=== PATIENT | female | born 1935 | race African-American/Black ===

== ENCOUNTER 2016-12-21 22:21 | Inpatient (IN) | payer MEDICARE, MEDICAID ==
[2016-12-21] MEDS ORDERED: Lidocaine 2% PF 100 mg/5 ml Syringe ONE (22:56)
[2016-12-21 23:13] LABS: Oxyhemoglobin 97.5 % (94.0-97.0); Sodium 139 mmol/L (135-148)
[2016-12-21 23:19] LABS: Modified Allen's Test POSITIVE
[2016-12-21 23:20] LABS: Mode NRB; Vent NO
--- NOTE | 2016-12-21 23:41 | RAD ---
CHEST ONE VIEW: Comparison: 09-09-16 History: Altered mental status. FINDINGS: The patient is slightly rotated to the right. Enlarged cardiac silhouette. The pulmonary vessels are slightly prominent. Costophrenic angles are minimally blunted. Adequate aeration of the upper lungs . No pneumothorax. IMPRESSION: 1. Pulmonary vascular prominence. Blunting of the costophrenic angles. Correlate for volume overload . 2. Enlarged cardiac silhouette. POS: [facility]
[2016-12-22 00:14] LABS: #Eosinphils 0.4 thou/uL (0.0-0.7); #Lymphocytes 2.4 thou/uL (1.20-3.40); #Neutrophils 3.1 thou/uL (1.40-6.50); %Basophils 0.6 % (0.0-1.0); %Eosinophils 5.5 % (0.0-10.0); %Lymphocytes 34.8 % (21.0-51.0); %Monocytes 13.9 % (0.0-10.0); Hematocrit 35.5 % (36.0-47.0); Mean Platelet Volume 8.3 fL (7.4-10.4); Red Blood Cell (RBC) Count 4.13 mill/uL (4.20-5.40); White Blood Cell (WBC) Count 6.8 thou/uL (4.8-10.8)
[2016-12-22 00:30] LABS: Lactic Acid - Sepsis 1.1 mmol/L (0.5-2.2)
[2016-12-22 00:35] LABS: ALT (SGPT) 29 U/L (8-55); AST (SGOT) 22 U/L (5-34); Alkaline Phosphatase 89 U/L (40-150); Anion Gap 14 mmol/L (10-20); BUN (Urea Nitrogen) 25 mg/dL (9.8-20.1); Bilirubin, Total 0.2 mg/dL (0.2-1.2); CK (CPK) 136 U/L (29-168); Calc. Creatinine Clearance 0 mL/min (70-130); Calcium 9.1 mg/dL (7.8-10.44); Carbon Dioxide 25 mmol/L (23-31); Chloride 105 mmol/L (98-107); Estimated GFR-MDRD 42; Globulin 3.1 g/dL (2.4-3.5); Protein, Total 6.3 g/dL (6.0-8.3)
[2016-12-22 00:39] LABS: Troponin I 0.023 ng/mL (< 0.028)
[2016-12-22 00:42] LABS: Bilirubin Negative (Negative); Blood, Urine Moderate (Negative); Glucose, Urine (Dipstick) Negative (Negative); Ketone, Urine Negative (Negative); Nitrite Positive (Negative); Protein, Urine (Dipstick) 100 mg/dL (Neg-Trace); Urobilinogen 0.2 mg/dL (0.2-1.0)
[2016-12-22 00:44] LABS: Bacteria/HPF 4+ HPF (None Seen)
[2016-12-22 00:59] LABS: RBC/HPF 0-3 HPF (0-3)
[2016-12-22 01:01] LABS: Hyaline Casts/LPF 0-3 HYALINE CAST LPF (0-3 Hyaline); Yeast-All Forms None Seen HPF (None Seen)
[2016-12-22] MEDS ORDERED: Lidocaine 1% w/Epinephrine 1:200K 30 ML VIAL ONE (01:21)
[2016-12-22] MEDS ORDERED: Norepinephrine 8 MG/250 ML BAG IVPB SCH (02:45)
[2016-12-22] MEDS ORDERED: Ondansetron ODT 4 MG TAB SL PRN ×2 (03:48→18:16)
[2016-12-22] MEDS ORDERED: Ondansetron HCl/PF 4 MG/2 ML Vial IVP PRN ×2 (03:48→18:22)
[2016-12-22] MEDS: Sodium Chloride 0.9% 1,000 ML IV SCH ×3 (04:12→21:49)
[2016-12-22] MEDS ORDERED: FLU VACC TS2017-18 (>65YR) 0.5 ML SYRINGE IM ONE (09:00)
--- NOTE | 2016-12-22 09:42 | RAD ---
SEMIUPRIGHT CHEST 1 VIEW: HISTORY: An 81-year-old female with followup altered mental status for post line placement evaluation. There is considerable rotation to the right. Surgical clips in the left axilla. Right central line . No evidence for pneumothorax or pleural effusion. IMPRESSION: Stable-appearing chest. No pneumothorax or pleural effusion following right central line placement. POS: [facility]
--- NOTE | 2016-12-22 09:51 | CON ---
DATE OF CONSULTATION: 12/22/2016 HISTORY: This is an 81-year-old female in the ICU for urosepsis. It appears her blood pressure has improved. There are no family members here. Apparently she came in last night via the ER with hyp ertension. She was here recently in the hospital, 09/24/2016 when she sustained a fall and apparent ly had multiple fractures. She was at the retirement. She apparently had a history of dementia. ER notes stated that she had urosepsis. MEDICATIONS: She has a long list of medicine including DuoNeb, melatonin, Armstrong, Lyrica, Diazepam, cyclobenzaprine, iron tablets, Zetia 10, eye drops, omeprazole, metoprolol 50, lisinopril 10, aspiri n, hydrocortisone suppository, insulin. PAST MEDICAL HISTORY: She has a past medical history of diabetes, chronic obstructive pulmonary dis ease, congestive heart failure, high cholesterol, hypertension, arthritis, breast cancer. PAST SURGICAL HISTORY: Bowel resection, coronary bypass surgery, gallbladder surgery, hysterectomy, mastectomy, recent leg surgery done, left leg. Unable to get any history at this stage from the patient. PHYSICAL EXAMINATION: VITAL SIGNS: Blood pressure 130/86 at 7 o'clock in the morning, pulse 79, sats 82. CHEST: Chest revealed decreased breath sounds, no wheezing. CARDIAC: Normal S1, S2. ABDOMEN: Soft, no masses. X-ray is normal. Previous coronary artery bypass graft scar. LABORATORY: White count 6,000, H\T\H 10 and 32, platelets 221, pO2 151, pCO2 54.32 on 100% nonrebre ather, creatinine 1.4, BUN 25. Urine shows too numerous to count WBCs. X-ray showed no acute infiltrates. IMPRESSION: 1. Presumed urosepsis. 2. Hypertension, resolved. 3. Encephalopathy. 4. Chronic obstructive pulmonary disease. 5. Dementia. 6. Recent fractured femur. 7. Azotemia. PLAN: She can probably be transferred out of the ICU once off of all pressors. She was started on ceftriaxone and vancomycin for presumed urosepsis. Microbiology cultures are showing Escherichia co li from July 2016 sensitive to all the antibiotics which we will continue. Transfer to unmonitored bed. Discuss code status with family. Waiting for primary care physician.
[2016-12-22] MEDS ORDERED: Vancomycin HCl 1 GM in Premix Bag 1 BAG IVPB SCH ×2 (12:00→18:30)
[2016-12-22] MEDS ORDERED: cefTRIAXone\\ROCEPHIN 1 GM, Syringe 0.4 ML in Sterile Water 9.6 ML SLOW IVP SCH (13:00)
[2016-12-22] MEDS ORDERED: Dextrose 50% Abboject 50 ML SYRINGE IVP PRN (13:10)
[2016-12-22] MEDS ORDERED: Dextrose 5% in Water 1,000 ML IV PRN (13:10)
[2016-12-22] MEDS ORDERED: HumaLOG 300 UNITS/3 ML VIAL SC PRN (13:10)
[2016-12-22] MEDS ORDERED: Diazepam 5 MG TAB PO PRN (18:27)
[2016-12-22] MEDS ORDERED: Polyethylene Glycol 3350 17 GM Packet PO PRN (18:30)
[2016-12-22] MEDS ORDERED: Milk Of Magnesia 30 ML UDCUP PO PRN (18:34)
[2016-12-22] MEDS ORDERED: cefTRIAXone\\ROCEPHIN 2 GM in Sodium Chloride 0.9% 100 ML IVPB SCH (20:00)
[2016-12-22] MEDS: Simvastatin 20 MG TAB PO SCH (21:43)
[2016-12-22] MEDS: Pregabalin 75 MG CAP PO SCH (21:44)
[2016-12-22] MEDS: Ezetimibe 10 MG TAB PO SCH (21:44)
[2016-12-22] MEDS: Docusate 100 MG CAP PO SCH (21:44)
[2016-12-22] MEDS: Cyclobenzaprine 10 MG TAB PO SCH (21:45)
[2016-12-22] MEDS: Artificial Tear Sol 15 ML BOT EA EYE SCH (21:47)
[2016-12-22] MEDS: Methyl Salicylate/Menthol 85 GM TUBE TOP SCH (23:11)
[2016-12-23] MEDS: Vancomycin HCl 1 GM in Premix Bag 1 BAG IVPB SCH ×2 (00:11→11:45)
[2016-12-23] MEDS: Sodium Chloride 0.9% 1,000 ML IV SCH ×3 (05:28→19:50)
[2016-12-23 05:38] LABS: #Eosinphils 0.6 thou/uL (0.0-0.7); #Lymphocytes 1.7 thou/uL (1.20-3.40); #Monocytes 0.6 thou/uL (0.11-0.59); #Neutrophils 3.6 thou/uL (1.40-6.50); %Basophils 0.6 % (0.0-1.0); %Eosinophils 8.6 % (0.0-10.0); %Lymphocytes 26.3 % (21.0-51.0); %Monocytes 9.5 % (0.0-10.0); Hematocrit 32.7 % (36.0-47.0); Mean Platelet Volume 7.7 fL (7.4-10.4); Red Blood Cell (RBC) Count 3.84 mill/uL (4.20-5.40); White Blood Cell (WBC) Count 6.6 thou/uL (4.8-10.8)
[2016-12-23 05:57] LABS: Anion Gap 12 mmol/L (10-20); BUN (Urea Nitrogen) 14 mg/dL (9.8-20.1); Calc. Creatinine Clearance 82 mL/min (70-130); Calcium 8.6 mg/dL (7.8-10.44); Carbon Dioxide 27 mmol/L (23-31); Chloride 106 mmol/L (98-107); Estimated GFR-MDRD 85
[2016-12-23] MEDS: Diabetic Tussin 200 MG/10 ML UDCUP PO PRN (06:09)
[2016-12-23] MEDS: Ciprofloxacin 0.3% Ophth Drops 2.5 ml Bottle R EYE SCH ×5 (07:16→22:16)
--- NOTE | 2016-12-23 09:14 | PRG ---
DATE OF SERVICE: 12/23/2016 This morning she is a little bit more responsive, no longer confused. PHYSICAL EXAMINATION: VITAL SIGNS: Blood pressure is 160/81, O2 sats 93%, respirations 16, temperature 97. CHEST: Chest revealed decreased breath sounds, no wheezing. CARDIAC: Normal S1-S2. No gallops. ABDOMEN: Soft. No masses. LABORATORY: White count 6000, hemoglobin and hematocrit 10 and 32, platelet count is normal. Elect rolytes are normal. IMPRESSION: 1. Presumed sepsis syndrome. Cultures are negative. 2. Dementia. 3. Hypertension, resolved. PLAN: From a pulmonary standpoint, she can be transferred out of the [facility]. She is a DNR. I will follow at a distance.
[2016-12-23] MEDS: Ascorbic Acid 500 mg Chewable Tablet PO SCH ×2 (09:16→16:33)
[2016-12-23] MEDS: Cyclobenzaprine 10 MG TAB PO SCH ×2 (09:16→21:51)
[2016-12-23] MEDS: Ferrous Sulfate 325 MG TAB PO SCH ×2 (09:17→16:33)
[2016-12-23] MEDS: Pregabalin 75 MG CAP PO SCH ×2 (09:17→21:51)
[2016-12-23] MEDS: Aspirin 325 MG TAB PO SCH (09:17)
[2016-12-23] MEDS: Docusate 100 MG CAP PO SCH ×3 (09:17→21:54)
[2016-12-23] MEDS: Lisinopril 10 MG TAB PO SCH (09:17)
[2016-12-23] MEDS: Artificial Tear Sol 15 ML BOT EA EYE SCH ×4 (09:18→21:54)
[2016-12-23] MEDS: Bisacodyl 10 MG SUPP PR SCH (09:18)
[2016-12-23] MEDS: Methyl Salicylate/Menthol 85 GM TUBE TOP SCH ×3 (09:18→21:53)
[2016-12-23] MEDS: cefTRIAXone\\ROCEPHIN 2 GM in Sodium Chloride 0.9% 100 ML IVPB SCH (09:19)
[2016-12-23] MEDS: HYDROcodone/Acetaminophen 10/325 mg Tablet PO PRN (09:24)
--- NOTE | 2016-12-23 16:40 | HP ---
DATE OF ADMISSION: 12/22/2016 CHIEF COMPLAINT: Lethargy. HISTORY OF PRESENT ILLNESS: Ms. Boucher is an 81-year-old female with past medical h istory of coronary artery disease, hypertension, and diabetes mellitus, who was found to be lethargi c since yesterday. Patient has not been eating well for the last 24 hours, not taking any fluids, w as given medications for pain and other medications including for blood pressure. The patient was a lso found to be hypotensive with blood pressure of 80/60 in the longterm. Patient was DNR; she was restless and called for EMS. In the ER, the patient was evaluated, she was found to be lethargi c and found to have urinary tract infection with possible sepsis. She was hypotensive as well. She was given IV fluids, normal saline bolus 3 liters after her blood pressure improved to 100/60, then she was started on Levophed and admitted to the hospital. The patient also received Rocephin, vanc omycin, and gentamicin for urosepsis. The patient did not have any fever when she came. No nausea, vomiting, no chest pain, no shortness of breath. PAST MEDICAL HISTORY: 1. Diabetes mellitus. 2. Coronary artery disease. 3. Hypertension. 4. Hyperlipidemia. 5. Chronic back pain. 6. Recent admission in September for the fall for femur fracture. PAST SURGICAL HISTORY: 1. Status post ORIF of the distal femur fracture. 2. Status post coronary artery bypass graft. 3. Status post cholecystectomy. 4. Status post hysterectomy. 5. Status post mastectomy. 6. Status post spinal surgery. CURRENT MEDICATIONS: The patient is on albuterol inhaler q.i.d. p.r.n., vitamin C 500 mg daily, asp irin 325 mg daily, Dulcolax p.r.n., Flexeril 10 mg b.i.d., diazepam 5 mg b.i.d., Colace t.i.d., Zeti a 10 mg daily, [place] 1 q.i.d. p.r.n. 10/325, insulin 70/30 dosage not clear right now, lisinopril 10 mg daily, milk of magnesia p.r.n., meclizine 25 mg b.i.d., melatonin 5 mg at bedtime, metoprolol 50 mg daily, omeprazole 20 mg daily, Zofran p.r.n., MiraLax 17 g daily, artificial tears daily p.r.n., Lyrica 150 b.i.d., Zocor 10 mg daily. ALLERGIES: CODEINE. FAMILY HISTORY: Nothing of interest. SOCIAL HISTORY: The patient is a resident of [facility]. No history of smoking. No h istory of alcohol. REVIEW OF SYSTEMS: Unable to obtain from patient because of mental status of the patient. PHYSICAL EXAMINATION: GENERAL: The patient is awake, not very alert. VITAL SIGNS: Temperature 99, pulse 101, respirations 20, blood pressure initially 94/60. HEENT: Head is normocephalic, atraumatic. Pupils are equal and reactive. Nasopharynx is pale and dry. Hard and soft palate, no lesions seen. SKIN: Turgor is decreased. NECK: Supple. No JVD. LUNGS: Breath sounds diminished bilaterally. Percussion not dull bilaterally. No rales, no rhonch i. CARDIAC: S1, S2 regular. ABDOMEN: Soft. No distention, no tenderness. Normal bowel sounds present. RECTAL: Deferred. CENTRAL NERVOUS SYSTEM: The patient is awake, not very alert, moving all extremities. Deep tendon reflexes 2+ bilaterally. Plantars downgoing. Sensory intact. LABORATORY AND X-RAY FINDINGS: CBC shows WBC 6.8, hemoglobin 10.8, hematocrit 35, platelets 221. M etabolic panel: Sodium 139, potassium 4.0, chloride 105, CO2 of 25, BUN 25, creatinine 1.4, glucose 95. Urinalysis showed wbc's greater than 50, bacteria 4+, nitrite positive. ABG shows pH 7.32, pC O2 of 54, pO2 151, saturation 98%. Chest x-ray showed chronic lung changes. EKG shows normal sinus rhythm, no acute ST-T wave changes seen. ASSESSMENT: 1. Possible urosepsis. 2. Hypotension. 3. Metabolic encephalopathy. 4. Diabetes mellitus. 5. Coronary artery disease. 6. Chronic back pain. 7. Chronic anemia. PLAN: 1. Diet n.p.o. 2. Allergies: CODEINE. 3. The patient is DNR. 4. IV fluids with normal saline 125 mL per hour. 5. Rocephin 2 grams IV piggyback daily. 6. Vancomycin 1 gram IV piggyback q.12 hours. 7. Accu-Cheks a.c. and bedtime. 8. Sliding scale mild with regular insulin. 9. List of her home medications.
[2016-12-23] MEDS: Simvastatin 20 MG TAB PO SCH (21:51)
[2016-12-23] MEDS: Ezetimibe 10 MG TAB PO SCH (21:51)
[2016-12-24] MEDS: HYDROcodone/Acetaminophen 10/325 mg Tablet PO PRN (01:20)
[2016-12-24] MEDS: Sodium Chloride 0.9% 1,000 ML IV SCH ×3 (03:59→21:37)
[2016-12-24] MEDS: Ciprofloxacin 0.3% Ophth Drops 2.5 ml Bottle R EYE SCH ×5 (05:39→21:41)
[2016-12-24] MEDS: Cyclobenzaprine 10 MG TAB PO SCH ×2 (07:34→21:34)
[2016-12-24] MEDS: Pregabalin 75 MG CAP PO SCH ×2 (07:34→21:34)
[2016-12-24] MEDS: Docusate 100 MG CAP PO SCH ×3 (07:34→21:35)
[2016-12-24] MEDS: Bisacodyl 10 MG SUPP PR SCH (07:35)
[2016-12-24] MEDS: Lisinopril 10 MG TAB PO SCH (07:35)
[2016-12-24] MEDS: Aspirin 325 MG TAB PO SCH (07:35)
[2016-12-24] MEDS: Ferrous Sulfate 325 MG TAB PO SCH ×2 (07:35→16:59)
[2016-12-24] MEDS: Ascorbic Acid 500 mg Chewable Tablet PO SCH ×2 (07:35→16:58)
[2016-12-24] MEDS: Methyl Salicylate/Menthol 85 GM TUBE TOP SCH ×3 (07:36→21:36)
[2016-12-24] MEDS: Artificial Tear Sol 15 ML BOT EA EYE SCH ×4 (07:36→21:33)
[2016-12-24] MEDS: cefTRIAXone\\ROCEPHIN 2 GM in Sodium Chloride 0.9% 100 ML IVPB SCH (08:55)
[2016-12-24 12:33] LABS: Vancomycin, Trough 10.8 ug/mL
[2016-12-24] MEDS ORDERED: Lisinopril 10 MG TAB PO SCH (20:00)
[2016-12-24] MEDS: Ezetimibe 10 MG TAB PO SCH (21:34)
[2016-12-24] MEDS: Simvastatin 20 MG TAB PO SCH (21:35)
[2016-12-25] MEDS: Sodium Chloride 0.9% 1,000 ML IV SCH ×5 (05:34→22:27)
[2016-12-25] MEDS: Ciprofloxacin 0.3% Ophth Drops 2.5 ml Bottle R EYE SCH ×5 (05:42→21:49)
[2016-12-25] MEDS: cefTRIAXone\\ROCEPHIN 2 GM in Sodium Chloride 0.9% 100 ML IVPB SCH (08:37)
[2016-12-25] MEDS: Ascorbic Acid 500 mg Chewable Tablet PO SCH ×2 (08:37→17:07)
[2016-12-25] MEDS: Ferrous Sulfate 325 MG TAB PO SCH ×2 (08:38→17:07)
[2016-12-25] MEDS: Artificial Tear Sol 15 ML BOT EA EYE SCH ×4 (08:41→21:48)
[2016-12-25] MEDS: Diabetic Tussin 200 MG/10 ML UDCUP PO PRN (08:43)
[2016-12-25] MEDS: Aspirin 325 MG TAB PO SCH (09:55)
[2016-12-25] MEDS: Pregabalin 75 MG CAP PO SCH ×2 (09:56→21:45)
[2016-12-25] MEDS: Cyclobenzaprine 10 MG TAB PO SCH ×2 (09:56→21:45)
[2016-12-25] MEDS: Bisacodyl 10 MG SUPP PR SCH (09:56)
[2016-12-25] MEDS: Docusate 100 MG CAP PO SCH ×3 (09:57→21:44)
[2016-12-25] MEDS: Lisinopril 10 MG TAB PO SCH ×2 (09:57→21:47)
[2016-12-25] MEDS: Methyl Salicylate/Menthol 85 GM TUBE TOP SCH ×3 (09:58→22:29)
[2016-12-25] MEDS: Simvastatin 20 MG TAB PO SCH (21:45)
[2016-12-25] MEDS: Ezetimibe 10 MG TAB PO SCH (21:47)
[2016-12-25] MEDS: HYDROcodone/Acetaminophen 10/325 mg Tablet PO PRN (21:53)
[2016-12-26] MEDS: Diabetic Tussin 200 MG/10 ML UDCUP PO PRN (00:09)
[2016-12-26] MEDS: Ciprofloxacin 0.3% Ophth Drops 2.5 ml Bottle R EYE SCH ×2 (06:40→10:34)
[2016-12-26] MEDS: Sodium Chloride 0.9% 1,000 ML IV SCH (06:49)
[2016-12-26] MEDS: HYDROcodone/Acetaminophen 10/325 mg Tablet PO PRN (06:52)
[2016-12-26 07:37] VITALS: BMI 34.4
[2016-12-26] MEDS: Aspirin 325 MG TAB PO SCH (08:33)
[2016-12-26] MEDS: Ascorbic Acid 500 mg Chewable Tablet PO SCH (08:33)
[2016-12-26] MEDS: Pregabalin 75 MG CAP PO SCH (08:33)
[2016-12-26] MEDS: Ferrous Sulfate 325 MG TAB PO SCH (08:34)
[2016-12-26] MEDS: Lisinopril 10 MG TAB PO SCH (08:34)
[2016-12-26] MEDS: Cyclobenzaprine 10 MG TAB PO SCH (08:34)
[2016-12-26] MEDS: Bisacodyl 10 MG SUPP PR SCH (08:35)
[2016-12-26] MEDS: Artificial Tear Sol 15 ML BOT EA EYE SCH ×2 (08:35→13:13)
[2016-12-26] MEDS: Docusate 100 MG CAP PO SCH (08:35)
[2016-12-26] MEDS: Methyl Salicylate/Menthol 85 GM TUBE TOP SCH (08:36)
[2016-12-26] MEDS: cefTRIAXone\\ROCEPHIN 2 GM in Sodium Chloride 0.9% 100 ML IVPB SCH (08:44)
[2016-12-26 08:45] VITALS: TEMP 97.8
[2016-12-26 11:18] VITALS: BP 162/84
--- NOTE | 2016-12-29 13:57 | DIS ---
DATE OF ADMISSION: 12/22/2016 DATE OF DISCHARGE: 12/26/2016 ADMITTING DIAGNOSES: 1. Possible urosepsis. 2. Hypotension. 3. Metabolic encephalopathy. 4. Diabetes mellitus. 5. Coronary artery disease. 6. Chronic back pain. 7. Chronic anemia. FINAL DIAGNOSES: 1. Urosepsis, improved. 2. Hypotension, improved. 3. Metabolic encephalopathy, improved. 4. Diabetes mellitus. 5. Coronary artery disease. 6. Chronic back pain. 7. Chronic anemia. BRIEF SUMMARY OF HOSPITAL COURSE: Ms. Boucher is an 81-year-old -[place] female admitted because of change in mental status and hypotension. The patient was found to have urosepsis. The patient was given IV fluids and initially, she was started on pressors and admitted to CCU for close monitoring. She was started on Rocephin and vancomycin initially and IV fluids but following day, her blood pressure improved. The patient became more alert , awake, and she was started on a diet. She started to eat very well and blood pressure was stable. She was transferred out of ccu. . Blood culture was done , there was no growth. Urine culture showed growth of E. coli sensitive to Rocephin. The patient will continue Rocephin and started on a regular diet and started physical therapy as well. She did not have anymore fever. Her blood pressure remained stable, in fact, it went up, so she was restarted on her home medications. In view of improvement, the patient is being discharged back to senior living. At the time of discharge, she was stable. PHYSICAL EXAMINATION: VITAL SIGNS: Stable. LUNGS: Clear. HEART: Sounds regular. ABDOMEN: Soft, nontender, bowel sounds present. DISCHARGE MEDICATIONS: Include omeprazole 20 mg daily, metoprolol 50 mg daily, simvastatin 10 mg daily, pregabalin 150 b.i.d., Zetia 10 mg daily, aspirin 325 mg daily, meclizine 25 b.i.d., diazepam 5 mg b.i.d., albuterol inhaler q.i.d. p.r.n., [place] t.i.d. p.r.n., vitamin C daily, Zofran p.r.n., ferrous sulfate b.i.d., lisinopril 10 mg daily, Milk of Magnesia p.r.n., MiraLax 17 grams daily , Colace 100 mg t.i.d., cyclobenzaprine 10 mg b.i.d., melatonin 5 mg at bedtime , artificial tears q.i.d., levofloxacin 750 daily for 1 week, diazepam 5 mg b.i.d. p.r.n., DuoNebs q.i.d. p.r.n. FOLLOWUP: The patient will be followed up in the senior living. ROXANNA
--- NOTE | 2016-12-29 14:34 | PQF ---
SANDY ARMAS VENKAT R MD [id number] CLINICAL DOCUMENTATION CLARIFICATION FORM: POST DISCHARGE Please clarify if documented "urosepsis" can be further specified. H&P; "...found to have Urinary Tract Infection with possible Sepsis. She was hypotensive as well." "...started on Levophed and admitted to the hospital. The patient also received Rocephin, vancomycin, and gentamicin for Urosepsis". PN 12/23 PULMED; "Presumed Sepsis Syndrome. Cultures are negative." PN 12/23; "(1) Urosepsis. (2) Hypotension improving. (3) Encephalopathy improving."; "urine c/s E.Coli"; "DC Vanc, continue Rocephin" . Please exercise your independent, professional judgment in responding to the clarification form. Clinical indicators are provided on the bottom of this form for your review. Thank you. Please check appropriate box(s): [ ] Sepsis due to: (Pna, UTI, gangrenous gall bladder, etc.) [ ] SIRS due to non-infectious process (please specify etiology) [ ] with organ dysfunction [ ] without organ dysfunction [ ] Severe sepsis with acute organ dysfunction of: (Examples: respiratory failure, encephalopathy, acute kidney failure, other) [y ] Urosepsis (localized) infection without sepsis [ ] Other diagnosis [ ] Unable to determine In addition, please specify: Present on Admission (POA): [ ] Yes [ ] No [ ] Unable to determine CLINICAL INDICATORS - SIGNS / SYMPTOMS / LABS Altered mental status Fever or hypothermia (<96.8 F/36 C or > 100.4 F/38C) Respiratory rate >22/min, Hypoxemia, SBP <100mmHg Metabolic acidosis Lactic Acid >2mmol/L, Increase BUN/Regional Marketing Manager, decrease GFR, coag abnormalities, thrombocytopenia-plts <100k Oliguria Shock-hypotension resistant to IV fluid boluses WBC count (>12,000/mm^4 or <4000/mm^3 or 10% neuts, 10% bands) Hyperglycemia in absence of diabetes mellitus Positive blood cultures RISK FACTORS Infection/Bacteremia Pneumonia, UTI, infected wound, gangrenous gall bladder Diabetes or Cancer Surgery / surgical instrumentation / trauma Ruptured/perforated bowel, ruptured appendix Immunosuppression Advancing Age TREATMENTS: Initiation Sepsis Protocol ICU Daily CBC Blood/sputum/wound cultures ID Consult IV antibiotics - broad spectrum IV fluids Vasopressors, meds (This form is maintained as a part of the permanent medical record) 2014 [employer]. All Rights Reserved GREER [email or web address] [phone] ROXANNA
== END 2016-12-26 13:37 | DRG 689 ==
LOC: ERS 22:21 → CCU 12-22 02:32 → IMCU/EMU 12-22 15:29 → T4-B 12-23 14:02
PROVIDERS: ADMIT Internal Medicine; ATTEND Internal Medicine
PROC: 05H633Z Insertion of Infusion Device into Left Subclavian Vein, Percutaneous Approach (ICD-10-PCS; principal; 2016-12-22)
PROC: B547ZZA Ultrasonography of Left Subclavian Vein, Guidance (ICD-10-PCS; 2016-12-22)
DX: N39.0 Urinary tract infection, site not specified (principal); G93.41 Metabolic encephalopathy; I95.9 Hypotension, unspecified; I11.0 Hypertensive heart disease with heart failure; J44.9 Chronic obstructive pulmonary disease, unspecified; F03.90 Unspecified dementia, unspecified severity, without behavioral disturbance, psychotic disturbance, mood disturbance, and anxiety; E11.9 Type 2 diabetes mellitus without complications; B96.20 Unspecified Escherichia coli [E. coli] as the cause of diseases classified elsewhere; D64.9 Anemia, unspecified; Z95.1 Presence of aortocoronary bypass graft; I25.10 Atherosclerotic heart disease of native coronary artery without angina pectoris; Z66 Do not resuscitate; E78.5 Hyperlipidemia, unspecified; M54.9 Dorsalgia, unspecified; Z87.81 Personal history of (healed) traumatic fracture
CPT/HCPCS: 36416; 36556; 51702; 71010; 80048; 80053; 80202; 81003; 81015; 82553; 82805; 83605; 84484; 85025; 87040; 87077; 87086; 87186; 90471; 90682; 93005; 94640; 94760; 96361; 96365; 96366; 96368; 96375; 99292; A4216; A4353; G0008; J0696; J1580; J2001; J3370; J7050; J7620; Q2036

== ENCOUNTER 2017-01-22 18:47 | Inpatient (IN) | payer MEDICARE, MEDICAID ==
[2017-01-22 19:59] LABS: #Eosinphils 0.3 thou/uL (0.0-0.7); #Lymphocytes 2.6 thou/uL (1.20-3.40); #Monocytes 1.6 thou/uL (0.11-0.59); #Neutrophils 8.3 thou/uL (1.40-6.50); %Basophils 0.4 % (0.0-1.0); %Eosinophils 2.4 % (0.0-10.0); %Lymphocytes 20.3 % (21.0-51.0); %Monocytes 12.3 % (0.0-10.0); Hematocrit 40.7 % (36.0-47.0); Mean Platelet Volume 8.8 fL (7.4-10.4); Red Blood Cell (RBC) Count 4.84 mill/uL (4.20-5.40); White Blood Cell (WBC) Count 12.9 thou/uL (4.8-10.8)
[2017-01-22 20:15] LABS: Lactic Acid - Sepsis 0.9 mmol/L (0.5-2.2)
[2017-01-22 20:19] LABS: ALT (SGPT) 67 U/L (8-55); AST (SGOT) 48 U/L (5-34); Alkaline Phosphatase 93 U/L (40-150); Anion Gap 17 mmol/L (10-20); BUN (Urea Nitrogen) 23 mg/dL (9.8-20.1); Bilirubin, Total 0.9 mg/dL (0.2-1.2); Calc. Creatinine Clearance 0 mL/min (70-130); Calcium 9.5 mg/dL (7.8-10.44); Carbon Dioxide 23 mmol/L (23-31); Chloride 102 mmol/L (98-107); Estimated GFR-MDRD 65; Globulin 3.8 g/dL (2.4-3.5); Protein, Total 7.7 g/dL (6.0-8.3)
[2017-01-22 21:04] LABS: Bilirubin Negative (Negative); Blood, Urine Small (Negative); Glucose, Urine (Dipstick) Negative (Negative); Ketone, Urine Negative (Negative); Nitrite Negative (Negative); Protein, Urine (Dipstick) 30 mg/dL (Neg-Trace)
[2017-01-22 21:06] LABS: Bacteria/HPF 4+ HPF (None Seen); Hyaline Casts/LPF 0-3 HYALINE CAST LPF (0-3 Hyaline); Squamous Epithelial None Seen HPF (0-3)
[2017-01-22] MEDS ORDERED: cefTRIAXone\\ROCEPHIN 2 GM in Sodium Chloride 0.9% 100 ML IVPB SCH (21:15)
--- NOTE | 2017-01-22 22:13 | RAD ---
AP VIEW CHEST 01/22/17 HISTORY: Altered mental status. Cough. AP view chest is obtained on 01/22/17. Comparison made to previous exam from 12/22/16. AP view chest demonstrates sternotomy wires seen. Moderate cardiomegaly is seen. Ectasia of the aorta is seen. The lungs are well aerated. No evidence of acute intrathoracic abnormality is noted. Surgic al clips seen in the left axillary region. Bilateral shoulder degenerative changes seen. IMPRESSION: No evidence of acute intrathoracic abnormality seen. POS: [facility]
--- NOTE | 2017-01-22 22:22 | CT ---
HISTORY: 81-year-old with history of altered mental status. NONCONTRAST ENHANCED CT IMAGES OF THE BRAIN 01/22/[address] images of the brain is obtained from the base of the skull to the vertex. Bra in and bone windows obtained. Comparison made to a previous exam from 07/19/16. Noncontrast enhanced CT images of the brain demonstrate some mild cortical atrophy and deep white mat ter ischemic changes for age. No evidence of acute intracranial masses, hemorrhages, or strokes seen. IMPRESSION: Age appropriate cortical atrophy, otherwise unremarkable. CT brain. POS: [facility]
[2017-01-22] MEDS ORDERED: hydrALAZINE 20 MG/ML VIAL ONE (22:33)
[2017-01-22] MEDS ORDERED: Acetaminophen 1,000 MG in Premix Bag 1 BAG IVPB SCH (22:45)
[2017-01-22] MEDS ORDERED: Ondansetron HCl/PF 4 MG/2 ML Vial IVP PRN (23:17)
[2017-01-22] MEDS ORDERED: Ondansetron ODT 4 MG TAB SL PRN (23:17)
[2017-01-22] MEDS ORDERED: Acetaminophen 325 MG TAB PO PRN (23:17)
[2017-01-22] MEDS: Sodium Chloride 0.9% 1,000 ML IV SCH (23:25)
[2017-01-23] MEDS: Sodium Chloride 0.9% 1,000 ML IV SCH (12:13)
[2017-01-23] MEDS ORDERED: Dextrose 5% in Water 1,000 ML IV PRN (13:32)
[2017-01-23] MEDS ORDERED: Dextrose 50% Abboject 50 ML SYRINGE IVP PRN (13:32)
[2017-01-23] MEDS ORDERED: Ondansetron ODT 4 MG TAB PO PRN (13:33)
[2017-01-23] MEDS ORDERED: Milk Of Magnesia 30 ML UDCUP PO PRN ×2 (13:36→13:37)
[2017-01-23] MEDS ORDERED: Loratadine 10 MG TAB PO PRN (13:36)
--- NOTE | 2017-01-23 13:39 | HP ---
DATE OF ADMISSION: 01/22/2017 CHIEF COMPLAINT: Fever, cough, altered mental status. HISTORY OF PRESENT ILLNESS: Ms. Boucher is an 81-year-old female sent from [facility]. The patient was found to have altered mental status and she was lethargic, not respon ding well, not eating well for the last couple of days, she had fever and cough. Cough productive wi th yellow sputum. The patient was not at her baseline, she was confused and slow to respond. In vie w of her change in mental status with fever and cough the patient was sent to the hospital. In the E R, the patient was evaluated and found to have a urinary tract infection. The patient received Rocep hin in the ER. The patient was not hypotensive. Actually, her blood pressure was high. She receive d hydralazine as well. She was started on IV fluids. The patient was definitely confused and slow t o respond in the ER. PAST MEDICAL HISTORY: 1. Hypertension. 2. Diabetes mellitus. 3. Chronic back pain. 4. Anxiety disorder. 5. Chronic anemia. 6. Hyperlipidemia. 7. Coronary artery disease. 8. Recent admission for urinary tract infection. PAST SURGICAL HISTORY: 1. Status post distal femur fracture. 2. Status post coronary artery bypass graft. 3. Status post cholecystectomy. 4. Status post hysterectomy. 5. Status post spinal surgery. CURRENT MEDICATIONS: Patient is on Artificial Tears p.r.n., albuterol inhaler p.r.n., vitamin C symone y, aspirin 81 mg daily, cyclobenzaprine 10 mg b.i.d., diazepam 5 mg b.i.d., Colace 100 mg t.i.d., Zet ia 10 mg daily, ferrous sulfate b.i.d., guaifenesin p.r.n., [place] 10/325 q.i.d. q.8h. p.r.n., insul in 70/30, dose is not clear, DuoNebs q.i.d. p.r.n., lisinopril 10 mg daily, loratadine 10 mg daily, M ilk of Magnesia p.r.n., meclizine 25 mg b.i.d., melatonin 5 mg at bedtime, metoprolol 50 mg daily, Zo logan p.r.n., MiraLax 17 grams daily, Lyrica 150 b.i.d., ranitidine 150 b.i.d., simvastatin 10 mg symone y. ALLERGIES: CODEINE. FAMILY HISTORY: Nothing of interest. SOCIAL HISTORY: Patient lives in longterm. No history of smoking. No history of alcohol intake . REVIEW OF SYSTEMS: CARDIOVASCULAR: No chest pain. No shortness of breath. RESPIRATORY: She has cough and fever. GASTROINTESTINAL: No nausea or vomiting. No appetite, abdominal pain. GENITOURINARY: No dysuria, but has frequency of urination. 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 PHYSICAL EXAMINATION: GENERAL: The patient is alert, awake, oriented x2. VITAL SIGNS: Temperature 102, pulse 109, respirations 20, blood pressure 188/80. HEENT: Head is normocephalic, atraumatic. Pupils equal and reactive to light. Nasopharynx is pale and dry. Hard and soft palate, no lesions. SKIN: Skin turgor decreased. NECK: Supple. No JVD. LUNGS: Breath sounds diminished bilaterally. Percussion not dull bilaterally. No rales, no rhonchi . CARDIAC: S1, S2 regular. ABDOMEN: Soft, no distention, no tenderness. Normal bowel sounds. RECTAL: Deferred. CENTRAL NERVOUS SYSTEM: The patient is alert, awake, oriented x2. Motor system power 4/5 in all ex tremities. Deep tendon reflexes 2+ bilaterally. Sensory intact. LABORATORY AND X-RAY FINDINGS: CBC shows WBC 12.9, hemoglobin 13, hematocrit 40, platelets 162. Met abolic panel: Sodium 136, potassium 5.6, chloride 102, CO2 20, urea nitrogen 20, creatinine 0.9, glu cose 115, AST 48, ALT 67. Urinalysis shows WBCs greater than 50 and RBC 11-20, bacteria 4+, leukocyt e esterase large. Chest x-ray, no acute intrathoracic abnormality. CT scan of the brain showed age appropriate cortica l atrophy, otherwise unremarkable. EKG shows sinus tachycardia with heart rate of 103, no acute ST-T changes seen. ASSESSMENT: 1. Urinary tract infection, rule out sepsis. 2. Acute toxic encephalopathy, metabolic. 3. Fever and leukocytosis, rule out sepsis. 4. Hypertension, uncontrolled. 5. Insulin-dependent diabetes mellitus. 6. Chronic pain. 7. Coronary artery disease. PLAN: 1. Vital signs q.4 hours. 2. Activity: As tolerated. 3. Allergies: CODEINE. 4. Diet: ADA. 5. Rocephin 2 grams IV piggyback daily. 6. Accu-Chek a.c. and at bedtime. 7. Sliding scale mild with regular insulin. 8. IV fluids 1/2 normal at 80 mL per hour. 9. Continue longterm medications. 10. The patient is DNR.
[2017-01-23] MEDS ORDERED: cefTRIAXone\\ROCEPHIN 2 GM in Sodium Chloride 0.9% 100 ML IVPB SCH ×2 (13:45→21:00)
[2017-01-23 14:30] VITALS: BMI 30.2
[2017-01-23] MEDS: Sodium Chloride 0.45% 1,000 ML IV SCH (14:56)
[2017-01-23] MEDS: HYDROcodone/Acetaminophen 10/325 mg Tablet PO SCH ×2 (15:00→22:05)
[2017-01-23] MEDS: Docusate 100 MG CAP PO SCH ×2 (15:02→22:08)
[2017-01-23] MEDS: Artificial Tears 18 DROP/0.9 ML EA EYE SCH (18:10)
[2017-01-23] MEDS ORDERED: Acetaminophen 325 MG TAB PO PRN (21:33)
[2017-01-23] MEDS: Simvastatin 20 MG TAB PO SCH (22:04)
[2017-01-23] MEDS: Melatonin 3 MG TAB PO SCH (22:06)
[2017-01-23] MEDS: Pregabalin 75 MG CAP PO SCH (22:06)
[2017-01-23] MEDS: Famotidine 20 MG TAB PO SCH (22:07)
[2017-01-23] MEDS: Ferrous Sulfate 325 MG TAB PO SCH (22:07)
[2017-01-23] MEDS: Ezetimibe 10 MG TAB PO SCH (22:08)
[2017-01-23] MEDS: Artificial Tear Sol 15 ML BOT EA EYE SCH (22:08)
[2017-01-23] MEDS: Diazepam 2 MG TAB PO SCH (22:08)
[2017-01-23] MEDS: Cyclobenzaprine 10 MG TAB PO SCH (22:08)
[2017-01-23] MEDS ORDERED: Labetalol HCl 100 MG/20 ML VIAL SLOW IVP PRN (22:54)
[2017-01-24] MEDS: BIOFREEZE 4% TOP SCH (01:06)
[2017-01-24] MEDS: Artificial Tears 18 DROP/0.9 ML EA EYE SCH (01:07)
[2017-01-24 04:34] LABS: #Eosinphils 0.2 thou/uL (0.0-0.7); #Monocytes 1.3 thou/uL (0.11-0.59); #Neutrophils 6.5 thou/uL (1.40-6.50); %Basophils 0.1 % (0.0-1.0); %Lymphocytes 19.7 % (21.0-51.0); %Monocytes 13.2 % (0.0-10.0); Hematocrit 34.6 % (36.0-47.0); Mean Platelet Volume 8.9 fL (7.4-10.4); Red Blood Cell (RBC) Count 4.06 mill/uL (4.20-5.40)
[2017-01-24 04:48] LABS: Anion Gap 13 mmol/L (10-20); BUN (Urea Nitrogen) 19 mg/dL (9.8-20.1); Calc. Creatinine Clearance 76 mL/min (70-130); Calcium 8.9 mg/dL (7.8-10.44); Carbon Dioxide 24 mmol/L (23-31); Chloride 104 mmol/L (98-107); Estimated GFR-MDRD 80
[2017-01-24] MEDS: Sodium Chloride 0.45% 1,000 ML IV SCH ×2 (05:52→20:16)
[2017-01-24] MEDS: HYDROcodone/Acetaminophen 10/325 mg Tablet PO SCH ×3 (06:52→22:26)
[2017-01-24] MEDS: Lisinopril 10 MG TAB PO SCH (08:40)
[2017-01-24] MEDS: Cyclobenzaprine 10 MG TAB PO SCH (08:40)
[2017-01-24] MEDS: Ascorbic Acid 500 mg Chewable Tablet PO SCH (08:40)
[2017-01-24] MEDS: Ferrous Sulfate 325 MG TAB PO SCH ×2 (08:40→20:17)
[2017-01-24] MEDS: Famotidine 20 MG TAB PO SCH ×2 (08:41→20:19)
[2017-01-24] MEDS: Aspirin 81 mg Enteric Coated Tablet PO SCH (08:42)
[2017-01-24] MEDS: Pregabalin 75 MG CAP PO SCH ×2 (08:42→20:17)
[2017-01-24] MEDS: Docusate 100 MG CAP PO SCH ×3 (08:44→20:17)
[2017-01-24] MEDS: Artificial Tear Sol 15 ML BOT EA EYE SCH ×4 (08:45→20:20)
[2017-01-24] MEDS: Polyethylene Glycol 3350 17 GM Packet PO SCH (08:45)
[2017-01-24] MEDS ORDERED: cefTRIAXone\\ROCEPHIN 2 GM in Sodium Chloride 0.9% 100 ML IVPB SCH (09:00)
--- NOTE | 2017-01-24 11:08 | ULT ---
RENAL ULTRASOUND: INDICATION: History of UTI and sepsis. FINDINGS: No hydronephrosis is evident. There is a small 1.5 cm peripelvic cyst involving the inferior pole of the left kidney. The bladder measured 98.1 cc in prevoid state. The right kidney measured 12.8 x 6.8 x 6.8 cm. The left kidney measured 13.4 x 5.4 x 5.9 cm. IMPRESSION: 1. No focal solid renal lesion or hydronephrosis. 2. Inferior pole peripelvic cyst involving the left kidney. POS: [facility]
[2017-01-24] MEDS: Insulin Regular 300 UNITS/3 ML VIAL SC PRN (12:49)
[2017-01-24] MEDS: Diazepam 2 MG TAB PO SCH ×2 (15:22→20:18)
[2017-01-24] MEDS ORDERED: MEROPENEM 1 GM/50 ML 1 GM in Premix Bag 1 BAG IVPB SCH (16:00)
[2017-01-24] MEDS: Melatonin 3 MG TAB PO SCH (20:17)
[2017-01-24] MEDS: Ezetimibe 10 MG TAB PO SCH (20:17)
[2017-01-24] MEDS: Simvastatin 20 MG TAB PO SCH (20:18)
[2017-01-24] MEDS: MEROPENEM 1 GM/50 ML 1 GM in Premix Bag 1 BAG IVPB SCH (20:30)
[2017-01-25] MEDS: MEROPENEM 1 GM/50 ML 1 GM in Premix Bag 1 BAG IVPB SCH ×3 (04:37→20:26)
[2017-01-25] MEDS: HYDROcodone/Acetaminophen 10/325 mg Tablet PO SCH ×3 (05:40→22:53)
[2017-01-25] MEDS: Pregabalin 75 MG CAP PO SCH ×2 (08:09→20:29)
[2017-01-25] MEDS: Polyethylene Glycol 3350 17 GM Packet PO SCH ×2 (08:09→08:21)
[2017-01-25] MEDS: Docusate 100 MG CAP PO SCH ×3 (08:10→20:29)
[2017-01-25] MEDS: Ascorbic Acid 500 mg Chewable Tablet PO SCH (08:10)
[2017-01-25] MEDS: Lisinopril 10 MG TAB PO SCH (08:11)
[2017-01-25] MEDS: Famotidine 20 MG TAB PO SCH ×2 (08:14→20:30)
[2017-01-25] MEDS: Ferrous Sulfate 325 MG TAB PO SCH ×2 (08:15→20:30)
[2017-01-25] MEDS: Aspirin 81 mg Enteric Coated Tablet PO SCH (08:15)
[2017-01-25] MEDS: Artificial Tear Sol 15 ML BOT EA EYE SCH ×4 (10:47→21:00)
[2017-01-25] MEDS: Insulin Regular 300 UNITS/3 ML VIAL SC PRN ×2 (11:34→17:21)
[2017-01-25] MEDS: Sodium Chloride 0.45% 1,000 ML IV SCH (12:57)
[2017-01-25] MEDS: Diabetic Tussin 200 MG/10 ML UDCUP PO PRN (14:45)
[2017-01-25] MEDS: Diazepam 2 MG TAB PO SCH (20:29)
[2017-01-25] MEDS: Simvastatin 20 MG TAB PO SCH (20:29)
[2017-01-25] MEDS: Ezetimibe 10 MG TAB PO SCH (20:29)
[2017-01-25] MEDS: Melatonin 3 MG TAB PO SCH (22:53)
[2017-01-26] MEDS: MEROPENEM 1 GM/50 ML 1 GM in Premix Bag 1 BAG IVPB SCH ×4 (04:00→20:00)
[2017-01-26] MEDS: HYDROcodone/Acetaminophen 10/325 mg Tablet PO SCH ×4 (05:05→21:43)
--- NOTE | 2017-01-26 07:52 | PQF ---
CLINICAL DOCUMENTATION IMPROVEMENT CLARIFICATION FORM: ICD-10 Updated PLEASE DO AN ADDENDUM TO THE PROGRESS NOTE WITH ANY DOCUMENTATION UPDATES OR ADDITIONS AND CARRY THROUGH TO DC SUMMARY. THANK YOU. DATE: 01/26 ATTN: DR. Genie VILLAFUERTE Please exercise your independent, professional judgment in responding to the clarification form. Clinical indicators are provided on the bottom of this form for your review Please check appropriate box(s) to clarify if the following diagnosis has been ruled in our ruled out: R/O SEPSIS [ ] Ruled in diagnosis [ ] Continue to treat [ ] Resolved [y ] Ruled out diagnosis [ ] Other diagnosis [ ] Unable to determine For continuity of documentation, please document condition throughout progress notes and discharge summary. Thank You. CLINICAL INDICATORS - SIGNS / SYMPTOMS / LABS ER PRESENTATION 01/22: AMS T: 102.8 HR: 105-115 WBC: 12.9 ER PHYSICIAN DIAGNOSES DOCUMENTATION 01/22: FINAL: UTI, ADD'L: SEPSIS PHYSICIAN H&P DOCUMENTATION 01/22: ASSESSMENT: 1. UTI, R/O SEPSIS; 2. ACUTE TOXIC ENCELPHALOPATHY, METABOLIC; 3. FEVER & ACUTE LEUKOCYTOSIS, R/O SEPSIS NO FURTHER MENTION OF SEPSIS TO DATE RISK FACTORS: UTI (E COLI) ACUTE TOXIC METABOLIC ENCEPHALOPATHY FEVER (102.8) LEUKOCYTOSIS (12.9) TREATMENTS: IV ANTIBIOTICS (MEROPENEM 01/24 - PRESENT; ROCEPHIN 01/22 - 15) IVF (NS 01/22 - ) THANK YOU! Jenn (This form is maintained as a part of the permanent medical record) 2014 [employer]. All Rights Reserved Jenn Burrows RN, BSN [email or web address] Office: [phone] [facility]
[2017-01-26] MEDS: Artificial Tear Sol 15 ML BOT EA EYE SCH ×4 (08:45→21:43)
[2017-01-26] MEDS: Famotidine 20 MG TAB PO SCH ×2 (08:45→21:43)
[2017-01-26] MEDS: Ferrous Sulfate 325 MG TAB PO SCH ×2 (08:45→21:45)
[2017-01-26] MEDS: Docusate 100 MG CAP PO SCH ×3 (08:46→21:45)
[2017-01-26] MEDS: Lisinopril 10 MG TAB PO SCH (08:46)
[2017-01-26] MEDS: Aspirin 81 mg Enteric Coated Tablet PO SCH (08:46)
[2017-01-26] MEDS: Ascorbic Acid 500 mg Chewable Tablet PO SCH (08:46)
[2017-01-26] MEDS: Polyethylene Glycol 3350 17 GM Packet PO SCH (08:47)
[2017-01-26] MEDS: Pregabalin 75 MG CAP PO SCH ×2 (10:14→21:44)
[2017-01-26] MEDS: Diabetic Tussin 200 MG/10 ML UDCUP PO PRN (11:40)
[2017-01-26] MEDS: Insulin Regular 300 UNITS/3 ML VIAL SC PRN (11:40)
[2017-01-26] MEDS: Melatonin 3 MG TAB PO SCH (21:42)
[2017-01-26] MEDS: Simvastatin 20 MG TAB PO SCH (21:43)
[2017-01-26] MEDS: Ezetimibe 10 MG TAB PO SCH (21:44)
[2017-01-26] MEDS: Diazepam 2 MG TAB PO SCH (21:45)
[2017-01-27] MEDS: MEROPENEM 1 GM/50 ML 1 GM in Premix Bag 1 BAG IVPB SCH (04:17)
[2017-01-27] MEDS: HYDROcodone/Acetaminophen 10/325 mg Tablet PO SCH ×3 (05:52→22:00)
[2017-01-27] MEDS: Pregabalin 75 MG CAP PO SCH ×2 (08:40→20:37)
[2017-01-27] MEDS: Ascorbic Acid 500 mg Chewable Tablet PO SCH (08:40)
[2017-01-27] MEDS: Ferrous Sulfate 325 MG TAB PO SCH ×2 (08:41→20:38)
[2017-01-27] MEDS: Famotidine 20 MG TAB PO SCH ×2 (08:41→20:38)
[2017-01-27] MEDS: Docusate 100 MG CAP PO SCH ×3 (08:41→20:38)
[2017-01-27] MEDS: Artificial Tear Sol 15 ML BOT EA EYE SCH ×4 (08:42→20:39)
[2017-01-27] MEDS: Aspirin 81 mg Enteric Coated Tablet PO SCH (08:42)
[2017-01-27] MEDS: Polyethylene Glycol 3350 17 GM Packet PO SCH (08:42)
[2017-01-27] MEDS: Lisinopril 10 MG TAB PO SCH (08:42)
[2017-01-27] MEDS: Insulin Regular 300 UNITS/3 ML VIAL SC PRN (15:09)
[2017-01-27] MEDS: Ezetimibe 10 MG TAB PO SCH (20:37)
[2017-01-27] MEDS: Nitrofurantoin Monohyd/M-Cryst 100 MG CAP PO SCH (20:38)
[2017-01-27] MEDS: Diazepam 2 MG TAB PO SCH (20:38)
[2017-01-27] MEDS: Simvastatin 20 MG TAB PO SCH (20:38)
[2017-01-27] MEDS: Melatonin 3 MG TAB PO SCH ×2 (20:39→20:44)
[2017-01-28] MEDS: HYDROcodone/Acetaminophen 10/325 mg Tablet PO SCH (06:17)
[2017-01-28] MEDS: Artificial Tear Sol 15 ML BOT EA EYE SCH (08:28)
[2017-01-28] MEDS: Pregabalin 75 MG CAP PO SCH (08:28)
[2017-01-28] MEDS: Polyethylene Glycol 3350 17 GM Packet PO SCH (08:28)
[2017-01-28] MEDS: Ferrous Sulfate 325 MG TAB PO SCH (08:29)
[2017-01-28] MEDS: Lisinopril 10 MG TAB PO SCH ×2 (08:30→10:11)
[2017-01-28] MEDS: Ascorbic Acid 500 mg Chewable Tablet PO SCH (08:30)
[2017-01-28] MEDS: Aspirin 81 mg Enteric Coated Tablet PO SCH (08:30)
[2017-01-28] MEDS: Famotidine 20 MG TAB PO SCH (08:30)
[2017-01-28] MEDS: Nitrofurantoin Monohyd/M-Cryst 100 MG CAP PO SCH (08:30)
[2017-01-28] MEDS: Docusate 100 MG CAP PO SCH (08:30)
[2017-01-28] MEDS ORDERED: Lisinopril 10 MG TAB PO SCH (10:00)
[2017-01-28 12:31] VITALS: BP 158/92; TEMP 98.1
--- NOTE | 2017-01-29 14:40 | DIS ---
DATE OF ADMISSION: 01/22/2017 DATE OF DISCHARGE: 01/28/2017 ADMITTING DIAGNOSES: 1. Urinary tract infection, rule out sepsis. 2. Acute toxic encephalopathy, metabolic. 3. Fever and leukocytosis, rule out sepsis. 4. Hypertension, uncontrolled. 5. Insulin-dependent diabetes mellitus. 6. Chronic pain. 7. Coronary artery disease. FINAL DIAGNOSES: 1. Urinary tract infection, no evidence of sepsis. 2. Acute toxic encephalopathy, metabolic, improved. 3. Fever, leukocytosis, resolved. 4. Hypertension, uncontrolled, improved. 5. Insulin-dependent diabetes, uncontrolled, improved. 6. Chronic back pain. 7. Coronary artery disease. BRIEF SUMMARY OF HOSPITAL COURSE: Ms. Boucher is an 81-year-old female admitted bec se of not feeling well, change in mental status. The patient was lethargic, not responding well and not eating well. The patient was found to have a urinary tract infection. She was started on IV ant ibiotics with Rocephin initially, but her urine culture revealed growth of E. coli which was resistan t to Rocephin and sensitive to meropenem, so the antibiotic was changed to meropenem. The patient di d not have any more fever. Her mental status improved. She became more alert, awake, and she starte d to eat very well. Her blood pressure initially was uncontrolled, but medications were adjusted. H er lisinopril dose was increased and her blood pressure came down. Her blood sugars were also high, but her insulin dose was adjusted. So in view of improvement, the patient was discharged. At the ti me of discharge, she was stable. Her vital signs were stable. Lungs clear. Heart sounds regular. Abdomen soft, nontender. Bowel sounds present. DISCHARGE MEDICATIONS: Metoprolol 50 daily, Toprol-XL, simvastatin 10 mg daily, Lyrica 150 b.i.d., Zetia 10 mg daily, meclizine 25 b.i.d., albuterol inhaler p.r.n., [place] p.r.n., vitamin C 500 mg b.i .d., Zofran p.r.n., ferrous sulfate 300 b.i.d., lisinopril 20 mg daily, Milk of Magnesia p.r.n., Annalisa Lax daily, guaifenesin p.r.n., Colace 100 mg t.i.d., Artificial Tears p.r.n., melatonin 5 mg at bedti me, DuoNeb q.i.d. p.r.n., ranitidine 150 b.i.d., loratadine 10 mg daily, aspirin 81 mg daily, Macrob id 100 b.i.d. for 10 days, diazepam 2 mg at bedtime and Tylenol p.r.n. FOLLOWUP: The patient will be followed up at senior living in 2 weeks.
--- NOTE | 2017-01-31 15:53 | EKG ---
Test Reason : Blood Pressure : / mmHG Vent. Rate : 103 BPM Atrial Rate : 103 BPM P-R Int : 144 ms QRS Dur : 090 ms QT Int : 324 ms P-R-T Axes : 049 -18 097 degrees QTc Int : 424 ms Sinus tachycardia Left ventricular hypertrophy with repolarization abnormality Abnormal ECG Confirmed by BASSEM REYES, JEFFREY ([id number]), legal editor NEVIN PINTO ([id number]) on 01/31/2017 3:52:22 PM Referred By: Confirmed By:JEFFREY LUEVANO MD
== END 2017-01-28 12:23 | DRG 689 ==
LOC: ERS 18:47 → T4-B 21:12
PROVIDERS: ADMIT Internal Medicine; ATTEND Internal Medicine
DX: N39.0 Urinary tract infection, site not specified (principal); G92 Toxic encephalopathy; E11.9 Type 2 diabetes mellitus without complications; I11.0 Hypertensive heart disease with heart failure; I50.9 Heart failure, unspecified; E78.5 Hyperlipidemia, unspecified; B96.20 Unspecified Escherichia coli [E. coli] as the cause of diseases classified elsewhere; D64.9 Anemia, unspecified; G89.29 Other chronic pain; M54.9 Dorsalgia, unspecified; F41.9 Anxiety disorder, unspecified; I25.10 Atherosclerotic heart disease of native coronary artery without angina pectoris; Z95.1 Presence of aortocoronary bypass graft; Z79.82 Long term (current) use of aspirin; Z79.4 Long term (current) use of insulin; Z79.891 Long term (current) use of opiate analgesic; Z88.5 Allergy status to narcotic agent; Z85.3 Personal history of malignant neoplasm of breast; Z90.12 Acquired absence of left breast and nipple; M19.90 Unspecified osteoarthritis, unspecified site
CPT/HCPCS: 36415; 36416; 51701; 70450; 71010; 76770; 80048; 80053; 81003; 81015; 83605; 85025; 87040; 87077; 87086; 87186; 93005; 94640; 96365; A4216; A4353; G8978-GP-CL; G8979-GP-CK; G8996-GN-CK; G8997-GN-CK; J0131; J0360; J0696; J1815; J7050; J7620

== ENCOUNTER 2017-07-20 09:45 | Inpatient (IN) | payer MEDICARE, MEDICAID ==
[2017-07-20 10:35] LABS: #Eosinphils 0.5 thou/uL (0.0-0.7); #Lymphocytes 2.1 thou/uL (1.20-3.40); #Monocytes 1.1 thou/uL (0.11-0.59); #Neutrophils 5.2 thou/uL (1.40-6.50); %Basophils 0.4 % (0.0-1.0); %Eosinophils 5.3 % (0.0-10.0); %Lymphocytes 23.7 % (21.0-51.0); %Monocytes 12.7 % (0.0-10.0); %Neutrophils 57.9 % (42.0-75.0); Hemoglobin 12.3 g/dL (12.0-16.0); Mean Corpuscular HGB CONC 33.2 g/dL (32.0-36.0); Mean Corpuscular Hemoglobin 28.8 pg (27.0-31.0); Mean Corpuscular Volume 86.7 fl (81.0-99.0); Mean Platelet Volume 7.6 fL (7.4-10.4); Platelet Count 149 thou/uL (130-400); Red Blood Cell (RBC) Count 4.26 mill/uL (4.20-5.40); White Blood Cell (WBC) Count 8.9 thou/uL (4.8-10.8)
[2017-07-20 10:57] LABS: ALT (SGPT) 28 U/L (8-55); AST (SGOT) 28 U/L (5-34); Alkaline Phosphatase 75 U/L (40-150); Anion Gap 14 mmol/L (10-20); BUN (Urea Nitrogen) 11 mg/dL (9.8-20.1); Bilirubin, Total 0.6 mg/dL (0.2-1.2); CK (CPK) 336 U/L (29-168); Calc. Creatinine Clearance 0 mL/min (70-130); Calcium 9.4 mg/dL (7.8-10.44); Carbon Dioxide 25 mmol/L (23-31); Chloride 101 mmol/L (98-107); Estimated GFR-MDRD 80; Globulin 2.9 g/dL (2.4-3.5); Glucose 90 mg/dL (83-110); Potassium 4.2 mmol/L (3.5-5.1); Protein, Total 6.9 g/dL (6.0-8.3); Sodium 136 mmol/L (136-145)
[2017-07-20 11:01] LABS: CKMB 3.8 ng/mL (0-6.6); Troponin I 0.052 ng/mL (< 0.028)
[2017-07-20] MEDS ORDERED: Acetaminophen 500 MG TAB ONE (11:07)
--- NOTE | 2017-07-20 11:35 | RAD ---
PORTABLE AP CHEST: Date: 07/20/17 HISTORY: Dyspnea and fever. Productive cough. COMPARISON: 01/23/17. FINDINGS: Postsurgical changes related to CABG are noted. Surgical clips overlie the neck bilaterally. The card iac silhouette is magnified by projection and stable in size from the prior study, and probably mild enlarged. The pulmonary vasculature is within normal limits. Surgical clips overlie the left axillary region. Lungs appear clear. Radiopaque catheter overlies the right shoulder. There is a lucency over lying the subcutaneous soft tissues laterally on the right, which is probably artifactual. There has been no interval change when compared to prior exam. IMPRESSION: Overall stable chest without evidence of an acute cardiopulmonary process. POS: [facility]
--- NOTE | 2017-07-20 11:44 | RAD ---
LEFT FOOT 3 VIEWS: Date: 07/20/17 HISTORY: Sepsis. Concern for left foot osteomyelitis. FINDINGS/IMPRESSION: Bones are osteopenic. Degenerative changes are present. No fracature, dislocation, bony destruction, or periosteal reaction are seen. Vascular calcifications are present. If there is high clinical suspicion for osteomyelitis, further evaluation with MRI could be performed . Calcaneal spurs are present. POS: AAKASH
[2017-07-20 12:47] LABS: Bilirubin Negative (Negative); Blood, Urine Negative (Negative); Clarity CLEAR (Clear); Glucose, Urine (Dipstick) Negative (Negative); Leukocyte Negative (Negative); Nitrite Negative (Negative); Protein, Urine (Dipstick) Negative (Neg-Trace); Specific Gravity, Urine 1.006 (1.002-1.036); Urobilinogen 0.2 mg/dL (0.2-1.0); pH, Urine 6.5 (5.0-9.0)
[2017-07-20] MEDS ORDERED: Piperacillin/Tazobactam 4.5 GM VIAL ONE (13:30)
[2017-07-20] MEDS ORDERED: methylPREDNISolone Sod Succ/PF 125 MG/2 ML VIAL ONE (14:52)
--- NOTE | 2017-07-20 14:57 | CT ---
NONCONTRAST CT THORAX: DATE: 07/20/17. HISTORY: Productive cough and fever. COMPARISON: 09/18/11. FINDINGS: There are several nodular densities seen within the right upper lobe perihilar location with associat ed mild surrounding ground-glass densities. The findings may be related to infectious or inflammator y process, but followup to complete resolution is recommended to exclude neoplastic process; although , this is thought less likely. There is a small pulmonary nodule seen within the superior segment of the right lower lobe which kimmy ures 6 mm. This also could be related to infectious process, but again followup evaluation is recomm ended. A curvilinear density seen at the posteromedial aspect of the right lower lobe. This could be relate d to an area of scarring or atelectasis. There are several linear densities present within the left upper lobe with slight bronchiectasis suggesting chronic lung changes. No discrete pulmonary nodule or mass is seen on the left. Lack of intravenous contrast does limit evaluation of the mediastinal structures, but no definite enl arged lymph nodes are seen. Prominent vascular calcifications are seen in the coronary arteries as w ell as involving the thoracic aorta. The esophagus is fluid and air filled which could be related to gastroesophageal reflux. No hiatal h ernia is appreciated. Multilevel degenerative changes are seen in the thoracic spine. There are remote healed lower chef german ior right-sided rib fractures. There is bilateral glenohumeral joint osteoarthropathy. Postsurgical changes lower cervical spine are seen related to anterior cervical fusion. Surgical cli ps are seen in the neck bilaterally. There are hypodense nodules seen within the right lobe of the t hyroid gland. The largest hypodense nodule measures 1.4 cm and was present on the prior study, altho ugh slightly enlarged from the prior exam where this measured 1.3 cm. Surgical clips are seen in the left axillary region. 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 There do es appear to be fusion of a few lower thoracic vertebral bodies. IMPRESSION: 1. Several nodular densities with surrounding minimal ground-glass densities within the right upper lobe, and findings may be related to infectious or inflammatory process. However, followup is recomm ended to exclude a neoplastic process. 2. Noncalcified pulmonary nodule superior segment of the right lower lobe which could also be attrib utable to infectious or inflammatory process, but this can also be reevaluated on followup exam. Fol lowup study in 3 months is recommended. 3. Chronic lung changes. 4. Thyroid nodules. There were nodules seen on the prior study in 2011, and thyroid ultrasound in 2 013 also demonstrated multiple thyroid nodules. 5. Gastroesophageal reflux. POS: [facility]
[2017-07-20] MEDS ORDERED: Acetaminophen 325 MG TAB PO PRN (16:14)
[2017-07-20] MEDS ORDERED: Ondansetron ODT 4 MG TAB SL PRN (16:14)
[2017-07-20] MEDS ORDERED: Ondansetron HCl/PF 4 MG/2 ML Vial IVP PRN (16:14)
[2017-07-20 18:16] LABS: Troponin I 0.051 ng/mL (< 0.028)
[2017-07-20] MEDS ORDERED: Diazepam 2 MG TAB PO PRN (21:43)
[2017-07-20] MEDS ORDERED: MENTHOL (BIOFREEZE 4% GEL) TOP PRN (21:58)
[2017-07-20] MEDS ORDERED: Ondansetron ODT 4 MG TAB PO PRN (22:00)
[2017-07-20] MEDS: HYDROcodone/Acetaminophen 7.5/325 mg Tablet PO PRN (22:13)
--- NOTE | 2017-07-21 02:35 | HP ---
DATE OF ADMISSION: 07/20/2017 REASON FOR ADMISSION AND CHIEF COMPLAINT: Fever, cough, shortness of breath, wheezing. HISTORY OF PRESENT ILLNESS: Ms. Boucher is an 81-year-old -Serbian female with past medical hi story of hypertension, insulin-dependent diabetes mellitus, chronic back pain. She has been having a low-grade fever for couple of days with cough, congestion, but today, the patient spiked temperature s to 100-101.9, also has been having difficulty breathing with chest wheezing and/or cough is also pr oductive with yellow sputum. [facility], but patient state s they did not help, so she was sent to the hospital by EMS. In the ER, the patient was evaluated an d found to have pneumonia, right upper lobe as well as chest wheezing. The patient received a dose o f Zosyn and vancomycin, also received Solu-Medrol and DuoNeb treatments. The patient feels slightly better and she is being admitted for further evaluation and management. PAST MEDICAL HISTORY: 1. Diabetes mellitus, insulin-dependent. 2. Hypertension. 3. Chronic back pain. 4. Anxiety disorder. 5. Chronic anemia. 6. Hyperlipidemia. 7. Coronary artery disease. 8. History of UTI. 9. History of asthmatic bronchitis. PAST SURGICAL HISTORY: 1. Status post CABG. 2. Status post cholecystectomy and hysterectomy. 3. Status post spinal surgery. CURRENT MEDICATIONS: The patient is on albuterol inhaler two puffs q.i.d. p.r.n., vitamin C 500 mg b .i.d., aspirin 81 mg daily, Flexeril b.i.d., diazepam 2 mg b.i.d. p.r.n., Colace 100 mg b.i.d. p.r.n. , Cymbalta 30 mg daily, Zetia 10 mg daily, ferrous sulfate 325 mg b.i.d., [place] q.8 hours p.r.n. 7.5/ 325, Novolin insulin 70/30 of 50 units b.i.d., DuoNeb q.i.d., lisinopril 10 mg daily, loratadine 10 m g daily, milk of magnesia p.r.n., meclizine 25 mg daily, melatonin 5 mg at bedtime p.r.n., Zofran p.r .n., metoprolol 50 daily, MiraLax daily 17 grams, Lyrica 150 b.i.d., ranitidine 150 b.i.d., simvastat in 10 mg at bedtime. ALLERGIES: NKDA. FAMILY HISTORY: Nothing of interest. SOCIAL HISTORY: The patient is resident of [place]. No history of smoking. No hist ory of alcohol. REVIEW OF SYSTEMS: Cardiovascular: No chest pain. Has shortness of breath. Respiratory: Has coug h, fever. Gastrointestinal: No nausea or vomiting. No abdominal pain. Genitourinary: No dysuria or hematuria. Central Nervous System: No headache, no dizziness. PHYSICAL EXAMINATION: GENERAL: The patient is alert, awake, oriented x3. VITAL SIGNS: Temperature 101, respirations 26, pulse 82, blood pressure 120/60, O2 saturation are 90 % on 2 liters. HEENT: Normocephalic, atraumatic. Pupils equal and reactive to light. Nasopharynx is pale and dry. Hard and soft palate, no lesions. SKIN: Skin turgor decreased. NECK: Supple. No JVD. LUNGS: Breath sounds diminished bilaterally. Percussion dull bilaterally. Expiratory wheeze presen t. HEART: S1, S2 regular. ABDOMEN: Soft, obese. No distention, no tenderness. Normal bowel sounds present. RECTAL: Deferred. CENTRAL NERVOUS SYSTEM: No focal deficit. LABORATORY DATA AND X-RAY FINDINGS: CBC shows WBC 8.9, hemoglobin 12, hematocrit 36, platelets 149. Metabolic panel: Sodium 136, potassium 4.2, chloride 101, CO2 of 25, urea nitrogen 11, creatinine 0 .8, glucose 90, CK-MB 3.8, troponin I 0.052, C-reactive protein 1.36. Urinalysis negative. Chest x- ray shows haziness in the right upper lobe. CT scan of the chest showed nodular density in the right upper lobe, possible infectious versus inflammatory process. EKG shows sinus tachycardia with heart rate of [address]-T wave changes seen. ASSESSMENT: 1. Pneumonia, right upper lobe. 2. Asthmatic bronchitis, acute. 3. Fever. 4. Hypertension. 5. Diabetes mellitus. 6. Chronic back pain. 7. Coronary artery disease by history. PLAN: 1. Vital signs q.4 hours. 2. Activity: As tolerated. 3. Allergies: NKDA. 4. Zosyn 3.375 grams IV piggyback q.6 hours. 5. Diet: ADA. 6. Continue jail medication. 7. DuoNeb 1 unit q.6 hours. 8. Solu-Medrol 20 mg IVP q.6 hours. 9. Mucinex 600 b.i.d. 10. Oxygen by nasal cannula 2 liters. 11. The patient is DNR.
[2017-07-21] MEDS: Meclizine HCl 25 MG TAB PO SCH ×2 (08:38→22:06)
[2017-07-21] MEDS: Ascorbic Acid 500 mg Chewable Tablet PO SCH ×2 (08:38→18:08)
[2017-07-21] MEDS: Famotidine 20 MG TAB PO SCH (08:39)
[2017-07-21] MEDS: Lisinopril 10 MG TAB PO SCH (08:39)
[2017-07-21] MEDS: Ferrous Sulfate 325 MG TAB PO SCH ×2 (08:39→18:09)
[2017-07-21] MEDS: Cyclobenzaprine 10 MG TAB PO SCH ×2 (08:39→22:06)
[2017-07-21] MEDS: DULoxetine 30 MG CAP PO SCH (08:39)
[2017-07-21] MEDS: Pregabalin 75 MG CAP PO SCH ×2 (08:39→22:06)
[2017-07-21] MEDS: Aspirin 81 mg Enteric Coated Tablet PO SCH (08:40)
[2017-07-21] MEDS: HYDROcodone/Acetaminophen 7.5/325 mg Tablet PO PRN ×2 (10:38→18:09)
[2017-07-21] MEDS: Artificial Tear Sol 15 ML BOT EA EYE SCH ×4 (11:47→22:09)
[2017-07-21] MEDS: Insulin NPH/Reg Insulin Hm 300 UNITS/3 ML VIAL SC SCH ×2 (11:48→17:26)
--- NOTE | 2017-07-21 11:53 | PQF ---
CLINICAL DOCUMENTATION IMPROVEMENT CLARIFICATION FORM: ICD-10 Updated PLEASE DO AN ADDENDUM TO THE PROGRESS NOTE WITH ANY DOCUMENTATION UPDATES OR ADDITIONS AND CARRY THROUGH TO DC SUMMARY. THANK YOU. DATE: 07/21 ATTN : DR. Genie VILLAFUERTE Please exercise your independent, professional judgment in responding to the clarification form. Clinical indicators are provided on the bottom of this form for your review Please check appropriate box(s): [ ] Empirically treating Gram Negative Pneumonia [ ] Pneumonia secondary to (specify organism / underlying disease) [ ] Simple Pneumonia (community acquired - nosocomial) [ ] Other diagnosis [ y ] Unable to determine For continuity of documentation, please document condition throughout progress notes and discharge summary. Thank You. CLINICAL INDICATORS - SIGNS / SYMPTOMS / LABS ER PHYSICIAN DOCUMENTATION 07/20: PNEUMONIA PHYSICIAN H&P DOCUMENTATION 07/20: 1) PNEUMONIA, RUL; 3) FEVER CT CHEST 07/20: IMPRESSION: 1) SEVERAL NODULAR DENSITIES W/SURROUNDING MINIMAL GROUND-GLASS DENSITIES WITHIN THE RUL, & FINDINGS MAY BE R/T INFECTIOUS OF INFLAMMATORY PROCESS. RISK FACTORS: RESIDENTIAL RESIDENT ASTHMATIC BRONCHITIS TREATMENTS: IV ANTIBIOTIC (ZOSYN 07/20 - PRESENT) RESPIRATORY TREATMENT (NEBS 07/20 - PRESENT, QID) THANK YOU! Jenn (This form is maintained as a part of the permanent medical record) 2014 [employer]. All Rights Reserved Jenn Burrows RN, BSN [email or web address] Office: [phone] [facility]
--- NOTE | 2017-07-21 11:59 | PQF ---
CLINICAL DOCUMENTATION IMPROVEMENT CLARIFICATION FORM: ICD-10 Updated PLEASE DO AN ADDENDUM TO THE PROGRESS NOTE WITH ANY DOCUMENTATION UPDATES OR ADDITIONS AND CARRY THROUGH TO DC SUMMARY. THANK YOU. DATE: 07/21 ATTN: DR. Genie VILLAFUERTE Please exercise your independent, professional judgment in responding to the clarification form. Clinical indicators are provided on the bottom of this form for your review Please check appropriate box(es): [ ] Sepsis due to: (Pna, UTI, gangrenous gall bladder, etc.) [ ] Localized infection without sepsis [ y ] Other diagnosis ___pneumonia [ ] Unable to determine For continuity of documentation, please document condition throughout progress notes and discharge summary. Thank You. CLINICAL INDICATORS - SIGNS / SYMPTOMS / LABS ER PRESENTATION 07/20: T: 101.2 (R) HR: 115 RR: 26 CRP: 1.36 ER PHYSICIAN DIAGNOSES 07/20: PNEUMONIA, SEPSIS RISK FACTORS: RUL PNEUMONIA FEVER, COUGH, SOB TREATMENT: IV ANTIBIOTIC (ZOSYN 07/20 - PRESENT) THANK YOU! Elsie (This form is maintained as a part of the permanent medical record) 2015 [employer], [employer]. All Rights Reserved Jenn Burrows RN, BSN [email or web address] Office: [phone] [facility]ITAL[facility]
[2017-07-21] MEDS ORDERED: Dextrose 5% in Water 1,000 ML IV PRN (17:46)
[2017-07-21] MEDS ORDERED: Dextrose 50% Abboject 50 ML SYRINGE IVP PRN (17:46)
[2017-07-21] MEDS: Polyethylene Glycol 3350 17 GM Packet PO PRN (18:09)
[2017-07-21] MEDS: Ezetimibe 10 MG TAB PO SCH (22:06)
[2017-07-21] MEDS: Simvastatin 5 MG TAB PO SCH (22:06)
[2017-07-21] MEDS: Piperacillin/Tazobactam 3.375 GM in Sodium Chloride 0.9% 100 ML IVPB SCH (22:07)
[2017-07-21] MEDS: Insulin Regular 300 UNITS/3 ML VIAL SC PRN (22:27)
[2017-07-21] MEDS: guaiFENesin ER 600 MG TAB PO SCH (22:30)
[2017-07-22] MEDS: Piperacillin/Tazobactam 3.375 GM in Sodium Chloride 0.9% 100 ML IVPB SCH ×4 (03:22→22:24)
[2017-07-22] MEDS: Famotidine 20 MG TAB PO SCH (09:22)
[2017-07-22] MEDS: Cyclobenzaprine 10 MG TAB PO SCH ×2 (09:22→22:23)
[2017-07-22] MEDS: Lisinopril 10 MG TAB PO SCH (09:22)
[2017-07-22] MEDS: DULoxetine 30 MG CAP PO SCH (09:22)
[2017-07-22] MEDS: Ferrous Sulfate 325 MG TAB PO SCH ×2 (09:22→18:13)
[2017-07-22] MEDS: Ascorbic Acid 500 mg Chewable Tablet PO SCH ×2 (09:22→18:14)
[2017-07-22] MEDS: Aspirin 81 mg Enteric Coated Tablet PO SCH (09:23)
[2017-07-22] MEDS: Artificial Tear Sol 15 ML BOT EA EYE SCH ×4 (09:23→22:25)
[2017-07-22] MEDS: Meclizine HCl 25 MG TAB PO SCH ×2 (09:23→22:22)
[2017-07-22] MEDS: Insulin NPH/Reg Insulin Hm 300 UNITS/3 ML VIAL SC SCH ×2 (09:23→18:16)
[2017-07-22] MEDS: guaiFENesin ER 600 MG TAB PO SCH ×2 (09:23→22:23)
[2017-07-22] MEDS: Pregabalin 75 MG CAP PO SCH ×2 (09:24→22:37)
[2017-07-22] MEDS: Insulin Regular 300 UNITS/3 ML VIAL SC PRN ×2 (12:08→18:17)
--- NOTE | 2017-07-22 13:49 | ULT ---
THYROID ULTRASOUND: HISTORY: The patient is status post left thyroid lobectomy. Followup of right lobe thyroid nodules. COMPARISON: Thyroid ultrasound examination from 07/26/2012. FINDINGS: Real-time imaging of the thyroid gland is performed. This shows multiple right lobe thyroid nodules, the largest of which is a complex nodule with echogenic densities, probably related to colloid, with in a complex cyst. It measures approximately 1.5 cm in size. A small, peripherally calcified nodule measures 6 to 7 mm, similar to the previous exam. No definite change since the prior study. IMPRESSION: 1. The patient is status post left thyroid lobectomy. 2. Numerous right lobe thyroid nodules, not definitely changed since the prior exam. POS: AAKASH
--- NOTE | 2017-07-22 14:48 | EKG ---
Test Reason : Blood Pressure : / mmHG Vent. Rate : 111 BPM Atrial Rate : 111 BPM P-R Int : 140 ms QRS Dur : 098 ms QT Int : 336 ms P-R-T Axes : 062 -07 133 degrees QTc Int : 456 ms Sinus tachycardia Confirmed by JUNITO CASTRO ([id number]), editor managing newspaper NEVIN PINTO ([id number]) on 07/22/2017 2:48:31 PM Referred By: Confirmed By:JUNITO CASTRO
[2017-07-22] MEDS: HYDROcodone/Acetaminophen 7.5/325 mg Tablet PO PRN (20:45)
[2017-07-22] MEDS: DOCOSANOL TOP SCH ×2 (22:20→22:21)
[2017-07-22] MEDS: Ezetimibe 10 MG TAB PO SCH (22:23)
[2017-07-22] MEDS: Simvastatin 5 MG TAB PO SCH (22:36)
[2017-07-23] MEDS: Piperacillin/Tazobactam 3.375 GM in Sodium Chloride 0.9% 100 ML IVPB SCH ×4 (04:25→20:22)
[2017-07-23 05:13] LABS: Anion Gap 13 mmol/L (10-20); BUN (Urea Nitrogen) 25 mg/dL (9.8-20.1); Calc. Creatinine Clearance 73 mL/min (70-130); Calcium 9.3 mg/dL (7.8-10.44); Carbon Dioxide 25 mmol/L (23-31); Chloride 101 mmol/L (98-107); Estimated GFR-MDRD 68; Glucose 193 mg/dL (83-110); Potassium 4.9 mmol/L (3.5-5.1); Sodium 134 mmol/L (136-145)
[2017-07-23 05:30] LABS: Free T4 (Free Thyroxine) 0.84 ng/dL (0.70-1.48)
[2017-07-23 05:36] LABS: Thyroid Stimulating Hormone 0.4762 uIU/mL (0.35-4.94)
[2017-07-23] MEDS: Insulin Regular 300 UNITS/3 ML VIAL SC PRN ×3 (05:46→16:10)
[2017-07-23] MEDS: Lisinopril 10 MG TAB PO SCH (08:15)
[2017-07-23] MEDS: guaiFENesin ER 600 MG TAB PO SCH ×2 (08:15→20:21)
[2017-07-23] MEDS: Aspirin 81 mg Enteric Coated Tablet PO SCH (08:15)
[2017-07-23] MEDS: Pregabalin 75 MG CAP PO SCH ×2 (08:16→20:20)
[2017-07-23] MEDS: Cyclobenzaprine 10 MG TAB PO SCH ×2 (08:16→20:20)
[2017-07-23] MEDS: Ferrous Sulfate 325 MG TAB PO SCH ×2 (08:16→17:19)
[2017-07-23] MEDS: Ascorbic Acid 500 mg Chewable Tablet PO SCH ×2 (08:16→17:19)
[2017-07-23] MEDS: Artificial Tear Sol 15 ML BOT EA EYE SCH ×4 (08:17→20:19)
[2017-07-23] MEDS: DULoxetine 30 MG CAP PO SCH (08:17)
[2017-07-23] MEDS: Meclizine HCl 25 MG TAB PO SCH ×2 (08:17→20:20)
[2017-07-23] MEDS: Famotidine 20 MG TAB PO SCH (08:17)
[2017-07-23] MEDS: Insulin NPH/Reg Insulin Hm 300 UNITS/3 ML VIAL SC SCH ×2 (08:17→17:47)
[2017-07-23] MEDS: Docusate 100 MG CAP PO PRN (13:56)
[2017-07-23 14:35] VITALS: BMI 37.5
[2017-07-23] MEDS: Ezetimibe 10 MG TAB PO SCH (20:20)
[2017-07-23] MEDS: Simvastatin 5 MG TAB PO SCH (20:21)
[2017-07-24] MEDS: Piperacillin/Tazobactam 3.375 GM in Sodium Chloride 0.9% 100 ML IVPB SCH ×4 (03:21→20:32)
[2017-07-24] MEDS: Insulin Regular 300 UNITS/3 ML VIAL SC PRN ×3 (05:45→20:34)
[2017-07-24] MEDS: Aspirin 81 mg Enteric Coated Tablet PO SCH (07:55)
[2017-07-24] MEDS: Ferrous Sulfate 325 MG TAB PO SCH ×2 (07:55→17:09)
[2017-07-24] MEDS: Docusate 100 MG CAP PO PRN (07:55)
[2017-07-24] MEDS: Ascorbic Acid 500 mg Chewable Tablet PO SCH ×2 (07:56→17:09)
[2017-07-24] MEDS: Cyclobenzaprine 10 MG TAB PO SCH ×2 (07:56→20:33)
[2017-07-24] MEDS: Meclizine HCl 25 MG TAB PO SCH ×2 (07:56→20:33)
[2017-07-24] MEDS: Pregabalin 75 MG CAP PO SCH ×2 (07:56→20:34)
[2017-07-24] MEDS: Famotidine 20 MG TAB PO SCH (07:56)
[2017-07-24] MEDS: DULoxetine 30 MG CAP PO SCH (07:56)
[2017-07-24] MEDS: guaiFENesin ER 600 MG TAB PO SCH ×2 (07:56→20:33)
[2017-07-24] MEDS: predniSONE 20 MG TAB PO SCH ×2 (07:56→20:33)
[2017-07-24] MEDS: Lisinopril 10 MG TAB PO SCH (07:56)
[2017-07-24] MEDS: Insulin NPH/Reg Insulin Hm 300 UNITS/3 ML VIAL SC SCH ×2 (07:57→17:08)
[2017-07-24] MEDS: Artificial Tear Sol 15 ML BOT EA EYE SCH ×4 (07:57→20:34)
--- NOTE | 2017-07-24 10:51 | PQF ---
CLINICAL DOCUMENTATION IMPROVEMENT CLARIFICATION FORM: ICD-10 Updated PLEASE DO AN ADDENDUM TO THE PROGRESS NOTE WITH ANY DOCUMENTATION UPDATES OR ADDITIONS AND CARRY THROUGH TO DC SUMMARY. THANK YOU. DATE: 07/24 ATTN: DR. Genie VILLAFUERTE Please exercise your independent, professional judgment in responding to the clarification form. Clinical indicators are provided on the bottom of this form for your review Please check appropriate box(s): ___y____ I (concur) with the Wound Care findings as stated below. [ ] Pressure Ulcer: (Stage I: Erythema; Stage II: Partial thickness; Stage III : Full thickness; Stage IV: Necrosis to muscle/bone) [ ] Location: POA: [ ] Yes [ ] No[ ] Unable to determine Stage (I to IV): (Left Right Bilateral N/A ) [ ] No pressure ulcer diagnosis [ ] Other diagnosis [ ] Unable to determine In addition, please specify: Present on Admission (POA): [ y ] Yes [ ] No [ ] Unable to determine For continuity of documentation, please document condition throughout progress notes and discharge summary. Thank You. CLINICAL INDICATORS - SIGNS / SYMPTOMS / LABS ER NURSING SKIN ASSESSMENT 07/20: PRESSURE ULCER TO HEEL, BLISTER-LIKE, NO SKIN BREAKDOWN, FOOT IN PRESSURE ULCER BOOT WOUND CARE CONSULT DOCUMENTATION 07/21: L HEEL UNSTAGEABLE PRESSURE ULCER, WOUND TYPE: BLISTER RISK FACTORS: DM II REQUIRES ASSISTANCE W/MOBILITY OBESITY TREATMENTS: WOUND CARE CONSULT WAFFLE MATTRESS FLOAT HEELS OFF MATTRESS THANK YOU! Jenn (This form is maintained as a part of the permanent medical record) 2015 [employer]. All Rights Reserved Jenn Burrows RN, BSN [email or web address] Office: [phone] [facility]
[2017-07-24] MEDS: Simvastatin 5 MG TAB PO SCH (20:33)
[2017-07-24] MEDS: Ezetimibe 10 MG TAB PO SCH (20:33)
[2017-07-24] MEDS: HYDROcodone/Acetaminophen 7.5/325 mg Tablet PO PRN (21:25)
[2017-07-24] MEDS: Milk Of Magnesia 30 ML UDCUP PO PRN (21:27)
[2017-07-25] MEDS: Piperacillin/Tazobactam 3.375 GM in Sodium Chloride 0.9% 100 ML IVPB SCH ×4 (03:38→20:44)
[2017-07-25] MEDS: Insulin NPH/Reg Insulin Hm 300 UNITS/3 ML VIAL SC SCH ×2 (09:48→16:51)
[2017-07-25] MEDS: DULoxetine 30 MG CAP PO SCH (09:49)
[2017-07-25] MEDS: Lisinopril 10 MG TAB PO SCH (09:49)
[2017-07-25] MEDS: guaiFENesin ER 600 MG TAB PO SCH ×2 (09:51→20:42)
[2017-07-25] MEDS: Meclizine HCl 25 MG TAB PO SCH ×2 (09:51→20:42)
[2017-07-25] MEDS: Pregabalin 75 MG CAP PO SCH ×2 (09:51→20:43)
[2017-07-25] MEDS: Aspirin 81 mg Enteric Coated Tablet PO SCH (09:52)
[2017-07-25] MEDS: predniSONE 20 MG TAB PO SCH ×2 (09:52→16:53)
[2017-07-25] MEDS: Famotidine 20 MG TAB PO SCH (09:53)
[2017-07-25] MEDS: Ferrous Sulfate 325 MG TAB PO SCH ×2 (09:53→17:04)
[2017-07-25] MEDS: Artificial Tear Sol 15 ML BOT EA EYE SCH ×4 (09:53→20:44)
[2017-07-25] MEDS: Ascorbic Acid 500 mg Chewable Tablet PO SCH ×2 (09:53→16:52)
[2017-07-25] MEDS: Polyethylene Glycol 3350 17 GM Packet PO PRN (09:53)
[2017-07-25] MEDS: Cyclobenzaprine 10 MG TAB PO SCH ×2 (09:53→20:42)
[2017-07-25] MEDS: PROVENTIL INHALER 6.7 G (200 INHALATIONS) INH SCH ×2 (19:09→19:11)
[2017-07-25] MEDS: HYDROcodone/Acetaminophen 7.5/325 mg Tablet PO PRN (20:42)
[2017-07-25] MEDS: Loratadine 10 MG TAB PO PRN (20:42)
[2017-07-25] MEDS: Docusate 100 MG CAP PO PRN (20:42)
[2017-07-25] MEDS: Melatonin 3 MG TAB PO PRN (20:42)
[2017-07-25] MEDS: Ezetimibe 10 MG TAB PO SCH (20:42)
[2017-07-25] MEDS: Simvastatin 5 MG TAB PO SCH (20:42)
[2017-07-25] MEDS: Milk Of Magnesia 30 ML UDCUP PO PRN (20:43)
[2017-07-25] MEDS: Insulin Regular 300 UNITS/3 ML VIAL SC PRN (20:50)
[2017-07-26] MEDS: Piperacillin/Tazobactam 3.375 GM in Sodium Chloride 0.9% 100 ML IVPB SCH ×4 (02:24→20:08)
[2017-07-26] MEDS: Insulin NPH/Reg Insulin Hm 300 UNITS/3 ML VIAL SC SCH ×2 (07:42→17:09)
[2017-07-26] MEDS: Pregabalin 75 MG CAP PO SCH ×2 (07:43→20:09)
[2017-07-26] MEDS: Artificial Tear Sol 15 ML BOT EA EYE SCH ×4 (07:43→20:08)
[2017-07-26] MEDS: Ascorbic Acid 500 mg Chewable Tablet PO SCH ×2 (07:44→17:08)
[2017-07-26] MEDS: Ferrous Sulfate 325 MG TAB PO SCH ×2 (07:44→17:09)
[2017-07-26] MEDS: Cyclobenzaprine 10 MG TAB PO SCH ×2 (07:45→20:08)
[2017-07-26] MEDS: predniSONE 20 MG TAB PO SCH ×2 (07:45→17:09)
[2017-07-26] MEDS: guaiFENesin ER 600 MG TAB PO SCH ×2 (07:45→20:08)
[2017-07-26] MEDS: Lisinopril 10 MG TAB PO SCH (07:45)
[2017-07-26] MEDS: Aspirin 81 mg Enteric Coated Tablet PO SCH (07:45)
[2017-07-26] MEDS: Famotidine 20 MG TAB PO SCH (07:45)
[2017-07-26] MEDS: DULoxetine 30 MG CAP PO SCH (07:46)
[2017-07-26] MEDS: PROVENTIL INHALER 6.7 G (200 INHALATIONS) INH SCH ×4 (07:59→19:36)
[2017-07-26] MEDS: Meclizine HCl 25 MG TAB PO SCH ×2 (10:51→20:09)
[2017-07-26] MEDS: Melatonin 3 MG TAB PO PRN (20:08)
[2017-07-26] MEDS: Loratadine 10 MG TAB PO PRN (20:08)
[2017-07-26] MEDS: Ezetimibe 10 MG TAB PO SCH (20:09)
[2017-07-26] MEDS: Simvastatin 5 MG TAB PO SCH (20:09)
[2017-07-26] MEDS: HYDROcodone/Acetaminophen 7.5/325 mg Tablet PO PRN (20:09)
[2017-07-27] MEDS: Piperacillin/Tazobactam 3.375 GM in Sodium Chloride 0.9% 100 ML IVPB SCH ×2 (01:59→08:56)
[2017-07-27] MEDS: PROVENTIL INHALER 6.7 G (200 INHALATIONS) INH SCH ×2 (06:49→10:12)
[2017-07-27 07:34] VITALS: BP 153/87; TEMP 98.2
[2017-07-27] MEDS: Pregabalin 75 MG CAP PO SCH (08:58)
[2017-07-27] MEDS: Lisinopril 10 MG TAB PO SCH (08:59)
[2017-07-27] MEDS: Ascorbic Acid 500 mg Chewable Tablet PO SCH (09:00)
[2017-07-27] MEDS: Meclizine HCl 25 MG TAB PO SCH (09:00)
[2017-07-27] MEDS: DULoxetine 30 MG CAP PO SCH (09:00)
[2017-07-27] MEDS: predniSONE 20 MG TAB PO SCH (09:00)
[2017-07-27] MEDS: Cyclobenzaprine 10 MG TAB PO SCH (09:00)
[2017-07-27] MEDS: Insulin NPH/Reg Insulin Hm 300 UNITS/3 ML VIAL SC SCH (09:00)
[2017-07-27] MEDS: Aspirin 81 mg Enteric Coated Tablet PO SCH (09:00)
[2017-07-27] MEDS: Ferrous Sulfate 325 MG TAB PO SCH (09:00)
[2017-07-27] MEDS: guaiFENesin ER 600 MG TAB PO SCH (09:00)
[2017-07-27] MEDS: Famotidine 20 MG TAB PO SCH (09:00)
[2017-07-27] MEDS: Artificial Tear Sol 15 ML BOT EA EYE SCH (09:01)
[2017-07-27] MEDS: HYDROcodone/Acetaminophen 7.5/325 mg Tablet PO PRN (09:15)
== END 2017-07-27 11:52 | DRG 195 ==
LOC: ERS 09:45 → 2NO 14:24 → T4-B 07-22 20:19
PROVIDERS: ADMIT Internal Medicine; ATTEND Internal Medicine
DX: J18.9 Pneumonia, unspecified organism (principal); L89.620 Pressure ulcer of left heel, unstageable; E11.9 Type 2 diabetes mellitus without complications; I10 Essential (primary) hypertension; G89.29 Other chronic pain; J20.9 Acute bronchitis, unspecified; M54.9 Dorsalgia, unspecified; F41.9 Anxiety disorder, unspecified; D53.9 Nutritional anemia, unspecified; E78.5 Hyperlipidemia, unspecified; I25.10 Atherosclerotic heart disease of native coronary artery without angina pectoris; Z79.4 Long term (current) use of insulin; Z95.1 Presence of aortocoronary bypass graft; Z87.440 Personal history of urinary (tract) infections; Z87.09 Personal history of other diseases of the respiratory system; Z66 Do not resuscitate; Z99.81 Dependence on supplemental oxygen
CPT/HCPCS: 36415; 36416; 51701; 71045; 71250; 76536; 80048; 80053; 81003; 82553; 83605; 84439; 84443; 84484; 85025; 85652; 86140; 87040; 93005; 94640; 94664; 96361; 96365; 96367; 96375; A4353; J1815; J2543; J2920; J2930; J3370; J7050; J7506; J7620

== ENCOUNTER 2017-11-25 18:24 | Inpatient (IN) | payer MEDICARE, MEDICAID ==
[2017-11-25 19:19] LABS: #Basophils 0.1 thou/uL (0.0-0.2); #Eosinphils 0.6 thou/uL (0.0-0.7); #Lymphocytes 2.3 thou/uL (1.20-3.40); #Monocytes 0.8 thou/uL (0.11-0.59); #Neutrophils 4.5 thou/uL (1.40-6.50); %Basophils 0.6 % (0.0-1.0); %Lymphocytes 27.9 % (21.0-51.0); %Monocytes 9.8 % (0.0-10.0); %Neutrophils 54.7 % (42.0-75.0); Hemoglobin 12.4 g/dL (12.0-16.0); Mean Corpuscular HGB CONC 30.7 g/dL (32.0-36.0); Mean Corpuscular Hemoglobin 27.8 pg (27.0-31.0); Mean Corpuscular Volume 90.5 fL (78.0-98.0); Mean Platelet Volume 8.4 fL (7.4-10.4); Platelet Count 219 thou/uL (130-400); Red Blood Cell (RBC) Count 4.46 mill/uL (4.20-5.40); White Blood Cell (WBC) Count 8.3 thou/uL (4.8-10.8)
[2017-11-25 19:27] LABS: Bilirubin Negative (Negative); Blood, Urine Negative (Negative); Clarity CLOUDY (Clear); Glucose, Urine (Dipstick) Negative (Negative); Leukocyte Large (Negative); Nitrite Positive (Negative); Protein, Urine (Dipstick) 30 mg/dL (Neg-Trace); Specific Gravity, Urine 1.015 (1.002-1.036); Urobilinogen 0.2 mg/dL (0.2-1.0); pH, Urine 5.5 (5.0-9.0)
[2017-11-25 19:30] LABS: Bacteria/HPF 4+ HPF (None Seen); Hyaline Casts/LPF 0-3 HYALINE CAST LPF (0-3 Hyaline); Pathc Cast-AUWi Flag 0.72 (0-2.49); RBC/HPF 0-3 HPF (0-3); Squamous Epithelial 0-3 HPF (0-3)
[2017-11-25 19:39] LABS: Actual Bicarbonate (HCO3a) 29.7 mEq/L (22-28); Analyzer IN Cardio ER; Base Excess (BEa) 1.5 mEq/L (-2.0 to +3.0); Calcium, Ionized 1.17 mmol/L (1.12-1.30); Carboxyhemoglobin (COHb) 0.4 gm% (0.0-3.0); Hemoglobin (Hb) 12.9 g/dL (12.0-16.0); O2 Tension (PaO2) 128.1 mmHg (> 60.0); Potassium - ABG Lab 5.13 mmol/L (3.70-5.30); pH, Arterial 7.28 (7.35-7.45)
[2017-11-25 19:41] LABS: CO2 Tension 64.9 mmHg (35.0-45.0); Puncture Site RRA
[2017-11-25 19:42] LABS: ALV-art Gradient 147.275 (0-20)
[2017-11-25 19:43] LABS: ALT (SGPT) 18 U/L (8-55); AST (SGOT) 22 U/L (5-34); Albumin 3.5 g/dL (3.4-4.8); Alkaline Phosphatase 71 U/L (40-150); Anion Gap 13 mmol/L (10-20); BUN (Urea Nitrogen) 35 mg/dL (9.8-20.1); Bilirubin, Total 0.3 mg/dL (0.2-1.2); Calc. Creatinine Clearance 0 mL/min (70-130); Calcium 8.8 mg/dL (7.8-10.44); Carbon Dioxide 24 mmol/L (23-31); Chloride 106 mmol/L (98-107); Estimated GFR-MDRD 45; Globulin 3.1 g/dL (2.4-3.5); Glucose 127 mg/dL (83-110); Potassium 5.9 mmol/L (3.5-5.1); Protein, Total 6.6 g/dL (6.0-8.3); Sodium 137 mmol/L (136-145)
--- NOTE | 2017-11-25 19:48 | RAD ---
CHEST ONE VIEW: 11/25/17 HISTORY: Dyspnea. No breath sounds on right. COMPARISON: 07/20/17. FINDINGS: The cardiac silhouette is magnified by projection. Patient is rotated rightward. Lung markings are se en throughout the right chest. Postoperative changes of the mediastinum. Metallic clips overlie the l eft axilla. IMPRESSION: No evidence of pneumothorax. No active cardiopulmonary abnormalities are apparent. POS: NELIA
[2017-11-25] MEDS ORDERED: cefTRIAXone\\ROCEPHIN 2 GM VIAL ONE (20:26)
[2017-11-25] MEDS ORDERED: Dextrose 50% Abboject 50 ML SYRINGE IVP PRN (23:21)
[2017-11-25] MEDS ORDERED: Dextrose 5% in Water 1,000 ML IV PRN (23:21)
[2017-11-25] MEDS ORDERED: Sodium Chloride 0.9% 500 ML IVPB SCH (23:30)
[2017-11-25] MEDS ORDERED: Acetaminophen 325 MG TAB PO PRN (23:33)
[2017-11-25] MEDS ORDERED: Ondansetron HCl/PF 4 MG/2 ML Vial IVP PRN (23:33)
[2017-11-25] MEDS ORDERED: Ondansetron ODT 4 MG TAB SL PRN (23:33)
[2017-11-26] MEDS: Meropenem 500 MG in Sodium Chloride 0.9% 100 ML IVPB SCH ×2 (00:19→05:55)
[2017-11-26] MEDS: Sodium Chloride 0.9% 1,000 ML IV SCH ×4 (00:19→21:24)
[2017-11-26 09:43] LABS: #Basophils 0.1 thou/uL (0.0-0.2); #Eosinphils 0.4 thou/uL (0.0-0.7); #Lymphocytes 1.9 thou/uL (1.20-3.40); #Monocytes 0.8 thou/uL (0.11-0.59); #Neutrophils 4.5 thou/uL (1.40-6.50); %Basophils 0.7 % (0.0-1.0); %Eosinophils 5.8 % (0.0-10.0); %Lymphocytes 24.3 % (21.0-51.0); %Neutrophils 58.2 % (42.0-75.0); Hemoglobin 12.2 g/dL (12.0-16.0); Mean Corpuscular HGB CONC 30.7 g/dL (32.0-36.0); Mean Corpuscular Hemoglobin 28.1 pg (27.0-31.0); Mean Corpuscular Volume 91.5 fL (78.0-98.0); Mean Platelet Volume 8.4 fL (7.4-10.4); Platelet Count 177 thou/uL (130-400); RBC Distribution Width 14.1 % (11.5-14.5); Red Blood Cell (RBC) Count 4.35 mill/uL (4.20-5.40); White Blood Cell (WBC) Count 7.7 thou/uL (4.8-10.8)
[2017-11-26 10:17] LABS: Anion Gap 11 mmol/L (10-20); BUN (Urea Nitrogen) 25 mg/dL (9.8-20.1); Calc. Creatinine Clearance 62 mL/min (70-130); Calcium 8.6 mg/dL (7.8-10.44); Carbon Dioxide 23 mmol/L (23-31); Chloride 107 mmol/L (98-107); Estimated GFR-MDRD 58; Glucose 114 mg/dL (83-110); Potassium 5.5 mmol/L (3.5-5.1); Sodium 135 mmol/L (136-145)
[2017-11-26] MEDS: MEROPENEM 1 GM/50 ML 1 GM in Premix Bag 1 BAG IVPB SCH ×2 (12:10→17:36)
--- NOTE | 2017-11-26 14:19 | HP ---
REASON FOR ADMISSION/CHIEF COMPLAINT: Hypoxia and change in mental status. HISTORY OF PRESENT ILLNESS: Ms. Boucher is an 82-year-old female with past medical history of hypertension, diabetes, chronic pain and is nonambulatory, was found to have a change in mental status. The patient's family and nursing staff felt the patient is more confused than usual and more sleepy and not eating well, but no fever, no chest pain, no shortness of breath. No cough. No nausea, vomiting, so EMS was called. EMS found the patient with some hypoxia and not breathing well. She was put on BiPAP and brought to the emergency room, the patient was also hypotensive in the emergency room and found to have urinary tract infection. The patient received a dose of Rocephin and also a dose of gentamicin injection, but her blood pressure gradually improved. Her O2 saturation also improved. She was changed to nasal cannula while she was in the ER. The patient is admitted for further evaluation and management. The patient was also found to have leg edema. PAST MEDICAL HISTORY: 1. Hypertension. 2. Diabetes mellitus. 3. Chronic back pain. 4. Anxiety disorder. 5. Chronic anemia. 6. Hyperlipidemia. 7. History of coronary artery disease. 8. History of urinary tract infection. 9. History of asthmatic bronchitis. PAST SURGICAL HISTORY: 1. Status post CABG. 2. Status post cholecystectomy. 3. Status post hysterectomy. 4. Status post spinal surgery. CURRENT MEDICATIONS: Patient is on Zetia 10 mg daily, Biofreeze t.i.d., Mucinex 600 b.i.d. p.r.n., Milk of magnesia p.r.n., [place] 7.5/325 q.i.d. p.r.n. , MiraLax 17 grams daily, Zofran p.r.n., Colace 100 mg b.i.d., ranitidine 150 b.i.d., Claritin 10 mg daily, Lyrica 150 b.i.d., ferrous sulfate 325 mg b.i.d., simvastatin 10 mg daily, metoprolol 50 mg daily, lisinopril 10 mg daily, Cymbalta 60 mg daily, diazepam 2 mg b.i.d., aspirin 81 mg daily. ALLERGIES: POULTRY and CODEINE. FAMILY HISTORY: Nothing of interest. SOCIAL HISTORY: Patient is a resident of [facility]. No history of alcohol intake. REVIEW OF SYSTEMS: CARDIOVASCULAR: No chest pain. No shortness of breath. RESPIRATORY: No fever or cough. GASTROINTESTINAL: No nausea, vomiting, abdominal pain. GENITOURINARY: No dysuria or hematuria. C CENTRAL NERVOUS SYSTEMS: No headache. PHYSICAL EXAMINATION: GENERAL: The patient is awake, not very alert. VITAL SIGNS: Temperature 98, pulse 86, respiration 20, blood pressure 113/60. HEENT: Head is normocephalic, atraumatic. Pupils equal and reactive to light. Nasopharynx is pale and dry. Hard and soft palate, no lesions. SKIN: Skin turgor decreased. NECK: Supple. No JVD. LUNGS: Bilateral air entry present, no rales, no rhonchi. CARDIAC: S1, S2 regular. ABDOMEN: Soft, no distention, no tenderness. Normal bowel sounds present. EXTREMITIES: No edema. NEUROLOGIC: The patient is awake, not very alert. Motor system power 4/5 in all extremities; dtr 2+ bilaterally. Plantar downgoing. Sensory intact. LABORATORY AND X-RAY FINDINGS: CBC shows WBC 8.3, hemoglobin 12.4, hematocrit 40, platelets 219. Metabolic panel: Sodium 137, potassium 4.1, chloride 106, CO2 24, BUN 35, creatinine 1.3, glucose 127. Urinalysis showed WBCs greater than 15, bacteria 4+. ABG showed pH 7.28, pCO2 of 65, pO2 of 128, saturation 97%. Chest x-ray negative. EKG shows normal sinus with no acute ST-T wave changes seen. ASSESSMENT: 1. Metabolic encephalopathy, acute. 2. Acute kidney injury. 3. Hypotension. 4. Urosepsis. 5. Hypoxia. 6. Diabetes mellitus. 7. Chronic back pain. 8. History of coronary artery disease. 9. Chronic anemia. PLAN: 1. Vital signs q.4 hours. 2. Activity: As tolerated. 3. Allergies CODEINE. 4. IV fluids normal saline at 80 mL per hour. 5. Meropenem 1 gram IV piggyback q.6h. 6. Accu-Chek a.c. and at bedtime. 7. Sliding scale mild with regular insulin. 8. Diet: ADA. 9. List of her correction medication. 10. The patient is DNR. 11. We will repeat a.m. labs. MTDD
[2017-11-26] MEDS ORDERED: methylPREDNISolone Sod Succ/PF 125 MG/2 ML VIAL IVP SCH (17:45)
[2017-11-26] MEDS: guaiFENesin ER 600 MG TAB PO SCH (21:16)
[2017-11-27] MEDS: MEROPENEM 1 GM/50 ML 1 GM in Premix Bag 1 BAG IVPB SCH ×3 (01:39→12:04)
[2017-11-27] MEDS: Sodium Chloride 0.9% 1,000 ML IV SCH ×2 (03:56→17:40)
[2017-11-27 05:35] LABS: Chloride 101 mmol/L (98-107); Potassium 5.4 mmol/L (3.5-5.1); Sodium 133 mmol/L (136-145)
[2017-11-27 05:36] LABS: Calcium 8.8 mg/dL (7.8-10.44); Glucose 319 mg/dL (83-110)
[2017-11-27] MEDS: Insulin Regular 300 UNITS/3 ML VIAL SC PRN ×3 (05:36→19:23)
[2017-11-27 05:38] LABS: Carbon Dioxide 24 mmol/L (23-31)
[2017-11-27 05:40] LABS: BUN (Urea Nitrogen) 18 mg/dL (9.8-20.1); Calc. Creatinine Clearance 68 mL/min (70-130); Estimated GFR-MDRD 64
[2017-11-27 05:44] LABS: Anion Gap 13 mmol/L (10-20)
[2017-11-27] MEDS: guaiFENesin ER 600 MG TAB PO SCH ×2 (08:54→21:19)
--- NOTE | 2017-11-27 11:33 | PQF ---
CLINICAL DOCUMENTATION IMPROVEMENT CLARIFICATION FORM: ICD-10 Updated PLEASE DO AN ADDENDUM TO THE PROGRESS NOTE WITH ANY DOCUMENTATION UPDATES OR ADDITIONS AND CARRY THROUGH TO DC SUMMARY. THANK YOU. DATE: 11/27/17 ATTN: Dr. Felix Please exercise your independent, professional judgment in responding to the clarification form. Clinical indicators are provided on the bottom of this form for your review Please check appropriate box(s): [ ] Acute Respiratory Failure due to sepsis. [ ] Acute Respiratory Failure due to [ ] Acute Respiratory Failure: [ ] with Hypoxia [ ] with Hypercapnia [ ] Other diagnosis [ y ] Unable to determine In addition, please specify: Present on Admission (POA): [ y ] Yes [ ] No [ ] Unable to determine For continuity of documentation, please document condition throughout progress notes and discharge summary. Thank You. CLINICAL INDICATORS - SIGNS / SYMPTOMS / LABS H&P 11/25: EMS FOUND THE PATIENT WITH SOME HYPOXIA AND NOT BREATHING WELL. SHE WAS PUT ON BIPAP AND BROUGHT TO ER, HER O2 SATURATION IMPROVED. SHE WAS CHANGED TO NC WHILE IN THE ER ABG SHOWED PH 7.28, PCO2 OF 65 RISKS: H&P: ACUTE METABOLIC ENCEPHALOPATHY. HUMPHREY. HYPOTENSION, HYPOXIA. PN 11/26: HUMPHREY. UTI SEPSIS TREATMENT: ORDER 11/26: RESP: O2 TO KEEP SATS 92% ORDER 11/26: IV SOLU-MEDROL 20 MG Q 6 HRS ORDER 11/16: DUONEB QID Thank you, Yuridia (This form is maintained as a part of the permanent medical record) 2014 [employer], [employer]. All Rights Reserved Yuridia Perez RN, BSN [email or web address] Office: [phone] [facility]
[2017-11-27 14:22] VITALS: BMI 36.5
[2017-11-27] MEDS ORDERED: Loperamide HCl 2 MG CAP PO PRN ×2 (15:08)
[2017-11-27] MEDS ORDERED: Loratadine 10 MG TAB PO PRN (15:09)
[2017-11-27] MEDS ORDERED: Milk Of Magnesia 30 ML UDCUP PO PRN (15:09)
[2017-11-27] MEDS ORDERED: Ondansetron ODT 4 MG TAB PO PRN (15:11)
[2017-11-27] MEDS ORDERED: Melatonin 3 MG TAB PO PRN (15:15)
[2017-11-27] MEDS ORDERED: Docusate 100 MG CAP PO PRN (15:28)
[2017-11-27] MEDS ORDERED: Guaifenesin DM 100-10/5 ML UDCUP PO PRN (15:30)
[2017-11-27] MEDS ORDERED: Diazepam 2 MG TAB PO PRN (16:27)
[2017-11-27] MEDS: Artificial Tear Sol 15 ML BOT EA EYE SCH ×2 (17:42→21:18)
[2017-11-27] MEDS: Ferrous Sulfate 325 MG TAB PO SCH (18:01)
[2017-11-27] MEDS: Ascorbic Acid 500 mg Chewable Tablet PO SCH (18:02)
[2017-11-27] MEDS: HYDROcodone/Acetaminophen 5/325 mg Tablet PO PRN (18:15)
[2017-11-27] MEDS ORDERED: Acetaminophen 325 MG TAB PO PRN (19:02)
[2017-11-27] MEDS: Pregabalin 75 MG CAP PO SCH (21:19)
[2017-11-27] MEDS: Cyclobenzaprine 10 MG TAB PO SCH (21:19)
[2017-11-27] MEDS: Ezetimibe 10 MG TAB PO SCH (21:22)
[2017-11-27] MEDS: Famotidine 20 MG TAB PO SCH (21:22)
[2017-11-27] MEDS: Simvastatin 5 MG TAB PO SCH (21:25)
[2017-11-28] MEDS: Insulin Regular 300 UNITS/3 ML VIAL SC PRN ×5 (00:26→21:30)
[2017-11-28] MEDS: Artificial Tear Sol 15 ML BOT EA EYE SCH ×4 (09:25→21:13)
[2017-11-28] MEDS: guaiFENesin ER 600 MG TAB PO SCH ×2 (09:25→21:13)
[2017-11-28] MEDS: Pregabalin 75 MG CAP PO SCH ×2 (09:25→21:14)
[2017-11-28] MEDS: Famotidine 20 MG TAB PO SCH ×2 (09:26→21:13)
[2017-11-28] MEDS: Cyclobenzaprine 10 MG TAB PO SCH (09:26)
[2017-11-28] MEDS: Ferrous Sulfate 325 MG TAB PO SCH ×2 (09:26→16:58)
[2017-11-28] MEDS: Aspirin 81 mg Enteric Coated Tablet PO SCH (09:26)
[2017-11-28] MEDS: Ascorbic Acid 500 mg Chewable Tablet PO SCH ×2 (09:27→16:58)
[2017-11-28] MEDS: Simvastatin 5 MG TAB PO SCH (21:13)
[2017-11-28] MEDS: predniSONE 20 MG TAB PO SCH (21:13)
[2017-11-28] MEDS: Diazepam 2 MG TAB PO SCH (21:13)
[2017-11-28] MEDS: Ezetimibe 10 MG TAB PO SCH (21:13)
[2017-11-29 04:47] LABS: Anion Gap 10 mmol/L (10-20); BUN (Urea Nitrogen) 24 mg/dL (9.8-20.1); Calc. Creatinine Clearance 73 mL/min (70-130); Calcium 9.2 mg/dL (7.8-10.44); Carbon Dioxide 27 mmol/L (23-31); Chloride 99 mmol/L (98-107); Estimated GFR-MDRD 68; Glucose 317 mg/dL (83-110); Potassium 5.4 mmol/L (3.5-5.1); Sodium 131 mmol/L (136-145)
[2017-11-29] MEDS: Insulin Regular 300 UNITS/3 ML VIAL SC PRN ×4 (05:12→20:33)
[2017-11-29] MEDS: Artificial Tear Sol 15 ML BOT EA EYE SCH ×4 (08:44→20:19)
[2017-11-29] MEDS: guaiFENesin ER 600 MG TAB PO SCH ×2 (08:45→20:19)
[2017-11-29] MEDS: Pregabalin 75 MG CAP PO SCH ×2 (08:45→20:20)
[2017-11-29] MEDS: predniSONE 20 MG TAB PO SCH ×2 (08:45→20:19)
[2017-11-29] MEDS: Ascorbic Acid 500 mg Chewable Tablet PO SCH ×2 (08:46→17:23)
[2017-11-29] MEDS: Ferrous Sulfate 325 MG TAB PO SCH ×2 (08:47→17:23)
[2017-11-29] MEDS: Famotidine 20 MG TAB PO SCH ×2 (08:47→20:19)
[2017-11-29] MEDS: Aspirin 81 mg Enteric Coated Tablet PO SCH (08:47)
[2017-11-29] MEDS: Lisinopril 10 MG TAB PO SCH (08:47)
[2017-11-29] MEDS: Simvastatin 5 MG TAB PO SCH (20:19)
[2017-11-29] MEDS: Ezetimibe 10 MG TAB PO SCH (20:19)
[2017-11-29] MEDS: Diazepam 2 MG TAB PO SCH (20:21)
[2017-11-30] MEDS: Insulin Regular 300 UNITS/3 ML VIAL SC PRN ×2 (05:06→20:37)
[2017-11-30] MEDS: Ascorbic Acid 500 mg Chewable Tablet PO SCH ×2 (07:27→16:36)
[2017-11-30] MEDS: Pregabalin 75 MG CAP PO SCH ×2 (07:27→20:15)
[2017-11-30] MEDS: Famotidine 20 MG TAB PO SCH ×2 (07:28→20:15)
[2017-11-30] MEDS: guaiFENesin ER 600 MG TAB PO SCH ×2 (07:28→20:15)
[2017-11-30] MEDS: Lisinopril 10 MG TAB PO SCH (07:28)
[2017-11-30] MEDS: predniSONE 20 MG TAB PO SCH ×2 (07:28→20:16)
[2017-11-30] MEDS: Aspirin 81 mg Enteric Coated Tablet PO SCH (07:29)
[2017-11-30] MEDS: Ferrous Sulfate 325 MG TAB PO SCH ×2 (07:29→16:36)
[2017-11-30] MEDS: Artificial Tear Sol 15 ML BOT EA EYE SCH ×4 (07:29→20:18)
[2017-11-30] MEDS: Insulin NPH/Reg Insulin Hm 300 UNITS/3 ML VIAL SC SCH ×2 (11:21→16:37)
--- NOTE | 2017-11-30 16:06 | PQF ---
CLINICAL DOCUMENTATION IMPROVEMENT CLARIFICATION FORM: ICD-10 Updated PLEASE DO AN ADDENDUM TO THE PROGRESS NOTE WITH ANY DOCUMENTATION UPDATES OR ADDITIONS AND CARRY THROUGH TO DC SUMMARY. THANK YOU. DATE: 11/30/17 ATTN: Dr. Felix Please exercise your independent, professional judgment in responding to the clarification form. Clinical indicators are provided on the bottom of this form for your review Please check appropriate box(s) to clarify if the following diagnosis has been ruled in or ruled out: SEPSIS [ ] Ruled in diagnosis [ ] Continue to treat [ ] Resolved [ y ] Ruled out diagnosis [ ] Cannot rule out diagnosis [ ] Other diagnosis [ ] Unable to determine In addition, please specify: Present on Admission (POA): [y ] Yes [ ] No [ ] Unable to determine For continuity of documentation, please document condition throughout progress notes and discharge summary. Thank You. CLINICAL INDICATORS - SIGNS / SYMPTOMS / LABS PN 11/26: UTI SEPSIS RISKS: H&P 11/26: METABOLIC ENCEPHALOPATHY. HUMPHREY. HYPOTENSION. UROSEPSIS. HYPOXIA. DM. TREATMENT: ORDER 11/27: IV LEVAQUIN 250MG Thank you, Yuridia (This form is maintained as a part of the permanent medical record) 2014 [employer], [employer]. All Rights Reserved Yuridia Perez RN, BSN [email or web address] Office: [phone] [facility]
[2017-11-30] MEDS: Ezetimibe 10 MG TAB PO SCH (20:15)
[2017-11-30] MEDS: Simvastatin 5 MG TAB PO SCH (20:15)
[2017-11-30] MEDS: Diazepam 2 MG TAB PO SCH (20:16)
[2017-11-30] MEDS: HYDROcodone/Acetaminophen 5/325 mg Tablet PO PRN (20:18)
[2017-12-01 05:50] LABS: Anion Gap 13 mmol/L (10-20); BUN (Urea Nitrogen) 23 mg/dL (9.8-20.1); Calc. Creatinine Clearance 81 mL/min (70-130); Calcium 9.4 mg/dL (7.8-10.44); Carbon Dioxide 29 mmol/L (23-31); Chloride 99 mmol/L (98-107); Estimated GFR-MDRD 77; Glucose 157 mg/dL (83-110); Potassium 4.1 mmol/L (3.5-5.1); Sodium 137 mmol/L (136-145)
[2017-12-01 06:56] VITALS: BP 127/73; TEMP 98.4
[2017-12-01] MEDS ORDERED: Insulin NPH/Reg Insulin Hm 300 UNITS/3 ML VIAL SC SCH (07:30)
[2017-12-01] MEDS: Ferrous Sulfate 325 MG TAB PO SCH (08:08)
[2017-12-01] MEDS: Artificial Tear Sol 15 ML BOT EA EYE SCH (08:08)
[2017-12-01] MEDS: Ascorbic Acid 500 mg Chewable Tablet PO SCH (08:09)
[2017-12-01] MEDS: Pregabalin 75 MG CAP PO SCH (08:09)
[2017-12-01] MEDS: guaiFENesin ER 600 MG TAB PO SCH (08:10)
[2017-12-01] MEDS: predniSONE 20 MG TAB PO SCH (08:10)
[2017-12-01] MEDS: Lisinopril 10 MG TAB PO SCH (08:10)
[2017-12-01] MEDS: Aspirin 81 mg Enteric Coated Tablet PO SCH (08:10)
[2017-12-01] MEDS: Famotidine 20 MG TAB PO SCH (08:11)
--- NOTE | 2017-12-02 12:41 | DIS ---
DATE OF ADMISSION: 11/25/2017 DATE OF DISCHARGE: 12/01/2017 ADMITTING DIAGNOSES: 1. Metabolic encephalopathy, acute. 2. Acute kidney injury. 3. Hypotension. 4. Possible urosepsis. 5. Hypoxia. 6. Diabetes mellitus. 7. Chronic back pain. 8. History of coronary artery disease. 9. Chronic anemia. FINAL DIAGNOSES: 1. Acute metabolic encephalopathy, improved. 2. Metabolic encephalopathy, possibly due to combination of medications and acute kidney injury and urinary tract infection. 3. Urinary tract infection with Escherichia coli. 4. Hypotension, improved. 5. Hypoxia, resolved. 6. Diabetes mellitus. 7. Chronic anemia. 8. History of coronary artery disease. 9. Chronic back pain. 10. Anxiety disorder. BRIEF SUMMARY OF HOSPITAL COURSE: Ms. Boucher is an 82-year-old female [facility] of unresponsiveness. The patient was sleepy and not responsive, hypotensive and hypoxic. The pat ient was found to have a urinary tract infection as well as acute kidney injury. The patient was on multiple medications including the pain patches and also pain medications as well as Flexeril, which can all contribute to her encephalopathy. The patient was started on IV meropenem and IV fluids. Th e patient became more alert, awake the following day. Her BUN was 35 on admission, came down to 18 w ith fluids. Creatinine also came down. Her urine culture showed E. coli sensitive to Cipro and Leva julissa, so the antibiotic was changed to levofloxacin. The pain patches, Flexeril and meclizine were s topped. Her diazepam dose was decreased from 2 mg to 1 mg at bedtime. The patient was also found to have bronchitis. She was treated with DuoNeb, as well as IV Solu-Medrol initially and then patient improved and it is changed to prednisone p.o. Her blood sugar remained high, so she was restarted on insulin 70/30 at 30 units b.i.d. and increased to 40 b.i.d. The patient was also started on physica l therapy and the patient has been feeling well. She has been eating well. She is more alert, awak e, and she is able to participate in physical therapy. In view of improvement, the patient is being discharged back to long-term. At the time of discharge, she was stable. Vital signs were stable. Lungs were clear. Heart sounds regular. Abdomen is soft, nontender. Bowel sounds present. DISCHARGE MEDICATIONS: Include simvastatin 10 mg at bedtime, Zofran p.r.n., Zetia 10 mg daily, vitam in C daily, metoprolol 50 mg daily, Milk of Magnesia p.r.n., Lyrica 150 b.i.d., ranitidine 150 b.i.d. , Claritin p.r.n., aspirin 81 mg daily, Colace p.r.n., lisinopril 10 mg daily, ferrous sulfate 325 b. i.d., Robitussin p.r.n., [place] 5/325 one b.i.d., Imodium p.r.n., melatonin 5 mg at bedtime p.r.n., di azepam 1 mg at bedtime, insulin 70/30 40 units b.i.d., DuoNeb q.i.d. p.r.n., levofloxacin 500 mg symone y for 5 days, and prednisone as tapering doses 10 mg daily for 6 days. FOLLOWUP: The patient will continue with physical therapy at the long-term.
[2017-12-04] MEDS ORDERED: BUPRENORPHINE 5 MCG TD SCH (09:00)
== END 2017-12-01 12:21 | DRG 689 ==
LOC: ERS 18:24 → 2NO 22:27 → T4-A 11-28 17:22
PROVIDERS: ADMIT Internal Medicine; ATTEND Internal Medicine
DX: N39.0 Urinary tract infection, site not specified (principal); G93.41 Metabolic encephalopathy; N17.9 Acute kidney failure, unspecified; I10 Essential (primary) hypertension; E11.9 Type 2 diabetes mellitus without complications; G89.29 Other chronic pain; M54.9 Dorsalgia, unspecified; F41.9 Anxiety disorder, unspecified; D64.9 Anemia, unspecified; I25.10 Atherosclerotic heart disease of native coronary artery without angina pectoris; R09.02 Hypoxemia; Z66 Do not resuscitate; B96.20 Unspecified Escherichia coli [E. coli] as the cause of diseases classified elsewhere; Z79.82 Long term (current) use of aspirin
CPT/HCPCS: 36415; 36416; 51702; 71045; 80048; 80053; 81003; 81015; 82805; 83605; 83880; 85025; 87040; 87077; 87086; 87186; 93005; 94640; 94660; 94760; 96365; 96367; G8978-GP-CM; G8979-GP-CK; G8996-GN-CK; G8997-GN-CJ; J0696; J1580; J1815; J1956; J2185; J2920; J2930; J7050; J7506; J7620

== ENCOUNTER 2018-02-02 13:53 | Inpatient (IN) | payer MEDICARE, MEDICAID ==
--- NOTE | 2018-02-02 15:46 | RAD ---
PORTABLE CHEST ONE VIEW: 02/02/2018 3:21 p.m. HISTORY: Dyspnea. COMPARISON: 11/25/2017 FINDINGS: There are changes of median sternotomy. The heart size is normal. The lungs are well expanded witho ut focal areas of consolidation, pneumothoraces, or pleural effusions. There are degenerative change s in the shoulder joints. IMPRESSION: No acute process. POS: [facility]
[2018-02-02 15:56] LABS: #Basophils 0.1 thou/uL (0.0-0.2); #Eosinphils 0.4 thou/uL (0.0-0.7); #Lymphocytes 2.6 thou/uL (1.20-3.40); #Monocytes 0.7 thou/uL (0.11-0.59); #Neutrophils 5.7 thou/uL (1.40-6.50); %Basophils 0.6 % (0.0-1.0); %Eosinophils 4.5 % (0.0-10.0); %Neutrophils 59.9 % (42.0-75.0); Hemoglobin 12.8 g/dL (12.0-16.0); Mean Corpuscular HGB CONC 31.8 g/dL (32.0-36.0); Mean Corpuscular Hemoglobin 27.8 pg (27.0-31.0); Mean Corpuscular Volume 87.4 fL (78.0-98.0); Mean Platelet Volume 8.5 fL (7.4-10.4); Platelet Count 252 thou/uL (130-400); RBC Distribution Width 15.1 % (11.5-14.5); Red Blood Cell (RBC) Count 4.59 mill/uL (4.20-5.40); White Blood Cell (WBC) Count 9.4 thou/uL (4.8-10.8)
[2018-02-02 16:17] LABS: ALT (SGPT) 16 U/L (8-55); AST (SGOT) 19 U/L (5-34); Albumin 3.6 g/dL (3.4-4.8); Alkaline Phosphatase 77 U/L (40-150); Anion Gap 13 mmol/L (10-20); BUN (Urea Nitrogen) 12 mg/dL (9.8-20.1); Bilirubin, Total 0.3 mg/dL (0.2-1.2); CK (CPK) 223 U/L (29-168); Calc. Creatinine Clearance 0 mL/min (70-130); Calcium 8.9 mg/dL (7.8-10.44); Carbon Dioxide 25 mmol/L (23-31); Chloride 103 mmol/L (98-107); Estimated GFR-MDRD 80; Globulin 3.2 g/dL (2.4-3.5); Glucose 137 mg/dL (83-110); Potassium 3.7 mmol/L (3.5-5.1); Protein, Total 6.8 g/dL (6.0-8.3); Sodium 137 mmol/L (136-145)
[2018-02-02] MEDS ORDERED: methylPREDNISolone Sod Succ/PF 125 MG/2 ML VIAL ONE (16:26)
[2018-02-02 16:38] LABS: CKMB 6.5 ng/mL (0-6.6)
[2018-02-02] MEDS ORDERED: Acetaminophen 325 MG TAB PO PRN (18:54)
[2018-02-02] MEDS ORDERED: Ondansetron PF 4 MG/2 ML Vial IVP PRN (18:54)
[2018-02-02] MEDS ORDERED: Ondansetron ODT 4 MG TAB SL PRN (18:54)
[2018-02-02 19:25] LABS: CKMB 6.1 ng/mL (0-6.6)
[2018-02-02] MEDS ORDERED: Prevnar 13-Val Conj/PF 0.5 ML SYRINGE IM ONE (21:15)
[2018-02-02] MEDS ORDERED: PROVENTIL INHALER 6.7 G (200 INHALATIONS) INH PRN (22:44)
[2018-02-02 22:45] LABS: CKMB 5.2 ng/mL (0-6.6)
[2018-02-02] MEDS ORDERED: Ondansetron ODT 4 MG TAB PO PRN (23:26)
[2018-02-02] MEDS ORDERED: Dextrose 50% Abboject 50 ML SYRINGE IVP PRN (23:27)
[2018-02-02] MEDS ORDERED: Dextrose 5% in Water 1,000 ML IV PRN (23:27)
[2018-02-02] MEDS: Insulin Regular 300 UNITS/3 ML VIAL SC PRN (23:36)
[2018-02-03] MEDS: Ferrous Sulfate 325 MG TAB PO SCH ×2 (08:41→16:22)
[2018-02-03] MEDS: HumuLIN 70/30 (300 UNITS/3 ML VIAL) SC SCH ×2 (08:41→16:21)
[2018-02-03] MEDS: Aspirin 81 mg Enteric Coated Tablet PO SCH (08:42)
[2018-02-03] MEDS: Pregabalin 75 MG CAP PO SCH ×2 (08:42→21:21)
[2018-02-03] MEDS: DULoxetine 60 MG CAP PO SCH (08:42)
[2018-02-03] MEDS: Artificial Tears 18 DROP/0.9 ML EA EYE SCH ×4 (08:43→21:32)
[2018-02-03] MEDS: Insulin Regular 300 UNITS/3 ML VIAL SC PRN ×3 (12:15→21:19)
[2018-02-03] MEDS: HYDROcodone/Acetaminophen 5/325 mg Tablet PO PRN (17:24)
[2018-02-03] MEDS ORDERED: Diazepam 2 MG TAB PO SCH (21:00)
[2018-02-03] MEDS: Simvastatin 20 MG TAB PO SCH (21:24)
[2018-02-04] MEDS: Melatonin 3 MG TAB PO PRN ×2 (00:07→20:51)
[2018-02-04] MEDS: HYDROcodone/Acetaminophen 5/325 mg Tablet PO PRN ×2 (02:58→20:53)
[2018-02-04] MEDS: Lisinopril 10 MG TAB PO SCH (09:16)
[2018-02-04] MEDS: DULoxetine 60 MG CAP PO SCH (09:16)
[2018-02-04] MEDS: Aspirin 81 mg Enteric Coated Tablet PO SCH (09:17)
[2018-02-04] MEDS: Artificial Tears 18 DROP/0.9 ML EA EYE SCH ×4 (09:17→20:50)
[2018-02-04] MEDS: Ferrous Sulfate 325 MG TAB PO SCH ×2 (09:18→18:00)
[2018-02-04] MEDS: Pregabalin 75 MG CAP PO SCH ×2 (09:18→20:52)
[2018-02-04] MEDS: HumuLIN 70/30 (300 UNITS/3 ML VIAL) SC SCH ×2 (09:21→18:00)
--- NOTE | 2018-02-04 10:45 | HP ---
CHIEF COMPLAINT: Shortness of breath and cough. HISTORY OF PRESENT ILLNESS: Sander is an 82-year-old Afro-[place]ian female with past medical history of coronary artery disease, COPD, hypertension, diabetes, and chronic back pain, came with cough and shortness of breath. The patient was recently in the jail, discharged last week. Since discharge, she states she has been having some cough and some shortness of breath and wheezing, but the symptoms got worse now to the point she could not breathe, cough is productive of whitish sputum. She did not have any fever. No chest pain. No nausea or vomiting. Has not used any nebulizer treatments because she ran out. So, EMS was called. EMS found the patient in respiratory distress, put her initially on a CPAP. In the ER, the patient was evaluated and found to be in COPD exacerbation, received a dose of Solu-Medrol bolus and neb treatments. The patient also was found to have elevated troponin I. She was weaned off CPAP in the ER, put on nasal cannula, and admitted for further evaluation and management. PAST MEDICAL HISTORY: 1. Hypertension. 2. Coronary artery disease, status post CABG. 3. Diabetes mellitus. 4. Hyperlipidemia. 5. Chronic back pain. 6. Anxiety disorder. 7. Chronic anemia. 8. COPD. PAST SURGICAL HISTORY: 1. Status post CABG. 2. Status post cholecystectomy. 3. Status post hysterectomy. 4. Status post spinal surgery. CURRENT MEDICATIONS: The patient is on, 1. Insulin 70/30, 40 units b.i.d. 2. Ferrous sulfate 325 mg b.i.d. 3. Aspirin 81 mg daily. 4. Melatonin 5 mg at bedtime. 5. DuoNebs q.i.d. 6. Diazepam 1 mg at bedtime. 7. Lyrica 150 b.i.d. 8. [place] p.r.n. 9. Cymbalta 60 mg. 10. Simvastatin 10 mg at bedtime. 11. Zetia 10 mg daily. 12. Metoprolol 50 mg a day. ALLERGIES: 1. POULTRY. 2. CODEINE. FAMILY HISTORY: Nothing significant SOCIAL HISTORY: Lives at home. No history of smoking. No history of alcohol. REVIEW OF SYSTEMS: CARDIOVASCULAR: Has shortness of breath. No chest pain. RESPIRATORY: Has cough, productive of whitish sputum. No fever. GASTROINTESTINAL: No nausea or vomiting. No abdominal pain. GENITOURINARY: No dysuria. CENTRAL NERVOUS SYSTEM: No headache. No dizziness. PHYSICAL EXAMINATION: GENERAL: The patient is alert, awake, and oriented x3. VITAL SIGNS: Temperature 98, pulse 86, respirations 20, and blood pressure 130/ 60. HEENT: Head is normocephalic and atraumatic. Pupils equal and reactive. NECK: Supple. No JVD. LUNGS: Breath sounds diminished bilaterally. Percussion dull bilaterally. Expiratory wheeze present. No rales. HEART: S1 and S2 regular. ABDOMEN: Soft, obese. No distention. No tenderness. No abnormal bowel sounds felt. RECTAL: Deferred. CENTRAL NERVOUS SYSTEM: No focal deficits. LABORATORY DATA: CBC shows WBC 9.4, hemoglobin 12, hematocrit 40, platelets 252. Metabolic panel; sodium 137, potassium 3.7, chloride 102, CO2 of 22, BUN of 12, creatinine 0.9. Troponin I 0.20. BNP 127. Chest x-ray negative. EKG showed normal sinus rhythm, no acute ST-T changes seen. ASSESSMENT: 1. Chronic obstructive pulmonary disease with possible acute exacerbation. 2. Elevated troponin, rule out myocardial infarction. 3. Diabetes mellitus. 4. Hypertension. 5. Coronary artery disease, status post coronary artery bypass graft. 6. Chronic back pain and leg pain. 7. Anxiety disorder. PLAN: 1. Vital signs q.4 hours. 2. Activity: As tolerated. 3. Allergies: Codeine. 4. Hep-Lock. 5. Solu-Medrol 20 IVP q.6. 6. DuoNebs 1 unit q.i.d. 7. Accu-Chek a.c. and at bedtime. Sliding scale mild with regular insulin. 8. Continue her home medications. 9. Oxygen by nasal cannula at 2 L. 10. Mucinex 600 b.i.d. Job ID: [id number] [facility]
[2018-02-04] MEDS: Insulin Regular 300 UNITS/3 ML VIAL SC PRN ×2 (12:46→20:48)
[2018-02-04] MEDS: Betamethasone 0.1% Cream 15 GM TUBE TOP SCH ×2 (18:14→20:54)
[2018-02-04] MEDS: Diazepam 2 MG TAB PO SCH (20:51)
[2018-02-04] MEDS: Simvastatin 20 MG TAB PO SCH (20:51)
[2018-02-05] MEDS: HumuLIN 70/30 (300 UNITS/3 ML VIAL) SC SCH ×2 (09:35→17:54)
[2018-02-05] MEDS: Betamethasone 0.1% Cream 15 GM TUBE TOP SCH (09:37)
[2018-02-05] MEDS: Artificial Tears 18 DROP/0.9 ML EA EYE SCH ×4 (09:38→20:40)
[2018-02-05] MEDS: DULoxetine 60 MG CAP PO SCH (09:38)
[2018-02-05] MEDS: Pregabalin 75 MG CAP PO SCH ×2 (09:38→20:38)
[2018-02-05] MEDS: Aspirin 81 mg Enteric Coated Tablet PO SCH (09:39)
[2018-02-05] MEDS: Lisinopril 10 MG TAB PO SCH (09:39)
[2018-02-05] MEDS: Ferrous Sulfate 325 MG TAB PO SCH ×2 (09:39→17:53)
[2018-02-05] MEDS: Diazepam 2 MG TAB PO SCH ×2 (09:39→20:39)
[2018-02-05] MEDS: HYDROcodone/Acetaminophen 5/325 mg Tablet PO PRN ×2 (10:58→20:39)
[2018-02-05] MEDS: Insulin Regular 300 UNITS/3 ML VIAL SC PRN ×3 (13:30→20:49)
[2018-02-05] MEDS: Simvastatin 20 MG TAB PO SCH (20:39)
[2018-02-06] MEDS ORDERED: HYDROcodone/Acetaminophen 5/325 mg Tablet PO PRN ×2 (00:40→13:53)
[2018-02-06] MEDS ORDERED: HYDROcodone/Acetaminophen 5/325 mg Tablet PO SCH (00:45)
[2018-02-06] MEDS ORDERED: diphenhydrAMINE 25 MG CAP PO SCH (08:00)
[2018-02-06] MEDS: HumuLIN 70/30 (300 UNITS/3 ML VIAL) SC SCH ×2 (08:24→17:29)
[2018-02-06] MEDS: Artificial Tears 18 DROP/0.9 ML EA EYE SCH ×4 (08:24→19:51)
[2018-02-06] MEDS: Ferrous Sulfate 325 MG TAB PO SCH ×2 (08:24→17:28)
[2018-02-06] MEDS: Diazepam 2 MG TAB PO SCH ×2 (08:25→19:51)
[2018-02-06] MEDS: Pregabalin 75 MG CAP PO SCH ×2 (08:25→19:51)
[2018-02-06] MEDS: Lisinopril 10 MG TAB PO SCH (08:25)
[2018-02-06] MEDS: DULoxetine 60 MG CAP PO SCH (08:25)
[2018-02-06] MEDS: Aspirin 81 mg Enteric Coated Tablet PO SCH (08:25)
[2018-02-06] MEDS: Betamethasone 0.1% Cream 15 GM TUBE TOP SCH (08:25)
[2018-02-06] MEDS: Insulin Regular 300 UNITS/3 ML VIAL SC PRN ×2 (11:45→21:21)
[2018-02-06] MEDS: Vancomycin HCl 1 GM in Premix Bag 1 BAG IVPB SCH (17:29)
[2018-02-06] MEDS: Morphine 4 MG/ML VIAL SLOW IVP PRN ×2 (17:30→21:32)
--- NOTE | 2018-02-06 18:29 | EKG ---
Test Reason : EMERGENCY EXAM Blood Pressure : / mmHG Vent. Rate : 084 BPM Atrial Rate : 084 BPM P-R Int : 138 ms QRS Dur : 096 ms QT Int : 404 ms P-R-T Axes : 035 -12 057 degrees QTc Int : 477 ms Normal sinus rhythm Left ventricular hypertrophy with repolarization abnormality Abnormal ECG Confirmed by SHAHZAD REDDY DO ([id number]), editorial manager NEVIN PINTO ([id number]) on 02/06/2018 6:29:19 PM Referred By: Confirmed By:SHAHZAD REDDY DO
[2018-02-06] MEDS: Simvastatin 20 MG TAB PO SCH (19:51)
[2018-02-06] MEDS: Melatonin 3 MG TAB PO PRN (21:39)
[2018-02-07] MEDS: Morphine 4 MG/ML VIAL SLOW IVP PRN ×4 (03:01→21:01)
[2018-02-07] MEDS: Vancomycin HCl 1 GM in Premix Bag 1 BAG IVPB SCH ×2 (05:43→18:24)
[2018-02-07] MEDS: Ferrous Sulfate 325 MG TAB PO SCH ×2 (09:07→17:24)
[2018-02-07] MEDS: HumuLIN 70/30 (300 UNITS/3 ML VIAL) SC SCH ×2 (09:07→17:24)
[2018-02-07] MEDS: Lisinopril 10 MG TAB PO SCH (09:31)
[2018-02-07] MEDS: Aspirin 81 mg Enteric Coated Tablet PO SCH (09:31)
[2018-02-07] MEDS: Diazepam 2 MG TAB PO SCH ×2 (09:31→21:00)
[2018-02-07] MEDS: Pregabalin 75 MG CAP PO SCH ×2 (09:32→20:59)
[2018-02-07] MEDS: DULoxetine 60 MG CAP PO SCH (09:32)
[2018-02-07] MEDS ORDERED: Hydrocortisone 1% Cream 30 GM TUBE ONE (09:53)
[2018-02-07] MEDS ORDERED: Lidocaine 1% w/Epinephrine 1:100K 30 ML VIAL ONE (09:53)
[2018-02-07] MEDS ORDERED: Chlorhexidine Gluconate 15 ML UDCUP SSP ONE (09:53)
[2018-02-07] MEDS: Artificial Tears 18 DROP/0.9 ML EA EYE SCH ×3 (10:29→18:23)
--- NOTE | 2018-02-07 10:32 | CON ---
DATE OF CONSULTATION: CHIEF COMPLAINT: Currently is facial pain and swelling. HISTORY OF PRESENT ILLNESS: This is an 82-year-old female with a past medical history of COPD, coronary artery disease, hypertension, diabetes, chronic back pain, came to the ER on the 02 of February with shortness of breath and cough. She had been in a fpc, but was discharged a week prior. Since discharge, she has had a cough and increasing shortness of breath and wheezing. She was admitted for this. The patient was given steroids and nebulizer treatments and was found to have elevated troponin level in the ER. She was eventually weaned off a CPAP and admitted for medical management. The patient developed chin swelling and pain over her hospital course and has gotten worse over the last 2 days. PAST MEDICAL HISTORY: As noted in the history of present illness. PAST SURGICAL HISTORY: The patient has a history of coronary artery bypass, cholecystectomy, hysterectomy, and spinal surgery. CURRENT MEDICATIONS: The patient does take, 1. Insulin. 2. Iron. 3. Aspirin. 4. Melatonin. 5. DuoNeb. 6. Diazepam. 7. Lyrica. 8. [place]. 9. Cymbalta. 10. Simvastatin. 11. Zetia. 12. Metoprolol. ALLERGIES: POULTRY AND CODEINE. FAMILY HISTORY: Insignificant. SOCIAL HISTORY: She lives at home. No history of smoking or alcohol. REVIEW OF SYSTEMS: She does have the noted shortness of breath and facial pain and swelling in her chin area. PHYSICAL EXAMINATION: GENERAL: She is awake, alert, oriented x3. She is in no acute distress. VITAL SIGNS: Currently, temperature 97.6, pulse 81, respirations 18, blood pressure 130/60. HEENT: She does have a large indurated swelling of her chin and lower lip. This appears to be coming to her head. There is no spontaneous drainage at this point. She is edentulous with no teeth. Her opening is good. NECK: Soft and supple. NEUROLOGIC: Cranial nerves 2 through 7 are grossly intact. ASSESSMENT: This is an 82-year-old female, who was initially admitted for chronic obstructive pulmonary disease exacerbation and rule out myocardial infarction with skin abscess of the chin. This appears to be more than likely an methicillin-resistant Staphylococcus aureus abscess. PLAN: Dr. Felix has already placed the patient on IV vancomycin. We will plan to take the patient to the operating room for incision and drainage of abscess. The patient was offered local anesthesia and told that this was the safest route in her case due to her medical history. She, however, said she was not willing to do this procedure under local anesthesia and wanted to be asleep. Job ID: [id number] [facility]
[2018-02-07] MEDS ORDERED: hydrALAZINE 20 MG/ML VIAL SLOW IVP SCH ×2 (11:15→15:15)
[2018-02-07] MEDS ORDERED: Fentanyl 100 MCG/2 ML VIAL ONE ×2 (11:42→13:43)
[2018-02-07] MEDS ORDERED: Lidocaine 2% Jelly 5 ML TUBE ONE (11:50)
[2018-02-07] MEDS ORDERED: PROPOFOL 200 MG/20 ML VIAL ONE (12:50)
[2018-02-07] MEDS ORDERED: Lidocaine 1% PF 5 ML VIAL ONE (12:50)
[2018-02-07] MEDS ORDERED: Ondansetron PF 4 MG/2 ML Vial ONE (12:50)
[2018-02-07] MEDS ORDERED: Succinylcholine Chloride 20 MG/ML 10 ml SYRINGE FS ONE (12:50)
[2018-02-07] MEDS ORDERED: Bacitracin Zinc Ointment 30 gm TUBE ONE (13:12)
[2018-02-07] MEDS ORDERED: Ondansetron HCl/PF 4 MG/2 ML Vial IVP PRN (13:36)
[2018-02-07] MEDS ORDERED: Promethazine HCl 25 MG/ML VIAL IM PRN (13:36)
[2018-02-07] MEDS ORDERED: Promethazine HCl 25 MG/ML VIAL SLOW IVP PRN (13:36)
--- NOTE | 2018-02-07 17:04 | CON ---
DATE OF CONSULTATION: 02/07/2018 REASON FOR CONSULTATION: Mental abscess. HISTORY OF PRESENT ILLNESS: An 82-year-old, whom I had seen many years ago with urosepsis. She has a history of type 2 diabetes and hypertension, systolic CHF, previous CVA as well and at this time, presented with new onset of inflammatory process mantle area, worsening dyspnea and cough. No visual symptoms. No nasal symptoms or ear pain. No fever reported. No chest pain. Some cough with a little bit of sputum production. No abdominal pain or diarrhea. No genitourinary symptoms. No change in neurological status. PAST MEDICAL HISTORY: Hypertension, coronary artery disease, bypass graft surgery, type 2 diabetes, hyperlipidemia, anxiety, and COPD. PAST SURGICAL HISTORY: As above plus cholecystectomy, hysterectomy, and laminectomy. CURRENT MEDICATIONS: Proventil, DuoNeb, Tears Naturale, Ecotrin, dextrose, Valium, Cymbalta, Feosol, glucagon, Apresoline, insulin, Levaquin, melatonin, Solu-Medrol, and vancomycin. ALLERGIES: CODEINE. SOCIAL HISTORY: Never smoker. She has been living at home. PHYSICAL EXAMINATION: VITAL SIGNS: T-max 99, currently 98.3, blood pressure 170/70, pulse 76, respirations are 18, and O2 saturation 94% to 96%. SKIN: The mental area with marked swelling and erythema. It appears that the patient had local debridement of the abscess by Dr. Cortes. Serosanguineous drainage noted around this site, which is covered by dressing. She has a peripheral IV access, as she is voiding in the diaper. HEENT: No lymphadenopathy. Ocular movements conjugate. Oral cavity, she has no remaining [place] teeth. NECK: Supple. No jugular venous distention. LUNGS: Symmetric air entry. HEART: S1 and S2. Regular rate with a soft aortic murmur. ABDOMEN: Soft. Not distended or tender. No ascites. No bladder distention. MUSCULOSKELETAL: No joint inflammatory activity. Pulses are 1+ in dorsalis pedis. Cap refill is normal. Plantar responses are flexor and without clonus. NEUROLOGIC: She is oriented. Follows commands. She had a hard time in interacting because of pain in the mental area from the abscess. LABORATORY DATA: White cell count 9.4, hemoglobin 12.8, and platelets are 252. Sodium 137, creatinine 0.83. Liver profile normal. CK 223. Albumin 3.6. Previous serologies, influenza negative. Urinalysis from November, not particularly remarkable. Microbiology, we have pending cultures. ASSESSMENT: Type 2 diabetes, ischemic cardiomyopathy with now mental abscess, status post limited debridement. DISCUSSION: Most likely scenario is Staphylococcus aureus/methicillin-resistant staphylococcus aureus abscess of the chin and will continue with vancomycin. The target trough will be on 15 mcg/mL. Monitor blood cultures. Job ID: [id number]
[2018-02-07] MEDS: Clindamycin/D5W 900 MG in Premix Bag 1 BAG IVPB SCH (17:19)
[2018-02-07] MEDS: Sodium Chloride 0.45% 1,000 ML IV SCH (18:24)
[2018-02-07] MEDS: Simvastatin 20 MG TAB PO SCH (21:00)
[2018-02-07] MEDS: Insulin Regular 300 UNITS/3 ML VIAL SC PRN (21:00)
[2018-02-08] MEDS: Artificial Tears 18 DROP/0.9 ML EA EYE SCH ×5 (00:18→20:57)
[2018-02-08] MEDS: Clindamycin/D5W 900 MG in Premix Bag 1 BAG IVPB SCH ×3 (00:45→16:46)
[2018-02-08] MEDS: Morphine 4 MG/ML VIAL SLOW IVP PRN ×5 (00:45→20:59)
[2018-02-08] MEDS: Vancomycin HCl 1 GM in Premix Bag 1 BAG IVPB SCH ×2 (05:25→07:29)
[2018-02-08 06:17] LABS: Vancomycin, Trough 12.1 ug/mL
[2018-02-08 06:19] LABS: Anion Gap 14 mmol/L (10-20); BUN (Urea Nitrogen) 23 mg/dL (9.8-20.1); Calc. Creatinine Clearance 76 mL/min (70-130); Carbon Dioxide 24 mmol/L (23-31); Chloride 100 mmol/L (98-107); Estimated GFR-MDRD 83; Potassium 4.9 mmol/L (3.5-5.1); Sodium 133 mmol/L (136-145)
[2018-02-08 06:20] LABS: Calcium 8.3 mg/dL (7.8-10.44); Glucose 230 mg/dL (83-110)
[2018-02-08 06:21] LABS: Band 9 % (5-11); Hemoglobin 13.8 g/dL (12.0-16.0); Lymphocytes 6 % (21-51); MDiff Complete? YES; Mean Corpuscular HGB CONC 30.8 g/dL (32.0-36.0); Mean Corpuscular Hemoglobin 27.5 pg (27.0-31.0); Mean Corpuscular Volume 89.2 fL (78.0-98.0); Mean Platelet Volume 8.7 fL (7.4-10.4); Monocytes 3 % (0-10); Neutrophil 82 % (42-75); PLT Morphology Comment Appears Adequate; Platelet Count 209 thou/uL (130-400); Red Blood Cell (RBC) Count 5.02 mill/uL (4.20-5.40); White Blood Cell (WBC) Count 23.2 thou/uL (4.8-10.8)
[2018-02-08] MEDS ORDERED: Vancomycin HCl 1.25 GM in Sodium Chloride 0.9% 250 ML 250 ML IVPB SCH ×2 (07:00→18:00)
[2018-02-08] MEDS: Ferrous Sulfate 325 MG TAB PO SCH ×2 (08:30→17:03)
[2018-02-08] MEDS: DULoxetine 60 MG CAP PO SCH (08:31)
[2018-02-08] MEDS: Pregabalin 75 MG CAP PO SCH ×2 (08:31→20:56)
[2018-02-08] MEDS: Diazepam 2 MG TAB PO SCH ×2 (08:31→20:56)
[2018-02-08] MEDS: Lisinopril 10 MG TAB PO SCH (08:31)
[2018-02-08] MEDS: Aspirin 81 mg Enteric Coated Tablet PO SCH (08:32)
--- NOTE | 2018-02-08 08:32 | OP ---
DATE OF PROCEDURE: 02/02/2018 PREOPERATIVE DIAGNOSIS: Chin abscess. POSTOPERATIVE DIAGNOSIS: Chin abscess. PROCEDURE PERFORMED: I and D and packing of chin abscess. COMPLICATIONS: None. SPECIMENS: Purulent culture was sent for Gram stain and culture. DISPOSITION: The patient was stable, extubated, and transported to postoperative recovery unit. BRIEF PATIENT HISTORY AND PROCEDURE IN DETAIL: This is an 82-year-old female, admitted for COPD exacerbation, developed chin swelling during hospital stay. The patient was intubated orally, prepped and draped in sterile fashion with Betadine. Incision over the chin of the abscess was made just right of midline of the chin. Blunt dissection with hemostats into the abscess cavity, opened up the cavity grossly with hemostat dissection. Large amount of purulence packing of the cavity with Bacitracin-soaked half-inch packing strips. Tegaderm dressing was placed. The patient tolerated the procedure well. Job ID: [id number]
[2018-02-08] MEDS: Insulin Regular 300 UNITS/3 ML VIAL SC PRN ×4 (08:44→20:58)
[2018-02-08] MEDS: Sodium Chloride 0.45% 1,000 ML IV SCH ×2 (08:58→21:02)
--- NOTE | 2018-02-08 14:24 | PQF ---
CLINICAL DOCUMENTATION IMPROVEMENT CLARIFICATION FORM: ICD-10 Updated PLEASE DO AN ADDENDUM TO THE PROGRESS NOTE WITH ANY DOCUMENTATION UPDATES OR ADDITIONS AND CARRY THROUGH TO DC SUMMARY. THANK YOU. DATE: 02/08/18 ATTN: Dr. Felix Please exercise your independent, professional judgment in responding to the clarification form. Clinical indicators are provided on the bottom of this form for your review Please check appropriate box(s) to clarify if the following diagnosis has been ruled in or ruled out: Rule out myocardial infarction [ ] Ruled in diagnosis [ ] Continue to treat [ ] Resolved [ y ] Ruled out diagnosis [ ] Cannot rule out diagnosis [ ] Other diagnosis [ ] Unable to determine In addition, please specify: Present on Admission (POA): [y ] Yes [ ] No [ ] Unable to determine For continuity of documentation, please document condition throughout progress notes and discharge summary. Thank You. CLINICAL INDICATORS - SIGNS / SYMPTOMS / LABS 02/02@ 1537 02/02 @ 1839 @ 2147 LABS Troponin I 0.209 0.230 0.177 H&P 02/02: Elevated troponin, rule out myocardial infarction. RISKS: H&P: COPD. DM. HTN. CAD, S/P CABG. TREATMENT: ADMIT TELEMETRY CPOE 02/02: Toprol XL 50 mg po Daily Thank you, Yuridia (This form is maintained as a part of the permanent medical record) 2014 [employer]. All Rights Reserved Yuridia Perez RN, BSN [email or web address] Office: [phone] [facility]
--- NOTE | 2018-02-08 17:17 | PDOC.PN ---
- Subjective Encounter Start Date: 02/08/18 Encounter Start Time: 08:20 Pt seen for followup re: diastolic CHF exacerbation. Denies chest pain, shortness of breath, fevers or chills. Leg pain + - Objective MAR Reviewed: Yes Vital Signs & Weight: Vital Signs (12 hours) Temp Pulse Pulse Resp BP BP Pulse Ox 02/08/18 15:25 98.6 F 74 18 139/64 96 02/08/18 11:37 98.3 F 73 16 132/61 94 L 02/08/18 10:10 71 137/63 02/08/18 07:10 98.4 F 82 16 152/87 H 94 L Pulse Ox 02/08/18 15:25 02/08/18 11:37 02/08/18 10:10 96 02/08/18 07:10 Weight Admit Weight 192 lb 14.4 oz Weight 197 lb I&O: 02/07/18 02/08/18 02/09/18 06:59 06:59 06:59 Intake Total 360 798 Balance 360 798 Result Diagrams: 02/08/18 05:52 02/08/18 05:52 Additional Labs: Accuchecks 02/08/18 02/08/18 02/08/18 16:40 10:41 05:16 POC Glucose 305 H 285 H 270 H 02/07/18 20:50 POC Glucose 283 H EKG Reviewed by me: Yes (Tele: NSR) Phys Exam - Physical Examination Obesity HEENT: moist MMs Neck: supple Respiratory: clear to auscultation bilateral Cardiovascular: RRR Dx/Plan - Plan * . Review of Systems - Review of Systems Respiratory: SOB with Excertion. negative: Cough, Shortness of Breath, Pleuritic Pain, Wheezing Cardiovascular: negative: chest pain, palpitations, orthopnea, paroxysmal nocturnal dyspnea, edema, light headedness Musculoskeletal: Leg Pain - Medications/Allergies Allergies/Adverse Reactions: Allergies Allergy/AdvReac Type Severity Reaction Status Date / Time Poultry Allergy Intermediate Stomach Verified 02/02/18 19:06 Ache codeine Allergy Verified 02/02/18 19:06 Medications: Current Medications Albuterol Sulfate (Proventil Hfa) 2 puff INH Q4H PRN PRN Reason: SOB/WHEEZE Albuterol/Ipratropium (Duoneb) 3 ml NEB QID-RT RODRIGO Last Admin: 02/08/18 13:39 Dose: Not Given Artificial Tears (Tears Naturale) 1 drop EA EYE QID [facility] Last Admin: 02/08/18 16:46 Dose: 1 drop Aspirin (Ecotrin) 81 mg PO DAILY [facility] Last Admin: 02/08/18 08:32 Dose: 81 mg Dextrose/Water (Dextrose 50%) 25 gm IVP PRN PRN PRN Reason: HYPOGLYCEMIA PROTOCOL Diazepam (Valium) 2 mg PO BID [facility] Last Admin: 02/08/18 08:31 Dose: 2 mg Duloxetine HCl (Cymbalta) 60 mg PO DAILY [facility] Last Admin: 02/08/18 08:31 Dose: 60 mg Ferrous Sulfate (Feosol) 325 mg PO BID-WM [facility] Last Admin: 02/08/18 17:03 Dose: 325 mg Glucagon (Glucagon) 1 mg IM PRN PRN PRN Reason: HYPOGLYCEMIA PROTOCOL Dextrose/Water (D5w) 1,000 mls @ 0 mls/hr IV INF PRN PRN Reason: HYPOGLYCEMIA PROTOCOL Clindamycin Phosphate/Dextrose (900 mg/ Device) 50 mls @ 100 mls/hr IVPB 0800, 1600,2359 [facility] Last Admin: 02/08/18 16:46 Dose: 50 mls Sodium Chloride (1/2 Normal Saline) 1,000 mls @ 70 mls/hr IV .[id number] [facility] Last Admin: 02/08/18 08:58 Dose: 1,000 mls Vancomycin HCl 1.25 gm/ Sodium (Chloride) 250 mls @ 166.667 mls/hr IVPB 0600, 1800 [facility] Insulin Human Regular (Humulin R) 0 units SC .MODERATE SLIDING SC PRN; Protocol PRN Reason: MODERATE SLIDING SCALE Last Admin: 02/08/18 17:00 Dose: 8 unit Insulin Human Regular (Humulin R) 0 units SC .BEDTIME SLIDING SC PRN; Protocol PRN Reason: BEDTIME SLIDING SCALE Last Admin: 02/07/18 21:00 Dose: 3 unit Lisinopril (Zestril) 10 mg PO DAILY [facility] Last Admin: 02/08/18 08:31 Dose: 10 mg Melatonin (Melatonin) 6 mg PO HSPRN PRN PRN Reason: Insomnia Last Admin: 02/06/18 21:39 Dose: 6 mg Methylprednisolone Sodium Succinate (Solu-Medrol) 20 mg IVP Q6HR [facility] Last Admin: 02/08/18 12:01 Dose: 20 mg Metoprolol Succinate (Toprol Xl) 50 mg PO DAILY [facility] Last Admin: 02/08/18 08:31 Dose: 50 mg Miscellaneous Medication (Pharmacy To Dose) 1 each IVPB PRN PRN PRN Reason: . Morphine Sulfate (Morphine) 4 mg SLOW IVP Q4H PRN PRN Reason: Pain Last Admin: 02/08/18 15:19 Dose: 4 mg Ondansetron HCl (Zofran Odt) 4 mg PO Q6H PRN PRN Reason: Nausea/Vomiting Pregabalin (Lyrica) 150 mg PO BID [facility] Last Admin: 02/08/18 08:31 Dose: 150 mg Simvastatin (Zocor) 20 mg PO HS [facility] Last Admin: 02/07/18 21:00 Dose: 20 mg
[2018-02-08] MEDS: Vancomycin HCl 1.25 GM in Sodium Chloride 0.9% 250 ML 250 ML IVPB SCH (17:53)
[2018-02-08] MEDS: predniSONE 20 MG TAB PO SCH (20:56)
[2018-02-08] MEDS: Simvastatin 20 MG TAB PO SCH (20:56)
[2018-02-09] MEDS: Clindamycin/D5W 900 MG in Premix Bag 1 BAG IVPB SCH ×2 (00:24→09:38)
[2018-02-09] MEDS: Vancomycin HCl 1.25 GM in Sodium Chloride 0.9% 250 ML 250 ML IVPB SCH ×2 (05:38→19:14)
[2018-02-09] MEDS: Insulin Regular 300 UNITS/3 ML VIAL SC PRN ×3 (06:43→21:41)
[2018-02-09] MEDS: Lisinopril 10 MG TAB PO SCH (09:38)
[2018-02-09] MEDS: Ferrous Sulfate 325 MG TAB PO SCH ×2 (09:39→19:13)
[2018-02-09] MEDS: Aspirin 81 mg Enteric Coated Tablet PO SCH (09:39)
[2018-02-09] MEDS: Pregabalin 75 MG CAP PO SCH ×2 (09:39→21:38)
[2018-02-09] MEDS: DULoxetine 60 MG CAP PO SCH (09:40)
[2018-02-09] MEDS: Diazepam 2 MG TAB PO SCH ×2 (09:40→21:39)
[2018-02-09] MEDS: Artificial Tears 18 DROP/0.9 ML EA EYE SCH ×4 (09:41→21:40)
[2018-02-09] MEDS: predniSONE 20 MG TAB PO SCH (09:41)
[2018-02-09] MEDS: Morphine 4 MG/ML VIAL SLOW IVP PRN ×2 (15:56→21:53)
[2018-02-09] MEDS: Sodium Chloride 0.45% 1,000 ML IV SCH (15:57)
[2018-02-09 17:55] LABS: Vancomycin, Trough 24.6 ug/mL
[2018-02-09] MEDS: Vancomycin HCl 1 GM in Premix Bag 1 BAG IVPB SCH (19:17)
[2018-02-09] MEDS: Simvastatin 20 MG TAB PO SCH (21:38)
[2018-02-09] MEDS ORDERED: HumuLIN 70/30 (300 UNITS/3 ML VIAL) SC SCH (22:30)
[2018-02-10] MEDS: Morphine 4 MG/ML VIAL SLOW IVP PRN ×2 (02:56→13:19)
[2018-02-10] MEDS: Vancomycin HCl 1 GM in Premix Bag 1 BAG IVPB SCH ×2 (06:14→17:31)
[2018-02-10] MEDS: Sodium Chloride 0.45% 1,000 ML IV SCH ×2 (06:14→17:52)
[2018-02-10] MEDS ORDERED: predniSONE 20 MG TAB PO SCH (09:00)
[2018-02-10 09:31] LABS: Anion Gap 16 mmol/L (10-20); BUN (Urea Nitrogen) 25 mg/dL (9.8-20.1); Calc. Creatinine Clearance 80 mL/min (70-130); Calcium 8.5 mg/dL (7.8-10.44); Carbon Dioxide 23 mmol/L (23-31); Chloride 103 mmol/L (98-107); Estimated GFR-MDRD 84; Glucose 203 mg/dL (83-110); Potassium 4.7 mmol/L (3.5-5.1); Sodium 137 mmol/L (136-145)
[2018-02-10 10:10] LABS: Hemoglobin 15.2 g/dL (12.0-16.0); Mean Corpuscular HGB CONC 33.4 g/dL (32.0-36.0); Mean Corpuscular Hemoglobin 28.5 pg (27.0-31.0); Mean Corpuscular Volume 85.3 fL (78.0-98.0); Mean Platelet Volume 9.1 fL (7.4-10.4); Platelet Count 180 thou/uL (130-400); RBC Distribution Width 13.7 % (11.5-14.5); Red Blood Cell (RBC) Count 5.32 mill/uL (4.20-5.40); White Blood Cell (WBC) Count 22.8 thou/uL (4.8-10.8)
[2018-02-10] MEDS: HumuLIN 70/30 (300 UNITS/3 ML VIAL) SC SCH ×2 (10:29→17:32)
[2018-02-10] MEDS: Artificial Tears 18 DROP/0.9 ML EA EYE SCH ×4 (10:30→21:50)
[2018-02-10] MEDS: Pregabalin 75 MG CAP PO SCH ×2 (10:30→21:49)
[2018-02-10] MEDS: Diazepam 2 MG TAB PO SCH ×2 (10:30→21:50)
[2018-02-10] MEDS: Aspirin 81 mg Enteric Coated Tablet PO SCH (10:31)
[2018-02-10] MEDS: Lisinopril 10 MG TAB PO SCH (10:31)
[2018-02-10] MEDS: DULoxetine 60 MG CAP PO SCH (10:31)
[2018-02-10] MEDS: Ferrous Sulfate 325 MG TAB PO SCH ×2 (10:31→17:27)
[2018-02-10 11:04] LABS: Lymphocytes 16 % (21-51); Metamyelocyte 1 % (0-0); Monocytes 8 % (0-10); Reactive Lymphocytes 3 % (0-10)
[2018-02-10 11:05] LABS: MDiff Complete? YES; Neutrophil 72 % (42-75)
[2018-02-10] MEDS: Insulin Regular 300 UNITS/3 ML VIAL SC PRN ×3 (13:03→21:51)
--- NOTE | 2018-02-10 17:07 | PRG ---
DATE OF SERVICE: 02/10/2018 SUBJECTIVE: Feeling much better. No respiratory symptoms. Markedly decreased pain in the mental/chin area. OBJECTIVE: VITAL SIGNS: Vital signs are normal except for slight elevation of systolic blood pressure. Marked decrease in swelling and tenderness and inflammatory changes at the mental/chin area. LUNGS: Clear. HEART: S1, S2. Regular rate. ABDOMEN: Soft. LABORATORY DATA: White cell count 22,000, hemoglobin 15, platelets 180, 72% neutrophils, 16% lymphocytes. Creatinine 0.79. Microbiology with methicillin-resistant Staph aureus organism is susceptible to clindamycin. ASSESSMENT AND DISCUSSION: Type 2 diabetes with mental abscess status post debridement secondary to methicillin-resistant Staph aureus. Consider discharge planning on oral clindamycin. Followup CBC. No blood cultures were submitted and therefore, we will have to carefully monitor progress going forward, since if she had been bacteremic, she is at high risk for recrudescence of the infection at a distant place. Job ID: [id number]
[2018-02-10] MEDS ORDERED: Milk Of Magnesia 30 ML UDCUP PO PRN (18:09)
[2018-02-10] MEDS ORDERED: cloNIDine 0.1 MG TAB PO PRN (18:10)
[2018-02-10] MEDS: Simvastatin 20 MG TAB PO SCH (21:50)
[2018-02-10] MEDS: HYDROcodone/Acetaminophen 5/325 mg Tablet PO PRN (21:56)
[2018-02-11] MEDS: HumuLIN 70/30 (300 UNITS/3 ML VIAL) SC SCH ×2 (09:15→21:27)
[2018-02-11] MEDS: Artificial Tears 18 DROP/0.9 ML EA EYE SCH ×4 (09:17→20:33)
[2018-02-11] MEDS: Ferrous Sulfate 325 MG TAB PO SCH ×2 (09:18→16:32)
[2018-02-11] MEDS: Docusate 100 MG CAP PO SCH (09:18)
[2018-02-11] MEDS: Lisinopril 10 MG TAB PO SCH (09:18)
[2018-02-11] MEDS: Diazepam 2 MG TAB PO SCH ×2 (09:18→20:33)
[2018-02-11] MEDS: Pregabalin 75 MG CAP PO SCH ×2 (09:19→20:33)
[2018-02-11] MEDS: predniSONE 20 MG TAB PO SCH (09:19)
[2018-02-11] MEDS: DULoxetine 60 MG CAP PO SCH (09:19)
[2018-02-11] MEDS: Aspirin 81 mg Enteric Coated Tablet PO SCH (09:19)
[2018-02-11] MEDS: Insulin Regular 300 UNITS/3 ML VIAL SC PRN (18:16)
[2018-02-11 20:13] LABS: Vancomycin, Random 14.2 ug/mL (See Comment)
[2018-02-11] MEDS: Simvastatin 20 MG TAB PO SCH (20:33)
[2018-02-11] MEDS: HYDROcodone/Acetaminophen 5/325 mg Tablet PO PRN (20:37)
[2018-02-12] MEDS: Vancomycin HCl 750 MG in Sodium Chloride 0.9% 250 ML 250 ML IVPB SCH ×2 (06:18→17:27)
[2018-02-12] MEDS: Vancomycin HCl 1 GM in Premix Bag 1 BAG IVPB SCH (07:45)
[2018-02-12 07:48] LABS: #Eosinphils 0.4 thou/uL (0.0-0.7); #Lymphocytes 4.1 thou/uL (1.20-3.40); #Monocytes 2.4 thou/uL (0.11-0.59); #Neutrophils 11.5 thou/uL (1.40-6.50); %Basophils 0.2 % (0.0-1.0); %Eosinophils 2.4 % (0.0-10.0); %Lymphocytes 22.2 % (21.0-51.0); %Monocytes 13.2 % (0.0-10.0); %Neutrophils 62.1 % (42.0-75.0); Hemoglobin 13.7 g/dL (12.0-16.0); Mean Corpuscular HGB CONC 31.6 g/dL (32.0-36.0); Mean Corpuscular Hemoglobin 26.9 pg (27.0-31.0); Mean Corpuscular Volume 85.3 fL (78.0-98.0); Mean Platelet Volume 8.9 fL (7.4-10.4); Platelet Count 208 thou/uL (130-400); RBC Distribution Width 14.6 % (11.5-14.5); Red Blood Cell (RBC) Count 5.08 mill/uL (4.20-5.40); White Blood Cell (WBC) Count 18.5 thou/uL (4.8-10.8)
[2018-02-12 07:58] LABS: Anion Gap 14 mmol/L (10-20); BUN (Urea Nitrogen) 17 mg/dL (9.8-20.1); Calc. Creatinine Clearance 87 mL/min (70-130); Calcium 8.6 mg/dL (7.8-10.44); Carbon Dioxide 28 mmol/L (23-31); Chloride 102 mmol/L (98-107); Estimated GFR-MDRD Greater than 90; Glucose 90 mg/dL (83-110); Potassium 4.1 mmol/L (3.5-5.1); Sodium 140 mmol/L (136-145)
[2018-02-12] MEDS: Pregabalin 75 MG CAP PO SCH ×2 (08:20→21:14)
[2018-02-12] MEDS: DULoxetine 60 MG CAP PO SCH (08:20)
[2018-02-12] MEDS: Diazepam 2 MG TAB PO SCH ×2 (08:20→21:14)
[2018-02-12] MEDS: Aspirin 81 mg Enteric Coated Tablet PO SCH (08:20)
[2018-02-12] MEDS: Lisinopril 10 MG TAB PO SCH ×2 (08:21→21:15)
[2018-02-12] MEDS: Artificial Tears 18 DROP/0.9 ML EA EYE SCH ×4 (08:21→21:16)
[2018-02-12] MEDS: predniSONE 20 MG TAB PO SCH (08:21)
[2018-02-12] MEDS: Docusate 100 MG CAP PO SCH (08:21)
[2018-02-12] MEDS: Ferrous Sulfate 325 MG TAB PO SCH ×2 (08:22→17:27)
[2018-02-12] MEDS: HumuLIN 70/30 (300 UNITS/3 ML VIAL) SC SCH ×2 (08:23→17:28)
[2018-02-12] MEDS: HYDROcodone/Acetaminophen 5/325 mg Tablet PO PRN ×2 (11:31→21:15)
[2018-02-12] MEDS ORDERED: cloNIDine 0.2 MG TAB PO SCH (21:00)
[2018-02-12] MEDS: Simvastatin 20 MG TAB PO SCH (21:15)
[2018-02-13] MEDS: Vancomycin HCl 750 MG in Sodium Chloride 0.9% 250 ML 250 ML IVPB SCH ×2 (06:32→17:22)
[2018-02-13] MEDS: HYDROcodone/Acetaminophen 5/325 mg Tablet PO PRN ×2 (06:35→20:02)
[2018-02-13] MEDS: Artificial Tears 18 DROP/0.9 ML EA EYE SCH ×4 (09:05→19:59)
[2018-02-13] MEDS: Ferrous Sulfate 325 MG TAB PO SCH ×2 (09:05→17:19)
[2018-02-13] MEDS: Diazepam 2 MG TAB PO SCH ×2 (09:06→20:03)
[2018-02-13] MEDS: Aspirin 81 mg Enteric Coated Tablet PO SCH (09:06)
[2018-02-13] MEDS: Lisinopril 10 MG TAB PO SCH ×2 (09:06→20:00)
[2018-02-13] MEDS: Docusate 100 MG CAP PO SCH (09:06)
[2018-02-13] MEDS: predniSONE 20 MG TAB PO SCH (09:06)
[2018-02-13] MEDS: DULoxetine 60 MG CAP PO SCH (09:06)
[2018-02-13] MEDS: Pregabalin 75 MG CAP PO SCH ×2 (09:07→20:01)
[2018-02-13] MEDS: HumuLIN 70/30 (300 UNITS/3 ML VIAL) SC SCH ×2 (09:10→17:20)
[2018-02-13] MEDS: Insulin Regular 300 UNITS/3 ML VIAL SC PRN (11:27)
[2018-02-13 18:03] LABS: Vancomycin, Trough 16.2 ug/mL
[2018-02-13] MEDS: Simvastatin 20 MG TAB PO SCH (20:03)
[2018-02-14] MEDS: Vancomycin HCl 750 MG in Sodium Chloride 0.9% 250 ML 250 ML IVPB SCH ×2 (05:26→18:22)
[2018-02-14] MEDS: HumuLIN 70/30 (300 UNITS/3 ML VIAL) SC SCH ×2 (09:44→18:20)
[2018-02-14] MEDS: DULoxetine 60 MG CAP PO SCH (09:46)
[2018-02-14] MEDS: Docusate 100 MG CAP PO SCH (09:46)
[2018-02-14] MEDS: Diazepam 2 MG TAB PO SCH ×2 (09:46→20:27)
[2018-02-14] MEDS: Ferrous Sulfate 325 MG TAB PO SCH ×2 (09:46→17:12)
[2018-02-14] MEDS: Aspirin 81 mg Enteric Coated Tablet PO SCH (09:46)
[2018-02-14] MEDS: Artificial Tears 18 DROP/0.9 ML EA EYE SCH ×4 (09:46→21:18)
[2018-02-14] MEDS: Lisinopril 10 MG TAB PO SCH ×2 (09:47→20:26)
[2018-02-14] MEDS: Pregabalin 75 MG CAP PO SCH ×2 (09:47→20:26)
[2018-02-14 13:10] LABS: #Eosinphils 0.5 thou/uL (0.0-0.7); #Lymphocytes 3.1 thou/uL (1.20-3.40); #Monocytes 1.3 thou/uL (0.11-0.59); #Neutrophils 14.5 thou/uL (1.40-6.50); %Basophils 0.1 % (0.0-1.0); %Eosinophils 2.7 % (0.0-10.0); %Lymphocytes 15.7 % (21.0-51.0); %Monocytes 6.7 % (0.0-10.0); %Neutrophils 74.8 % (42.0-75.0); Hemoglobin 13.8 g/dL (12.0-16.0); Mean Corpuscular HGB CONC 31.2 g/dL (32.0-36.0); Mean Corpuscular Hemoglobin 27.2 pg (27.0-31.0); Platelet Count 201 thou/uL (130-400); RBC Distribution Width 14.9 % (11.5-14.5); Red Blood Cell (RBC) Count 5.06 mill/uL (4.20-5.40); White Blood Cell (WBC) Count 19.4 thou/uL (4.8-10.8)
[2018-02-14] MEDS: HYDROcodone/Acetaminophen 5/325 mg Tablet PO PRN ×2 (13:45→21:16)
[2018-02-14] MEDS: Insulin Regular 300 UNITS/3 ML VIAL SC PRN (18:21)
[2018-02-14] MEDS: Simvastatin 20 MG TAB PO SCH (20:26)
[2018-02-15 05:41] LABS: #Eosinphils 0.4 thou/uL (0.0-0.7); #Lymphocytes 2.4 thou/uL (1.20-3.40); #Neutrophils 11.8 thou/uL (1.40-6.50); %Basophils 0.2 % (0.0-1.0); %Eosinophils 2.6 % (0.0-10.0); %Lymphocytes 15.4 % (21.0-51.0); %Monocytes 6.1 % (0.0-10.0); %Neutrophils 75.7 % (42.0-75.0); Hemoglobin 13.3 g/dL (12.0-16.0); Mean Corpuscular HGB CONC 32.3 g/dL (32.0-36.0); Mean Corpuscular Hemoglobin 27.9 pg (27.0-31.0); Mean Corpuscular Volume 86.5 fL (78.0-98.0); Mean Platelet Volume 8.5 fL (7.4-10.4); Platelet Count 257 thou/uL (130-400); RBC Distribution Width 14.8 % (11.5-14.5); Red Blood Cell (RBC) Count 4.76 mill/uL (4.20-5.40); White Blood Cell (WBC) Count 15.6 thou/uL (4.8-10.8)
[2018-02-15 05:56] LABS: Vancomycin, Trough 15.2 ug/mL
[2018-02-15 05:57] LABS: Anion Gap 12 mmol/L (10-20); BUN (Urea Nitrogen) 13 mg/dL (9.8-20.1); Calc. Creatinine Clearance 82 mL/min (70-130); Calcium 8.8 mg/dL (7.8-10.44); Carbon Dioxide 25 mmol/L (23-31); Chloride 104 mmol/L (98-107); Estimated GFR-MDRD 90; Glucose 138 mg/dL (83-110); Potassium 4.5 mmol/L (3.5-5.1); Sodium 136 mmol/L (136-145)
[2018-02-15] MEDS: Vancomycin HCl 750 MG in Sodium Chloride 0.9% 250 ML 250 ML IVPB SCH (06:21)
[2018-02-15] MEDS: Docusate 100 MG CAP PO SCH (08:46)
[2018-02-15] MEDS: Pregabalin 75 MG CAP PO SCH (08:46)
[2018-02-15] MEDS: Ferrous Sulfate 325 MG TAB PO SCH (08:46)
[2018-02-15] MEDS: DULoxetine 60 MG CAP PO SCH (08:46)
[2018-02-15] MEDS: Lisinopril 10 MG TAB PO SCH (08:47)
[2018-02-15] MEDS: Artificial Tears 18 DROP/0.9 ML EA EYE SCH ×2 (08:47→12:31)
[2018-02-15] MEDS: HYDROcodone/Acetaminophen 5/325 mg Tablet PO PRN (08:47)
[2018-02-15] MEDS: Aspirin 81 mg Enteric Coated Tablet PO SCH (08:47)
[2018-02-15] MEDS: HumuLIN 70/30 (300 UNITS/3 ML VIAL) SC SCH (08:47)
[2018-02-15 14:17] VITALS: BMI 31.3
[2018-02-15 17:07] VITALS: BP 134/64; TEMP 98
--- NOTE | 2018-02-16 13:32 | DIS ---
DATE OF ADMISSION: 02/02/2018 DATE OF DISCHARGE: 02/15/2018 ADMITTING DIAGNOSES: 1. Chronic obstructive pulmonary disease with acute exacerbation. 2. Elevated troponin, rule out myocardial infarction. 3. Diabetes mellitus. 4. Hypertension. 5. Coronary artery disease, status post coronary artery bypass graft. 6. Chronic back pain and leg pain. 7. Anxiety disorder. FINAL DIAGNOSES: 1. Chronic obstructive pulmonary disease, acute exacerbation, improved. 2. Abscess over the chin area, status post I and D. 3. Diabetes mellitus. 4. Hypertension. 5. Coronary artery disease. 6. Chronic back pain. 7. Anxiety disorder. BRIEF SUMMARY OF HOSPITAL COURSE: Ms. Boucher is an 82-year-old Afro-[place] female, admitted because of shortness of breath. The patient was wheezing and found to have COPD exacerbation. She was started on IV Solu-Medrol as well as DuoNeb treatments and kept on oxygen, continued on Mucinex as well. The patient's shortness of breath gradually improved. Her chest wheezing resolved, but the patient developed abscess over the chin area, which became worse following day, so requiring consultation with Oral Surgery. The patient was seen by Dr. Montes and suggested drainage. I and D, which was done on 02/07. The patient was also seen by Infectious Disease consult, Dr. Ga. He felt the patient possibly has Staph infection, suggested to keep her on vancomycin . Wound culture came back for MRSA, so she was continued only on vancomycin after that. The patient continued on wound care. The patient wanted a hospital bed and nebulizer machine which she does not have and needed for her mobility because she is not able to get up by herself because of back pain and unstable gait, so hospital bed was ordered, nebulizer machine was ordered. Home health was arranged for wound care, so all these required some time. Meanwhile , she will continue on IV antibiotics and vancomycin as well as wound care. In view of improvement, the patient is being discharged home. PHYSICAL EXAMINATION: VITAL SIGNS: At the time of discharge, she was stable and her vital signs were stable. LUNGS: Clear. HEART: S1 and S2 regular. ABDOMEN: Soft, nontender. Bowel sounds heard. DISCHARGE MEDICATIONS: Include: 1. Zofran p.r.n. 2. Metoprolol 50 mg daily. 3. Lyrica 150 b.i.d. 4. Aspirin 81 mg. 5. Ferrous sulfate 325 b.i.d. 6. Melatonin 5 mg daily. 7. Diazepam 2 mg b.i.d. 8. Insulin 70/30, 40 units b.i.d. 9. DuoNeb q.i.d. 10. Albuterol inhaler p.r.n. q.i.d. 11. Cymbalta 60 mg daily. 12. Clindamycin 300 mg q.6 hours for 10 days. 13. Lisinopril 10 mg b.i.d. 14. Colace 100 mg daily. 15. Milk of magnesia p.r.n. 16. Simvastatin 20 mg daily. The patient will be followed up in 2 weeks and she will continue with her medications, ADA diet and she will have home health wound care. Job ID: [id number] [facility]
== END 2018-02-15 16:48 | disposition home health service (06) | DRG 982 ==
LOC: ERS 13:53 → 2NO 16:31 → ERS 18:42
PROVIDERS: ADMIT Internal Medicine; ATTEND Internal Medicine
PROC: 0W920ZZ Drainage of Face, Open Approach (ICD-10-PCS; principal; 2018-02-07)
DX: J44.1 Chronic obstructive pulmonary disease with (acute) exacerbation (principal); L02.01 Cutaneous abscess of face; I50.22 Chronic systolic (congestive) heart failure; I11.0 Hypertensive heart disease with heart failure; I25.10 Atherosclerotic heart disease of native coronary artery without angina pectoris; E11.9 Type 2 diabetes mellitus without complications; F41.9 Anxiety disorder, unspecified; G89.29 Other chronic pain; M54.9 Dorsalgia, unspecified; M79.606 Pain in leg, unspecified; B95.62 Methicillin resistant Staphylococcus aureus infection as the cause of diseases classified elsewhere; Z79.82 Long term (current) use of aspirin; Z79.4 Long term (current) use of insulin; Z79.899 Other long term (current) drug therapy; Z88.5 Allergy status to narcotic agent; Z91.018 Allergy to other foods; Z95.1 Presence of aortocoronary bypass graft
CPT/HCPCS: 36415; 36416; 71045; 80048; 80053; 80202; 82550; 82553; 83880; 84484; 85025; 87070; 87077; 87116; 87186; 87205; 87206; 87804; 93005; 94640; 96374; G8978-GP-CK; G8979-GP-CI; J0360; J1815; J2001; J2270; J2405; J2704; J2920; J2930; J3010; J3370; J3490; J7050; J7506; J7620

== ENCOUNTER 2018-03-21 12:56 | Inpatient (IN) | payer MEDICARE, MEDICAID ==
[2018-03-21 14:04] LABS: #Eosinphils 0.2 thou/uL (0.0-0.7); #Lymphocytes 1.1 thou/uL (1.20-3.40); #Monocytes 0.8 thou/uL (0.11-0.59); %Basophils 0.3 % (0.0-1.0); %Eosinophils 2.4 % (0.0-10.0); %Lymphocytes 15.5 % (21.0-51.0); %Monocytes 11.3 % (0.0-10.0); %Neutrophils 70.6 % (42.0-75.0); Hemoglobin 10.9 g/dL (12.0-16.0); Mean Corpuscular HGB CONC 32.3 g/dL (32.0-36.0); Mean Corpuscular Volume 89.6 fL (78.0-98.0); Mean Platelet Volume 8.5 fL (7.4-10.4); Platelet Count 177 thou/uL (130-400); RBC Distribution Width 15.6 % (11.5-14.5); Red Blood Cell (RBC) Count 3.75 mill/uL (4.20-5.40); White Blood Cell (WBC) Count 7.1 thou/uL (4.8-10.8)
[2018-03-21 14:28] LABS: ALT (SGPT) 9 U/L (8-55); AST (SGOT) 20 U/L (5-34); Albumin 3.3 g/dL (3.4-4.8); Alkaline Phosphatase 78 U/L (40-150); Anion Gap 16 mmol/L (10-20); BUN (Urea Nitrogen) 6 mg/dL (9.8-20.1); Bilirubin, Total 0.4 mg/dL (0.2-1.2); Calc. Creatinine Clearance 0 mL/min (70-130); Carbon Dioxide 25 mmol/L (23-31); Chloride 105 mmol/L (98-107); Estimated GFR-MDRD 82; Globulin 3.3 g/dL (2.4-3.5); Glucose 135 mg/dL (83-110); Potassium 3.7 mmol/L (3.5-5.1); Protein, Total 6.6 g/dL (6.0-8.3); Sodium 142 mmol/L (136-145)
[2018-03-21] MEDS ORDERED: Aspirin Chewable 81 MG TAB ONE (14:37)
[2018-03-21 14:48] LABS: CKMB 1.8 ng/mL (0-6.6)
--- NOTE | 2018-03-21 14:48 | RAD ---
SINGLE VIEW OF THE CHEST: COMPARISON: 02/02/2018. History Cough with chills. FINDINGS: A single view of the chest shows a cardiomediastinal silhouette which is upper limits of normal in si ze. The patient is status post sternotomy. There is no evidence of consolidation, mass, or pleural effusion. IMPRESSION: No evidence of acute cardiopulmonary disease. POS: [facility]
[2018-03-21] MEDS ORDERED: Ondansetron ODT 4 MG TAB SL PRN (16:28)
[2018-03-21] MEDS ORDERED: Acetaminophen 325 MG TAB PO PRN (16:28)
[2018-03-21] MEDS ORDERED: Ondansetron PF 4 MG/2 ML Vial IVP PRN (16:28)
[2018-03-21 17:42] LABS: Troponin I 0.052 ng/mL (< 0.028)
[2018-03-21] MEDS ORDERED: Dextrose 5% in Water 1,000 ML IV PRN (18:59)
[2018-03-21] MEDS ORDERED: Dextrose 50% Abboject 50 ML SYRINGE IVP PRN (18:59)
[2018-03-21] MEDS ORDERED: methylPREDNISolone Sod Succ/PF 125 MG/2 ML VIAL IVP SCH (19:00)
[2018-03-21] MEDS ORDERED: Melatonin 3 MG TAB PO PRN (19:01)
[2018-03-21] MEDS ORDERED: Ondansetron ODT 4 MG TAB PO PRN (19:02)
[2018-03-21] MEDS ORDERED: PROVENTIL INHALER 6.7 G (200 INHALATIONS) INH PRN (19:03)
[2018-03-21] MEDS ORDERED: Milk Of Magnesia 30 ML UDCUP PO PRN (19:05)
[2018-03-21] MEDS ORDERED: guaiFENesin 100 MG/5 ML UDCUP PO PRN (20:05)
[2018-03-21] MEDS: Artificial Tear Sol 15 ML BOT EA EYE SCH (20:57)
[2018-03-21] MEDS: guaiFENesin ER 600 MG TAB PO SCH (20:58)
[2018-03-21] MEDS: Pregabalin 75 MG CAP PO SCH (20:58)
[2018-03-21] MEDS: Atorvastatin Calcium 10 MG TAB PO SCH (20:58)
[2018-03-21] MEDS: Lisinopril 10 MG TAB PO SCH (20:58)
[2018-03-21] MEDS: HYDROcodone/Acetaminophen 5/325 mg Tablet PO PRN (20:59)
[2018-03-21] MEDS: Diazepam 2 MG TAB PO SCH (20:59)
[2018-03-21] MEDS: HumuLIN 70/30 (300 UNITS/3 ML VIAL) SC SCH (21:13)
[2018-03-21] MEDS: Bacteriostatic Water 30 ML VIAL FS SCH (23:21)
[2018-03-21] MEDS: methylPREDNISolone Sod Succ 40 MG VIAL IVP SCH (23:21)
[2018-03-22] MEDS: methylPREDNISolone Sod Succ 40 MG VIAL IVP SCH ×4 (05:22→23:37)
[2018-03-22] MEDS: Bacteriostatic Water 30 ML VIAL FS SCH ×4 (05:22→23:37)
--- NOTE | 2018-03-22 08:55 | HP ---
CHIEF COMPLAINT: Chest pain, shortness of breath, and cough. HISTORY OF PRESENT ILLNESS: Ms. Boucher is an 82-year-old female with past medical history of diabetes mellitus, coronary artery disease, hypertension, and COPD, came with complaints of shortness of breath and also cough and chest pain that started 2 to 3 days ago. The patient stated that pain is in retrosternal area, pressure-like, and associated with shortness of breath. She could not breathe. No diaphoresis. No nausea or vomiting. Has cough productive with clear sputum. So, the EMS was called. EMS found the patient with normal vital signs and SATs of 96% on room air. The patient was brought to the emergency room. The patient had indeterminate troponin-I and chest pain and they wanted to rule out myocardial infarction. The patient was recently in the hospital for MRSA infection. The patient is being admitted for further evaluation and management. PAST MEDICAL HISTORY: 1. COPD. 2. Hypertension. 3. Diabetes mellitus. 4. Coronary artery disease. 5. Anxiety disorder. 6. Chronic anemia. 7. Chronic back pain. PAST SURGICAL HISTORY: 1. Status post CABG. 2. Status post cholecystectomy. 3. Status post hysterectomy. 4. Status post spinal surgery. CURRENT MEDICATIONS: 1. Zofran p.r.n. 2. Metoprolol 50 mg daily. 3. Lyrica 150 b.i.d. 4. Aspirin 81 mg daily. 5. Ferrous sulfate 325 b.i.d. 6. Melatonin 5 mg daily. 7. Diazepam 2 mg b.i.d. 8. Insulin 70/30, 40 units b.i.d. 9. DuoNeb q.i.d. 10. Albuterol inhaler p.r.n. 11. Cymbalta 60 mg daily. 12. Lisinopril 10 mg b.i.d. 13. Colace 100 mg daily. 14. Milk of magnesia p.r.n. 15. Simvastatin 20 mg daily. ALLERGIES: 1. POULTRY. 2. CODEINE. FAMILY HISTORY: Nothing contributory. SOCIAL HISTORY: The patient lives at home. No history of smoking. No alcohol. REVIEW OF SYSTEMS: CARDIOVASCULAR: Has chest pain and shortness of breath. RESPIRATORY: Cough. No fever. GASTROINTESTINAL: No nausea or vomiting. No abdominal pain. CENTRAL NERVOUS SYSTEM: No headache, no dizziness. PHYSICAL EXAMINATION: GENERAL: The patient is alert, awake, and oriented x3. VITAL SIGNS: Temperature 98, pulse 105, respirations 20, and blood pressure 147 /65. HEENT: Head is normocephalic and atraumatic. Pupils are equal and reactive. Nasopharynx is pale and dry. Hard and soft palate, no lesions. SKIN: Turgor decreased. NECK: Supple. No JVD. LUNGS: Expiratory wheezes present. Rhonchi present bilaterally. No rales. HEART: S1 and S2 regular. ABDOMEN: Soft. No distention. No tenderness. No abnormal bowel sounds felt. RECTAL: Deferred. CENTRAL NERVOUS SYSTEM: No focal deficits. LABORATORY DATA: CBC shows WBC 7, hemoglobin 10.9, hematocrit 33, and platelets 177. Metabolic panel; sodium 140, potassium 3.7, chloride 105, blood urea nitrogen 6, creatinine 0.81. CK-MB 1.8. Troponin-I 0.05. BNP 119. Chest x-ray negative. EKG shows normal sinus rhythm, no acute ST-T changes seen. ASSESSMENT: 1. Chest pain, rule out myocardial infarction. 2. Chronic obstructive pulmonary disease with acute exacerbation. 3. Insulin-dependent diabetes mellitus. 4. Hypertension. 5. coronary artery disease, status post coronary artery bypass grafting. 6. Recent methicillin-resistant Staphylococcus aureus infection on the chin area , completed antibiotics. 7. Chronic back pain. 8. Anxiety disorder. PLAN: 1. Vital signs q.4 hours. 2. Activity as tolerated. 3. Allergies, codeine and poultry. 4. Hep-Lock. 5. Troponin I q.6 hours x2. 6. Aspirin 325 mg daily. 7. Continue home medications. 8. Accu-Cheks before meals and at bedtime. Sliding scale mild with regular insulin. 9. Solu-Medrol 20 IVP q.6 hours. 10. DuoNeb 1 unit q.i.d. 11. Mucinex 600 mg b.i.d. The patient is advised to undergo stress test when she have chest pain, but the patient declined any kind of stress test. Job ID: [id number] [facility]
[2018-03-22] MEDS: Pregabalin 75 MG CAP PO SCH ×2 (09:46→21:43)
[2018-03-22] MEDS: DULoxetine 60 MG CAP PO SCH (09:48)
[2018-03-22] MEDS: guaiFENesin ER 600 MG TAB PO SCH ×2 (09:48→21:44)
[2018-03-22] MEDS: Ferrous Sulfate 325 MG TAB PO SCH ×2 (09:49→17:29)
[2018-03-22] MEDS: Diazepam 2 MG TAB PO SCH ×2 (09:50→21:43)
[2018-03-22] MEDS: Lisinopril 10 MG TAB PO SCH ×2 (09:50→21:43)
[2018-03-22] MEDS: Aspirin 325 MG TAB PO SCH (09:50)
[2018-03-22] MEDS: Docusate 100 MG CAP PO SCH (09:50)
[2018-03-22] MEDS: Artificial Tear Sol 15 ML BOT EA EYE SCH ×4 (09:51→21:45)
[2018-03-22] MEDS: HumuLIN 70/30 (300 UNITS/3 ML VIAL) SC SCH ×2 (10:57→21:45)
[2018-03-22] MEDS: Insulin Regular 300 UNITS/3 ML VIAL SC PRN ×2 (10:58→17:41)
[2018-03-22] MEDS: HYDROcodone/Acetaminophen 5/325 mg Tablet PO PRN ×3 (10:59→23:43)
[2018-03-22] MEDS: Atorvastatin Calcium 10 MG TAB PO SCH (21:42)
[2018-03-23] MEDS: Bacteriostatic Water 30 ML VIAL FS SCH ×3 (06:41→17:17)
[2018-03-23] MEDS: methylPREDNISolone Sod Succ 40 MG VIAL IVP SCH ×3 (06:41→17:17)
[2018-03-23] MEDS: Diazepam 2 MG TAB PO SCH ×2 (09:22→20:47)
[2018-03-23] MEDS: Aspirin 325 MG TAB PO SCH (09:22)
[2018-03-23] MEDS: Ferrous Sulfate 325 MG TAB PO SCH ×2 (09:22→17:16)
[2018-03-23] MEDS: Docusate 100 MG CAP PO SCH (09:23)
[2018-03-23] MEDS: DULoxetine 60 MG CAP PO SCH (09:23)
[2018-03-23] MEDS: Pregabalin 75 MG CAP PO SCH ×2 (09:24→20:46)
[2018-03-23] MEDS: Lisinopril 10 MG TAB PO SCH ×2 (09:24→20:48)
[2018-03-23] MEDS: guaiFENesin ER 600 MG TAB PO SCH ×2 (09:24→20:47)
[2018-03-23] MEDS: Artificial Tear Sol 15 ML BOT EA EYE SCH ×4 (09:25→20:48)
[2018-03-23] MEDS: HumuLIN 70/30 (300 UNITS/3 ML VIAL) SC SCH ×2 (09:26→20:46)
[2018-03-23] MEDS: Insulin Regular 300 UNITS/3 ML VIAL SC PRN ×2 (12:18→17:22)
[2018-03-23] MEDS: HYDROcodone/Acetaminophen 5/325 mg Tablet PO PRN (12:35)
[2018-03-23] MEDS: Atorvastatin Calcium 10 MG TAB PO SCH (20:47)
[2018-03-24] MEDS: HYDROcodone/Acetaminophen 5/325 mg Tablet PO PRN ×3 (00:34→21:12)
[2018-03-24] MEDS: methylPREDNISolone Sod Succ 40 MG VIAL IVP SCH ×3 (00:34→12:28)
[2018-03-24] MEDS: Bacteriostatic Water 30 ML VIAL FS SCH ×3 (00:34→12:30)
[2018-03-24] MEDS: DULoxetine 60 MG CAP PO SCH (08:36)
[2018-03-24] MEDS: Ferrous Sulfate 325 MG TAB PO SCH ×2 (08:36→18:23)
[2018-03-24] MEDS: Pregabalin 75 MG CAP PO SCH ×2 (08:37→21:11)
[2018-03-24] MEDS: Docusate 100 MG CAP PO SCH (08:37)
[2018-03-24] MEDS: Furosemide 20 MG TAB PO SCH (08:37)
[2018-03-24] MEDS: Diazepam 2 MG TAB PO SCH ×2 (08:39→21:10)
[2018-03-24] MEDS: Lisinopril 10 MG TAB PO SCH ×2 (08:39→21:11)
[2018-03-24] MEDS: guaiFENesin ER 600 MG TAB PO SCH ×2 (08:39→21:11)
[2018-03-24] MEDS: Aspirin 325 MG TAB PO SCH (08:39)
[2018-03-24] MEDS: HumuLIN 70/30 (300 UNITS/3 ML VIAL) SC SCH ×2 (08:44→21:10)
[2018-03-24] MEDS: Artificial Tear Sol 15 ML BOT EA EYE SCH ×4 (08:55→21:21)
[2018-03-24] MEDS: Atorvastatin Calcium 10 MG TAB PO SCH (21:11)
[2018-03-25] MEDS ORDERED: predniSONE 20 MG TAB PO SCH (08:00)
[2018-03-25] MEDS: Aspirin 325 MG TAB PO SCH (08:51)
[2018-03-25] MEDS: DULoxetine 60 MG CAP PO SCH (08:51)
[2018-03-25] MEDS: Ferrous Sulfate 325 MG TAB PO SCH ×2 (08:51→17:55)
[2018-03-25] MEDS: Docusate 100 MG CAP PO SCH (08:51)
[2018-03-25] MEDS: Diazepam 2 MG TAB PO SCH ×2 (08:52→20:52)
[2018-03-25] MEDS: guaiFENesin ER 600 MG TAB PO SCH ×2 (08:52→20:51)
[2018-03-25] MEDS: Furosemide 20 MG TAB PO SCH (08:52)
[2018-03-25] MEDS: Lisinopril 10 MG TAB PO SCH ×2 (08:53→20:51)
[2018-03-25] MEDS: HYDROcodone/Acetaminophen 5/325 mg Tablet PO PRN ×2 (08:53→20:50)
[2018-03-25] MEDS: Pregabalin 75 MG CAP PO SCH ×2 (08:53→20:49)
[2018-03-25] MEDS: HumuLIN 70/30 (300 UNITS/3 ML VIAL) SC SCH ×2 (08:54→22:07)
[2018-03-25] MEDS: Artificial Tear Sol 15 ML BOT EA EYE SCH ×3 (08:54→17:55)
[2018-03-25] MEDS ORDERED: Bacteriostatic Water 30 ML VIAL FS PRN (17:46)
[2018-03-25] MEDS: methylPREDNISolone Sod Succ 40 MG VIAL IVP SCH (17:55)
[2018-03-25] MEDS: Atorvastatin Calcium 10 MG TAB PO SCH (22:08)
[2018-03-26] MEDS: Artificial Tear Sol 15 ML BOT EA EYE SCH ×5 (01:52→21:54)
[2018-03-26] MEDS: methylPREDNISolone Sod Succ 40 MG VIAL IVP SCH ×4 (01:53→17:00)
[2018-03-26] MEDS: Lisinopril 10 MG TAB PO SCH ×2 (08:39→21:50)
[2018-03-26] MEDS: DULoxetine 60 MG CAP PO SCH (08:39)
[2018-03-26] MEDS: guaiFENesin ER 600 MG TAB PO SCH ×2 (08:39→21:49)
[2018-03-26] MEDS: Furosemide 20 MG TAB PO SCH (08:39)
[2018-03-26] MEDS: Ferrous Sulfate 325 MG TAB PO SCH ×2 (08:39→16:58)
[2018-03-26] MEDS: Aspirin 325 MG TAB PO SCH (08:39)
[2018-03-26] MEDS: Docusate 100 MG CAP PO SCH (08:40)
[2018-03-26] MEDS: Diazepam 2 MG TAB PO SCH ×2 (08:40→21:46)
[2018-03-26] MEDS: Pregabalin 75 MG CAP PO SCH ×2 (08:41→21:48)
[2018-03-26] MEDS: HumuLIN 70/30 (300 UNITS/3 ML VIAL) SC SCH ×2 (08:42→21:47)
[2018-03-26] MEDS: HYDROcodone/Acetaminophen 5/325 mg Tablet PO PRN ×2 (08:49→21:50)
[2018-03-26 14:48] VITALS: BMI 31.9
[2018-03-26] MEDS: Insulin Regular 300 UNITS/3 ML VIAL SC PRN (16:57)
[2018-03-26] MEDS ORDERED: cloNIDine 0.1 MG TAB PO PRN (19:50)
[2018-03-26] MEDS: Atorvastatin Calcium 10 MG TAB PO SCH (21:51)
[2018-03-27] MEDS: methylPREDNISolone Sod Succ 40 MG VIAL IVP SCH ×5 (00:32→20:58)
[2018-03-27] MEDS: Diabetic Tussin 200 MG/10 ML UDCUP PO PRN ×4 (02:12→21:08)
[2018-03-27] MEDS: Insulin Regular 300 UNITS/3 ML VIAL SC PRN (06:32)
[2018-03-27] MEDS: Aspirin 325 MG TAB PO SCH (10:04)
[2018-03-27] MEDS: DULoxetine 60 MG CAP PO SCH (10:04)
[2018-03-27] MEDS: Pregabalin 75 MG CAP PO SCH ×2 (10:05→21:02)
[2018-03-27] MEDS: Ferrous Sulfate 325 MG TAB PO SCH ×2 (10:06→17:13)
[2018-03-27] MEDS: Furosemide 20 MG TAB PO SCH (10:07)
[2018-03-27] MEDS: guaiFENesin ER 600 MG TAB PO SCH ×2 (10:07→21:01)
[2018-03-27] MEDS: HumuLIN 70/30 (300 UNITS/3 ML VIAL) SC SCH ×2 (10:08→21:00)
[2018-03-27] MEDS: Docusate 100 MG CAP PO SCH (10:09)
[2018-03-27] MEDS: Artificial Tear Sol 15 ML BOT EA EYE SCH ×4 (10:09→20:59)
[2018-03-27] MEDS: Lisinopril 10 MG TAB PO SCH ×2 (11:04→21:25)
[2018-03-27] MEDS: Diazepam 2 MG TAB PO SCH ×2 (11:04→21:00)
[2018-03-27] MEDS: HYDROcodone/Acetaminophen 5/325 mg Tablet PO PRN ×2 (14:04→21:07)
[2018-03-27] MEDS: Atorvastatin Calcium 10 MG TAB PO SCH (21:08)
[2018-03-27] MEDS: Bacteriostatic Water 30 ML VIAL FS SCH (21:13)
[2018-03-28] MEDS: methylPREDNISolone Sod Succ 40 MG VIAL IVP SCH ×4 (02:06→20:02)
[2018-03-28] MEDS: Bacteriostatic Water 30 ML VIAL FS SCH ×4 (02:07→20:19)
[2018-03-28] MEDS: Diabetic Tussin 200 MG/10 ML UDCUP PO PRN ×3 (02:23→21:57)
[2018-03-28] MEDS: Insulin Regular 300 UNITS/3 ML VIAL SC PRN ×4 (06:19→20:13)
[2018-03-28] MEDS: Ferrous Sulfate 325 MG TAB PO SCH ×2 (08:07→17:47)
[2018-03-28] MEDS: Artificial Tear Sol 15 ML BOT EA EYE SCH ×4 (08:12→20:19)
[2018-03-28] MEDS: Docusate 100 MG CAP PO SCH (08:13)
[2018-03-28] MEDS: Aspirin 325 MG TAB PO SCH (08:13)
[2018-03-28] MEDS: DULoxetine 60 MG CAP PO SCH (08:13)
[2018-03-28] MEDS: Furosemide 20 MG TAB PO SCH (08:13)
[2018-03-28] MEDS: guaiFENesin ER 600 MG TAB PO SCH ×2 (08:14→20:05)
[2018-03-28] MEDS: Pregabalin 75 MG CAP PO SCH ×2 (08:14→20:05)
[2018-03-28] MEDS: Lisinopril 10 MG TAB PO SCH ×2 (08:19→20:04)
[2018-03-28] MEDS: HumuLIN 70/30 (300 UNITS/3 ML VIAL) SC SCH ×2 (08:20→20:06)
[2018-03-28] MEDS: HYDROcodone/Acetaminophen 5/325 mg Tablet PO PRN ×2 (08:20→20:10)
[2018-03-28] MEDS: Diazepam 2 MG TAB PO SCH ×2 (09:50→21:57)
[2018-03-28] MEDS: Atorvastatin Calcium 10 MG TAB PO SCH (20:05)
[2018-03-29] MEDS: Diabetic Tussin 200 MG/10 ML UDCUP PO PRN ×3 (00:43→22:23)
[2018-03-29] MEDS: Bacteriostatic Water 30 ML VIAL FS SCH ×4 (02:12→21:24)
[2018-03-29] MEDS: methylPREDNISolone Sod Succ 40 MG VIAL IVP SCH ×4 (02:12→21:24)
[2018-03-29] MEDS: HumuLIN 70/30 (300 UNITS/3 ML VIAL) SC SCH ×2 (07:26→21:29)
[2018-03-29] MEDS: Ferrous Sulfate 325 MG TAB PO SCH ×2 (07:27→17:23)
[2018-03-29] MEDS: Artificial Tear Sol 15 ML BOT EA EYE SCH ×4 (07:31→21:28)
[2018-03-29] MEDS: Docusate 100 MG CAP PO SCH (07:32)
[2018-03-29] MEDS: Aspirin 325 MG TAB PO SCH (07:32)
[2018-03-29] MEDS: Furosemide 20 MG TAB PO SCH (07:33)
[2018-03-29] MEDS: guaiFENesin ER 600 MG TAB PO SCH ×2 (07:33→21:26)
[2018-03-29] MEDS: DULoxetine 60 MG CAP PO SCH (07:33)
[2018-03-29] MEDS: Lisinopril 10 MG TAB PO SCH ×2 (07:34→21:25)
[2018-03-29] MEDS: Pregabalin 75 MG CAP PO SCH ×2 (07:36→21:27)
[2018-03-29] MEDS: HYDROcodone/Acetaminophen 5/325 mg Tablet PO PRN ×2 (07:39→21:26)
[2018-03-29] MEDS: Diazepam 2 MG TAB PO SCH ×2 (09:37→23:04)
[2018-03-29] MEDS: Insulin Regular 300 UNITS/3 ML VIAL SC PRN ×3 (12:21→21:28)
[2018-03-29] MEDS: Budesonide 0.5 MG/2 ML NEB NEB SCH (19:41)
[2018-03-29] MEDS: Atorvastatin Calcium 10 MG TAB PO SCH (21:27)
[2018-03-30] MEDS: Bacteriostatic Water 30 ML VIAL FS SCH ×2 (01:50→14:05)
[2018-03-30] MEDS: methylPREDNISolone Sod Succ 40 MG VIAL IVP SCH (01:50)
[2018-03-30] MEDS: Diabetic Tussin 200 MG/10 ML UDCUP PO PRN (02:54)
[2018-03-30] MEDS: Budesonide 0.5 MG/2 ML NEB NEB SCH (06:47)
[2018-03-30] MEDS ORDERED: predniSONE 20 MG TAB PO SCH (09:00)
[2018-03-30] MEDS: Pregabalin 75 MG CAP PO SCH (09:43)
[2018-03-30] MEDS: Ferrous Sulfate 325 MG TAB PO SCH (09:45)
[2018-03-30] MEDS: Aspirin 325 MG TAB PO SCH (09:45)
[2018-03-30] MEDS: Lisinopril 10 MG TAB PO SCH (09:45)
[2018-03-30] MEDS: DULoxetine 60 MG CAP PO SCH (09:45)
[2018-03-30] MEDS: guaiFENesin ER 600 MG TAB PO SCH (09:47)
[2018-03-30] MEDS: Docusate 100 MG CAP PO SCH (09:47)
[2018-03-30] MEDS: Furosemide 20 MG TAB PO SCH (09:47)
[2018-03-30] MEDS: HumuLIN 70/30 (300 UNITS/3 ML VIAL) SC SCH (09:48)
[2018-03-30] MEDS: Artificial Tear Sol 15 ML BOT EA EYE SCH (09:49)
[2018-03-30] MEDS: Diazepam 2 MG TAB PO SCH (10:31)
[2018-03-30 12:26] VITALS: BP 151/69; TEMP 98.3
--- NOTE | 2018-04-03 19:39 | EKG ---
Test Reason : SOB Blood Pressure : / mmHG Vent. Rate : 092 BPM Atrial Rate : 092 BPM P-R Int : 144 ms QRS Dur : 090 ms QT Int : 386 ms P-R-T Axes : 043 -06 225 degrees QTc Int : 477 ms Normal sinus rhythm Prolonged QT Abnormal ECG Confirmed by DANITZA MCELROY ([id number]), editor farm journal NEVIN PINTO ([id number]) on 04/03/2018 7:38:38 PM Referred By: Confirmed By:DANITZA MCELROY
== END 2018-03-30 16:09 | disposition home health service (06) | DRG 192 ==
LOC: ERS 12:56 → 2NO 14:56 → OBSVTOIN 03-24 16:36 → ONC 03-26 12:20
PROVIDERS: ADMIT Internal Medicine; ATTEND Internal Medicine
DX: J44.1 Chronic obstructive pulmonary disease with (acute) exacerbation (principal); R07.9 Chest pain, unspecified; E11.9 Type 2 diabetes mellitus without complications; I25.10 Atherosclerotic heart disease of native coronary artery without angina pectoris; I10 Essential (primary) hypertension; Z53.29 Procedure and treatment not carried out because of patient's decision for other reasons; D64.89 Other specified anemias; G89.29 Other chronic pain; M54.9 Dorsalgia, unspecified; F32.9 Major depressive disorder, single episode, unspecified; Z86.14 Personal history of Methicillin resistant Staphylococcus aureus infection; Z95.1 Presence of aortocoronary bypass graft; Z79.82 Long term (current) use of aspirin; Z79.4 Long term (current) use of insulin; Z88.8 Allergy status to other drugs, medicaments and biological substances
CPT/HCPCS: 36415; 36416; 71045; 80053; 82553; 83880; 84484; 85025; 93005; 94640; J1815; J2920; J2930; J7620; J7626

== ENCOUNTER 2018-05-08 07:04 | Observation (INO) | payer MEDICARE, MEDICAID ==
[2018-05-08] MEDS ORDERED: Ondansetron ODT 4 MG TAB ONE (07:50)
[2018-05-08 08:22] LABS: #Basophils 0.1 thou/uL (0.0-0.2); #Eosinphils 0.1 thou/uL (0.0-0.7); #Lymphocytes 1.7 thou/uL (1.20-3.40); #Monocytes 0.6 thou/uL (0.11-0.59); #Neutrophils 5.9 thou/uL (1.40-6.50); %Basophils 1.2 % (0.0-1.0); %Eosinophils 1.1 % (0.0-10.0); %Lymphocytes 20.5 % (21.0-51.0); %Monocytes 7.5 % (0.0-10.0); %Neutrophils 69.6 % (42.0-75.0); Hemoglobin 12.4 g/dL (12.0-16.0); Mean Corpuscular HGB CONC 32.3 g/dL (32.0-36.0); Mean Corpuscular Hemoglobin 28.4 pg (27.0-31.0); Mean Corpuscular Volume 87.9 fL (78.0-98.0); Mean Platelet Volume 9.2 fL (7.4-10.4); Platelet Count 211 thou/uL (130-400); RBC Distribution Width 14.7 % (11.5-14.5); Red Blood Cell (RBC) Count 4.38 mill/uL (4.20-5.40); White Blood Cell (WBC) Count 8.5 thou/uL (4.8-10.8)
[2018-05-08 08:41] LABS: ALT (SGPT) 21 U/L (8-55); AST (SGOT) 23 U/L (5-34); Albumin 3.9 g/dL (3.4-4.8); Alkaline Phosphatase 94 U/L (40-150); Anion Gap 14 mmol/L (10-20); BUN (Urea Nitrogen) 10 mg/dL (9.8-20.1); Bilirubin, Total 0.5 mg/dL (0.2-1.2); Calc. Creatinine Clearance 0 mL/min (70-130); Calcium 9.5 mg/dL (7.8-10.44); Carbon Dioxide 28 mmol/L (23-31); Chloride 103 mmol/L (98-107); Estimated GFR-MDRD 77; Globulin 3.3 g/dL (2.4-3.5); Glucose 143 mg/dL (83-110); Lipase 9 U/L (8-78); Potassium 4.1 mmol/L (3.5-5.1); Protein, Total 7.2 g/dL (6.0-8.3); Sodium 141 mmol/L (136-145)
[2018-05-08 09:04] LABS: CKMB 2.7 ng/mL (0-6.6)
--- NOTE | 2018-05-08 09:07 | RAD ---
PORTABLE CHEST: Date: 05/08/18 HISTORY: Chest pain. COMPARISON: 03/21/18. FINDINGS: Heart size within normal limits. There are postop sternotomy changes. Lungs are clear of infiltrates. Surgical clips are seen in the neck region and left axilla. IMPRESSION: No active intrathoracic disease. POS: [facility]
[2018-05-08 11:26] LABS: Bilirubin Negative (Negative); Blood, Urine Negative (Negative); Clarity CLEAR (Clear); Glucose, Urine (Dipstick) Negative (Negative); Leukocyte Negative (Negative); Nitrite Negative (Negative); Protein, Urine (Dipstick) Negative (Neg-Trace); Specific Gravity, Urine 1.017 (1.002-1.036); Urobilinogen 0.2 mg/dL (0.2-1.0)
[2018-05-08] MEDS ORDERED: Aspirin Chewable 81 MG TAB ONE (12:12)
[2018-05-08 12:49] LABS: Troponin I 0.041 ng/mL (< 0.028)
[2018-05-08 14:48] VITALS: BMI 35.5
[2018-05-08 15:31] LABS: Troponin I 0.049 ng/mL (< 0.028)
[2018-05-08] MEDS ORDERED: Docusate 100 MG CAP PO PRN (16:31)
[2018-05-08] MEDS ORDERED: Melatonin 3 MG TAB PO PRN (16:40)
[2018-05-08] MEDS ORDERED: Enoxaparin Sodium 40 MG/0.4 ML SYRINGE SC SCH (17:00)
[2018-05-08] MEDS: Clindamycin 150 MG CAP PO SCH ×2 (17:50→22:13)
[2018-05-08] MEDS ORDERED: Dextrose 50% Abboject 50 ML SYRINGE SLOW IVP PRN (19:19)
[2018-05-08] MEDS ORDERED: HumaLOG 300 UNITS/3 ML VIAL SC PRN (19:19)
[2018-05-08] MEDS ORDERED: Dextrose 5% in Water 1,000 ML IV PRN (19:19)
[2018-05-08] MEDS: Pregabalin 75 MG CAP PO SCH (19:29)
[2018-05-08] MEDS: Lisinopril 10 MG TAB PO SCH (19:30)
[2018-05-08] MEDS: Famotidine 20 MG TAB PO SCH (19:31)
[2018-05-08] MEDS: Ondansetron PF 4 MG/2 ML Vial IVP PRN (19:31)
[2018-05-08] MEDS: Meclizine HCl 25 MG TAB PO SCH (19:31)
[2018-05-08] MEDS ORDERED: Simvastatin 5 MG TAB PO SCH (21:00)
[2018-05-08] MEDS: Diazepam 2 MG TAB PO SCH (21:25)
[2018-05-08] MEDS: HYDROcodone/Acetaminophen 5/325 mg Tablet PO PRN (22:03)
[2018-05-09] MEDS: Clindamycin 150 MG CAP PO SCH ×2 (05:54→12:17)
[2018-05-09] MEDS: HYDROcodone/Acetaminophen 5/325 mg Tablet PO PRN ×2 (05:55→15:11)
[2018-05-09 06:06] LABS: #Eosinphils 0.1 thou/uL (0.0-0.7); #Lymphocytes 2.2 thou/uL (1.20-3.40); #Monocytes 0.9 thou/uL (0.11-0.59); #Neutrophils 3.9 thou/uL (1.40-6.50); %Basophils 0.5 % (0.0-1.0); %Eosinophils 1.3 % (0.0-10.0); %Lymphocytes 30.9 % (21.0-51.0); %Monocytes 12.9 % (0.0-10.0); %Neutrophils 54.4 % (42.0-75.0); Hemoglobin 11.2 g/dL (12.0-16.0); Mean Corpuscular HGB CONC 31.7 g/dL (32.0-36.0); Mean Corpuscular Hemoglobin 28.6 pg (27.0-31.0); Mean Corpuscular Volume 90.2 fL (78.0-98.0); Platelet Count 191 thou/uL (130-400); RBC Distribution Width 14.9 % (11.5-14.5); White Blood Cell (WBC) Count 7.2 thou/uL (4.8-10.8)
[2018-05-09 06:29] LABS: Anion Gap 14 mmol/L (10-20); BUN (Urea Nitrogen) 8 mg/dL (9.8-20.1); Calc. Creatinine Clearance 87 mL/min (70-130); Calcium 8.6 mg/dL (7.8-10.44); Carbon Dioxide 26 mmol/L (23-31); Chloride 104 mmol/L (98-107); Estimated GFR-MDRD 82; Glucose 108 mg/dL (83-110); Potassium 3.7 mmol/L (3.5-5.1); Sodium 140 mmol/L (136-145)
[2018-05-09] MEDS ORDERED: DULoxetine 60 MG CAP PO SCH (09:00)
[2018-05-09] MEDS ORDERED: Aspirin 325 mg Enteric Coated Tablet PO SCH (09:00)
[2018-05-09] MEDS: Meclizine HCl 25 MG TAB PO SCH (09:53)
[2018-05-09] MEDS: Diazepam 2 MG TAB PO SCH (09:53)
[2018-05-09] MEDS: Famotidine 20 MG TAB PO SCH (09:53)
[2018-05-09] MEDS: Pregabalin 75 MG CAP PO SCH (09:54)
[2018-05-09] MEDS: Lisinopril 10 MG TAB PO SCH (09:56)
[2018-05-09] MEDS: Sodium Chloride 0.9% 10 ML ONE ×2 (09:57→14:35)
--- NOTE | 2018-05-09 10:13 | PRG ---
DATE OF SERVICE: 05/09/2018 SUBJECTIVE: Discussed the case with Lazara Hagan and reviewed the record. I examined the patient. The patient is feeling okay. Her primary concerns are some skin lesions. She had a history of MRSA on her chin and has some bumps on her chin area and some other open areas on the skin of her face, most on the left that is concerning for her. She decline stress testing. She is asymptomatic and her troponin levels are consistent with where they have always been and do not represent a significant increase or change. OBJECTIVE: VITAL SIGNS: Her temperature is 97.4 pulse 82, respirations 16, O2 saturation 94% on room air, and blood pressure 154/66. GENERAL: She is a morbidly obese female, who is awake, alert, pleasant, and interactive. Her exam reveals several areas of very superficially denuded skin with no weeping or cellulitic changes over the left cheek down to the chin area. It appeared to be almost chronic appearing. Review of her previous micro labs revealed the MRSA, but it was sensitive to clindamycin. IMPRESSION AND PLAN: Given that the patient is declining further stress testing in relation to her chest pain, in fact her troponins are unchanged from where they are at her typical baseline. I believe it is reasonable to discharge, unclear whether she has any active infection going on with the skin lesions, but given her history of methicillin-resistant Staphylococcus aureus, it is appropriate to go and cover that with oral clindamycin along with some probiotics. All of her other medical issues appear to be stable. The patient apparently had some nausea and vomiting, but she is not even clear on when exactly that happen, but it is not recurred again at this point, therefore, anticipate discharge this morning. Job ID: [id number]
[2018-05-09] MEDS ORDERED: Sodium Chloride 0.9% 10 ML ONE (14:31)
[2018-05-09] MEDS: Ondansetron PF 4 MG/2 ML Vial IVP PRN (14:33)
[2018-05-09 15:57] VITALS: BP 125/60; TEMP 97
--- NOTE | 2018-05-09 18:51 | DIS ---
DATE OF ADMISSION: 05/08/2018 DATE OF DISCHARGE: 05/09/2018 ALLERGIES: POULTRY AND CODEINE. CHIEF COMPLAINT: Chest pain. FINAL DIAGNOSES: 1. Chest pain, resolved, acute coronary syndrome ruled out, patient refuses/ declines stress test 2. Chronic obstructive pulmonary disease without evidence of acute exacerbation. 3. Insulin-dependent diabetes mellitus. 4. Hypertension. 5. Coronary artery disease, status post bypass grafting in the past. 6. History of methicillin-resistant Staphylococcus aureus infection on the chin, status post incision and drainage in February 2018, now with some small facial lesions of unknown etiology, questionable SA lesions. 7. Chronic back pain and joint pain, resulting in nonambulatory state. 8. Anxiety disorder. 9. Recent nausea and vomiting, suspect viral gastroenteritis. No complaints of nausea or vomiting this hospitalization. PROCEDURES PERFORMED: None. LABORATORY RESULTS: White blood cell count 7.2, hemoglobin 11.2, hematocrit 35.2, and platelets 191. Sodium 140, potassium 3.7, chloride 104, carbon dioxide 26, anion gap 14, BUN 8, creatinine 0.81, estimated GFR 82, and glucose 108. Troponin 0.058, 0.041, and 0.049 respectively. IMAGING RESULTS: Chest x-ray performed in the ER showed no active intrathoracic disease. CONSULTATIONS: None. HOSPITAL COURSE: The patient is a pleasant 82-year-old female with past medical history significant for CAD, status post bypass grafting in the past, diabetes mellitus, COPD, hypertension, and recent hospitalization in February of this year with an MRSA abscess of the chin, status post I and D, who presented to the hospital today with complaints of chest pain. The patient is a somewhat poor historian, but states that about two days ago, she had an episode of nausea and vomiting, and has been feeling unwell since then. She woke up yesterday morning complaining of chest pain that began around 5 a.m. She has trouble explaining the nature of her pain, but states that it has resolved. She has had no further chest pain complaints this admission. She has not complained of nausea or vomiting this admission. She did complain of a rash that has been bothering on her face, and was concerned that her MRSA infection has returned; however, there is no evidence of this. She does have several lesions that do not appear to be shingles. There are no evidence of vesicles. Clindamycin was started to cover for any possible underlying cellulitis. She has tolerated this well. She has no complaints to me today. Her presenting symptoms have resolved. The patient was offered a stress test to further evaluate for ischemia, she denies stress test at this time. Her blood work showed no evidence of white count, chest x-ray was clear as well as her UA. PHYSICAL EXAMINATION: VITAL SIGNS: Blood pressure 154/66, O2 saturation 94% on room air, and respirations 16, and temperature 97.4. GENERAL: The patient is a nontoxic appearing, elderly female, resting comfortably in bed. No acute distress. HEENT: Head is atraumatic and normocephalic. Mucous membranes are moist. NECK: No lymphadenopathy. No JVD. Trachea is midline. CV: S1 and S2. Regular rate and rhythm. No appreciable murmurs, rubs, or gallops. LUNGS: Regular respiratory rate and pattern. Clear to auscultation bilaterally. ABDOMEN: Positive bowel sounds. Soft, nontender. NEUROLOGIC: Cranial nerves 2 through 12 grossly intact. Nonfocal. SKIN: The patient does have a rash present on the left side of her cheek and face with some excoriation. The lesions appeared to be scabbed at this time, etiology is unclear. Chin shows no evidence of fluctuant areas. No evidence of purulence. CONDITION AT DISCHARGE: Stable. DISCHARGE MEDICATIONS: The patient will continue her home medication regimen including; 1. Aspirin 81 mg tablet daily. 2. Diazepam 1 mg p.o. b.i.d. 3. Docusate 100 mg p.o. q.a.m. 4. Duloxetine 60 mg tablet daily. 5. Hydrocodone/acetaminophen 5/325 one tablet p.o. t.i.d. 6. P.r.n. DuoNeb. 7. Meclizine 25 mg p.o. b.i.d. 8. Melatonin 5 mg p.o. q.h.s. 9. Metoprolol succinate 50 mg tablet daily. 10. Pregabalin 150 mg p.o. b.i.d. 11. Simvastatin 10 mg p.o. q.h.s. 12. Ascorbic acid 500 mg p.o. b.i.d. 13. Humulin 70/30 insulin 30 units subcu b.i.d. 14. Ranitidine 150 mg tablet p.o. b.i.d. 15. The patient's lisinopril was increased from 10 mg p.o. b.i.d. to 20 mg p.o. b.i.d. 16. The patient will also be sent home on clindamycin 300 mg p.o. q.6 x7 days. DISCHARGE DISPOSITION: Home. PLAN: As mentioned, the patient will continue her home medication regimen. I have increased her lisinopril to cover for some better blood pressure control. The patient's chest pain has resolved and is of unclear etiology at this point. It does not seem to be consistent with angina. The patient has had indeterminate troponins at her last several hospital stays. She has refused stress test this hospitalization. We will go ahead and continue clindamycin for the dermatitis, questionable folliculitis, although this appears to be a chronic problem. Dr. Bacon has seen the patient and agrees with the current plan of care. Job ID: [id number] [facility]
== END 2018-05-09 16:30 | disposition home or self-care (01) ==
LOC: ERS 07:04 → 2SW 11:55 → 2NO 20:47
PROVIDERS: ADMIT Internal Medicine; ATTEND Internal Medicine
DX: R07.9 Chest pain, unspecified (principal); L98.9 Disorder of the skin and subcutaneous tissue, unspecified; J44.9 Chronic obstructive pulmonary disease, unspecified; I25.10 Atherosclerotic heart disease of native coronary artery without angina pectoris; G89.29 Other chronic pain; M54.9 Dorsalgia, unspecified; F41.9 Anxiety disorder, unspecified; M19.90 Unspecified osteoarthritis, unspecified site; Z79.82 Long term (current) use of aspirin; Z79.4 Long term (current) use of insulin; Z79.899 Other long term (current) drug therapy; Z88.5 Allergy status to narcotic agent; Z91.018 Allergy to other foods; Z95.1 Presence of aortocoronary bypass graft
CPT/HCPCS: 51701; 71045; 80048; 80053; 81003; 82553; 82962 ×2; 83605; 83690; 84484 ×2; 85025 ×2; 87040; 87086; 87804 ×2; 93005; 96372; 96374; 96376; 99285; G0378 ×3; 36415; 36416; A4353; J1650; J2405; Q0162

== ENCOUNTER 2018-05-20 15:28 | Inpatient (IN) | payer MEDICARE, MEDICAID ==
[2018-05-20] MEDS ORDERED: Ondansetron ODT 4 MG TAB ONE (16:13)
[2018-05-20 16:17] LABS: #Basophils 0.1 thou/uL (0.0-0.2); #Eosinphils 0.1 thou/uL (0.0-0.7); #Lymphocytes 2.1 thou/uL (1.20-3.40); #Monocytes 0.7 thou/uL (0.11-0.59); #Neutrophils 5.7 thou/uL (1.40-6.50); %Eosinophils 1.2 % (0.0-10.0); %Lymphocytes 24.3 % (21.0-51.0); %Monocytes 8.2 % (0.0-10.0); %Neutrophils 65.4 % (42.0-75.0); Hemoglobin 11.9 g/dL (12.0-16.0); Mean Corpuscular HGB CONC 32.6 g/dL (32.0-36.0); Mean Corpuscular Hemoglobin 28.1 pg (27.0-31.0); Mean Corpuscular Volume 86.2 fL (78.0-98.0); Mean Platelet Volume 9.4 fL (7.4-10.4); Platelet Count 196 thou/uL (130-400); RBC Distribution Width 14.2 % (11.5-14.5); Red Blood Cell (RBC) Count 4.23 mill/uL (4.20-5.40); White Blood Cell (WBC) Count 8.7 thou/uL (4.8-10.8)
[2018-05-20 16:20] LABS: Bilirubin Negative (Negative); Blood, Urine Negative (Negative); Clarity CLEAR (Clear); Glucose, Urine (Dipstick) Negative (Negative); Leukocyte Negative (Negative); Nitrite Negative (Negative); Protein, Urine (Dipstick) Negative (Neg-Trace); Specific Gravity, Urine 1.017 (1.002-1.036)
[2018-05-20 16:38] LABS: ALT (SGPT) 17 U/L (8-55); AST (SGOT) 20 U/L (5-34); Albumin 3.9 g/dL (3.4-4.8); Alkaline Phosphatase 76 U/L (40-150); Anion Gap 15 mmol/L (10-20); BUN (Urea Nitrogen) 12 mg/dL (9.8-20.1); Bilirubin, Total 0.5 mg/dL (0.2-1.2); Calc. Creatinine Clearance 0 mL/min (70-130); Calcium 9.5 mg/dL (7.8-10.44); Carbon Dioxide 23 mmol/L (23-31); Chloride 102 mmol/L (98-107); Estimated GFR-MDRD 73; Globulin 3.1 g/dL (2.4-3.5); Glucose 133 mg/dL (83-110); Lipase 18 U/L (8-78); Potassium 3.8 mmol/L (3.5-5.1); Sodium 136 mmol/L (136-145)
[2018-05-20 17:00] LABS: CKMB 3.5 ng/mL (0-6.6)
[2018-05-20] MEDS ORDERED: Aspirin 325 MG TAB ONE (18:16)
[2018-05-20] MEDS ORDERED: Aspirin Chewable 81 MG TAB ONE (18:17)
[2018-05-20] MEDS ORDERED: Nitroglycerin 2% Ointment 1 INCH/1 GM Packet ONE (21:51)
[2018-05-20 23:10] VITALS: BMI 32.5
[2018-05-21] MEDS ORDERED: cloNIDine 0.1 MG TAB PO PRN (08:33)
[2018-05-21] MEDS: Ondansetron ODT 8 MG TAB PO PRN ×2 (08:56→16:43)
[2018-05-21] MEDS ORDERED: PROVENTIL INHALER 6.7 G (200 INHALATIONS) INH PRN (11:45)
[2018-05-21] MEDS: Artificial Tear Sol 15 ML BOT EA EYE SCH ×3 (12:48→20:40)
[2018-05-21] MEDS ORDERED: Dextrose 50% Abboject 50 ML SYRINGE IVP PRN (18:12)
[2018-05-21] MEDS ORDERED: Dextrose 5% in Water 1,000 ML IV PRN (18:12)
[2018-05-21] MEDS ORDERED: Insulin Regular 300 UNITS/3 ML VIAL SC PRN (18:12)
[2018-05-21] MEDS: Simvastatin 5 MG TAB PO SCH (20:40)
[2018-05-21] MEDS: Melatonin 3 MG TAB PO PRN (20:40)
[2018-05-21] MEDS: Diazepam 2 MG TAB PO SCH (20:41)
[2018-05-21] MEDS: Lisinopril 20 MG TAB PO SCH (20:41)
[2018-05-21] MEDS: HumuLIN 70/30 (300 UNITS/3 ML VIAL) SC SCH (20:41)
[2018-05-21] MEDS: Meclizine HCl 25 MG TAB PO SCH (20:41)
[2018-05-21] MEDS: Pregabalin 75 MG CAP PO SCH (20:41)
[2018-05-21] MEDS: Ascorbic Acid 500 mg Chewable Tablet PO SCH (20:41)
[2018-05-21] MEDS: HYDROcodone/Acetaminophen 5/325 mg Tablet PO PRN (20:56)
[2018-05-21] MEDS ORDERED: Diazepam 2 MG TAB PO SCH (21:00)
--- NOTE | 2018-05-22 01:16 | HP ---
CHIEF COMPLAINT: Nausea, vomiting, and abdominal discomfort. HISTORY OF PRESENT ILLNESS: Ms. Boucher is an 82-year-old Afro Turkish female with past medical history of hypertension, diabetes, COPD, who developed nausea, vomiting, and diarrhea. The patient states unable to eat anything due to intractable nausea, vomiting, vomited few times. Did not have any fever and has some abdominal cramping, unable to eat anything. No headache. No dizziness. No chest pain. No shortness of breath. No wheezing. Has some cough, mild. Since she is not able to eat with persistent nausea, vomiting, and diarrhea the patient decided to come to the hospital. In the ER, the patient was evaluated and was hemodynamically stable. Labs were normal except elevated troponin I, so the patient is being admitted for intractable nausea, vomiting, as well as elevated troponin, rule out myocardial infarction. The patient received Zofran and nitroglycerin in the ER. PAST MEDICAL HISTORY: 1. Hypertension. 2. Diabetes mellitus. 3. Hyperlipidemia. 4. Chronic pain. 5. Anxiety disorder and chronic anemia. 6. COPD. 7. Coronary artery disease, status post CABG. PAST SURGICAL HISTORY: 1. Status post spinal surgery. 2. Status hysterectomy. 3. Status post cholecystectomy. CURRENT MEDICATIONS: The patient is on, 1. Melatonin 5 mg nightly p.r.n. 2. DuoNebs q.i.d. 3. Lyrica 150 b.i.d. 4. Lisinopril 20 mg b.i.d. with meclizine 25 mg b.i.d. 5. Simvastatin 10 mg nightly. 6. Metoprolol succinate 50 mg daily. 7. Valium 2 mg b.i.d. 8. Vitamin C b.i.d. 9. Aspirin 81 mg daily. 10. Sula 5/325 q.i.d. p.r.n. 11. Colace 100 mg daily. 12. Cymbalta 60 mg daily. 13. Pepcid 20 mg daily. 14. Insulin 70/30 of 50 units b.i.d. ALLERGIES: CODEINE AND POULTRY. FAMILY HISTORY: Nothing. SOCIAL HISTORY: The patient lives alone. No history of smoking. No history of alcohol. REVIEW OF SYSTEMS: CARDIOVASCULAR: No chest pain. No shortness of breath. RESPIRATORY: No fever or cough. GASTROINTESTINAL: Has nausea, vomiting, abdominal discomfort, and diarrhea. CENTRAL NERVOUS SYSTEM: No headache. No dizziness. PHYSICAL EXAMINATION: GENERAL: This patient is alert, awake, and oriented x3. VITAL SIGNS: Temperature 98, pulse 78, respirations 19, blood pressure HEENT: Head is normocephalic and atraumatic. Pupils are equal and reactive. Nasopharynx is pale and dry. Hard and soft. No lesions. SKIN: Turgor decreased. NECK: Supple. No JVD. LUNGS: Bilateral air entry with no rales or rhonchi. HEART: S1 and S2 regular. ABDOMEN: Soft. No distention. No tenderness. No abnormal bowel sounds. RECTAL: Deferred. CENTRAL NERVOUS SYSTEM: No focal deficit. LABORATORY DATA: CBC with WBC 8.7, hemoglobin 11.9, hematocrit 36, and platelets 196. Metabolic panel: Sodium 136, potassium 3.8, chloride 102, CO2 of glucose 133. Troponin I 0.061. Urinalysis negative. EKG showed normal sinus rhythm, no acute ST-T changes seen. ASSESSMENT: 1. Intractable nausea and vomiting. 2. Diarrhea. 3. Elevated troponin I, rule out myocardial infarction. 4. Hypertension, uncontrolled. 5. Diabetes mellitus. 6. Anxiety disorder. 7. Chronic back pain. PLAN: 1. Vital signs q.4 hours. 2. Activity as tolerated. 3. Allergies, codeine and poultry. 4. Hep-Lock. 5. Zofran ODT 8 mg q.6 p.r.n. 6. Continue home medications. 7. Accu-Cheks a.c. and h.s. with sliding scale mild with regular insulin. Job ID: [id number]
[2018-05-22] MEDS: Artificial Tear Sol 15 ML BOT EA EYE SCH ×4 (09:01→20:56)
[2018-05-22] MEDS: Pregabalin 75 MG CAP PO SCH ×2 (09:02→20:57)
[2018-05-22] MEDS: Aspirin 81 mg Enteric Coated Tablet PO SCH (09:03)
[2018-05-22] MEDS: Diazepam 2 MG TAB PO SCH (09:03)
[2018-05-22] MEDS: Lisinopril 20 MG TAB PO SCH ×2 (09:03→20:57)
[2018-05-22] MEDS: Docusate 100 MG CAP PO SCH (09:04)
[2018-05-22] MEDS: Meclizine HCl 25 MG TAB PO SCH ×2 (09:04→20:58)
[2018-05-22] MEDS: DULoxetine 60 MG CAP PO SCH (09:04)
[2018-05-22] MEDS: Famotidine 20 MG TAB PO SCH (09:04)
[2018-05-22] MEDS: Ascorbic Acid 500 mg Chewable Tablet PO SCH ×2 (09:04→20:56)
[2018-05-22] MEDS: HumuLIN 70/30 (300 UNITS/3 ML VIAL) SC SCH ×2 (09:05→20:58)
[2018-05-22] MEDS: HYDROcodone/Acetaminophen 5/325 mg Tablet PO PRN ×2 (11:56→20:57)
--- NOTE | 2018-05-22 14:22 | EKG ---
Test Reason : Blood Pressure : / mmHG Vent. Rate : 065 BPM Atrial Rate : 065 BPM P-R Int : 144 ms QRS Dur : 092 ms QT Int : 438 ms P-R-T Axes : 034 -12 -10 degrees QTc Int : 455 ms Normal sinus rhythm Left ventricular hypertrophy with repolarization abnormality Abnormal ECG ST abnormality V3 - V6 Leftward axis Confirmed by DEEPAK PRATT DO ([id number]), online content editor MARVIN SALDIVAR ([id number]) on 05/22/2018 2:21:55 PM Referred By: SANTA Confirmed By:DEEPAK PRATT DO
[2018-05-22] MEDS: ALPRAZolam 0.5 MG TAB PO SCH (20:58)
[2018-05-22] MEDS: Simvastatin 5 MG TAB PO SCH (20:58)
[2018-05-22] MEDS: Melatonin 3 MG TAB PO PRN (23:05)
[2018-05-23] MEDS: Meclizine HCl 25 MG TAB PO SCH ×2 (08:09→21:22)
[2018-05-23] MEDS: Aspirin 81 mg Enteric Coated Tablet PO SCH (08:09)
[2018-05-23] MEDS: Ascorbic Acid 500 mg Chewable Tablet PO SCH ×2 (08:10→21:21)
[2018-05-23] MEDS: DULoxetine 60 MG CAP PO SCH (08:10)
[2018-05-23] MEDS: Famotidine 20 MG TAB PO SCH (08:10)
[2018-05-23] MEDS: Artificial Tear Sol 15 ML BOT EA EYE SCH ×4 (08:11→21:24)
[2018-05-23] MEDS: ALPRAZolam 0.5 MG TAB PO SCH ×3 (08:11→21:21)
[2018-05-23] MEDS: Pregabalin 75 MG CAP PO SCH ×2 (08:13→21:21)
[2018-05-23] MEDS: Docusate 100 MG CAP PO SCH (08:14)
[2018-05-23] MEDS: Lisinopril 20 MG TAB PO SCH (08:14)
[2018-05-23] MEDS: HYDROcodone/Acetaminophen 5/325 mg Tablet PO PRN ×2 (09:51→21:23)
[2018-05-23] MEDS: HumuLIN 70/30 (300 UNITS/3 ML VIAL) SC SCH ×2 (09:53→21:22)
[2018-05-23] MEDS ORDERED: diphenhydrAMINE 25 MG CAP PO PRN (14:12)
[2018-05-23] MEDS: Simvastatin 5 MG TAB PO SCH (21:22)
--- NOTE | 2018-05-24 00:33 | CON ---
DATE OF CONSULTATION: 05/23/2018 INDICATION FOR CONSULTATION: An 82-year-old female with history of known coronary artery disease, who had failure to thrive, was not feeling well at home with nausea, vomiting, and diarrhea, presented to the emergency room, was found to have increased cardiac enzymes and was admitted for further evaluation. We were asked to see her due to the elevation of cardiac enzymes. HISTORY OF PRESENT ILLNESS: This is a very pleasant 82-year-old female, who underwent bypass surgery many years ago, uncertain exactly how long it was, and was followed by Dr. Garcia. She has had back surgeries. She has had neck fusion. She has had multiple problems. She is now almost bedridden because she has significant back problems. She has multiple other risk factors, which include congestive heart failure, systolic heart failure, type 2 diabetes, peripheral neuropathy, and morbid obesity. She has had a history of breast cancer and coronary artery disease and hypertension. She has chronic elevation of the troponin I ever since at least 2014. At this time, she denies any chest pain, but says she just does not feel well and otherwise has had no acute ST-segment changes on her EKG. She remains in sinus rhythm. Her EKG does not show any acute changes and has remained unchanged from her recent hospitalization about 2 weeks ago. PAST MEDICAL HISTORY: Significant for coronary artery disease, hypertension, diabetes, hypercholesterolemia, breast cancer, hip surgery, bypass surgery, and abdominal surgery. SOCIAL HISTORY: She has had no alcohol or tobacco abuse. She lives with a granddaughter. ALLERGIES: SHE IS ALLERGIC TO POULTRY AND CODEINE WELL PENICILLIN APPARENTLY. PRESENT MEDICATIONS: Include, 1. Xanax. 2. Artificial Tears. 3. Vitamins. 4. Ascorbic acid. 5. Aspirin 81 mg a day. 6. Valium 2 mg b.i.d. 7. Colace. 8. Cymbalta. 9. Pepcid. 10. Humulin insulin. 11. She is on nebulizer treatments, ipratropium/albuterol. 12. Lisinopril 20 mg b.i.d. 13. Meclizine 25 mg b.i.d. 14. Metoprolol 50 mg daily. 15. Lyrica 150 mg b.i.d. 16. Zocor 10 mg q.p.m. 17. Albuterol sulfate two puffs q.4 hours p.r.n. 18. Clonidine 0.1 mg p.o. q.6 hours p.r.n. 19. She is on other p.r.n. medications as well. REVIEW OF SYSTEMS: Difficult to determine, but she just keeps tell me she does not feel well, but she denies any chest pain, but just does not feel well. She complains of itching and some rash on the face, which she continues to pick at and has made some ulcerations. She says she is unable to walk due to back problems. Otherwise, her 12-point review of systems is relatively insignificant. She does not have any major complaints, but she is a somewhat poor historian. PHYSICAL EXAMINATION: GENERAL: Reveals elderly female, who is in no acute distress at this time. She is awake and she is alert. VITAL SIGNS: Her blood pressure is 110/56. She is afebrile. Heart rate 70, respiratory rate 18, and O2 saturation is 93%. HEENT: Reveals the head to be normocephalic and atraumatic. Carotid pulses are present. There were very soft systolic bruits noted on the right side. I did not hear any other significant abnormalities. CHEST: Actually was clear to auscultation. Did not hear any rales, rhonchi, or wheezing. CARDIOVASCULAR: Heart sounds are somewhat distant, but appear to be regular. I did not hear any significant murmurs, heaves, thrills, bruits, or rubs. ABDOMINAL: Soft and nontender. She has obesity. I do not palpate any masses. EXTREMITIES: Show no clubbing or cyanosis. I cannot palpate pedal pulses. Popliteal pulses are very difficult to palpate also and femoral pulses also were decreased. I did not hear any bruits. She does have a large pannus. NEUROLOGIC: She appears to be somewhat lethargic, but does awaken easily when she is aroused and does answer most of my questions, but does fall asleep during the evaluation. Otherwise, there were no gross focal neurological defects that were elicited. SKIN: Warm and dry at this time. LABORATORY DATA: Shows sodium 136, potassium 3.8, her BUN was 12, and the creatinine 0.89. Blood sugar was in the 130s to 150 range. Troponin I ranged anywhere from 0.06 to 0.07. WBC is 8.7, hemoglobin 11.9. No indication of urinary tract infection. IMPRESSION: 1. Elderly female, who has generalized malaise with nausea, vomiting, and diarrhea. Overall this will be dealt with by the primary care service. 2. History of coronary artery disease and bypass surgery. She appears to be stable from a cardiac standpoint at this time. She does have slight elevation of cardiac enzymes; however, dating back to 2014, she has had chronically elevated cardiac enzymes. She denies any chest pain. She is not having acute ST-segment changes on her EKG that would indicate ischemia. 3. History of hypertension, this is under good control at this time. 4. Diabetes is also under good control that would be dealt with by the primary care service. 5. Hypercholesterolemia. I do not see that she is taking a statin, but even given her age with her coronary artery disease, it will be advisable for her to continue taking some type of statin if she is able to take the medication. 6. Soft carotid bruit. I believe carotid Doppler has already been scheduled. She has also been scheduled for an echocardiogram. I will review this when it becomes available. Otherwise, from a cardiac standpoint, she actually appears to be doing relatively well. Further care of the patient and decisions will be made by Dr. Garcia when he visits with the patient tomorrow. Job ID: [id number]
--- NOTE | 2018-05-24 07:24 | ULT ---
CAROTID ULTRASOUND WITH LESTER SCALE AND DOPPLER DUPLEX COLOR FLOW IMAGING SPECTRAL ANALYSIS PERFORMED: DATE: 05/24/18 CLINICAL INDICATION: Elevated troponin, cardiovascular disease. COMPARISON: 11/22/12 carotid ultrasound. FINDINGS: There is scattered mild atherosclerotic plaque/intimal thickening of the carotid arteries. PEAK SYSTOLIC VELOCITY (CM/S): Right CCA 78 Left CCA 88 Right ICA 74 Left ICA 72 There is antegrade flow within the visualized bilateral vertebral arteries. IMPRESSION: 1. No hemodynamically significant stenosis of the right internal carotid artery. 2. No hemodynamically significant stenosis of the left internal carotid artery. POS: [facility]
[2018-05-24 07:39] LABS: Troponin I 0.043 ng/mL (< 0.028)
[2018-05-24] MEDS: Artificial Tear Sol 15 ML BOT EA EYE SCH ×4 (09:08→21:36)
[2018-05-24] MEDS: Famotidine 20 MG TAB PO SCH (09:08)
[2018-05-24] MEDS: DULoxetine 60 MG CAP PO SCH (09:08)
[2018-05-24] MEDS: ALPRAZolam 0.5 MG TAB PO SCH ×2 (09:08→15:12)
[2018-05-24] MEDS: Lisinopril 20 MG TAB PO SCH (09:08)
[2018-05-24] MEDS: Aspirin 81 mg Enteric Coated Tablet PO SCH (09:09)
[2018-05-24] MEDS: Meclizine HCl 25 MG TAB PO SCH ×2 (09:09→21:34)
[2018-05-24] MEDS: Ascorbic Acid 500 mg Chewable Tablet PO SCH ×2 (09:09→21:34)
[2018-05-24] MEDS: Pregabalin 75 MG CAP PO SCH ×2 (09:09→21:34)
[2018-05-24] MEDS: Docusate 100 MG CAP PO SCH (09:10)
[2018-05-24] MEDS: HumuLIN 70/30 (300 UNITS/3 ML VIAL) SC SCH ×2 (09:40→21:36)
[2018-05-24 10:59] LABS: Anion Gap 14 mmol/L (10-20); BUN (Urea Nitrogen) 12 mg/dL (9.8-20.1); Calc. Creatinine Clearance 72 mL/min (70-130); Calcium 8.9 mg/dL (7.8-10.44); Carbon Dioxide 27 mmol/L (23-31); Chloride 101 mmol/L (98-107); Estimated GFR-MDRD 75; Glucose 136 mg/dL (83-110); Sodium 138 mmol/L (136-145)
[2018-05-24 10:59] LABS: #Eosinphils 0.5 thou/uL (0.0-0.7); #Lymphocytes 2.2 thou/uL (1.20-3.40); #Monocytes 1.1 thou/uL (0.11-0.59); #Neutrophils 5.8 thou/uL (1.40-6.50); %Basophils 0.4 % (0.0-1.0); %Eosinophils 5.3 % (0.0-10.0); %Monocytes 11.2 % (0.0-10.0); %Neutrophils 60.1 % (42.0-75.0); Hemoglobin 12.1 g/dL (12.0-16.0); Mean Corpuscular Hemoglobin 28.2 pg (27.0-31.0); Mean Corpuscular Volume 90.7 fL (78.0-98.0); Platelet Count 180 thou/uL (130-400); RBC Distribution Width 14.6 % (11.5-14.5); Red Blood Cell (RBC) Count 4.28 mill/uL (4.20-5.40); White Blood Cell (WBC) Count 9.6 thou/uL (4.8-10.8)
--- NOTE | 2018-05-24 11:07 | PRG ---
DATE OF SERVICE: 05/24/2018 SUBJECTIVE: Ms. Boucher reports no chest pain or pressure, feeling better. OBJECTIVE: VITAL SIGNS: Blood pressure 111/61, pulse 68, regular. LUNGS: Clear. CARDIAC: Normal S1, normal S2. ABDOMEN: Soft and nontender. EXTREMITIES: Mild peripheral edema. SKIN: Warm and dry. LABORATORY DATA: Troponin level 0.043. Reviewing the records, it looks like she always has these indeterminate troponins on her blood tests. She does have diffuse distal atherosclerosis. ASSESSMENT: 1. Previous bypass surgery, diffuse distal atherosclerosis. 2. Nausea, vomiting, abdominal discomfort. PLAN: 1. No further intervention from a cardiac standpoint. 2. Continue lisinopril and metoprolol as well as 81 mg aspirin and low-dose simvastatin. Job ID: [id number]
[2018-05-24] MEDS: HYDROcodone/Acetaminophen 5/325 mg Tablet PO PRN ×2 (11:39→21:35)
[2018-05-24] MEDS ORDERED: ALPRAZolam 0.5 MG TAB PO SCH (21:00)
[2018-05-24] MEDS: Simvastatin 5 MG TAB PO SCH (21:34)
[2018-05-24] MEDS: Cephalexin 250 MG CAP PO SCH (21:34)
[2018-05-24] MEDS: ALPRAZolam 0.25 MG TAB PO SCH (21:34)
[2018-05-24] MEDS: Mupirocin 2% Ointment 22 GM Tube TOP SCH (21:35)
[2018-05-25 07:35] LABS: Troponin I 0.046 ng/mL (< 0.028)
--- NOTE | 2018-05-25 09:49 | PRG ---
DATE OF SERVICE: 05/25/2018 SUBJECTIVE: Ms. Boucher states she is feeling fine. No chest pain or pressure. OBJECTIVE: VITAL SIGNS: Blood pressure is variable earlier. Her late last night is 127/69 and now 168/74, pulse 70 and regular. LUNGS: Clear. CARDIAC: Normal S1, normal S2. ABDOMEN: Soft, nontender. EXTREMITIES: There is no edema. ASSESSMENT: 1. Coronary artery disease, previous bypass with diffuse distal disease. Continue medical therapy. 2. Normal left ventricular function. 3. Hypertension. PLAN: 1. She is on aspirin 81 mg a day. 2. Lisinopril 20 mg a day. 3. Metoprolol 50 mg a day. 4. Simvastatin 10 mg a day. No further intervention at this point. I would like to increase the simvastatin to 20 mg a day. Otherwise, the patient could be released home or taken off the color television console monitor. Job ID: [id number]
[2018-05-25] MEDS: Ascorbic Acid 500 mg Chewable Tablet PO SCH ×2 (10:10→21:20)
[2018-05-25] MEDS: Docusate 100 MG CAP PO SCH (10:10)
[2018-05-25] MEDS: Artificial Tear Sol 15 ML BOT EA EYE SCH ×4 (10:10→21:23)
[2018-05-25] MEDS: Aspirin 81 mg Enteric Coated Tablet PO SCH (10:10)
[2018-05-25] MEDS: ALPRAZolam 0.25 MG TAB PO SCH ×2 (10:10→21:20)
[2018-05-25] MEDS: Cephalexin 250 MG CAP PO SCH ×3 (10:10→21:20)
[2018-05-25] MEDS: DULoxetine 60 MG CAP PO SCH (10:10)
[2018-05-25] MEDS: Meclizine HCl 25 MG TAB PO SCH ×2 (10:11→21:20)
[2018-05-25] MEDS: Pregabalin 75 MG CAP PO SCH ×2 (10:11→21:21)
[2018-05-25] MEDS: Famotidine 20 MG TAB PO SCH (10:11)
[2018-05-25] MEDS: Lisinopril 20 MG TAB PO SCH ×2 (10:11→21:20)
[2018-05-25] MEDS: Mupirocin 2% Ointment 22 GM Tube TOP SCH ×2 (10:11→21:23)
[2018-05-25] MEDS: HumuLIN 70/30 (300 UNITS/3 ML VIAL) SC SCH ×2 (10:12→21:23)
[2018-05-25] MEDS: HYDROcodone/Acetaminophen 5/325 mg Tablet PO PRN ×2 (11:03→22:24)
[2018-05-25] MEDS ORDERED: cloNIDine 0.1 MG TAB PO SCH (11:45)
[2018-05-25] MEDS ORDERED: Simvastatin 5 MG TAB PO SCH (21:00)
[2018-05-25] MEDS ORDERED: Atorvastatin Calcium 10 MG TAB PO SCH (21:00)
[2018-05-26] MEDS: Ascorbic Acid 500 mg Chewable Tablet PO SCH (09:46)
[2018-05-26] MEDS: ALPRAZolam 0.25 MG TAB PO SCH (09:46)
[2018-05-26] MEDS: Lisinopril 20 MG TAB PO SCH (09:46)
[2018-05-26] MEDS: Aspirin 81 mg Enteric Coated Tablet PO SCH (09:47)
[2018-05-26] MEDS: Pregabalin 75 MG CAP PO SCH (09:47)
[2018-05-26] MEDS: Meclizine HCl 25 MG TAB PO SCH (09:47)
[2018-05-26] MEDS: Docusate 100 MG CAP PO SCH (09:47)
[2018-05-26] MEDS: Cephalexin 250 MG CAP PO SCH ×2 (09:47→16:36)
[2018-05-26] MEDS: DULoxetine 60 MG CAP PO SCH (09:47)
[2018-05-26] MEDS: Famotidine 20 MG TAB PO SCH (09:47)
[2018-05-26] MEDS: Artificial Tear Sol 15 ML BOT EA EYE SCH ×2 (09:52→13:35)
[2018-05-26] MEDS: Mupirocin 2% Ointment 22 GM Tube TOP SCH (09:53)
[2018-05-26] MEDS: HumuLIN 70/30 (300 UNITS/3 ML VIAL) SC SCH (09:57)
[2018-05-26 20:27] VITALS: BP 113/79
[2018-05-26 20:29] VITALS: TEMP 97.8
== END 2018-05-26 16:32 | disposition home health service (06) | DRG 392 ==
LOC: ERS 15:28 → ERHOLD 18:34 → 2NO 23:00 → OBSVTOIN 05-23 14:16
PROVIDERS: ADMIT Internal Medicine; ATTEND Internal Medicine
DX: R11.2 Nausea with vomiting, unspecified (principal); I50.22 Chronic systolic (congestive) heart failure; I25.10 Atherosclerotic heart disease of native coronary artery without angina pectoris; R62.7 Adult failure to thrive; Z68.33 Body mass index [BMI] 33.0-33.9, adult; E11.42 Type 2 diabetes mellitus with diabetic polyneuropathy; E66.01 Morbid (severe) obesity due to excess calories; I11.0 Hypertensive heart disease with heart failure; E78.5 Hyperlipidemia, unspecified; G89.29 Other chronic pain; F41.9 Anxiety disorder, unspecified; D64.9 Anemia, unspecified; J44.9 Chronic obstructive pulmonary disease, unspecified; R74.8 Abnormal levels of other serum enzymes; M54.9 Dorsalgia, unspecified; Z88.6 Allergy status to analgesic agent; Z88.0 Allergy status to penicillin; Z79.82 Long term (current) use of aspirin; Z79.4 Long term (current) use of insulin; Z85.3 Personal history of malignant neoplasm of breast; Z95.1 Presence of aortocoronary bypass graft; Z90.49 Acquired absence of other specified parts of digestive tract
CPT/HCPCS: 36415; 36416; 51701; 80048; 80053; 81003; 82553; 83690; 84484; 85025; 87324; 87449; 93005; 93306; 93880; 94640; A4353; J1815; J7620; J8499; Q0162

== ENCOUNTER 2018-06-22 17:56 | Observation (INO) | payer MEDICARE, MEDICAID ==
[2018-06-22 18:34] LABS: #Basophils 0.1 thou/uL (0.0-0.2); #Eosinphils 0.1 thou/uL (0.0-0.7); #Lymphocytes 2.7 thou/uL (1.20-3.40); #Monocytes 0.8 thou/uL (0.11-0.59); #Neutrophils 5.2 thou/uL (1.40-6.50); %Basophils 1.1 % (0.0-1.0); %Eosinophils 1.6 % (0.0-10.0); %Lymphocytes 30.6 % (21.0-51.0); %Monocytes 8.7 % (0.0-10.0); Hemoglobin 11.6 g/dL (12.0-16.0); Mean Corpuscular HGB CONC 31.5 g/dL (32.0-36.0); Mean Platelet Volume 8.8 fL (7.4-10.4); Platelet Count 214 thou/uL (130-400); RBC Distribution Width 13.9 % (11.5-14.5); Red Blood Cell (RBC) Count 4.15 mill/uL (4.20-5.40); White Blood Cell (WBC) Count 8.9 thou/uL (4.8-10.8)
--- NOTE | 2018-06-22 18:36 | RAD ---
RADIOGRAPH CHEST 1 VIEW: DATE: 06/22/2018 HISTORY: 82-year-old female with chest pain FINDINGS: There is no airspace density, pulmonary edema, or pneumothorax. The lateral costophrenic angles are n ot effaced. There are sternotomy wires. There are surgical clips in the neck, especially medially on the left. ACDF hardware in the C-spine. Surgical clips at the left axilla. IMPRESSION: No acute pulmonary findings.
[2018-06-22 18:54] LABS: ALT (SGPT) 14 U/L (8-55); AST (SGOT) 15 U/L (5-34); Albumin 3.8 g/dL (3.4-4.8); Alkaline Phosphatase 83 U/L (40-150); Anion Gap 11 mmol/L (10-20); BUN (Urea Nitrogen) 12 mg/dL (9.8-20.1); Bilirubin, Total 0.3 mg/dL (0.2-1.2); Calc. Creatinine Clearance 0 mL/min (70-130); Calcium 8.8 mg/dL (7.8-10.44); Carbon Dioxide 30 mmol/L (23-31); Chloride 103 mmol/L (98-107); Estimated GFR-MDRD 76; Globulin 2.7 g/dL (2.4-3.5); Glucose 96 mg/dL (83-110); Potassium 3.2 mmol/L (3.5-5.1); Protein, Total 6.5 g/dL (6.0-8.3); Sodium 141 mmol/L (136-145)
[2018-06-22 19:16] LABS: CKMB 2.5 ng/mL (0-6.6)
[2018-06-22 22:15] VITALS: BMI 31.3
[2018-06-22] MEDS ORDERED: PROVENTIL INHALER 6.7 G (200 INHALATIONS) INH PRN (22:27)
[2018-06-22] MEDS ORDERED: Melatonin 3 MG TAB PO PRN (22:32)
[2018-06-22] MEDS ORDERED: cloNIDine 0.1 MG TAB PO PRN (22:35)
[2018-06-22] MEDS ORDERED: Meclizine HCl 25 MG TAB PO SCH (22:45)
[2018-06-22] MEDS ORDERED: Pregabalin 75 MG CAP PO SCH (22:45)
[2018-06-22] MEDS ORDERED: Famotidine 20 MG TAB PO SCH (22:45)
[2018-06-22] MEDS ORDERED: Simvastatin 20 MG TAB PO SCH (22:45)
[2018-06-22] MEDS ORDERED: Lisinopril 20 MG TAB PO SCH (22:45)
[2018-06-22 22:46] LABS: Troponin I 0.046 ng/mL (< 0.028)
[2018-06-23 01:57] LABS: Troponin I 0.042 ng/mL (< 0.028)
[2018-06-23] MEDS: HYDROcodone/Acetaminophen 5/325 mg Tablet PO PRN ×2 (03:40→14:23)
[2018-06-23] MEDS ORDERED: Artificial Tear Sol 15 ML BOT EA EYE SCH (09:00)
[2018-06-23] MEDS: Lisinopril 20 MG TAB PO SCH ×2 (09:27→20:37)
[2018-06-23] MEDS: Artificial Tears 18 DROP/0.9 ML EA EYE SCH ×4 (09:27→20:38)
[2018-06-23] MEDS: Meclizine HCl 25 MG TAB PO SCH ×2 (09:44→20:37)
[2018-06-23] MEDS ORDERED: NIFEdipine XL 30 MG TAB PO SCH (11:30)
[2018-06-23] MEDS: Aspirin 325 mg Enteric Coated Tablet PO SCH (11:46)
[2018-06-23] MEDS: Ascorbic Acid 500 mg Chewable Tablet PO SCH ×2 (11:46→20:35)
[2018-06-23] MEDS: DULoxetine 60 MG CAP PO SCH (11:46)
[2018-06-23] MEDS: Docusate 100 MG CAP PO SCH ×2 (11:46→20:35)
[2018-06-23] MEDS: Pregabalin 75 MG CAP PO SCH ×2 (11:47→20:37)
[2018-06-23] MEDS: HumuLIN 70/30 (300 UNITS/3 ML VIAL) SC SCH ×2 (11:48→20:49)
[2018-06-23] MEDS: Potassium Chloride 20 MEQ in Premix Bag 1 BAG IVPB SCH ×2 (11:50→16:40)
[2018-06-23] MEDS: Ondansetron PF 4 MG/2 ML Vial SLOW IVP PRN ×2 (14:24→20:39)
--- NOTE | 2018-06-23 17:15 | CON ---
DATE OF CONSULTATION: HISTORY OF PRESENT ILLNESS: The patient is a pleasant 82-year-old woman, who presented with chest discomfort. The patient has a long history of coronary artery disease, she is status post coronary artery bypass graft surgery. The patient has known diffuse distal disease. The patient was admitted a month ago with nausea, vomiting, and noted to have elevated troponin levels. The patient has been continued on medical therapy. She was on her usual state of health when a few days to admission she started having increasing coughing. She developed midsternal chest discomfort. She was seen by the therapist, who noted that her systolic blood pressure was over 200 and was brought to the hospital for further evaluation. The patient was given sublingual nitroglycerin tablets with resolution of her chest discomfort. PAST MEDICAL HISTORY: Significant for, 1. Coronary artery disease. 2. Hypertension. 3. Dyslipidemia. 4. Breast carcinoma. 5. Diabetes mellitus. PAST SURGICAL HISTORY: She has had hip surgery, bypass surgery, abdominal surgery. SOCIAL HISTORY: Nonsmoker. ALLERGIES: SHE IS ALLERGIC TO CODEINE AND PENICILLIN. MEDICATIONS: See nursing list. REVIEW OF SYSTEMS: Noticeable for increasing lower extremity swelling. PHYSICAL EXAMINATION: GENERAL: Obese woman, in no acute distress. VITAL SIGNS: Blood pressure is 189/86. NECK: Showed no jugular venous distention. LUNGS: Clear to auscultation. HEART: Regular rate and rhythm. Normal S1 and S2. No murmurs. ABDOMEN: Nondistended. EXTREMITIES: Show trace edema. VASCULAR: Radial pulses 2+. LABORATORY DATA: Sodium 141, potassium 3.2, chloride 103, bicarbonate 30, BUN 12, creatinine 0.86. Her glucose is 96. Her white blood cell count is 8.9, hemoglobin 11.5, hematocrit 37.0, and her platelets are 214. IMAGING STUDIES: Her EKG reveals her to have sinus bradycardia with a short MT interval. Her chest x-ray was unremarkable. Echocardiogram done 05/24 revealed normal left ventricular ejection fraction 55% to 60%. IMPRESSION: 1. Chest angina probably secondary to hypertensive crisis. 2. History of coronary artery bypass graft surgery with diffuse distal disease. 3. Hypertension, poorly controlled. 4. Diabetes mellitus. 5. Dyslipidemia. 6. Breast carcinoma. 7. Obesity. This patient presented with hypertensive crisis. Her chest pain resolved with sublingual nitroglycerin. Her enzymes revealed no evidence of a myocardial infarction. The patient states she has been compliant with her medication, low-sodium diet. From a cardiac standpoint, she needs to have improved control of her hypertension, would recommend the patient add nifedipine to her medical regimen to hopefully better control her blood pressure. PLAN: Add nifedipine. Please call my office. Job ID: [id number]
[2018-06-23 19:51] LABS: Bilirubin Small (Negative); Blood, Urine Negative (Negative); Clarity CLEAR (Clear); Glucose, Urine (Dipstick) Negative (Negative); Leukocyte Negative (Negative); Nitrite Negative (Negative); Protein, Urine (Dipstick) Trace mg/dL (Neg-Trace); Urobilinogen 0.2 mg/dL (0.2-1.0); pH, Urine 6.5 (5.0-9.0)
[2018-06-23] MEDS: NIFEdipine XL 30 MG TAB PO SCH (20:36)
[2018-06-23] MEDS ORDERED: Simvastatin 20 MG TAB PO SCH (21:00)
[2018-06-23] MEDS ORDERED: Famotidine 20 MG TAB PO SCH (21:00)
[2018-06-24] MEDS ORDERED: Dextrose 50% Abboject 50 ML SYRINGE IVP PRN (03:25)
[2018-06-24] MEDS ORDERED: Insulin Regular 300 UNITS/3 ML VIAL SC PRN (03:25)
[2018-06-24] MEDS ORDERED: Dextrose 5% in Water 1,000 ML IV PRN (03:25)
[2018-06-24] MEDS: HYDROcodone/Acetaminophen 5/325 mg Tablet PO PRN (04:44)
[2018-06-24] MEDS: Ondansetron PF 4 MG/2 ML Vial SLOW IVP PRN (05:02)
[2018-06-24 07:10] LABS: Anion Gap 14 mmol/L (10-20); BUN (Urea Nitrogen) 8 mg/dL (9.8-20.1); Calc. Creatinine Clearance 86 mL/min (70-130); Calcium 8.4 mg/dL (7.8-10.44); Carbon Dioxide 24 mmol/L (23-31); Chloride 105 mmol/L (98-107); Estimated GFR-MDRD Greater than 90; Glucose 93 mg/dL (83-110); Potassium 3.5 mmol/L (3.5-5.1); Sodium 139 mmol/L (136-145)
[2018-06-24 07:56] VITALS: TEMP 97.6
--- NOTE | 2018-06-24 08:04 | HP ---
CHIEF COMPLAINT: Chest pain. HISTORY OF PRESENT ILLNESS: Sander is an 82-year-old female with past medical history of coronary artery disease, diabetes mellitus, hypertension , came with chest pain on and off in the left side of chest for 1 week. The patient states her blood pressure is also staying elevated. The pain is pressure like, nonradiating associated with some shortness of breath, nausea, and vomiting. The patient also claims she has palpitations and feels dizzy sometimes and generalized weakness. The patient did not have any headache. The patient came to the emergency room because of this chest pressure, nausea, vomiting, and dizziness. By the time she came to the ER her chest pain has resolved. The patient was evaluated and found to have elevated blood pressure, and in view of risk factors , the patient is being admitted to rule out myocardial infarction for the chest pain. PAST MEDICAL HISTORY: 1. Hypertension. 2. Insulin dependent diabetes mellitus. 3. Coronary artery disease, status post CABG. 4. History of COPD. 5. Anxiety disorder and chronic anemia. 6. Chronic back. 7. Hyperlipidemia. PAST SURGICAL HISTORY: 1. Status post spinal surgery. 2. Status post hysterectomy. 3. Status post cholecystectomy. 4. Status post CABG. CURRENT MEDICATIONS: The patient is on, 1. Melatonin 5 mg nightly. 2. DuoNebs q.i.d. 3. Lyrica 150 b.i.d. 4. Lisinopril 20 b.i.d. 5. Simvastatin 10 mg daily. 6. Meclizine 25 mg b.i.d. 7. Metoprolol 50 mg daily. 8. Vitamin C daily. 9. Aspirin 81 mg daily. 10. [place] 5/325 q.i.d. p.r.n. 11. Colace 100 mg daily. 12. Cymbalta 60 mg daily. 13. Pepcid 20 mg daily. 14. Insulin 70/30 of 40 units b.i.d. ALLERGIES: CODEINE AND POULTRY. FAMILY HISTORY: Nothing contributory. SOCIAL HISTORY: The patient lives alone. No history of smoking. No history of alcohol. REVIEW OF SYSTEMS: CARDIOVASCULAR: Has chest pressure and shortness of breath. RESPIRATORY: No fever or cough. GASTROINTESTINAL: Has nausea, vomiting symptoms. CENTRAL NERVOUS SYSTEM: No headache. Has dizziness. PHYSICAL EXAMINATION: GENERAL: The patient is alert, awake, and oriented x3. VITAL SIGNS: Temperature 98, pulse 75, respiration 20, blood pressure . HEENT: Head is normocephalic and atraumatic. Pupils are equal and reactive. Nasopharynx is pale and dry. Hard and soft palate. LUNGS: Bilateral air entry present with no rales, no rhonchi. HEART: S1 and S2, regular. ABDOMEN: Soft. No distention. No tenderness. Normal bowel sounds. RECTAL: Deferred. CENTRAL NERVOUS SYSTEM: Nonfocal. No new deficit. LABORATORY DATA: CBC shows WBC 8.9, hemoglobin 11.6, hematocrit 37, and platelets 214. Metabolic panel; sodium 141, potassium 3.2, chloride 103, CO2 30, BUN 12, creatinine 0.8, glucose 96. Troponin I 0.053. BNP 450. IMAGING STUDIES: Chest x-ray negative. EKG shows normal sinus rhythm, no acute ST-T changes seen. ASSESSMENT: 1. Chest pain, rule out myocardial infarction. 2. Hypertension, uncontrolled. 3. Nausea and vomiting. 4. Dizziness. 5. Coronary artery disease, status post coronary artery bypass graft. 6. Insulin-dependent diabetes mellitus. 7. History of chronic obstructive pulmonary disease. 8. Chronic back pain. 9. Anxiety disorder. PLAN: 1. Vital signs q.4 hours. 2. Activity as tolerated. 3. Allergies: Codeine and poultry. 4. Hep-Lock. 5. Troponin I q.8 hours x2. 6. Continue home medications. 7. Aspirin daily. 8. Cardiology consult. 9. Zofran 8 mg IVP q.6 hours p.r.n. 10. Accu-Chek before meals and at bedtime with insulin sliding scale mildly with regular insulin. 11. We will add new medication to control blood pressure. Job ID: [id number] [facility]
[2018-06-24 08:49] VITALS: BP 131/60
[2018-06-24] MEDS: Ascorbic Acid 500 mg Chewable Tablet PO SCH (09:23)
[2018-06-24] MEDS: Docusate 100 MG CAP PO SCH (09:24)
[2018-06-24] MEDS: NIFEdipine XL 30 MG TAB PO SCH (09:25)
[2018-06-24] MEDS: DULoxetine 60 MG CAP PO SCH (09:25)
[2018-06-24] MEDS: Lisinopril 20 MG TAB PO SCH (09:25)
[2018-06-24] MEDS: Meclizine HCl 25 MG TAB PO SCH (09:25)
[2018-06-24] MEDS: Pregabalin 75 MG CAP PO SCH (09:26)
[2018-06-24] MEDS: HumuLIN 70/30 (300 UNITS/3 ML VIAL) SC SCH (09:27)
[2018-06-24] MEDS: Aspirin 325 mg Enteric Coated Tablet PO SCH (09:40)
[2018-06-24] MEDS: Artificial Tears 18 DROP/0.9 ML EA EYE SCH ×2 (12:53→15:29)
[2018-06-25] MEDS ORDERED: NIFEdipine XL 30 MG TAB PO SCH (09:00)
--- NOTE | 2018-06-25 10:15 | DIS ---
DATE OF ADMISSION: 06/22/2018 DATE OF DISCHARGE: 06/24/2018 ADMITTING DIAGNOSES: 1. Chest pain, rule out myocardial infarction. 2. Hypertension, uncontrolled. 3. Nausea and vomiting. 4. Dizziness. 5. Coronary artery disease, status post CABG. 6. Insulin dependent diabetes mellitus. 7. Chronic back pain. 8. Anxiety disorder. 9. History of chronic obstructive pulmonary disease. FINAL DIAGNOSES: 1. Chest pain. No evidence of acute myocardial infarction. 2. Diffuse coronary artery disease. 3. Hypertension, uncontrolled, improved. 4. Nausea and vomiting, resolved. 5. Insulin-dependent diabetes mellitus. 6. Chronic back pain. 7. Anxiety disorder. BRIEF SUMMARY OF HOSPITAL COURSE: Ms. Boucher is a 82-year-old female, admitted because of chest discomfort, nausea, dizziness. The patient was found to have markedly elevated blood pressure. The patient admitted to rule out myocardial infarction. Serial cardiac enzymes were done and they are within normal limits. Cardiology consultation was done. The patient was seen Dr. Bobo. He felt the patient has diffuse coronary artery disease. No further workup is required. As far as the coronary artery disease, they started to control the blood pressure, he added a new medication of Procardia. After which, her blood pressure was better controlled and her chest pain also resolved. She did not have any dizziness. Nausea and vomiting resolved. In view of improvement, the patient is being discharged home and at the time of discharge, she was stable and vital signs stable. Lungs clear. Heart sounds regular. Abdomen is soft, nontender. Bowel sounds heard. DISCHARGE MEDICATIONS: 1. Metoprolol 50 mg daily. 2. Lyrica 150 b.i.d. 3. Aspirin 325 mg daily. 4. Melatonin 5 mg at bedtime p.r.n. 5. DuoNebs q.i.d. p.r.n. 6. Cymbalta 60 mg daily. 7. Ranitidine 150 b.i.d. 8. Vitamin C 500 mg daily. 9. Meclizine 25 mg b.i.d. 10. [place] p.r.n. 11. Simvastatin 10 mg daily. 12. Colace 100 mg daily p.r.n. 13. Lisinopril 20 mg b.i.d. 14. Xanax has been discontinued. 15. Insulin 70/30, 20 units b.i.d. 16. Nifedipine ER 30 mg daily. The patient will come for followup in 2 weeks. She will continue with home health. Job ID: [id number]
--- NOTE | 2018-06-26 11:09 | EKG ---
Test Reason : Blood Pressure : / mmHG Vent. Rate : 061 BPM Atrial Rate : 061 BPM P-R Int : 106 ms QRS Dur : 088 ms QT Int : 446 ms P-R-T Axes : 016 -15 048 degrees QTc Int : 448 ms Sinus rhythm with short IL Left ventricular hypertrophy with repolarization abnormality Abnormal ECG Confirmed by VERONICA MARIE M.D. ([id number]), brands editor MARVIN SALDIVAR ([id number] on 06/26/2018 11:08:30 AM Referred By: Confirmed By:VERONICA MARIE M.D.
== END 2018-06-24 17:59 | disposition home health service (06) ==
LOC: ERS 17:56 → 2SW 20:02
PROVIDERS: ADMIT Internal Medicine; ATTEND Internal Medicine
DX: R07.89 Other chest pain (principal); I10 Essential (primary) hypertension; E11.9 Type 2 diabetes mellitus without complications; I25.10 Atherosclerotic heart disease of native coronary artery without angina pectoris; J44.9 Chronic obstructive pulmonary disease, unspecified; F41.9 Anxiety disorder, unspecified; G89.29 Other chronic pain; M54.9 Dorsalgia, unspecified; E78.5 Hyperlipidemia, unspecified; D64.9 Anemia, unspecified; E66.9 Obesity, unspecified; Z68.31 Body mass index [BMI] 31.0-31.9, adult; Z95.1 Presence of aortocoronary bypass graft; Z79.899 Other long term (current) drug therapy; Z79.82 Long term (current) use of aspirin; Z79.4 Long term (current) use of insulin; Z88.0 Allergy status to penicillin; Z88.5 Allergy status to narcotic agent; Z91.018 Allergy to other foods
CPT/HCPCS: 71045; 80048; 80053; 81003; 82553; 82962 ×3; 83880; 84484 ×3; 85025; 87077; 87086; 87186; 93005; 99285; G0378 ×2; 36415; 36416; J1815; J2405; J3480; J8499

== ENCOUNTER 2018-08-02 14:59 | Inpatient (IN) | payer MEDICARE, MEDICAID ==
[2018-08-02 15:47] LABS: #Eosinphils 0.3 thou/uL (0.0-0.7); #Lymphocytes 2.9 thou/uL (1.20-3.40); #Monocytes 1.2 thou/uL (0.11-0.59); #Neutrophils 7.4 thou/uL (1.40-6.50); %Basophils 0.4 % (0.0-1.0); %Eosinophils 2.8 % (0.0-10.0); %Lymphocytes 24.6 % (21.0-51.0); %Monocytes 9.9 % (0.0-10.0); %Neutrophils 62.3 % (42.0-75.0); Hemoglobin 12.3 g/dL (12.0-16.0); Mean Corpuscular HGB CONC 32.6 g/dL (32.0-36.0); Mean Corpuscular Hemoglobin 28.4 pg (27.0-31.0); Mean Corpuscular Volume 86.9 fL (78.0-98.0); Platelet Count 196 thou/uL (130-400); RBC Distribution Width 13.5 % (11.5-14.5); Red Blood Cell (RBC) Count 4.35 mill/uL (4.20-5.40); White Blood Cell (WBC) Count 11.8 thou/uL (4.8-10.8)
[2018-08-02 16:07] LABS: ALT (SGPT) 20 U/L (8-55); AST (SGOT) 24 U/L (5-34); Alkaline Phosphatase 94 U/L (40-150); Anion Gap 19 mmol/L (10-20); BUN (Urea Nitrogen) 24 mg/dL (9.8-20.1); Bilirubin, Total 0.5 mg/dL (0.2-1.2); Calc. Creatinine Clearance 0 mL/min (70-130); Calcium 9.8 mg/dL (7.8-10.44); Carbon Dioxide 23 mmol/L (23-31); Chloride 102 mmol/L (98-107); Estimated GFR-MDRD 73; Glucose 77 mg/dL (83-110); Sodium 141 mmol/L (136-145)
[2018-08-02 16:11] LABS: Potassium 2.9 mmol/L (3.5-5.1)
[2018-08-02] MEDS ORDERED: Potassium Chloride 20 MEQ TAB ONE (16:33)
--- NOTE | 2018-08-02 16:56 | RAD ---
RADIOGRAPH CHEST 1 VIEW: Date: 08/02/18 Time: 1625 HOURS HISTORY: 82-year-old female with productive cough, congestion, and chest pain. COMPARISON: 06/22/18. FINDINGS: No consolidation or pulmonary edema. Sternotomy wires. Multiple surgical clips in the neck. Surgical clips at left axilla. No pulmonary edema or pneumothorax. No consolidation or pulmonary edema. No int erval change overall. IMPRESSION: 1. No acute pulmonary findings. 2. Evidence of previous open heart surgery. 3. Status post left mastectomy and left axillary lymph node dissection. JN [] POS: [facility]
[2018-08-02] MEDS ORDERED: Sodium Chloride 0.9% 100 ML ONE (17:07)
[2018-08-02] MEDS ORDERED: cefTRIAXone\\ROCEPHIN 1 GM VIAL ONE (17:07)
[2018-08-02] MEDS ORDERED: Bacteriostatic Water 30 ML VIAL FS PRN ×2 (19:11→21:30)
[2018-08-02] MEDS ORDERED: Dextrose 5% in Water 1,000 ML IV PRN (19:15)
[2018-08-02] MEDS ORDERED: Dextrose 50% Abboject 50 ML SYRINGE IVP PRN (19:15)
[2018-08-02] MEDS ORDERED: methylPREDNISolone Sod Succ/PF 125 MG/2 ML VIAL IVP SCH (19:15)
[2018-08-02] MEDS ORDERED: Ondansetron ODT 4 MG TAB SL PRN (19:17)
[2018-08-02] MEDS ORDERED: Acetaminophen 325 MG TAB PO PRN (19:17)
[2018-08-02] MEDS ORDERED: Ondansetron PF 4 MG/2 ML Vial IVP PRN (19:17)
[2018-08-02 20:10] LABS: Lactic Acid 2.3 mmol/L (0.5-2.2)
[2018-08-02] MEDS: guaiFENesin ER 600 MG TAB PO SCH (20:40)
[2018-08-02] MEDS ORDERED: PROVENTIL INHALER 6.7 G (200 INHALATIONS) INH PRN (21:11)
[2018-08-02] MEDS ORDERED: Melatonin 3 MG TAB PO PRN (21:13)
[2018-08-02] MEDS ORDERED: Famotidine 20 MG TAB PO SCH (21:30)
[2018-08-02] MEDS ORDERED: Lisinopril 20 MG TAB PO SCH (21:30)
[2018-08-02] MEDS ORDERED: HYDROcodone/Acetaminophen 5/325 mg Tablet PO SCH (21:30)
[2018-08-02] MEDS ORDERED: Meclizine HCl 25 MG TAB PO SCH (21:30)
[2018-08-02] MEDS ORDERED: HumuLIN 70/30 (300 UNITS/3 ML VIAL) SC SCH (21:30)
[2018-08-02] MEDS ORDERED: Atorvastatin Calcium 10 MG TAB PO SCH (21:30)
[2018-08-02] MEDS ORDERED: Pregabalin 75 MG CAP PO SCH (21:30)
[2018-08-02 21:44] VITALS: BMI 29.3
[2018-08-03] MEDS: methylPREDNISolone Sod Succ 40 MG VIAL IVP SCH ×5 (00:45→23:11)
[2018-08-03] MEDS: Insulin Regular 300 UNITS/3 ML VIAL SC PRN ×3 (05:53→17:14)
[2018-08-03] MEDS: cefTRIAXone\\ROCEPHIN 2 GM in Sodium Chloride 0.9% 100 ML IVPB SCH (08:02)
[2018-08-03] MEDS: hydrOXYzine 25 MG TAB PO PRN (08:03)
[2018-08-03] MEDS: Aspirin 325 mg Enteric Coated Tablet PO SCH (08:03)
[2018-08-03] MEDS: Pregabalin 75 MG CAP PO SCH ×2 (08:03→20:49)
[2018-08-03] MEDS: DULoxetine 60 MG CAP PO SCH (08:04)
[2018-08-03] MEDS: Meclizine HCl 25 MG TAB PO SCH ×2 (08:04→20:59)
[2018-08-03] MEDS: Famotidine 20 MG TAB PO SCH ×2 (08:04→20:50)
[2018-08-03] MEDS: guaiFENesin ER 600 MG TAB PO SCH ×2 (08:04→20:50)
[2018-08-03] MEDS: HYDROcodone/Acetaminophen 5/325 mg Tablet PO SCH ×2 (08:04→20:50)
[2018-08-03] MEDS: HumuLIN 70/30 (300 UNITS/3 ML VIAL) SC SCH ×2 (08:05→20:54)
[2018-08-03] MEDS: Lisinopril 20 MG TAB PO SCH ×2 (08:15→20:53)
[2018-08-03] MEDS: NIFEdipine XL 30 MG TAB PO SCH (08:16)
[2018-08-03] MEDS ORDERED: Prevnar 13-Val Conj/PF 0.5 ML SYRINGE IM ONE (09:00)
[2018-08-03 10:29] LABS: Anion Gap 16 mmol/L (10-20); BUN (Urea Nitrogen) 29 mg/dL (9.8-20.1); Calc. Creatinine Clearance 52 mL/min (70-130); Calcium 8.8 mg/dL (7.8-10.44); Carbon Dioxide 24 mmol/L (23-31); Chloride 102 mmol/L (98-107); Estimated GFR-MDRD 56; Glucose 278 mg/dL (83-110); Potassium 3.7 mmol/L (3.5-5.1); Sodium 138 mmol/L (136-145)
--- NOTE | 2018-08-03 13:26 | HP ---
CHIEF COMPLAINT: Cough, shortness of breath, congestion, and chest pain. HISTORY OF PRESENT ILLNESS: Ms. Boucher is an 82-year-old Afro-[place] female with past medical history of diabetes, hypertension, and COPD, came because of cough going on for few days. The patient was seen in the office, given antibiotic and medications. The patient had cough, gotten worse and has been productive with greenish sputum, sometimes blood-tinged and cough is getting worse and also getting short of breath and wheezing started. Also, she has pain in the chest during coughing. The pain is more on the left side and worsens with deep breathing although. So, the patient decided to come to hospital and called the EMS. EMS found the patient with wheezing and cough. She was given DuoNebs on the way to the hospital. Also complains of leg edema. The patient was evaluated in the ER and was thought to have early pneumonia. She was given antibiotics. The patient was also found to have hypokalemia. She was given KCl and admitted for further evaluation. The patient received ceftriaxone and Levaquin in the ER. PAST MEDICAL HISTORY: 1. COPD. 2. Hypertension. 3. Hyperlipidemia. 4. Insulin-dependent diabetes mellitus. 5. Chronic back pain. 6. Anxiety disorder. 7. Chronic anemia. 8. Hyperlipidemia. PAST SURGICAL HISTORY: Status post CABG, status post cholecystectomy, status post hysterectomy, and status post spinal surgery. CURRENT MEDICATIONS: The patient is on; 1. DNS q.i.d. 2. Albuterol inhaler 2 puffs q.i.d. p.r.n. 3. Aspirin 325 mg daily. 4. Lipitor 10 mg daily. 5. [place] 5/325 one or two q.6 hours p.r.n. 6. Cymbalta 60 mg daily. 7. Pepcid 20 mg b.i.d. 8. Insulin 70/30 of 20 units b.i.d. 9. Lisinopril 20 mg daily. 10. Meclizine 25 mg b.i.d. 11. Melatonin 6 mg at bedtime p.r.n. 12. Metoprolol succinate 50 mg daily. 13. Procardia XL 30 mg daily. 14. Lyrica 150 b.i.d. ALLERGIES: CODEINE AND POULTRY. FAMILY HISTORY: Nothing contributory. SOCIAL HISTORY: The patient lives alone. No history of smoking. No history of alcohol. REVIEW OF SYSTEMS: CARDIOVASCULAR: She has chest pain due to coughing and short of breath. RESPIRATORY: Cough productive of greenish sputum. No fever. GASTROINTESTINAL: She has nausea. No vomiting CENTRAL NERVOUS SYSTEM: No headache. Feels dizzy. PHYSICAL EXAMINATION: GENERAL: The patient is alert, awake, and oriented x3. VITAL SIGNS: Temperature 98, pulse 100, respirations 20, and blood pressure 105 /60. HEENT: Head is normocephalic and atraumatic. Pupils are equal and reactive. Nasopharynx is pale and dry. Hard and soft palate. No lesions. SKIN: Turgor decreased. NECK: Supple. No JVD. LUNGS: Breath sounds diminished bilaterally. Percussion dull bilaterally. Bilateral wheeze present. HEART: S1 and S2. Regular. ABDOMEN: Soft. No distention. No tenderness. Normal bowel sounds. RECTAL: Deferred. CENTRAL NERVOUS SYSTEM: No focal deficits. SKIN: There is an erythematous maculopapular rash present on both face and the neck and also there is a darkish pigmented spot on the toe, which is on the left big toe. LABORATORY DATA: CBC shows WBC 7.8, hemoglobin 12, hematocrit 37, and platelets 196. Metabolic panel; sodium 140, potassium 2.9, chloride 102, CO2 of 23, BUN 24, creatinine 0.9, and glucose 77. Chest x-ray shows no acute pulmonary findings. EKG shows normal sinus rhythm, no acute ST-T changes seen. ASSESSMENT: 1. Chronic obstructive pulmonary disease, acute exacerbation. 2. Questionable pneumonia. 3. Severe hypokalemia. 4. Hypertension. 5. Insulin dependent diabetes mellitus. 6. Hyperlipidemia. 7. Chronic back pain. 8. Anxiety disorder. PLAN: 1. Vital signs q.4 hours. 2. Activity as tolerated. 3. Allergies: Codeine and poultry. 4. Hep-Lock. 5. Rocephin 2 g IV piggyback daily. 6. Solu-Medrol 125 mg bolus, then 20 mg IVP q.6 hours. 7. DuoNeb 1 unit q.6 hours. 8. Mucinex 600 mg b.i.d. 9. Oxygen via nasal cannula 2 L. 10. Continue her home medications. 11. Accu-Chek before meals and at bedtime. 12. Sliding scale mild with regular insulin. Job ID: [id number] [facility]
[2018-08-03] MEDS: Guaifenesin DM 100-10/5 ML UDCUP PO PRN (20:49)
[2018-08-03] MEDS: Atorvastatin Calcium 10 MG TAB PO SCH (20:50)
[2018-08-03] MEDS: Temazepam 15 MG CAP PO PRN (23:10)
[2018-08-04] MEDS: Guaifenesin DM 100-10/5 ML UDCUP PO PRN ×5 (03:59→22:27)
[2018-08-04] MEDS: methylPREDNISolone Sod Succ 40 MG VIAL IVP SCH ×2 (05:58→12:00)
[2018-08-04] MEDS: Insulin Regular 300 UNITS/3 ML VIAL SC PRN ×3 (06:00→16:50)
[2018-08-04] MEDS: NIFEdipine XL 30 MG TAB PO SCH (08:22)
[2018-08-04] MEDS: cefTRIAXone\\ROCEPHIN 2 GM in Sodium Chloride 0.9% 100 ML IVPB SCH (08:22)
[2018-08-04] MEDS: Lisinopril 20 MG TAB PO SCH ×2 (08:23→21:45)
[2018-08-04] MEDS: guaiFENesin ER 600 MG TAB PO SCH ×2 (08:23→21:45)
[2018-08-04] MEDS: Aspirin 325 mg Enteric Coated Tablet PO SCH (08:23)
[2018-08-04] MEDS: Famotidine 20 MG TAB PO SCH ×2 (08:23→21:44)
[2018-08-04] MEDS: DULoxetine 60 MG CAP PO SCH (08:23)
[2018-08-04] MEDS: HYDROcodone/Acetaminophen 5/325 mg Tablet PO SCH ×2 (08:24→21:44)
[2018-08-04] MEDS: Pregabalin 75 MG CAP PO SCH ×2 (08:25→21:43)
[2018-08-04] MEDS: Meclizine HCl 25 MG TAB PO SCH ×2 (08:40→21:57)
[2018-08-04] MEDS: HumuLIN 70/30 (300 UNITS/3 ML VIAL) SC SCH ×2 (08:52→21:33)
[2018-08-04] MEDS ORDERED: Acetaminophen 500 MG TAB PO PRN (19:05)
[2018-08-04] MEDS: Atorvastatin Calcium 10 MG TAB PO SCH (21:44)
[2018-08-04] MEDS ORDERED: Ondansetron ODT 4 MG TAB PO PRN (21:45)
[2018-08-04] MEDS: Benzonatate 100 MG CAP PO SCH (21:57)
[2018-08-04] MEDS: Temazepam 15 MG CAP PO PRN (22:26)
--- NOTE | 2018-08-05 00:39 | CON ---
DATE OF CONSULTATION: 08/04/2018 REASON FOR CONSULTATION: It appears that the reason is possibility of infection in the left first toe. HISTORY OF PRESENT ILLNESS: An 82-year-old, whom I had seen in January 2018, when she presented with a history of hypertension, coronary artery disease with prior bypass graft surgery, type 2 diabetes, and a mental abscess secondary to methicillin-resistant Staphylococcus aureus. This time, she was admitted because of chest pain, which developed the night before admission and seems to have some relationship with breathing movements. She had a cough for about a week and myalgias. Has had some difficulty in passing urine and had a little bit of blood in the sputum. The initial evaluation with a BP 130/60, pulse 103, temperature 98.8, O2 saturation 100% on room air, and she remained afebrile in the admission evaluation. There was a dark area at the tip of the left first toe, and we were asked to evaluate that. It looks like the patient is having still some coughing spells. No headaches. No visual symptoms. No sore throat. No back pain. No abdominal pain or diarrhea. No genitourinary symptoms. Chronic knee and ankle symptoms related to osteoarthrosis. PAST MEDICAL HISTORY: Hypertension; coronary artery disease, bypass graft surgery; type 2 diabetes; hyperlipidemia; COPD; and breast cancer, left side, status post left mastectomy. PAST SURGICAL HISTORY: Cholecystectomy, hysterectomy, and laminectomy. ALLERGIES: CODEINE. SOCIAL HISTORY: Never smoker, [place] in the area. CURRENT MEDICATIONS: 1. [place]. 2. Proventil. 3. DuoNeb. 4. Ecotrin. 5. Lipitor. 6. Lotrisone. 7. Dextrose. 8. Cymbalta. 9. Robitussin. 10. Humulin. 11. Toprol. FAMILY HISTORY: Noncontributory. PHYSICAL EXAMINATION: CURRENT VITAL SIGNS: T-max 99.1, BP 120/70, pulse 100, respirations 20, and O2 saturation 95%. SKIN: Shows the area of round shaped, about 1 cm black eschar, appears to be quite thin area of scab right at the tip of the left first toe. The toe itself is not inflamed, swollen, or erythematous. The nail appears okay. There is no sinus tract. No drainage. LYMPH NODES: No lymphadenopathy. HEENT: Ocular movements conjugate. Oral cavity normal. NECK: Supple. LUNGS: Symmetric. Clear breath sounds. HEART: S1 and S2, regular rate. ABDOMEN: Soft, not distended or tender. No ascites. : No bladder distention. EXTREMITIES: Osteoarthrosis in knees and ankles. Pulses are 1+ in dorsalis pedis, moves extremities equally. NEURO: Cognitive function appears to be intact. LABORATORY DATA: White cell count 11.8, hemoglobin 12.3, and platelets 196. Sodium 138. Creatinine 1.13, it is a bit higher than on admission. Liver profile normal. Albumin 4.0. Microbiology with 2 sets of negative blood cultures thus far. IMAGING DATA: There is a chest x-ray with no acute pulmonary findings. ASSESSMENT: Chronic obstructive pulmonary disease, coronary artery disease, and prior breast cancer, in remission, now with respiratory symptoms. We will evaluate for respiratory viruses, particularly influenza with PCR. I do not believe that the left toe has evidence to suggest an acute inflammatory process, just a thin layer of scab at the very tip. So, I would not recommend antimicrobial therapy at this point in time. Job ID: [id number]
[2018-08-05] MEDS: Guaifenesin DM 100-10/5 ML UDCUP PO PRN ×4 (05:33→23:32)
[2018-08-05] MEDS: Benzonatate 100 MG CAP PO SCH ×3 (08:01→20:22)
[2018-08-05] MEDS: Aspirin 325 mg Enteric Coated Tablet PO SCH (08:02)
[2018-08-05] MEDS: Pregabalin 75 MG CAP PO SCH ×2 (08:02→20:24)
[2018-08-05] MEDS: Famotidine 20 MG TAB PO SCH ×2 (08:02→20:23)
[2018-08-05] MEDS: predniSONE 20 MG TAB PO SCH (08:02)
[2018-08-05] MEDS: guaiFENesin ER 600 MG TAB PO SCH ×2 (08:03→20:23)
[2018-08-05] MEDS: DULoxetine 60 MG CAP PO SCH (08:03)
[2018-08-05] MEDS: HYDROcodone/Acetaminophen 5/325 mg Tablet PO SCH ×2 (08:03→20:25)
[2018-08-05] MEDS: NIFEdipine XL 30 MG TAB PO SCH (08:03)
[2018-08-05] MEDS: Lisinopril 20 MG TAB PO SCH (08:04)
[2018-08-05] MEDS: Meclizine HCl 25 MG TAB PO SCH ×2 (08:16→20:33)
[2018-08-05] MEDS: HumuLIN 70/30 (300 UNITS/3 ML VIAL) SC SCH ×2 (09:04→20:34)
[2018-08-05] MEDS ORDERED: Enoxaparin Sodium 40 MG/0.4 ML SYRINGE SC SCH (10:15)
[2018-08-05] MEDS: Insulin Regular 300 UNITS/3 ML VIAL SC PRN ×2 (16:48→20:37)
[2018-08-05] MEDS: Atorvastatin Calcium 10 MG TAB PO SCH (20:23)
[2018-08-05] MEDS: Loratadine 10 MG TAB PO SCH (20:24)
[2018-08-05] MEDS: Temazepam 15 MG CAP PO PRN (20:26)
[2018-08-05] MEDS: hydrOXYzine 25 MG TAB PO PRN (23:32)
[2018-08-06] MEDS: Guaifenesin DM 100-10/5 ML UDCUP PO PRN ×2 (04:51→22:33)
[2018-08-06] MEDS: NIFEdipine XL 30 MG TAB PO SCH ×2 (09:28→12:40)
[2018-08-06] MEDS: Enoxaparin Sodium 40 MG/0.4 ML SYRINGE SC SCH (09:39)
[2018-08-06] MEDS: HumuLIN 70/30 (300 UNITS/3 ML VIAL) SC SCH ×2 (09:40→20:14)
[2018-08-06] MEDS: Benzonatate 100 MG CAP PO SCH ×3 (12:36→20:07)
[2018-08-06] MEDS: Meclizine HCl 25 MG TAB PO SCH ×2 (12:37→20:06)
[2018-08-06] MEDS: predniSONE 20 MG TAB PO SCH (12:37)
[2018-08-06] MEDS: guaiFENesin ER 600 MG TAB PO SCH ×2 (12:37→20:07)
[2018-08-06] MEDS: Pregabalin 75 MG CAP PO SCH ×2 (12:38→20:07)
[2018-08-06] MEDS: Lisinopril 20 MG TAB PO SCH (12:38)
[2018-08-06] MEDS: HYDROcodone/Acetaminophen 5/325 mg Tablet PO SCH ×2 (12:39→20:08)
[2018-08-06] MEDS: Aspirin 325 mg Enteric Coated Tablet PO SCH (12:40)
[2018-08-06] MEDS: Famotidine 20 MG TAB PO SCH ×2 (12:40→20:07)
[2018-08-06] MEDS: DULoxetine 60 MG CAP PO SCH (12:40)
--- NOTE | 2018-08-06 14:04 | EKG ---
Test Reason : CHEST PAIN Blood Pressure : / mmHG Vent. Rate : 094 BPM Atrial Rate : 094 BPM P-R Int : 142 ms QRS Dur : 102 ms QT Int : 392 ms P-R-T Axes : 049 -06 168 degrees QTc Int : 490 ms Normal sinus rhythm Left ventricular hypertrophy with repolarization abnormality Prolonged QT Abnormal ECG Confirmed by SHAHZAD REDDY DO ([id number]), art editor MARVIN SALDIVAR ([id number]) on 08/06/2018 2:04:09 PM Referred By: Confirmed By:SHAHZAD REDDY DO
[2018-08-06] MEDS: Loratadine 10 MG TAB PO SCH (20:06)
[2018-08-06] MEDS: Atorvastatin Calcium 10 MG TAB PO SCH (20:07)
[2018-08-06] MEDS: Temazepam 15 MG CAP PO PRN (20:07)
[2018-08-06] MEDS: Insulin Regular 300 UNITS/3 ML VIAL SC PRN (20:12)
[2018-08-06] MEDS: hydrOXYzine 25 MG TAB PO PRN (22:34)
[2018-08-07] MEDS: Pregabalin 75 MG CAP PO SCH ×2 (09:22→20:42)
[2018-08-07] MEDS: HYDROcodone/Acetaminophen 5/325 mg Tablet PO SCH ×2 (09:23→20:43)
[2018-08-07] MEDS: Meclizine HCl 25 MG TAB PO SCH ×2 (09:24→20:53)
[2018-08-07] MEDS: guaiFENesin ER 600 MG TAB PO SCH ×2 (09:24→20:42)
[2018-08-07] MEDS: Aspirin 325 mg Enteric Coated Tablet PO SCH (09:24)
[2018-08-07] MEDS: DULoxetine 60 MG CAP PO SCH (09:24)
[2018-08-07] MEDS: Lisinopril 20 MG TAB PO SCH (09:25)
[2018-08-07] MEDS: NIFEdipine XL 30 MG TAB PO SCH ×2 (09:25→09:38)
[2018-08-07] MEDS: predniSONE 20 MG TAB PO SCH (09:25)
[2018-08-07] MEDS: Famotidine 20 MG TAB PO SCH ×2 (09:25→20:42)
[2018-08-07] MEDS: Benzonatate 100 MG CAP PO SCH ×3 (09:26→20:42)
[2018-08-07] MEDS: HumuLIN 70/30 (300 UNITS/3 ML VIAL) SC SCH ×2 (09:27→20:46)
[2018-08-07] MEDS: Enoxaparin Sodium 40 MG/0.4 ML SYRINGE SC SCH (09:27)
[2018-08-07] MEDS: Insulin Regular 300 UNITS/3 ML VIAL SC PRN ×2 (17:15→20:47)
[2018-08-07] MEDS: Loratadine 10 MG TAB PO SCH (20:42)
[2018-08-07] MEDS: Atorvastatin Calcium 10 MG TAB PO SCH (20:42)
[2018-08-07] MEDS: Temazepam 15 MG CAP PO PRN (20:42)
[2018-08-07] MEDS: Guaifenesin DM 100-10/5 ML UDCUP PO PRN (23:42)
[2018-08-07] MEDS: hydrOXYzine 25 MG TAB PO PRN (23:42)
[2018-08-08] MEDS: Guaifenesin DM 100-10/5 ML UDCUP PO PRN ×2 (05:21→21:35)
[2018-08-08 07:03] LABS: #Eosinphils 0.1 thou/uL (0.0-0.7); #Lymphocytes 2.3 thou/uL (1.20-3.40); #Monocytes 1.3 thou/uL (0.11-0.59); %Basophils 0.1 % (0.0-1.0); %Eosinophils 0.4 % (0.0-10.0); %Lymphocytes 16.6 % (21.0-51.0); %Monocytes 9.4 % (0.0-10.0); %Neutrophils 73.5 % (42.0-75.0); Hemoglobin 11.7 g/dL (12.0-16.0); Mean Corpuscular HGB CONC 32.1 g/dL (32.0-36.0); Mean Corpuscular Hemoglobin 27.7 pg (27.0-31.0); Mean Corpuscular Volume 86.3 fL (78.0-98.0); Mean Platelet Volume 8.5 fL (7.4-10.4); Platelet Count 238 thou/uL (130-400); RBC Distribution Width 13.4 % (11.5-14.5); Red Blood Cell (RBC) Count 4.24 mill/uL (4.20-5.40); White Blood Cell (WBC) Count 13.6 thou/uL (4.8-10.8)
[2018-08-08 07:29] LABS: Anion Gap 13 mmol/L (10-20); BUN (Urea Nitrogen) 16 mg/dL (9.8-20.1); Calc. Creatinine Clearance 76 mL/min (70-130); Calcium 9.1 mg/dL (7.8-10.44); Carbon Dioxide 29 mmol/L (23-31); Chloride 100 mmol/L (98-107); Estimated GFR-MDRD 87; Glucose 128 mg/dL (83-110); Potassium 3.6 mmol/L (3.5-5.1); Sodium 138 mmol/L (136-145)
[2018-08-08] MEDS: NIFEdipine XL 30 MG TAB PO SCH (08:52)
[2018-08-08] MEDS: DULoxetine 60 MG CAP PO SCH (08:52)
[2018-08-08] MEDS: Lisinopril 20 MG TAB PO SCH (08:53)
[2018-08-08] MEDS: Meclizine HCl 25 MG TAB PO SCH ×2 (08:53→21:31)
[2018-08-08] MEDS: predniSONE 20 MG TAB PO SCH (08:53)
[2018-08-08] MEDS: Aspirin 325 mg Enteric Coated Tablet PO SCH (08:53)
[2018-08-08] MEDS: Pregabalin 75 MG CAP PO SCH ×2 (08:54→21:32)
[2018-08-08] MEDS: guaiFENesin ER 600 MG TAB PO SCH ×2 (08:54→21:31)
[2018-08-08] MEDS: Benzonatate 100 MG CAP PO SCH ×3 (08:54→21:31)
[2018-08-08] MEDS: HYDROcodone/Acetaminophen 5/325 mg Tablet PO SCH ×2 (08:54→21:32)
[2018-08-08] MEDS: Famotidine 20 MG TAB PO SCH ×2 (08:54→21:31)
[2018-08-08] MEDS: Enoxaparin Sodium 40 MG/0.4 ML SYRINGE SC SCH (08:55)
[2018-08-08] MEDS: HumuLIN 70/30 (300 UNITS/3 ML VIAL) SC SCH ×2 (09:00→21:34)
[2018-08-08] MEDS: Insulin Regular 300 UNITS/3 ML VIAL SC PRN (17:09)
[2018-08-08] MEDS: Loratadine 10 MG TAB PO SCH (21:31)
[2018-08-08] MEDS: Atorvastatin Calcium 10 MG TAB PO SCH (21:31)
[2018-08-08] MEDS: Temazepam 15 MG CAP PO PRN (22:14)
[2018-08-09] MEDS: Enoxaparin Sodium 40 MG/0.4 ML SYRINGE SC SCH (08:25)
[2018-08-09] MEDS: DULoxetine 60 MG CAP PO SCH (08:26)
[2018-08-09] MEDS: Benzonatate 100 MG CAP PO SCH (08:26)
[2018-08-09] MEDS: guaiFENesin ER 600 MG TAB PO SCH (08:26)
[2018-08-09] MEDS: Pregabalin 75 MG CAP PO SCH (08:26)
[2018-08-09] MEDS: Meclizine HCl 25 MG TAB PO SCH (08:27)
[2018-08-09] MEDS: Lisinopril 20 MG TAB PO SCH (08:27)
[2018-08-09] MEDS: NIFEdipine XL 30 MG TAB PO SCH (08:27)
[2018-08-09] MEDS: HumuLIN 70/30 (300 UNITS/3 ML VIAL) SC SCH (08:27)
[2018-08-09] MEDS: Aspirin 325 mg Enteric Coated Tablet PO SCH (08:27)
[2018-08-09] MEDS: Famotidine 20 MG TAB PO SCH (08:27)
[2018-08-09] MEDS: HYDROcodone/Acetaminophen 5/325 mg Tablet PO SCH (08:32)
[2018-08-09] MEDS ORDERED: predniSONE 20 MG TAB PO SCH (09:00)
[2018-08-09 09:09] VITALS: TEMP 98
[2018-08-09] MEDS ORDERED: Prevnar 13-Val Conj/PF 0.5 ML SYRINGE IM ONE (11:30)
[2018-08-09 12:56] VITALS: BP 115/69
--- NOTE | 2018-08-10 09:18 | DIS ---
DATE OF ADMISSION: 08/02/2018 DATE OF DISCHARGE: 08/09/2018 ADMITTING DIAGNOSES: 1. Chronic obstructive pulmonary disease with acute exacerbation. 2. Questionable pneumonia. 3. Severe hypokalemia. 4. Hypertension. 5. Insulin dependent diabetes mellitus. 6. Anxiety disorder. FINAL DIAGNOSES: 1. Chronic obstructive pulmonary disease, acute exacerbation, improved. 2. No evidence of pneumonia. 3. Cough, improved. 4. Severe hypokalemia, corrected. 5. Hypertension. 6. Insulin dependent diabetes mellitus, uncontrolled, improved. 7. Hyperlipidemia. 8. Chronic back pain. 9. Anxiety disorder. BRIEF SUMMARY OF HOSPITAL CARE: Ms. Boucher is an 82-year-old female admitted because of cough, shortness of breath, congestion. The patient was found to have COPD exacerbation with chest wheezing, cough, also productive of blood-tinged sputum. Initially, the patient was thought to have pneumonia by the ER physician and was started on IV antibiotics and neb treatments and Solu-Medrol. In next few days, her cough gradually became better with cough medications and antibiotics as well as neb treatments and steroids. Sugars were initially uncontrolled because of steroids. Once the steroid dose was decreased, sugars were improved. The patient was started on physical therapy. She was able to ambulate few steps with physical therapy. nausea, vomiting, shortness of breath improved. In view of improvement, the patient was discharged. At time of discharge, she was stable, vital signs stable. Lungs, clear to auscultation. Abdomen is soft, nontender, bowel sounds present. DISCHARGE MEDICATIONS: 1. Metoprolol 50 mg daily. 2. Lyrica 150 b.i.d. 3. Aspirin 325 mg daily. 4. Melatonin 5 mg at bedtime p.r.n. 5. DuoNeb q.i.d. 6. Cymbalta 60 mg daily. 7. Ranitidine 150 b.i.d. 8. Meclizine 25 b.i.d. 9. Simvastatin 20 mg at bedtime. 10. [place] p.r.n. b.i.d. 11. Humulin 70/30 insulin 20 units b.i.d. 12. Procardia XL 30 mg daily. 13. Prednisone in tapering doses. 14. Claritin 10 mg daily. 15. Mucinex 600 b.i.d. for 10 days. 16. Lotrisone cream for the face. 17. Tessalon Perles t.i.d. for 1 week. 18. Lipitor 10 mg at bedtime. 19. Lisinopril 20 mg daily. FOLLOWUP: The patient will come for followup next week and she also has home health PT. Job ID: [id number]
== END 2018-08-09 14:17 | disposition home or self-care (01) | DRG 192 ==
LOC: ERS 14:59 → T4-A 19:12
PROVIDERS: ADMIT Internal Medicine; ATTEND Internal Medicine
DX: J44.1 Chronic obstructive pulmonary disease with (acute) exacerbation (principal); I11.0 Hypertensive heart disease with heart failure; I50.9 Heart failure, unspecified; E11.9 Type 2 diabetes mellitus without complications; G89.29 Other chronic pain; E87.6 Hypokalemia; M19.90 Unspecified osteoarthritis, unspecified site; C50.912 Malignant neoplasm of unspecified site of left female breast; F41.9 Anxiety disorder, unspecified; F32.9 Major depressive disorder, single episode, unspecified; J44.0 Chronic obstructive pulmonary disease with (acute) lower respiratory infection; I25.10 Atherosclerotic heart disease of native coronary artery without angina pectoris; J44.9 Chronic obstructive pulmonary disease, unspecified; D64.9 Anemia, unspecified; Z79.4 Long term (current) use of insulin; Z98.42 Cataract extraction status, left eye; Z98.41 Cataract extraction status, right eye; Z90.49 Acquired absence of other specified parts of digestive tract; Z87.81 Personal history of (healed) traumatic fracture; Z90.710 Acquired absence of both cervix and uterus; Z95.1 Presence of aortocoronary bypass graft; Z90.12 Acquired absence of left breast and nipple; Z88.2 Allergy status to sulfonamides; Z88.8 Allergy status to other drugs, medicaments and biological substances; Z79.82 Long term (current) use of aspirin
CPT/HCPCS: 36415; 36416; 71045; 80048; 80053; 83605; 83880; 85025; 87040; 90471; 90670; 93005; 94640; 96365; 96367; G0009; J0696; J1650; J1815; J1956; J2920; J2930; J3490; J7512; J7620; J8597; Q0162

== ENCOUNTER 2018-11-07 17:17 | Inpatient (IN) | payer MEDICARE, MEDICAID ==
--- NOTE | 2018-11-07 18:11 | CT ---
CT OF BRAIN PERFORMED WITHOUT CONTRAST ENHANCEMENT: Comparison: 01-22-17 History: Stroke alert. Slurred speech, right facial droop. FINDINGS: Generalized ventricular and sulcal prominence. There is decreased attenuation to the periventricular white matter. There are no signs of intracerebral hemorrhage or extraaxial fluid collections. Mastoid air cells and visualized sinuses are clear. IMPRESSION: 1. No acute intracranial abnormalities. 2. Findings telephoned to Dr. Grace at 1732 hours. POS: [facility]
[2018-11-07 18:15] LABS: #Basophils 0.1 thou/uL (0.0-0.2); #Eosinphils 0.4 thou/uL (0.0-0.7); #Lymphocytes 2.6 thou/uL (1.20-3.40); #Neutrophils 5.5 thou/uL (1.40-6.50); %Basophils 0.9 % (0.0-1.0); %Eosinophils 3.9 % (0.0-10.0); %Lymphocytes 27.4 % (21.0-51.0); %Monocytes 10.6 % (0.0-10.0); %Neutrophils 57.2 % (42.0-75.0); Hemoglobin 12.9 g/dL (12.0-16.0); Mean Corpuscular HGB CONC 32.6 g/dL (32.0-36.0); Mean Corpuscular Hemoglobin 27.9 pg (27.0-31.0); Mean Corpuscular Volume 85.5 fL (78.0-98.0); Mean Platelet Volume 8.3 fL (7.4-10.4); Platelet Count 220 thou/uL (130-400); RBC Distribution Width 14.4 % (11.5-14.5); Red Blood Cell (RBC) Count 4.64 mill/uL (4.20-5.40); White Blood Cell (WBC) Count 9.6 thou/uL (4.8-10.8)
[2018-11-07 18:21] LABS: PTT 27.2 SEC (22.9-36.1)
[2018-11-07 18:25] LABS: INR-International Normal Ratio 0.9; Prothrombin Time 12.6 SEC (12.0-14.7)
[2018-11-07 18:28] LABS: ALT (SGPT) 33 U/L (8-55); AST (SGOT) 25 U/L (5-34); Albumin 4.4 g/dL (3.4-4.8); Alkaline Phosphatase 110 U/L (40-110); Anion Gap 14 mmol/L (10-20); BUN (Urea Nitrogen) 20 mg/dL (9.8-20.1); Bilirubin, Total 0.2 mg/dL (0.2-1.2); CK (CPK) 228 U/L (29-168); Calc. Creatinine Clearance 0 mL/min (70-130); Calcium 9.1 mg/dL (7.8-10.44); Carbon Dioxide 27 mmol/L (23-31); Chloride 101 mmol/L (98-107); Estimated GFR-MDRD 48; Globulin 3.3 g/dL (2.4-3.5); Glucose 70 mg/dL (83-110); Potassium 3.8 mmol/L (3.5-5.1); Protein, Total 7.7 g/dL (6.0-8.3); Sodium 138 mmol/L (136-145)
[2018-11-07 19:07] LABS: CKMB 7.2 ng/mL (0-6.6)
[2018-11-07] MEDS ORDERED: Aspirin 325 MG TAB ONE (19:19)
--- NOTE | 2018-11-07 20:11 | RAD ---
PORTABLE CHEST: History: Stroke. Comparison: 08-02-18 FINDINGS: Heart size is borderline. Post op sternotomy changes. Lungs are clear of any infiltrates. Surgical cl ips in the left axilla and thyroid region are seen. IMPRESSION: Borderline heart size with chronic lung change. No acute process. POS: [facility]
[2018-11-08] MEDS ORDERED: Ondansetron PF 4 MG/2 ML Vial IVP PRN (00:57)
[2018-11-08] MEDS ORDERED: Ondansetron ODT 4 MG TAB SL PRN (00:57)
[2018-11-08 02:21] VITALS: BMI 28.5
[2018-11-08] MEDS ORDERED: Famotidine 20 MG TAB PO SCH (09:00)
[2018-11-08] MEDS ORDERED: Dextrose 5% in Water 1,000 ML IV PRN (09:23)
[2018-11-08] MEDS ORDERED: Dextrose 50% Abboject 50 ML SYRINGE IVP PRN (09:23)
[2018-11-08] MEDS: Guaifenesin DM 100-10/5 ML UDCUP PO SCH ×4 (09:33→21:19)
[2018-11-08] MEDS: Aspirin 325 MG TAB PO SCH (09:34)
[2018-11-08] MEDS: HYDROcodone/Acetaminophen 5/325 mg Tablet PO SCH ×2 (09:34→21:21)
[2018-11-08] MEDS: NIFEdipine XL 30 MG TAB PO SCH (09:34)
[2018-11-08] MEDS: DULoxetine 60 MG CAP PO SCH (09:35)
[2018-11-08] MEDS: Lisinopril 20 MG TAB PO SCH ×2 (09:35→21:21)
[2018-11-08] MEDS: Pregabalin 75 MG CAP PO SCH ×2 (09:35→21:25)
[2018-11-08] MEDS: Meclizine HCl 25 MG TAB PO SCH ×2 (09:36→21:20)
[2018-11-08] MEDS ORDERED: Clopidogrel Bisulfate 75 MG TAB PO SCH (14:30)
--- NOTE | 2018-11-08 15:09 | MRI ---
MRI Brain WO Con: 11/08/2018 9:47 AM CLINICAL HISTORY: Stroke. COMPARISON: None. FINDINGS: Extra axial spaces: Widened, due to atrophy. Acute infarction: None. Ventricular system: Normal in size and morphology for the patient's age. Basal cisterns: Normal. Cerebral parenchyma: Microvascular ischemic changes. Midline shift: None. Cerebellum: Normal. Brainstem: Mild pontine gliosis. Paranasal sinuses:Clear IMPRESSION: No acute intracranial abnormality. Moderate chronic ischemic disease. Parenchymal atrophy.
[2018-11-08] MEDS ORDERED: Atorvastatin Calcium 10 MG TAB PO SCH (21:00)
[2018-11-09] MEDS: Guaifenesin DM 100-10/5 ML UDCUP PO SCH ×5 (00:40→16:18)
--- NOTE | 2018-11-09 01:13 | HP ---
CHIEF COMPLAINT: Right facial droop and slurred speech. HISTORY OF PRESENT ILLNESS: Ms. Boucher is an 83-year-old -[place] female with past medical history of hypertension, diabetes, who was brought in because of slurred speech and facial droop. The patient was noticed to have right facial droop and slurred speech by the family who felt the patient may be having stroke, so the EMS was called, did not have any definitive weakness, chest pain or shortness of breath. No headache. No dizziness. The family found her lying in the bed with right facial droop and her speech was slurred, so EMS was called who found the patient alert and awake, moving all extremities. In the ER, the patient was evaluated. The ER physician felt maybe she has some right-sided weakness along with slurred speech. He felt this may be CVA. A CT scan was negative and he suggested tPA for the patient, but the patient declined, so she is admitted for further evaluation and management. She was given aspirin 325 mg. PAST MEDICAL HISTORY: 1. Hypertension. 2. Diabetes mellitus. 3. Hyperlipidemia. 4. COPD. 5. Chronic back pain. 6. Anxiety disorder. 7. Chronic anemia. PAST SURGICAL HISTORY: 1. Status post coronary artery bypass graft. 2. Status post cholecystectomy. 3. Status post hysterectomy. 4. Status post spinal surgery. CURRENT MEDICATIONS: The patient is on: 1. [place] 5/325 b.i.d. 2. Aspirin 325 mg daily. 3. Atorvastatin 10 mg daily. 4. Cymbalta 60 mg daily. 5. Pepcid 20 mg daily. 6. Insulin 70/30 20 units b.i.d. 7. Lisinopril 20 mg b.i.d. 8. Meclizine 25 b.i.d. 9. Metoprolol succinate 50 mg daily. 10. Procardia XL 30 mg daily. 11. Lyrica 150 b.i.d. ALLERGIES: CODEINE AND POULTRY. FAMILY HISTORY: Nothing contributory. SOCIAL HISTORY: The patient lives alone. No history of smoking. No history of alcohol. REVIEW OF SYSTEMS: Unremarkable except for the facial droop and slurred speech. PHYSICAL EXAMINATION: GENERAL: The patient is alert, awake, and oriented x3. VITAL SIGNS: Temperature 98, pulse 76, respirations 20, blood pressure 130/70. HEENT: Head is normocephalic, atraumatic. Pupils are equal and reactive. Nasopharynx is pale and dry. NECK: Supple. No JVD. LUNGS: Bilateral air entry present. No rales, no rhonchi. HEART: S1-S2 regular. ABDOMEN: Soft. No distention. No tenderness. Normal bowel sounds present. CENTRAL NERVOUS SYSTEMS: The patient is alert, awake, and oriented x3. There is no facial droop. Speech is clear. Motor system, power 4/5 in all extremities. Deep tendon reflex 2+ bilaterally. Plantars downgoing. Sensory intact. LABORATORY DATA: CBC shows WBC 9.6, hemoglobin 12, hematocrit 39, platelets 220. Metabolic panel; sodium 138, potassium 3.9, chloride 109, CO2 27, BUN 20, creatinine 1.2, glucose 70. Troponin I 0.058. Prothrombin time 12, INR 0.9. IMAGING STUDIES: CT scan of the brain showed no acute changes. Chest x-ray negative. EKG shows normal sinus rhythm, no acute ST-T changes seen. ASSESSMENT: 1. Slurred speech and right facial droop, possible transient ischemic attack. 2. Hypertension. 3. Diabetes mellitus. 4. Hyperlipidemia. 5. Chronic obstructive pulmonary disease. 6. Chronic back pain. 7. Anxiety disorder. PLAN: 1. Vital signs q.4 hours. 2. Activities as tolerated. 3. Allergies, NKDA. 4. Hep-Lock. 5. Accu-Chek before meals and at bedtime. 6. Sliding scale mild with regular insulin. 7. MRI of the brain. 8. Neurology consult. 9. Continue her home medications. Job ID: [id number]
[2018-11-09] MEDS: Insulin Regular 300 UNITS/3 ML VIAL SC PRN ×3 (05:11→17:36)
[2018-11-09] MEDS ORDERED: Clopidogrel Bisulfate 75 MG TAB PO SCH (09:00)
[2018-11-09] MEDS ORDERED: Famotidine 20 MG TAB PO SCH (09:00)
[2018-11-09] MEDS: Aspirin 325 MG TAB PO SCH (09:31)
[2018-11-09] MEDS: NIFEdipine XL 30 MG TAB PO SCH (09:31)
[2018-11-09] MEDS: Meclizine HCl 25 MG TAB PO SCH (09:31)
[2018-11-09] MEDS: DULoxetine 60 MG CAP PO SCH (09:32)
[2018-11-09] MEDS: Pregabalin 75 MG CAP PO SCH (09:32)
[2018-11-09] MEDS: Lisinopril 20 MG TAB PO SCH (09:32)
[2018-11-09] MEDS: HYDROcodone/Acetaminophen 5/325 mg Tablet PO SCH (09:33)
[2018-11-09 16:49] VITALS: BP 162/82; TEMP 98
[2018-11-10] MEDS ORDERED: FLU VACC TS2019-20(65YR UP)/PF 180 MCG/0.5 ML SYRINGE IM ONE (09:00)
== END 2018-11-09 17:43 | disposition home health service (06) | DRG 69 ==
LOC: ERS 17:17 → ERHOLD 18:17 → 2SE 19:28
PROVIDERS: ADMIT Internal Medicine; ATTEND Internal Medicine
DX: G45.9 Transient cerebral ischemic attack, unspecified (principal); I50.9 Heart failure, unspecified; I10 Essential (primary) hypertension; E11.9 Type 2 diabetes mellitus without complications; E78.00 Pure hypercholesterolemia, unspecified; M19.90 Unspecified osteoarthritis, unspecified site; C50.912 Malignant neoplasm of unspecified site of left female breast; D64.9 Anemia, unspecified; I25.10 Atherosclerotic heart disease of native coronary artery without angina pectoris; G89.29 Other chronic pain; F41.9 Anxiety disorder, unspecified; F32.9 Major depressive disorder, single episode, unspecified; J44.9 Chronic obstructive pulmonary disease, unspecified; Z53.29 Procedure and treatment not carried out because of patient's decision for other reasons; Z79.4 Long term (current) use of insulin; Z88.2 Allergy status to sulfonamides; Z95.1 Presence of aortocoronary bypass graft; Z90.710 Acquired absence of both cervix and uterus; Z90.49 Acquired absence of other specified parts of digestive tract
CPT/HCPCS: 36416; 70450; 70496; 70498; 70551; 71045; 80053; 82550; 82553; 84484; 85025; 85610; 85730; 87324; 87449; 90471; 90662; 93005; 94760; G0008; J1815; J8597

== ENCOUNTER 2019-01-04 15:35 | Observation (INO) | payer MEDICARE, MEDICAID ==
[2019-01-04 16:45] LABS: Bilirubin Negative (Negative); Blood, Urine Negative (Negative); Clarity Clear (Clear); Glucose, Urine (Dipstick) Normal (Negative); Leukocyte Negative Leu/uL (Negative); Nitrite Negative (Negative); Protein, Urine (Dipstick) Negative (Neg-Trace); Urobilinogen Normal mg/dL (Less than 2)
--- NOTE | 2019-01-04 16:59 | RAD ---
EXAM: CHEST ONE VIEW HISTORY: Chest soreness and tightness with inspiration COMPARISON: 11/07/2018 FINDINGS: Postsurgical changes related to median sternotomy and probable CABG are again noted. Cardiac silhouet te is magnified by projection but stable in size. The pulmonary vasculature is within normal limits. The lungs are clear. Bilateral glenohumeral osteoarthropathy as well as bilateral acromioclav icular joint osteoarthritis and degenerative changes in the thoracic spine are again seen. Postsurgical changes upper cervical spine are again seen. IMPRESSION: No acute cardiopulmonary process.
[2019-01-04 18:04] LABS: #Basophils 0.1 thou/uL (0.0-0.2); #Eosinphils 0.1 thou/uL (0.0-0.7); #Lymphocytes 1.7 thou/uL (1.20-3.40); #Monocytes 1.3 thou/uL (0.11-0.59); #Neutrophils 9.4 thou/uL (1.40-6.50); %Basophils 0.5 % (0.0-1.0); %Eosinophils 1.1 % (0.0-10.0); %Lymphocytes 13.7 % (21.0-51.0); %Monocytes 10.2 % (0.0-10.0); %Neutrophils 74.6 % (42.0-75.0); Hemoglobin 10.2 g/dL (12.0-16.0); Mean Corpuscular HGB CONC 32.7 g/dL (32.0-36.0); Mean Corpuscular Hemoglobin 27.8 pg (27.0-31.0); Mean Corpuscular Volume 85.1 fL (78.0-98.0); Mean Platelet Volume 7.7 fL (7.4-10.4); Platelet Count 254 thou/uL (130-400); RBC Distribution Width 13.1 % (11.5-14.5); Red Blood Cell (RBC) Count 3.67 mill/uL (4.20-5.40); White Blood Cell (WBC) Count 12.6 thou/uL (4.8-10.8)
[2019-01-04 18:26] LABS: ALT (SGPT) 12 U/L (8-55); AST (SGOT) 14 U/L (5-34); Albumin 3.5 g/dL (3.4-4.8); Alkaline Phosphatase 80 U/L (40-110); Anion Gap 10 mmol/L (10-20); BUN (Urea Nitrogen) 11 mg/dL (9.8-20.1); Bilirubin, Total 0.3 mg/dL (0.2-1.2); Calc. Creatinine Clearance 0 mL/min (70-130); Calcium 8.5 mg/dL (7.8-10.44); Carbon Dioxide 29 mmol/L (23-31); Chloride 103 mmol/L (98-107); Estimated GFR-MDRD 78; Glucose 116 mg/dL (83-110); Lipase 9 U/L (8-78); Protein, Total 6.5 g/dL (6.0-8.3); Sodium 139 mmol/L (136-145)
[2019-01-04 18:36] LABS: Potassium 2.9 mmol/L (3.5-5.1)
[2019-01-04] MEDS ORDERED: Potassium Chloride 20 MEQ TAB ONE (19:00)
[2019-01-04] MEDS ORDERED: Clindamycin/D5W 600 mg/50 ml Premix Bag ONE (19:00)
[2019-01-04] MEDS ORDERED: Potassium Chloride 20 MEQ in Premix Bag 1 BAG IVPB SCH (19:15)
[2019-01-04] MEDS ORDERED: Ondansetron PF 4 MG/2 ML Vial IVP PRN (22:28)
[2019-01-04] MEDS ORDERED: Ondansetron ODT 4 MG TAB SL PRN (22:28)
[2019-01-04] MEDS: Acetaminophen 325 MG TAB PO PRN (22:48)
[2019-01-05] MEDS: Clindamycin/D5W 600 MG in Premix Bag 1 BAG IVPB SCH ×4 (01:16→21:39)
[2019-01-05 05:46] LABS: #Eosinphils 0.1 thou/uL (0.0-0.7); #Lymphocytes 1.8 thou/uL (1.20-3.40); #Monocytes 1.2 thou/uL (0.11-0.59); #Neutrophils 9.2 thou/uL (1.40-6.50); %Basophils 0.1 % (0.0-1.0); %Lymphocytes 14.4 % (21.0-51.0); %Monocytes 9.4 % (0.0-10.0); %Neutrophils 75.1 % (42.0-75.0); Mean Corpuscular HGB CONC 31.6 g/dL (32.0-36.0); Mean Corpuscular Hemoglobin 27.2 pg (27.0-31.0); Mean Corpuscular Volume 85.9 fL (78.0-98.0); Mean Platelet Volume 7.7 fL (7.4-10.4); Platelet Count 249 thou/uL (130-400); RBC Distribution Width 13.2 % (11.5-14.5); Red Blood Cell (RBC) Count 3.69 mill/uL (4.20-5.40); White Blood Cell (WBC) Count 12.3 thou/uL (4.8-10.8)
[2019-01-05 06:11] LABS: Anion Gap 11 mmol/L (10-20); BUN (Urea Nitrogen) 10 mg/dL (9.8-20.1); Calc. Creatinine Clearance 68 mL/min (70-130); Calcium 8.3 mg/dL (7.8-10.44); Carbon Dioxide 27 mmol/L (23-31); Chloride 105 mmol/L (98-107); Estimated GFR-MDRD 85; Glucose 127 mg/dL (83-110); Potassium 3.3 mmol/L (3.5-5.1); Sodium 140 mmol/L (136-145)
[2019-01-05] MEDS: Acetaminophen 325 MG TAB PO PRN (06:19)
[2019-01-05] MEDS ORDERED: Dextrose 50% Abboject 50 ML SYRINGE IVP PRN (10:42)
[2019-01-05] MEDS ORDERED: Dextrose 5% in Water 1,000 ML IV PRN (10:42)
[2019-01-05] MEDS ORDERED: Insulin Regular 300 UNITS/3 ML VIAL SC PRN (11:27)
[2019-01-05] MEDS ORDERED: Insulin Regular 300 UNITS/3 ML VIAL SC SCH (11:30)
[2019-01-05] MEDS: Potassium Chloride 20 MEQ TAB PO SCH ×5 (12:12→22:08)
[2019-01-05 16:39] LABS: Potassium 3.3 mmol/L (3.5-5.1)
[2019-01-05] MEDS: HumuLIN 70/30 (300 UNITS/3 ML VIAL) SC SCH (18:15)
[2019-01-05] MEDS ORDERED: Temazepam 15 MG CAP PO PRN (18:30)
[2019-01-05] MEDS ORDERED: Atorvastatin Calcium 10 MG TAB PO SCH (21:00)
[2019-01-05] MEDS ORDERED: Magnesium Oxide 400 MG TAB PO SCH (21:30)
--- NOTE | 2019-01-05 21:33 | HP ---
CHIEF COMPLAINT: Abdominal pain, nausea, vomiting, and also bumps on the forehead and scalp. HISTORY OF PRESENT ILLNESS: Ms. Boucher is an 83-year-old Afro-[place] female with past medical history of diabetes mellitus, hypertension, came because of abdominal pain, nausea, vomiting, vomited few times at home, also noted bumps on the forehead as well as just above the eyebrow as well as scalp, which is painful, but no fever. No chest pain. No headache or dizziness. Also has some cough, nonproductive, so the patient came to the emergency room for evaluation, found to have hypokalemia, low potassium, as well as folliculitis versus carbunculosis. So, the patient was given KCl replacement and started on clindamycin, admitted for further evaluation. Currently, the patient feels lot better. No nausea or vomiting. She is tolerating diet. PAST MEDICAL HISTORY: 1. Insulin-dependent diabetes mellitus. 2. Hypertension. 3. Hyperlipidemia. 4. History of asthmatic bronchitis. 5. Chronic back pain. 6. Anxiety disorder. 7. Chronic anemia. PAST SURGICAL HISTORY: 1. Status post CABG. 2. Status post cholecystectomy. 3. Status post hysterectomy. 4. Status post spinal surgery. CURRENT MEDICATIONS: The patient is on, 1. [place] 5/325 b.i.d. p.r.n. 2. Aspirin 325 mg daily. 3. Cymbalta 60 mg daily. 4. Insulin 70/30, 50 units b.i.d. 5. Lisinopril 20 mg b.i.d. 6. Meclizine 25 b.i.d. 7. Metoprolol 50 daily. 8. Nifedipine 30 mg daily. 9. Lyrica 150 b.i.d. 10. Ranitidine 150 b.i.d. 11. Simvastatin 20 mg at bedtime. ALLERGIES: CODEINE AND POULTRY. FAMILY HISTORY: Nothing contributory. SOCIAL HISTORY: The patient lives alone. No history of smoking. REVIEW OF SYSTEMS: CARDIOVASCULAR: No chest pain. No shortness of breath. RESPIRATORY: Has cough. No fever. GASTROINTESTINAL: Nausea, vomiting, and abdominal pain. CENTRAL NERVOUS SYSTEM: No headache. No dizziness. PHYSICAL EXAMINATION: GENERAL: The patient is alert, awake, oriented x3. NECK: Supple. No JVD. LUNGS: Bilateral air entry present. No rales, no rhonchi. HEART: S1, S2 regular. ABDOMEN: Soft, no distention. No tenderness. Normal bowel sounds. RECTAL: Deferred. CENTRAL NERVOUS SYSTEM: No focal deficits. SKIN: Shows there is erythematous nodes present on the forehead including the left eyebrow. It is tender, warm to touch. There is also tender erythematous nodular swelling present on the scalp as well. LABORATORY DATA: CBC shows WBC is 12.6, hemoglobin 10, hematocrit 31, platelets is 254. Metabolic panel; sodium 139, potassium 2.9, chloride 102, CO2 29. BUN 11, creatinine 0.9, glucose 106. BNP 108. Urinalysis negative. Chest x-ray negative. EKG shows normal sinus rhythm, no acute ST-T changes seen. ASSESSMENT: 1. Severe hypokalemia. 2. Possible folliculitis versus carbunculitis. 3. Insulin-dependent diabetes mellitus. 4. Hypertension. 5. Abdominal pain, nausea, vomiting, improving. 6. Chronic anemia. 7. Anxiety disorder. 8. Chronic back pain. PLAN: 1. Vital signs q.4 hours. 2. Activity as tolerated. 3. Allergies: Codeine and poultry. 4. Hep-lock. 5. Diet, ADA. 6. Clindamycin 600 mg IV piggyback q.6 hours. 7. Continue home medications. 8. Potassium chloride 20 mEq q.4 hours x3 doses. 9. Accu-Chek before meals and at bedtime. 10. Sliding scale mild with regular insulin. 11. The patient will be discharged home soon. Job ID: [id number]
[2019-01-05] MEDS ORDERED: Clindamycin/D5W 600 mg/50 ml Premix Bag ONE (21:43)
[2019-01-05] MEDS: Pregabalin 75 MG CAP PO SCH (21:48)
[2019-01-05] MEDS: Lisinopril 20 MG TAB PO SCH (21:48)
[2019-01-05] MEDS: Famotidine 20 MG TAB PO SCH (21:49)
[2019-01-05] MEDS: HYDROcodone/Acetaminophen 5/325 mg Tablet PO SCH (21:49)
[2019-01-05] MEDS: Meclizine HCl 25 MG TAB PO SCH (21:49)
[2019-01-05] MEDS: Magnesium 2 GM/50 ML 2 GM in Premix Bag 1 BAG IVPB SCH (22:16)
[2019-01-06] MEDS: Magnesium 2 GM/50 ML 2 GM in Premix Bag 1 BAG IVPB SCH ×2 (00:27→00:37)
[2019-01-06] MEDS ORDERED: Potassium Chloride 20 MEQ TAB PO SCH (02:00)
[2019-01-06] MEDS: Clindamycin/D5W 600 MG in Premix Bag 1 BAG IVPB SCH ×2 (04:01→10:27)
[2019-01-06 05:03] LABS: Anion Gap 13 mmol/L (10-20); BUN (Urea Nitrogen) 7 mg/dL (9.8-20.1); Calc. Creatinine Clearance 68 mL/min (70-130); Calcium 8.1 mg/dL (7.8-10.44); Carbon Dioxide 23 mmol/L (23-31); Chloride 105 mmol/L (98-107); Estimated GFR-MDRD 85; Glucose 198 mg/dL (83-110); Potassium 4.2 mmol/L (3.5-5.1); Sodium 137 mmol/L (136-145)
[2019-01-06 08:26] VITALS: BP 134/60; TEMP 98
[2019-01-06] MEDS ORDERED: Aspirin 325 MG TAB PO SCH (09:00)
[2019-01-06] MEDS ORDERED: DULoxetine 60 MG CAP PO SCH (09:00)
[2019-01-06] MEDS ORDERED: NIFEdipine XL 30 MG TAB PO SCH (09:00)
[2019-01-06] MEDS: Pregabalin 75 MG CAP PO SCH (09:43)
[2019-01-06] MEDS: Meclizine HCl 25 MG TAB PO SCH (09:43)
[2019-01-06] MEDS: HumuLIN 70/30 (300 UNITS/3 ML VIAL) SC SCH (09:43)
[2019-01-06] MEDS: Lisinopril 20 MG TAB PO SCH (09:44)
[2019-01-06] MEDS: Famotidine 20 MG TAB PO SCH (09:45)
[2019-01-06] MEDS: HYDROcodone/Acetaminophen 5/325 mg Tablet PO SCH (09:53)
--- NOTE | 2019-01-10 11:26 | DIS ---
DATE OF ADMISSION: 01/04/2019 DATE OF DISCHARGE: 01/06/2019 ADMITTING DIAGNOSES: 1. Severe hypokalemia. 2. Possible folliculitis versus carbunculitis. 3. Insulin-dependent diabetes mellitus. 4. Hypertension. 5. Abdominal pain, nausea, vomiting, improving. 6. Chronic anemia. 7. Chronic back pain. 8. . FINAL DIAGNOSES: 1. Severe hypokalemia, corrected. 2. Diarrhea, resolved. 3. Folliculitis, improving. 4. Insulin-dependent diabetes mellitus. 5. Hypertension. 6. Chronic anemia. 7. Chronic back pain. 8. Nausea, vomiting, abdominal pain, resolved. BRIEF SUMMARY OF HOSPITAL COURSE: Ms. Boucher is an 83-year-old female admitted because of abdominal pain, nausea, vomiting. The patient was found to be severely hypokalemic with potassium of 2.9 on admission, improved to 3.3 next day. level was checked, also very low IV piggyback during admission. Given more potassium, from which the potassium came up to 4.2. there is evidence of folliculitis of forehead and scalp . DISCHARGE MEDICATIONS: Include: 1. Metoprolol 50 mg daily. 2. Aspirin 325 mg daily. 3. [place] 1 b.i.d. 4. Lyrica 150 . 5. for 10 days. 6. . The patient will come for followup in 2 weeks. Job ID: [id number]
== END 2019-01-06 11:29 | disposition home or self-care (01) ==
LOC: ERS 15:35 → 2SW 22:34
PROVIDERS: ADMIT Internal Medicine; ATTEND Internal Medicine
DX: E87.6 Hypokalemia (principal); I10 Essential (primary) hypertension; E11.9 Type 2 diabetes mellitus without complications; R22.0 Localized swelling, mass and lump, head; E78.5 Hyperlipidemia, unspecified; D64.9 Anemia, unspecified; F41.9 Anxiety disorder, unspecified; G89.29 Other chronic pain; M54.9 Dorsalgia, unspecified; Z79.4 Long term (current) use of insulin; Z79.82 Long term (current) use of aspirin; Z79.899 Other long term (current) drug therapy; Z88.0 Allergy status to penicillin; Z88.5 Allergy status to narcotic agent; Z91.018 Allergy to other foods; Z95.1 Presence of aortocoronary bypass graft
CPT/HCPCS: 36415; 36416; 51701; 71045; 80048; 80053; 81003; 83690; 83735; 83880; 84484; 85025; 87804; 93005; 94640; 96365; 96366; 96367; 96375; 96376; A4353; G0378; J1815; J2405; J3475; J3480; J3490; J7620; J8597

== ENCOUNTER 2019-04-17 12:31 | Observation (INO) | payer MEDICARE, MEDICAID ==
[2019-04-17 13:25] LABS: #Basophils 0.1 thou/uL (0.0-0.2); #Eosinphils 0.3 thou/uL (0.0-0.7); #Lymphocytes 1.8 thou/uL (1.20-3.40); #Monocytes 0.7 thou/uL (0.11-0.59); #Neutrophils 6.4 thou/uL (1.40-6.50); %Basophils 0.8 % (0.0-1.0); %Eosinophils 3.2 % (0.0-10.0); %Lymphocytes 19.5 % (21.0-51.0); %Monocytes 7.2 % (0.0-10.0); %Neutrophils 69.4 % (42.0-75.0); Hemoglobin 13.2 g/dL (12.0-16.0); Mean Corpuscular HGB CONC 32.9 g/dL (32.0-36.0); Mean Corpuscular Hemoglobin 28.5 pg (27.0-31.0); Mean Corpuscular Volume 86.5 fL (78.0-98.0); Mean Platelet Volume 8.6 fL (7.4-10.4); Platelet Count 257 thou/uL (130-400); RBC Distribution Width 14.3 % (11.5-14.5); Red Blood Cell (RBC) Count 4.62 mill/uL (4.20-5.40); White Blood Cell (WBC) Count 9.2 thou/uL (4.8-10.8)
--- NOTE | 2019-04-17 13:31 | CT ---
CT BRAIN NONCONTRAST: DATE: 04/17/2019 HISTORY: 83-year-old female with dizziness and vision changes FINDINGS: There is no evidence of acute intra-axial or extra-axial hemorrhage. There is no midline shift or any other mass effect. There is no extra-axial fluid collection. There is no evidence of obstructive hydrocephalus. Calvarium is intact. There is diffuse brain parenchymal volume loss. There are low att enuation areas in the white matter. These are nonspecific, but in a patient of this age, they are probably chronic ischemic white matter changes due to microvascular atherosclerosis. IMPRESSION: 1) No acute intracranial findings. 2) involutional changes and chronic ischemic white matter changes.
[2019-04-17 13:47] LABS: ALT (SGPT) 38 U/L (8-55); AST (SGOT) 25 U/L (5-34); Albumin 4.3 g/dL (3.4-4.8); Alkaline Phosphatase 102 U/L (40-110); Anion Gap 17 mmol/L (10-20); BUN (Urea Nitrogen) 12 mg/dL (9.8-20.1); Bilirubin, Total 0.4 mg/dL (0.2-1.2); CK (CPK) 100 U/L (29-168); Calc. Creatinine Clearance 0 mL/min (70-130); Calcium 9.3 mg/dL (7.8-10.44); Carbon Dioxide 22 mmol/L (23-31); Chloride 102 mmol/L (98-107); Estimated GFR-MDRD 75; Globulin 2.7 g/dL (2.4-3.5); Glucose 217 mg/dL (83-110); Magnesium 1.3 mg/dL (1.6-2.6); Potassium 4.7 mmol/L (3.5-5.1); Sodium 136 mmol/L (136-145)
[2019-04-17] MEDS ORDERED: Ondansetron PF 4 MG/2 ML Vial ONE (14:00)
[2019-04-17] MEDS ORDERED: Meclizine HCl 25 MG TAB ONE ×2 (14:00→14:25)
[2019-04-17 14:21] LABS: CKMB 3.5 ng/mL (0-6.6)
[2019-04-17 14:33] LABS: Bacteria/HPF None Seen HPF (None Seen); Bilirubin Negative (Negative); Blood, Urine Negative (Negative); Clarity Clear (Clear); Glucose, Urine (Dipstick) Normal (Negative); Leukocyte Negative Leu/uL (Negative); Nitrite Negative (Negative); Protein, Urine (Dipstick) 30 mg/dL (Neg-Trace); RBC/HPF 0-3 HPF (0-3); Squamous Epithelial 0-3 HPF (0-3); Urobilinogen Normal mg/dL (Less than 2); WBC/HPF 0-3 HPF (0-3)
--- NOTE | 2019-04-17 14:35 | RAD ---
RADIOGRAPH CHEST 1 VIEW: DATE: 04/17/2019 HISTORY: 83-year-old female with altered mental status. Concern for aspiration. FINDINGS: The thoracic aorta is tortuous and ectatic. There is no evidence of airspace density, cardiomegaly, p ulmonary edema, or pneumothorax. The lateral costophrenic angles are not effaced. Sternotomy wires. Surgical clips at left axilla and near midline at cervical thoracic junction. IMPRESSION: 1) No acute pulmonary findings. 2) ectasia of thoracic aorta.
[2019-04-17 16:37] LABS: Troponin I 0.053 ng/mL (< 0.028)
[2019-04-17 17:10] VITALS: BMI 28.1
[2019-04-17] MEDS ORDERED: Ondansetron PF 4 MG/2 ML Vial IVP PRN ×2 (17:58→21:54)
[2019-04-17] MEDS ORDERED: Ondansetron ODT 4 MG TAB SL PRN (17:58)
[2019-04-17 20:10] LABS: Troponin I 0.035 ng/mL (< 0.028)
[2019-04-17] MEDS ORDERED: Dextrose 5% in Water 1,000 ML IV PRN (21:54)
[2019-04-17] MEDS ORDERED: Dextrose 50% Abboject 50 ML SYRINGE IVP PRN (21:54)
[2019-04-17] MEDS ORDERED: Insulin Regular 300 UNITS/3 ML VIAL SC PRN ×2 (21:54)
[2019-04-17] MEDS ORDERED: Ondansetron ODT 4 MG TAB PO PRN (21:55)
[2019-04-17] MEDS ORDERED: Atorvastatin Calcium 10 MG TAB PO SCH (22:00)
[2019-04-17] MEDS ORDERED: Pregabalin 75 MG CAP PO SCH (22:00)
[2019-04-17] MEDS ORDERED: Baclofen 10 MG TAB PO PRN (22:02)
[2019-04-17] MEDS ORDERED: Meclizine HCl 25 MG TAB PO PRN (22:04)
[2019-04-17] MEDS ORDERED: Lisinopril 20 MG TAB PO SCH (22:15)
[2019-04-17] MEDS: HYDROcodone/Acetaminophen 7.5/325 mg Tablet PO PRN (23:56)
[2019-04-18] MEDS: Clopidogrel Bisulfate 75 MG TAB PO SCH (08:53)
[2019-04-18] MEDS: DULoxetine 60 MG CAP PO SCH (08:53)
[2019-04-18] MEDS: Aspirin 325 mg Enteric Coated Tablet PO SCH (08:53)
[2019-04-18] MEDS: NIFEdipine XL 30 MG TAB PO SCH (08:54)
[2019-04-18] MEDS: Pregabalin 75 MG CAP PO SCH ×2 (08:54→20:57)
[2019-04-18] MEDS: Lisinopril 20 MG TAB PO SCH ×2 (08:55→20:58)
[2019-04-18] MEDS: HYDROcodone/Acetaminophen 7.5/325 mg Tablet PO PRN ×2 (08:55→20:56)
[2019-04-18] MEDS: HumuLIN 70/30 (300 UNITS/3 ML VIAL) SC SCH (10:21)
[2019-04-18] MEDS ORDERED: Atorvastatin Calcium 10 MG TAB PO SCH (21:00)
[2019-04-19] MEDS: Pregabalin 75 MG CAP PO SCH (08:09)
[2019-04-19] MEDS: DULoxetine 60 MG CAP PO SCH (08:09)
[2019-04-19] MEDS: NIFEdipine XL 30 MG TAB PO SCH (08:10)
[2019-04-19] MEDS: Clopidogrel Bisulfate 75 MG TAB PO SCH (08:10)
[2019-04-19] MEDS: Aspirin 325 mg Enteric Coated Tablet PO SCH (08:10)
[2019-04-19] MEDS: HumuLIN 70/30 (300 UNITS/3 ML VIAL) SC SCH (08:11)
[2019-04-19] MEDS: Lisinopril 20 MG TAB PO SCH (08:11)
--- NOTE | 2019-04-19 08:29 | HP ---
REASON FOR ADMISSION AND CHIEF COMPLAINT: Weakness and dizziness. HISTORY OF PRESENT ILLNESS: Ms. Boucher is an 83-year-old female with a past medical history of hypertension, diabetes, came because of dizziness, feeling weak. Also had some nausea, but no vomiting. Though she felt like passing out, she decided to come to the hospital. In the ER, the patient was found to have elevated troponin I, did not have any chest pain. No headache, but is feeling dizzy. She was admitted to rule out myocardial infarction. PAST MEDICAL HISTORY: 1. Hypertension. 2. Insulin-dependent diabetes. 3. Hyperlipidemia. 4. Chronic back pain. 5. COPD. 6. Coronary artery disease. 7. History of asthmatic bronchitis. 8. Anxiety disorder. 9. Chronic anemia. PAST SURGICAL HISTORY: 1. Status post CABG. 2. Status post cholecystectomy. 3. Status post hysterectomy. 4. Status post spinal surgery. CURRENT MEDICATIONS: The patient is on: 1. Aspirin 325 mg daily. 2. Simvastatin 20 mg at bedtime. 3. Baclofen t.i.d. 4. Plavix 75 mg daily. 5. [place] 7.5/325 q.i.d. p.r.n. 6. Lisinopril 20 mg b.i.d. 7. Meclizine 25 b.i.d. p.r.n. 8. Toprol-XL 50 mg daily. 9. Procardia XL 30 mg daily. 10. Zofran 1 p.r.n. 11. Lyrica 150 b.i.d. 12. Cymbalta 60 mg daily. 13. Insulin 70/30, 50 units in the morning. ALLERGIES: PENICILLIN, POULTRY, AND CODEINE. FAMILY HISTORY: Nothing contributory. SOCIAL HISTORY: The patient lives at home with family. No history of smoking. No history of alcohol. REVIEW OF SYSTEMS: CARDIOVASCULAR: No chest pain. No shortness of breath. RESPIRATORY: No fever or cough. GASTROINTESTINAL: Has nausea. No vomiting. CENTRAL NERVOUS SYSTEM: Has dizziness and headache. PHYSICAL EXAMINATION: GENERAL: The patient is alert, awake, oriented x3. VITAL SIGNS: Temperature 99, pulse 79, respirations 20, blood pressure 115/60. HEENT: Head is normocephalic, atraumatic. Pupils equal and reactive. Nasopharynx is pink and moist. NECK: Supple. No JVD. LUNGS: Bilateral air entry present. No rales. No rhonchi. HEART: S1 and S2, regular. ABDOMEN: Soft. No distention. No tenderness. No organomegaly. Bowel sounds present. RECTAL: Deferred. CENTRAL NERVOUS SYSTEM: No focal deficits. LABORATORY DATA: CBC shows WBC 9.2, hemoglobin 13, hematocrit 40, platelets 257. Metabolic panel; sodium 136, potassium 4.7, chloride 102, CO2 22, BUN 12, creatinine 0.87, glucose 217, troponin I 0.042. Urinalysis negative. Chest x-ray negative. EKG shows normal sinus rhythm, no acute ST-T wave changes seen. ASSESSMENT: 1. Dizziness, weakness, elevated troponin, rule out myocardial infarction. 2. Hypertension. 3. Diabetes mellitus. 4. Coronary artery disease, status post CABG. 5. Hyperlipidemia. 6. Chronic pain. 7. Chronic anemia. PLAN: 1. Vital signs q.4 hours. 2. Activities, as tolerated. 3. Allergies; penicillin, poultry, and codeine. 4. Hep-Lock. 5. Troponin q.8 hours x2. 6. Accu-Chek a.c. and bedtime, sliding scale mild with regular insulin. 7. Continue her home medications. 8. The patient was admitted to a stress test in the past and she declined. Job ID: [id number]
[2019-04-19 11:35] VITALS: BP 127/58; TEMP 99.2
== END 2019-04-19 14:35 | disposition home or self-care (01) ==
LOC: ERS 12:31 → 2SW 15:24
PROVIDERS: ADMIT Internal Medicine; ATTEND Internal Medicine
DX: R42 Dizziness and giddiness (principal); R53.1 Weakness; R79.89 Other specified abnormal findings of blood chemistry; E11.9 Type 2 diabetes mellitus without complications; I10 Essential (primary) hypertension; I25.10 Atherosclerotic heart disease of native coronary artery without angina pectoris; E78.5 Hyperlipidemia, unspecified; G89.29 Other chronic pain; M54.9 Dorsalgia, unspecified; J44.9 Chronic obstructive pulmonary disease, unspecified; F41.9 Anxiety disorder, unspecified; D64.9 Anemia, unspecified; Z95.1 Presence of aortocoronary bypass graft; Z88.0 Allergy status to penicillin; Z88.5 Allergy status to narcotic agent; Z79.4 Long term (current) use of insulin; Z90.710 Acquired absence of both cervix and uterus; Z90.49 Acquired absence of other specified parts of digestive tract; Z98.890 Other specified postprocedural states; Z79.82 Long term (current) use of aspirin; Z79.02 Long term (current) use of antithrombotics/antiplatelets; Z79.899 Other long term (current) drug therapy
CPT/HCPCS: 70450; 71045; 80053; 82550; 82553; 82962 ×3; 83735; 84484 ×2; 85025; 93005; 96374; 99285; G0378 ×3; 36415; 36416; 81003; 81015; J1815; J2405; J8597

== ENCOUNTER 2020-07-08 15:56 | Inpatient (IN) | payer MEDICARE, MEDICAID ==
[2020-07-08 16:43] LABS: #Basophils 0.1 thou/uL (0.0-0.2); #Eosinphils 0.2 thou/uL (0.0-0.7); #Monocytes 0.9 thou/uL (0.11-0.59); #Neutrophils 6.3 thou/uL (1.40-6.50); %Basophils 0.9 % (0.0-1.0); %Eosinophils 2.6 % (0.0-10.0); %Lymphocytes 20.6 % (21.0-51.0); %Monocytes 9.3 % (0.0-10.0); %Neutrophils 66.6 % (42.0-75.0); Hemoglobin 12.7 g/dL (12.0-16.0); Mean Corpuscular HGB CONC 32.1 g/dL (32.0-36.0); Mean Corpuscular Hemoglobin 27.6 pg (27.0-31.0); Mean Platelet Volume 8.7 fL (7.4-10.4); Platelet Count 189 thou/uL (130-400); RBC Distribution Width 14.5 % (11.5-14.5); Red Blood Cell (RBC) Count 4.61 mill/uL (4.20-5.40); White Blood Cell (WBC) Count 9.5 thou/uL (4.8-10.8)
[2020-07-08 16:54] LABS: INR-International Normal Ratio 1.3; PTT 36.1 sec (22.9-36.1); Prothrombin Time 15.9 sec (12.0-14.7)
[2020-07-08 17:04] LABS: ALT (SGPT) 93 U/L (8-55); AST (SGOT) 59 U/L (5-34); Albumin 3.8 g/dL (3.4-4.8); Alkaline Phosphatase 100 U/L (40-110); Anion Gap 17 mmol/L (10-20); BUN (Urea Nitrogen) 14 mg/dL (9.8-20.1); Bilirubin, Total 0.3 mg/dL (0.2-1.2); Calc. Creatinine Clearance 0 mL/min (70-130); Calcium 9.1 mg/dL (7.8-10.44); Carbon Dioxide 23 mmol/L (23-31); Chloride 102 mmol/L (98-107); Globulin 3.1 g/dL (2.4-3.5); Glucose 284 mg/dL (83-110); Potassium 3.6 mmol/L (3.5-5.1); Protein, Total 6.9 g/dL (5.8-8.1); Sodium 138 mmol/L (136-145)
[2020-07-08 17:52] LABS: Bacteria/HPF None Seen HPF (None Seen); Bilirubin Negative (Negative); Blood, Urine Negative (Negative); Clarity Turbid (Clear); Glucose, Urine (Dipstick) 200 mg/dL (Negative); Ketone, Urine Negative (Negative); Leukocyte 25 Leu/uL (Negative); Nitrite Negative (Negative); Protein, Urine (Dipstick) 30 mg/dL (Neg-Trace); RBC/HPF 0-3 HPF (0-3); Specific Gravity, Urine 1.022 (1.002-1.036); Urobilinogen Normal mg/dL (Less than 2); WBC/HPF 0-3 HPF (0-3); pH, Urine 6.5 (5.0-9.0)
[2020-07-08] MEDS ORDERED: Aspirin Chewable 81 MG TAB ONE (18:18)
[2020-07-08] MEDS ORDERED: Nitroglycerin 2% Ointment 1 INCH/1 GM Packet ONE (18:18)
[2020-07-08] MEDS ORDERED: Nitroglycerin 0.4 MG TAB (25 Tab Bottle) SL PRN (19:12)
[2020-07-08] MEDS ORDERED: Acetaminophen 325 MG TAB PO PRN (19:12)
[2020-07-08] MEDS ORDERED: Ondansetron PF 4 MG/2 ML Vial IVP PRN (19:12)
[2020-07-08] MEDS ORDERED: Morphine 2 MG/ML VIAL SLOW IVP PRN (19:26)
[2020-07-08] MEDS ORDERED: Dextrose 50% Abboject 50 ML SYRINGE SLOW IVP PRN (19:35)
[2020-07-08] MEDS ORDERED: Dextrose 5% in Water 1,000 ML IV PRN (19:35)
[2020-07-08] MEDS ORDERED: HumaLOG 300 UNITS/3 ML VIAL SC PRN (19:35)
[2020-07-08 19:55] LABS: Lactic Acid 1.6 mmol/L (0.5-2.2)
[2020-07-08 20:01] LABS: Troponin I 0.048 ng/mL (< 0.028)
[2020-07-08 22:44] VITALS: BMI 30.3
[2020-07-08] MEDS: Sodium Chloride 0.9% 1,000 ML IV SCH (22:58)
[2020-07-09 00:02] LABS: Troponin I 0.036 ng/mL (< 0.028)
[2020-07-09] MEDS: HYDROcodone/Acetaminophen 5/325 mg Tablet PO PRN (00:50)
[2020-07-09 05:11] LABS: Lactic Acid 1.3 mmol/L (0.5-2.2)
[2020-07-09 05:11] LABS: Anion Gap 14 mmol/L (10-20); BUN (Urea Nitrogen) 14 mg/dL (9.8-20.1); Calc. Creatinine Clearance 67 mL/min (70-130); Calcium 8.4 mg/dL (7.8-10.44); Carbon Dioxide 25 mmol/L (23-31); Cardiac Risk 2.1 (Less than 4.5); Chloride 102 mmol/L (98-107); Cholesterol 83 mg/dl (< 200 Desired); Glucose 196 mg/dL (83-110); HDL Cholesterol 39 mg/dL (>60 Neg Risk); LDL Cholesterol, Calculated 24 mg/dL; Sodium 137 mmol/L (136-145); Triglycerides 102 mg/dL (Less than 150)
[2020-07-09 05:59] LABS: Troponin I 0.035 ng/mL (< 0.028)
[2020-07-09 06:40] LABS: #Eosinphils 0.4 thou/uL (0.0-0.7); #Lymphocytes 2.3 thou/uL (1.20-3.40); #Monocytes 0.9 thou/uL (0.11-0.59); #Neutrophils 4.4 thou/uL (1.40-6.50); %Basophils 0.3 % (0.0-1.0); %Eosinophils 4.7 % (0.0-10.0); %Lymphocytes 28.4 % (21.0-51.0); %Monocytes 11.6 % (0.0-10.0); Hemoglobin 11.1 g/dL (12.0-16.0); Mean Corpuscular HGB CONC 31.8 g/dL (32.0-36.0); Mean Corpuscular Hemoglobin 27.4 pg (27.0-31.0); Mean Corpuscular Volume 86.2 fL (78.0-98.0); Mean Platelet Volume 8.4 fL (7.4-10.4); Platelet Count 180 thou/uL (130-400); RBC Distribution Width 14.4 % (11.5-14.5); Red Blood Cell (RBC) Count 4.04 mill/uL (4.20-5.40); White Blood Cell (WBC) Count 8.1 thou/uL (4.8-10.8)
[2020-07-09 06:48] LABS: Hemoglobin A1c 9.4 % (4.0-6.0)
[2020-07-09] MEDS ORDERED: Nitroglycerin 0.4 MG TAB (25 Tab Bottle) SL SCH (12:15)
[2020-07-09] MEDS ORDERED: Baclofen 10 MG TAB PO PRN (12:40)
[2020-07-09] MEDS ORDERED: Meclizine HCl 25 MG TAB PO PRN (12:47)
[2020-07-09] MEDS ORDERED: Ondansetron ODT 4 MG TAB PO PRN (12:48)
[2020-07-09] MEDS ORDERED: Apixaban 5 MG TAB PO SCH (13:00)
[2020-07-09] MEDS ORDERED: Non-Formulary Item 1 EACH (Albuterol Sulfate [Proair Digihaler] 90 MCG Aer.Pw.Bas) INH SCH (13:00)
[2020-07-09] MEDS ORDERED: Furosemide 20 MG TAB PO SCH (13:00)
[2020-07-09] MEDS ORDERED: Rosuvastatin 20 MG TAB PO SCH (13:00)
[2020-07-09] MEDS ORDERED: Losartan 25 MG TAB PO SCH (13:00)
[2020-07-09] MEDS: hydrOXYzine 10 MG TAB PO SCH (14:07)
[2020-07-09] MEDS: Sodium Chloride 0.9% 1,000 ML IV SCH ×2 (15:26→21:26)
[2020-07-09] MEDS: HumaLOG 300 UNITS/3 ML VIAL SC PRN (18:21)
[2020-07-09] MEDS: Pregabalin 75 MG CAP PO SCH (20:43)
[2020-07-09] MEDS: Apixaban 5 MG TAB PO SCH (20:45)
[2020-07-09] MEDS: HYDROcodone/Acetaminophen 7.5/325 mg Tablet PO PRN (20:45)
[2020-07-09] MEDS ORDERED: hydrALAZINE 20 MG/ML VIAL SLOW IVP PRN (21:05)
[2020-07-10] MEDS: Melatonin 3 MG TAB PO PRN ×2 (00:48→20:49)
[2020-07-10] MEDS: DULoxetine 60 MG CAP PO SCH (08:09)
[2020-07-10] MEDS: Rosuvastatin 20 MG TAB PO SCH (08:09)
[2020-07-10] MEDS: Losartan 25 MG TAB PO SCH (08:09)
[2020-07-10] MEDS: Loratadine 10 MG TAB PO SCH (08:10)
[2020-07-10] MEDS: Apixaban 5 MG TAB PO SCH ×2 (08:10→20:49)
[2020-07-10] MEDS: Pregabalin 75 MG CAP PO SCH ×2 (08:10→20:48)
[2020-07-10] MEDS: hydrOXYzine 10 MG TAB PO SCH (08:10)
[2020-07-10] MEDS: Escitalopram Oxalate 10 mg Tablet PO SCH (08:10)
[2020-07-10] MEDS: HumuLIN 70/30 (300 UNITS/3 ML VIAL) SC SCH (08:16)
[2020-07-10] MEDS ORDERED: Furosemide 20 MG TAB PO SCH ×2 (09:00)
[2020-07-10] MEDS: HumaLOG 300 UNITS/3 ML VIAL SC PRN (11:25)
[2020-07-10] MEDS: Sodium Chloride 0.9% 1,000 ML IV SCH (14:34)
[2020-07-10] MEDS: HYDROcodone/Acetaminophen 7.5/325 mg Tablet PO PRN (20:49)
[2020-07-11] MEDS: Furosemide 20 MG/2 ML VIAL SLOW IVP SCH ×3 (05:30→14:40)
[2020-07-11] MEDS ORDERED: Furosemide 40 MG TAB PO SCH ×2 (06:45→15:00)
[2020-07-11] MEDS: Pregabalin 75 MG CAP PO SCH ×2 (08:02→19:46)
[2020-07-11] MEDS: Rosuvastatin 20 MG TAB PO SCH (08:02)
[2020-07-11] MEDS: Losartan 25 MG TAB PO SCH (08:02)
[2020-07-11] MEDS: Escitalopram Oxalate 10 mg Tablet PO SCH (08:03)
[2020-07-11] MEDS: Carvedilol 6.25 MG TAB PO SCH ×2 (08:03→16:27)
[2020-07-11] MEDS: Apixaban 5 MG TAB PO SCH ×2 (08:04→19:46)
[2020-07-11] MEDS: hydrOXYzine 10 MG TAB PO SCH (08:04)
[2020-07-11] MEDS: Loratadine 10 MG TAB PO SCH (08:04)
[2020-07-11] MEDS: HumuLIN 70/30 (300 UNITS/3 ML VIAL) SC SCH (08:04)
[2020-07-11] MEDS: DULoxetine 60 MG CAP PO SCH (08:04)
[2020-07-11] MEDS: HYDROcodone/Acetaminophen 5/325 mg Tablet PO PRN (16:36)
[2020-07-11 17:24] LABS: Anion Gap 16 mmol/L (10-20); Calcium 8.7 mg/dL (7.8-10.44); Carbon Dioxide 24 mmol/L (23-31); Chloride 99 mmol/L (98-107); Potassium 4.1 mmol/L (3.5-5.1); Sodium 135 mmol/L (136-145)
[2020-07-11] MEDS: HumaLOG 300 UNITS/3 ML VIAL SC PRN (17:32)
[2020-07-11 17:48] LABS: Glucose 169 mg/dL (83-110)
[2020-07-11 17:51] LABS: Calc. Creatinine Clearance 54 mL/min (70-130)
[2020-07-11 17:52] LABS: BUN (Urea Nitrogen) 11 mg/dL (9.8-20.1)
[2020-07-11 17:53] LABS: Magnesium 1.2 mg/dL (1.6-2.6)
[2020-07-11] MEDS ORDERED: Magnesium 2 GM/50 ML 2 GM in Premix Bag 1 BAG IVPB SCH (18:15)
[2020-07-11] MEDS ORDERED: Magnesium Oxide 250 MG TAB PO SCH (19:30)
[2020-07-12 07:23] VITALS: TEMP 97.6
[2020-07-12] MEDS: Losartan 25 MG TAB PO SCH (08:12)
[2020-07-12] MEDS: Furosemide 40 MG TAB PO SCH ×2 (08:13→14:26)
[2020-07-12] MEDS: DULoxetine 60 MG CAP PO SCH (08:13)
[2020-07-12] MEDS: Pregabalin 75 MG CAP PO SCH (08:13)
[2020-07-12] MEDS: Carvedilol 6.25 MG TAB PO SCH (08:13)
[2020-07-12] MEDS: hydrOXYzine 10 MG TAB PO SCH (08:13)
[2020-07-12] MEDS: Loratadine 10 MG TAB PO SCH (08:13)
[2020-07-12] MEDS: Escitalopram Oxalate 10 mg Tablet PO SCH (08:14)
[2020-07-12] MEDS: Rosuvastatin 20 MG TAB PO SCH (08:14)
[2020-07-12] MEDS: HYDROcodone/Acetaminophen 5/325 mg Tablet PO PRN (08:14)
[2020-07-12] MEDS: Apixaban 5 MG TAB PO SCH (08:14)
[2020-07-12] MEDS: HumuLIN 70/30 (300 UNITS/3 ML VIAL) SC SCH (08:19)
[2020-07-12 15:21] VITALS: BP 115/58
== END 2020-07-12 16:25 | disposition home health service (06) | DRG 292 ==
LOC: ERS 15:56 → 2NO 18:24 → OBSVTOIN 07-10 12:05
PROVIDERS: ADMIT Family Medicine; ATTEND Internal Medicine
DX: I11.0 Hypertensive heart disease with heart failure (principal); E87.2 Acidosis; N39.0 Urinary tract infection, site not specified; Z66 Do not resuscitate; I50.33 Acute on chronic diastolic (congestive) heart failure; E11.65 Type 2 diabetes mellitus with hyperglycemia; J44.9 Chronic obstructive pulmonary disease, unspecified; D64.9 Anemia, unspecified; E11.36 Type 2 diabetes mellitus with diabetic cataract; H26.9 Unspecified cataract; I25.10 Atherosclerotic heart disease of native coronary artery without angina pectoris; Z99.81 Dependence on supplemental oxygen; Z88.0 Allergy status to penicillin; Z88.5 Allergy status to narcotic agent; Z91.018 Allergy to other foods; Z79.4 Long term (current) use of insulin; Z79.51 Long term (current) use of inhaled steroids; Z87.440 Personal history of urinary (tract) infections; Z90.710 Acquired absence of both cervix and uterus; Z90.49 Acquired absence of other specified parts of digestive tract; Z95.1 Presence of aortocoronary bypass graft; Z86.718 Personal history of other venous thrombosis and embolism
CPT/HCPCS: 36415; 36416; 51701; 71045; 80048; 80053; 80061; 81003; 81015; 82550; 82553; 83036; 83605; 83735; 83880; 84484; 85025; 85610; 85730; 87086; 93005; 93306; 94760; 96374; G0378; J0744; J1815; J1940

== ENCOUNTER 2021-06-24 14:55 | Inpatient (IN) | payer MEDICARE, MEDICAID ==
[2021-06-24 15:51] LABS: Hemoglobin 13.1 g/dL (12.0-16.0); Mean Corpuscular HGB CONC 29.7 g/dL (32.0-36.0); Mean Corpuscular Hemoglobin 26.2 pg (27.0-31.0); Mean Corpuscular Volume 88.2 fL (78.0-98.0); Mean Platelet Volume 9.4 fL (7.4-10.4); Platelet Count 147 thou/uL (130-400); Red Blood Cell (RBC) Count 5.01 mill/uL (4.20-5.40); White Blood Cell (WBC) Count 7.3 thou/uL (4.8-10.8)
[2021-06-24 16:12] LABS: MDiff Complete? YES; Neutrophil 71 % (42-75)
[2021-06-24 16:13] LABS: Anisocytosis SLIGHT = 6-15 cells (100X) (0-5/hpf); Eosinophils 3 % (0-10); Hypochromia SLIGHT = 6-15 cells (100X) (0-5/hpf); Lymphocytes 15 % (21-51); Monocytes 10 % (0-10); Platelet Morphology Comment Appears Adequate; Polychromasia SLIGHT = 2-3 cells (100X) (0-2/hpf); Reactive Lymphocytes 1 % (0-10)
[2021-06-24] MEDS ORDERED: Nitroglycerin 2% Ointment 1 INCH/1 GM Packet ONE (17:15)
[2021-06-24] MEDS ORDERED: Furosemide 40 MG/4 ML VIAL ONE (17:15)
[2021-06-24 17:32] LABS: ALT (SGPT) 52 U/L (8-55); AST (SGOT) 66 U/L (5-34); Alkaline Phosphatase 90 U/L (40-110); Anion Gap 22 mmol/L (10-20); BUN (Urea Nitrogen) 20 mg/dL (9.8-20.1); Bilirubin, Total 0.5 mg/dL (0.2-1.2); CK (CPK) 196 U/L (29-168); Calc. Creatinine Clearance 0 mL/min (70-130); Calcium 9.1 mg/dL (7.8-10.44); Carbon Dioxide 17 mmol/L (23-31); Chloride 105 mmol/L (98-107); Globulin 3.3 g/dL (2.4-3.5); Glucose 107 mg/dL (83-110); Potassium 4.8 mmol/L (3.5-5.1); Protein, Total 7.3 g/dL (5.8-8.1); Sodium 139 mmol/L (136-145)
[2021-06-24 17:34] LABS: CKMB 11.7 ng/mL (0-6.6)
[2021-06-24 22:13] LABS: Troponin I 0.109 ng/mL (< 0.028)
[2021-06-24] MEDS ORDERED: Ondansetron PF 4 MG/2 ML Vial IVP PRN (23:56)
[2021-06-25] MEDS ORDERED: HumaLOG 300 UNITS/3 ML VIAL SC PRN ×2 (04:23)
[2021-06-25] MEDS ORDERED: Dextrose 5% in Water 1,000 ML IV PRN (04:23)
[2021-06-25] MEDS ORDERED: Dextrose 50% Abboject 50 ML SYRINGE SLOW IVP PRN (04:23)
[2021-06-25] MEDS: Furosemide 40 MG/4 ML VIAL SLOW IVP SCH ×2 (05:38→15:50)
[2021-06-25 05:41] LABS: #Eosinphils 0.2 thou/uL (0.0-0.7); #Lymphocytes 1.4 thou/uL (1.20-3.40); #Monocytes 0.6 thou/uL (0.11-0.59); #Neutrophils 3.6 thou/uL (1.40-6.50); %Basophils 0.5 % (0.0-1.0); %Eosinophils 3.6 % (0.0-10.0); %Lymphocytes 24.2 % (21.0-51.0); %Monocytes 10.6 % (0.0-10.0); %Neutrophils 61.2 % (42.0-75.0); Hemoglobin 11.1 g/dL (12.0-16.0); Mean Corpuscular HGB CONC 31.6 g/dL (32.0-36.0); Mean Corpuscular Hemoglobin 27.7 pg (27.0-31.0); Mean Corpuscular Volume 87.6 fL (78.0-98.0); Mean Platelet Volume 9.3 fL (7.4-10.4); Platelet Count 155 thou/uL (130-400); Red Blood Cell (RBC) Count 4.01 mill/uL (4.20-5.40); White Blood Cell (WBC) Count 5.9 thou/uL (4.8-10.8)
[2021-06-25 05:52] LABS: Chloride 104 mmol/L (98-107); Potassium 4.2 mmol/L (3.5-5.1); Sodium 140 mmol/L (136-145)
[2021-06-25 05:53] LABS: Calcium 8.4 mg/dL (7.8-10.44); Glucose 156 mg/dL (83-110)
[2021-06-25 05:55] LABS: Carbon Dioxide 26 mmol/L (23-31)
[2021-06-25 05:57] LABS: BUN (Urea Nitrogen) 20 mg/dL (9.8-20.1); Calc. Creatinine Clearance 39 mL/min (70-130)
[2021-06-25 05:59] LABS: Magnesium 1.2 mg/dL (1.6-2.6)
[2021-06-25 06:04] LABS: Anion Gap 14 mmol/L (10-20)
[2021-06-25 08:10] LABS: Troponin I 0.093 ng/mL (< 0.028)
[2021-06-25] MEDS: Heparin 5,000 UNITS/ML VIAL SC SCH ×3 (09:31→20:41)
[2021-06-25] MEDS ORDERED: Electrolyte Replacement Protocol 1 EACH FS SCH (10:00)
[2021-06-25] MEDS ORDERED: Magnesium Sulfate In Water 4 GM in Premix Bag 1 BAG IVPB SCH (10:15)
[2021-06-25 11:38] LABS: SARS-CoV-2 PCR by NAA Not Detected (NotDetected)
[2021-06-25] MEDS: Mometasone 100 MCG/Formoterol 5 MCG 120 PUFF INHALER INH SCH (18:57)
[2021-06-25] MEDS: Baclofen 10 MG TAB PO SCH (20:41)
[2021-06-25] MEDS: Pregabalin 75 MG CAP PO SCH (20:42)
[2021-06-25] MEDS: Rosuvastatin 20 MG TAB PO SCH (20:42)
[2021-06-26] MEDS: Acetaminophen 325 MG TAB PO PRN ×3 (03:39→19:31)
[2021-06-26] MEDS: Furosemide 40 MG/4 ML VIAL SLOW IVP SCH ×2 (05:24→14:03)
[2021-06-26] MEDS: Mometasone 100 MCG/Formoterol 5 MCG 120 PUFF INHALER INH SCH ×2 (07:34→19:01)
[2021-06-26] MEDS: Aspirin 81 mg Enteric Coated Tablet PO SCH (09:35)
[2021-06-26] MEDS: Baclofen 10 MG TAB PO SCH ×2 (09:35→20:37)
[2021-06-26] MEDS: Pregabalin 75 MG CAP PO SCH ×2 (09:36→20:36)
[2021-06-26] MEDS: DULoxetine 60 MG CAP PO SCH (09:37)
[2021-06-26] MEDS: Heparin 5,000 UNITS/ML VIAL SC SCH ×3 (09:37→20:37)
[2021-06-26] MEDS: Losartan 25 MG TAB PO SCH (09:37)
[2021-06-26 11:39] LABS: Anion Gap 17 mmol/L (10-20); BUN (Urea Nitrogen) 17 mg/dL (9.8-20.1); Calc. Creatinine Clearance 52 mL/min (70-130); Calcium 9.5 mg/dL (7.8-10.44); Carbon Dioxide 28 mmol/L (23-31); Chloride 99 mmol/L (98-107); Glucose 148 mg/dL (83-110); Magnesium 1.5 mg/dL (1.6-2.6); Potassium 4.6 mmol/L (3.5-5.1); Sodium 139 mmol/L (136-145)
[2021-06-26] MEDS ORDERED: Magnesium 2 GM/50 ML(in water) 2 GM in Premix Bag 1 BAG IVPB SCH (12:45)
[2021-06-26] MEDS: HumaLOG 300 UNITS/3 ML VIAL SC PRN (14:06)
[2021-06-26] MEDS ORDERED: hydrALAZINE 20 MG/ML VIAL SLOW IVP PRN (19:54)
[2021-06-26] MEDS: Magnesium Oxide 400 MG TAB PO SCH (20:36)
[2021-06-26] MEDS: Rosuvastatin 20 MG TAB PO SCH (20:37)
[2021-06-27] MEDS: Acetaminophen 325 MG TAB PO PRN ×2 (01:00→21:15)
[2021-06-27] MEDS: Furosemide 40 MG/4 ML VIAL SLOW IVP SCH ×2 (05:38→16:24)
[2021-06-27] MEDS: Mometasone 100 MCG/Formoterol 5 MCG 120 PUFF INHALER INH SCH ×2 (07:30→19:02)
[2021-06-27] MEDS: Magnesium Oxide 400 MG TAB PO SCH ×2 (09:45→21:13)
[2021-06-27] MEDS: Aspirin 81 mg Enteric Coated Tablet PO SCH (09:45)
[2021-06-27] MEDS: Losartan 25 MG TAB PO SCH (09:45)
[2021-06-27] MEDS: Pregabalin 75 MG CAP PO SCH ×2 (09:46→21:14)
[2021-06-27] MEDS: Baclofen 10 MG TAB PO SCH ×2 (09:46→21:13)
[2021-06-27] MEDS: DULoxetine 60 MG CAP PO SCH (09:46)
[2021-06-27] MEDS: Heparin 5,000 UNITS/ML VIAL SC SCH ×3 (09:47→21:14)
[2021-06-27] MEDS ORDERED: HYDROcodone/Acetaminophen 7.5/325 mg Tablet PO PRN (10:51)
[2021-06-27] MEDS: HumaLOG 300 UNITS/3 ML VIAL SC PRN (11:30)
[2021-06-27] MEDS: HYDROcodone/Acetaminophen 7.5/325 mg Tablet PO PRN (11:37)
[2021-06-27 11:41] VITALS: BMI 26.8
[2021-06-27] MEDS: Rosuvastatin 20 MG TAB PO SCH (21:13)
[2021-06-28 03:55] VITALS: TEMP 98.2
[2021-06-28 04:37] LABS: Anion Gap 14 mmol/L (10-20); BUN (Urea Nitrogen) 16 mg/dL (9.8-20.1); Calc. Creatinine Clearance 64 mL/min (70-130); Calcium 8.9 mg/dL (7.8-10.44); Carbon Dioxide 34 mmol/L (23-31); Chloride 91 mmol/L (98-107); Glucose 170 mg/dL (83-110); Magnesium 1.2 mg/dL (1.6-2.6); Potassium 3.7 mmol/L (3.5-5.1); Sodium 135 mmol/L (136-145)
[2021-06-28] MEDS ORDERED: Magnesium Sulfate In Water 4 GM in Premix Bag 1 BAG IVPB SCH (05:45)
[2021-06-28] MEDS: HumaLOG 300 UNITS/3 ML VIAL SC PRN (06:41)
[2021-06-28] MEDS: Mometasone 100 MCG/Formoterol 5 MCG 120 PUFF INHALER INH SCH (06:51)
[2021-06-28] MEDS ORDERED: Spironolactone 25 MG TAB PO SCH (08:00)
[2021-06-28] MEDS ORDERED: Furosemide 20 MG TAB PO SCH (09:00)
[2021-06-28] MEDS ORDERED: Preparation H HC 1% Cream 26 GM TUBE TOP SCH ×2 (10:00→21:00)
[2021-06-28] MEDS: HYDROcodone/Acetaminophen 7.5/325 mg Tablet PO PRN (10:34)
[2021-06-28] MEDS: Pregabalin 75 MG CAP PO SCH (10:36)
[2021-06-28] MEDS: DULoxetine 60 MG CAP PO SCH (10:36)
[2021-06-28] MEDS: Baclofen 10 MG TAB PO SCH (10:37)
[2021-06-28] MEDS: Aspirin 81 mg Enteric Coated Tablet PO SCH (10:37)
[2021-06-28] MEDS: Heparin 5,000 UNITS/ML VIAL SC SCH (10:56)
[2021-06-28] MEDS ORDERED: Magnesium Oxide 400 MG TAB PO SCH (11:15)
[2021-06-28 16:09] VITALS: BP 118/68
[2021-06-29] MEDS ORDERED: Magnesium Oxide 400 MG TAB PO SCH (09:00)
== END 2021-06-28 16:34 | disposition home health service (06) | DRG 280 ==
LOC: ERS 14:55 → ERHOLD 20:07 → 2NO 23:02 → OBSVTOIN 23:55
PROVIDERS: ADMIT Internal Medicine; ATTEND Internal Medicine
DX: I13.0 Hypertensive heart and chronic kidney disease with heart failure and stage 1 through stage 4 chronic kidney disease, or unspecified chronic kidney disease (principal); I21.A1 Myocardial infarction type 2; I50.33 Acute on chronic diastolic (congestive) heart failure; J96.01 Acute respiratory failure with hypoxia; Z66 Do not resuscitate; I25.10 Atherosclerotic heart disease of native coronary artery without angina pectoris; E78.5 Hyperlipidemia, unspecified; J44.9 Chronic obstructive pulmonary disease, unspecified; M54.9 Dorsalgia, unspecified; E11.22 Type 2 diabetes mellitus with diabetic chronic kidney disease; Z20.822 Contact with and (suspected) exposure to COVID-19; N18.30 Chronic kidney disease, stage 3 unspecified; G89.4 Chronic pain syndrome; D63.1 Anemia in chronic kidney disease; E83.42 Hypomagnesemia; I25.5 Ischemic cardiomyopathy; I34.0 Nonrheumatic mitral (valve) insufficiency; Z86.718 Personal history of other venous thrombosis and embolism; Z85.3 Personal history of malignant neoplasm of breast; Z95.1 Presence of aortocoronary bypass graft; Z88.0 Allergy status to penicillin; Z79.4 Long term (current) use of insulin; Z79.899 Other long term (current) drug therapy; Z79.51 Long term (current) use of inhaled steroids; Z79.82 Long term (current) use of aspirin
CPT/HCPCS: 36415; 36416; 71045; 80048; 80053; 82550; 82553; 83735; 83880; 84484; 85025; 93005; 93306; 93970; 96374; J1644; J1815; J1940; J3475; U0003; U0005

== ENCOUNTER 2021-07-26 15:05 | Inpatient (IN) | payer MEDICARE, MEDICAID ==
[~2021-07-26 15:05] MED LIST: Heparin 10,000 UNITS/ 10 ML VIAL ONE
[2021-07-26 15:50] LABS: #Basophils 0.1 thou/uL (0.0-0.2); #Eosinphils 0.2 thou/uL (0.0-0.7); #Lymphocytes 2.3 thou/uL (1.20-3.40); #Neutrophils 6.6 thou/uL (1.40-6.50); %Basophils 0.9 % (0.0-1.0); %Lymphocytes 22.8 % (21.0-51.0); %Monocytes 9.7 % (0.0-10.0); %Neutrophils 64.6 % (42.0-75.0); Mean Corpuscular HGB CONC 30.8 g/dL (32.0-36.0); Mean Corpuscular Hemoglobin 26.2 pg (27.0-31.0); Mean Corpuscular Volume 85.1 fL (78.0-98.0); Mean Platelet Volume 9.3 fL (7.4-10.4); Platelet Count 200 thou/uL (130-400); RBC Distribution Width 16.6 % (11.5-14.5); Red Blood Cell (RBC) Count 4.97 mill/uL (4.20-5.40); White Blood Cell (WBC) Count 10.2 thou/uL (4.8-10.8)
[2021-07-26 16:15] LABS: ALT (SGPT) 70 U/L (8-55); AST (SGOT) 45 U/L (5-34); Albumin 4.3 g/dL (3.4-4.8); Alkaline Phosphatase 118 U/L (40-110); Anion Gap 20 mmol/L (10-20); BUN (Urea Nitrogen) 33 mg/dL (9.8-20.1); Bilirubin, Total 0.6 mg/dL (0.2-1.2); Calc. Creatinine Clearance 0 mL/min (70-130); Calcium 9.9 mg/dL (7.8-10.44); Carbon Dioxide 22 mmol/L (23-31); Chloride 98 mmol/L (98-107); Globulin 3.7 g/dL (2.4-3.5); Glucose 228 mg/dL (83-110); Magnesium 1.4 mg/dL (1.6-2.6); Sodium 132 mmol/L (136-145)
[2021-07-26 16:37] LABS: CKMB 6.1 ng/mL (0-6.6)
[2021-07-26 16:48] LABS: Potassium 8.2 mmol/L (3.5-5.1)
[2021-07-26] MEDS ORDERED: Insulin Regular 300 UNITS/3 ML VIAL ONE (16:55)
[2021-07-26] MEDS ORDERED: CALCIUM GLUC 1GM/NS 50ML BAG ONE (16:55)
[2021-07-26] MEDS ORDERED: Dextrose 50% Abboject 50 ML SYRINGE ONE (16:55)
[2021-07-26] MEDS ORDERED: Sodium Bicarb 50 MEQ/50 ML Abboject 8.4% SYRINGE ONE (16:55)
[2021-07-26] MEDS ORDERED: Furosemide 40 MG/4 ML VIAL ONE (17:12)
[2021-07-26 17:26] LABS: Actual Bicarbonate (HCO3a) 21.2 mEq/L (22-28); Analyzer IN Cardio ER; Base Excess (BEa) -5.5 mEq/L (-2.0 to +3.0); Calcium, Ionized (arterial) 1.32 mmol/L (1.12-1.30); Carboxyhemoglobin (COHb) 0.2 gm% (0.0-3.0); Hemoglobin (Hb) 12.2 g/dL (12.0-16.0); O2 Tension (PaO2), arterial 130.3 mmHg (> 60.0); Potassium - ABG Lab 7.37 mmol/L (3.70-5.30); pH, Arterial 7.28 (7.35-7.45)
[2021-07-26 17:28] LABS: Puncture Site RRA
[2021-07-26 18:55] LABS: Bilirubin Negative (Negative); Blood, Urine Negative (Negative); Clarity Clear (Clear); Glucose, Urine (Dipstick) 300 mg/dL (Negative); Ketone, Urine Negative (Negative); Leukocyte Negative Leu/uL (Negative); Nitrite Negative (Negative); Protein, Urine (Dipstick) Negative (Neg-Trace); Specific Gravity, Urine 1.009 (1.002-1.036); Urobilinogen Normal mg/dL (Less than 2); pH, Urine 6.5 (5.0-9.0)
[2021-07-26 19:18] LABS: HBSAB Concentration Less than 8.00 mIU/mL; HBSAg Index 0.38 S/CO (0-0.99); Hep B Surf AB Non-Reactive (NonReactive); Hep B Surf Ag Non-Reactive S/CO (NonReactive)
[2021-07-26 19:19] LABS: SARS-CoV-2 NAA Rapid Test Not Detected (NotDetected)
[2021-07-26] MEDS ORDERED: Sodium Chloride 0.9% 1,000 ML IV SCH (19:45)
[2021-07-26] MEDS ORDERED: Dextrose 5% in Water 1,000 ML IV PRN (23:17)
[2021-07-26] MEDS ORDERED: Acetaminophen 325 MG TAB PO PRN (23:17)
[2021-07-26] MEDS ORDERED: Magnesium Sulfate In Water 4 GM in Premix Bag 1 BAG IVPB SCH (23:17)
[2021-07-26] MEDS ORDERED: Ondansetron PF 4 MG/2 ML Vial IVP PRN (23:17)
[2021-07-26] MEDS ORDERED: Dextrose 50% Abboject 50 ML SYRINGE SLOW IVP PRN (23:17)
[2021-07-27] MEDS ORDERED: Morphine 4 MG/ML VIAL SLOW IVP SCH (00:30)
[2021-07-27 04:29] LABS: Anion Gap 11 mmol/L (10-20); BUN (Urea Nitrogen) 10 mg/dL (9.8-20.1); Calc. Creatinine Clearance 75 mL/min (70-130); Calcium 8.7 mg/dL (7.8-10.44); Carbon Dioxide 30 mmol/L (23-31); Chloride 100 mmol/L (98-107); Glucose 67 mg/dL (83-110); Potassium 4.2 mmol/L (3.5-5.1); Sodium 137 mmol/L (136-145)
[2021-07-27 05:04] LABS: #Basophils 0.1 thou/uL (0.0-0.2); #Eosinphils 0.2 thou/uL (0.0-0.7); #Lymphocytes 1.9 thou/uL (1.20-3.40); #Neutrophils 3.9 thou/uL (1.40-6.50); %Basophils 1.1 % (0.0-1.0); %Eosinophils 2.9 % (0.0-10.0); %Monocytes 13.5 % (0.0-10.0); %Neutrophils 55.6 % (42.0-75.0); Hemoglobin 11.3 g/dL (12.0-16.0); Mean Corpuscular HGB CONC 31.9 g/dL (32.0-36.0); Mean Corpuscular Hemoglobin 27.1 pg (27.0-31.0); Mean Corpuscular Volume 84.9 fL (78.0-98.0); Mean Platelet Volume 9.7 fL (7.4-10.4); Platelet Count 146 thou/uL (130-400); RBC Distribution Width 16.1 % (11.5-14.5); Red Blood Cell (RBC) Count 4.16 mill/uL (4.20-5.40)
[2021-07-27] MEDS: Morphine 4 MG/ML VIAL SLOW IVP PRN ×3 (06:55→21:11)
[2021-07-27] MEDS: Mometasone 100 MCG/Formoterol 5 MCG 120 PUFF INHALER INH SCH ×2 (07:43→20:08)
[2021-07-27] MEDS: Rosuvastatin 10 MG TAB PO SCH (08:03)
[2021-07-27] MEDS: DULoxetine 60 MG CAP PO SCH (08:03)
[2021-07-27] MEDS: Aspirin 81 mg Enteric Coated Tablet PO SCH (08:03)
[2021-07-27 10:42] VITALS: BMI 58.2
[2021-07-27] MEDS: HumaLOG 300 UNITS/3 ML VIAL SC PRN (12:21)
[2021-07-28] MEDS: Mometasone 100 MCG/Formoterol 5 MCG 120 PUFF INHALER INH SCH ×2 (07:25→18:50)
[2021-07-28] MEDS: Morphine 4 MG/ML VIAL SLOW IVP PRN ×2 (08:25→21:53)
[2021-07-28] MEDS: Aspirin 81 mg Enteric Coated Tablet PO SCH (08:26)
[2021-07-28] MEDS: Rosuvastatin 10 MG TAB PO SCH (08:26)
[2021-07-28] MEDS: DULoxetine 60 MG CAP PO SCH (08:26)
[2021-07-28 14:48] LABS: #Eosinphils 0.1 thou/uL (0.0-0.7); #Lymphocytes 1.6 thou/uL (1.20-3.40); #Monocytes 0.9 thou/uL (0.11-0.59); #Neutrophils 4.5 thou/uL (1.40-6.50); %Basophils 0.4 % (0.0-1.0); %Lymphocytes 22.2 % (21.0-51.0); %Monocytes 12.9 % (0.0-10.0); %Neutrophils 62.5 % (42.0-75.0); Hemoglobin 10.9 g/dL (12.0-16.0); Mean Corpuscular HGB CONC 31.9 g/dL (32.0-36.0); Mean Corpuscular Volume 84.4 fL (78.0-98.0); Mean Platelet Volume 9.1 fL (7.4-10.4); Platelet Count 138 thou/uL (130-400); RBC Distribution Width 16.4 % (11.5-14.5); Red Blood Cell (RBC) Count 4.04 mill/uL (4.20-5.40); White Blood Cell (WBC) Count 7.2 thou/uL (4.8-10.8)
[2021-07-28 15:12] LABS: Anion Gap 12 mmol/L (10-20); BUN (Urea Nitrogen) 10 mg/dL (9.8-20.1); Calc. Creatinine Clearance 127 mL/min (70-130); Calcium 9.1 mg/dL (7.8-10.44); Carbon Dioxide 28 mmol/L (23-31); Chloride 98 mmol/L (98-107); Glucose 238 mg/dL (83-110); Magnesium 1.6 mg/dL (1.6-2.6); Potassium 5.2 mmol/L (3.5-5.1); Sodium 133 mmol/L (136-145)
[2021-07-29] MEDS ORDERED: Baclofen 10 MG TAB PO SCH (01:30)
[2021-07-29] MEDS: Morphine 4 MG/ML VIAL SLOW IVP PRN (01:42)
[2021-07-29 05:39] LABS: #Eosinphils 0.2 thou/uL (0.0-0.7); #Lymphocytes 1.7 thou/uL (1.20-3.40); #Monocytes 1.1 thou/uL (0.11-0.59); #Neutrophils 4.1 thou/uL (1.40-6.50); %Basophils 0.2 % (0.0-1.0); %Lymphocytes 23.6 % (21.0-51.0); %Monocytes 14.9 % (0.0-10.0); %Neutrophils 58.3 % (42.0-75.0); Hemoglobin 11.4 g/dL (12.0-16.0); Mean Corpuscular HGB CONC 32.2 g/dL (32.0-36.0); Mean Corpuscular Hemoglobin 27.2 pg (27.0-31.0); Mean Corpuscular Volume 84.5 fL (78.0-98.0); Mean Platelet Volume 8.9 fL (7.4-10.4); Platelet Count 144 thou/uL (130-400); RBC Distribution Width 16.1 % (11.5-14.5); Red Blood Cell (RBC) Count 4.17 mill/uL (4.20-5.40)
[2021-07-29 06:15] LABS: Anion Gap 12 mmol/L (10-20); BUN (Urea Nitrogen) 10 mg/dL (9.8-20.1); Calc. Creatinine Clearance 146 mL/min (70-130); Carbon Dioxide 29 mmol/L (23-31); Chloride 100 mmol/L (98-107); Potassium 5.2 mmol/L (3.5-5.1); Sodium 136 mmol/L (136-145)
[2021-07-29 06:16] LABS: Calcium 9.6 mg/dL (7.8-10.44); Glucose 144 mg/dL (83-110)
[2021-07-29] MEDS: Mometasone 100 MCG/Formoterol 5 MCG 120 PUFF INHALER INH SCH ×2 (07:40→19:00)
[2021-07-29] MEDS: Rosuvastatin 10 MG TAB PO SCH (09:11)
[2021-07-29] MEDS: Aspirin 81 mg Enteric Coated Tablet PO SCH (09:11)
[2021-07-29] MEDS: DULoxetine 60 MG CAP PO SCH (09:11)
[2021-07-29] MEDS ORDERED: Docusate 100 MG CAP PO SCH ×2 (11:45→12:00)
[2021-07-29] MEDS: HYDROcodone/Acetaminophen 7.5/325 mg Tablet PO SCH ×2 (12:06→20:43)
[2021-07-29] MEDS: Baclofen 10 MG TAB PO SCH (20:44)
[2021-07-29] MEDS: Docusate 100 MG CAP PO SCH (20:45)
[2021-07-30] MEDS ORDERED: Ondansetron ODT 4 MG TAB PO PRN (01:06)
[2021-07-30 07:23] VITALS: TEMP 96.8
[2021-07-30] MEDS: Mometasone 100 MCG/Formoterol 5 MCG 120 PUFF INHALER INH SCH (07:31)
[2021-07-30 07:39] LABS: Anion Gap 19 mmol/L (10-20); BUN (Urea Nitrogen) 12 mg/dL (9.8-20.1); Calc. Creatinine Clearance 135 mL/min (70-130); Calcium 9.6 mg/dL (7.8-10.44); Carbon Dioxide 19 mmol/L (23-31); Chloride 100 mmol/L (98-107); Glucose 137 mg/dL (83-110); Potassium 5.5 mmol/L (3.5-5.1); Sodium 132 mmol/L (136-145)
[2021-07-30] MEDS: Rosuvastatin 10 MG TAB PO SCH (07:56)
[2021-07-30] MEDS: Baclofen 10 MG TAB PO SCH (07:56)
[2021-07-30] MEDS: Aspirin 81 mg Enteric Coated Tablet PO SCH (07:56)
[2021-07-30] MEDS: DULoxetine 60 MG CAP PO SCH (07:56)
[2021-07-30] MEDS: Docusate 100 MG CAP PO SCH (07:57)
[2021-07-30] MEDS ORDERED: LOKELMA 10 GM PACKET PO SCH (09:30)
[2021-07-30] MEDS: HumaLOG 300 UNITS/3 ML VIAL SC PRN (10:21)
[2021-07-30] MEDS: HYDROcodone/Acetaminophen 7.5/325 mg Tablet PO SCH (11:23)
[2021-07-30 11:32] VITALS: BP 153/89
== END 2021-07-30 12:22 | disposition home or self-care (01) | DRG 641 ==
LOC: ERS 15:05 → CCU 17:32 → NEURO 07-27 10:16
PROVIDERS: ADMIT Internal Medicine; ATTEND Hospitalist
PROC: 5A1D70Z Performance of Urinary Filtration, Intermittent, Less than 6 Hours Per Day (ICD-10-PCS; principal; 2021-07-26)
PROC: 06HY33Z Insertion of Infusion Device into Lower Vein, Percutaneous Approach (ICD-10-PCS; 2021-07-26)
DX: E87.5 Hyperkalemia (principal); Z66 Do not resuscitate; Z20.822 Contact with and (suspected) exposure to COVID-19; N17.9 Acute kidney failure, unspecified; I13.0 Hypertensive heart and chronic kidney disease with heart failure and stage 1 through stage 4 chronic kidney disease, or unspecified chronic kidney disease; I50.42 Chronic combined systolic (congestive) and diastolic (congestive) heart failure; R00.1 Bradycardia, unspecified; E87.1 Hypo-osmolality and hyponatremia; I25.5 Ischemic cardiomyopathy; E78.00 Pure hypercholesterolemia, unspecified; M19.90 Unspecified osteoarthritis, unspecified site; I25.10 Atherosclerotic heart disease of native coronary artery without angina pectoris; J44.9 Chronic obstructive pulmonary disease, unspecified; F41.9 Anxiety disorder, unspecified; F32.A Depression, unspecified; Z60.2 Problems related to living alone; E78.5 Hyperlipidemia, unspecified; G89.29 Other chronic pain; M54.50 Low back pain, unspecified; E11.22 Type 2 diabetes mellitus with diabetic chronic kidney disease; N18.30 Chronic kidney disease, stage 3 unspecified; D63.1 Anemia in chronic kidney disease; T50.0X5A Adverse effect of mineralocorticoids and their antagonists, initial encounter; T46.5X5A Adverse effect of other antihypertensive drugs, initial encounter; E87.6 Hypokalemia; R00.0 Tachycardia, unspecified; Z86.718 Personal history of other venous thrombosis and embolism; Z85.3 Personal history of malignant neoplasm of breast; Z92.21 Personal history of antineoplastic chemotherapy; Z92.3 Personal history of irradiation; Z98.42 Cataract extraction status, left eye; Z98.41 Cataract extraction status, right eye; Z90.49 Acquired absence of other specified parts of digestive tract; Z95.1 Presence of aortocoronary bypass graft; Z90.710 Acquired absence of both cervix and uterus; Z90.12 Acquired absence of left breast and nipple; Z99.81 Dependence on supplemental oxygen; Z88.0 Allergy status to penicillin; Z91.018 Allergy to other foods; Z79.899 Other long term (current) drug therapy; Z79.4 Long term (current) use of insulin; Z79.51 Long term (current) use of inhaled steroids; Z98.890 Other specified postprocedural states; Z82.49 Family history of ischemic heart disease and other diseases of the circulatory system
CPT/HCPCS: 36415; 36416; 36600; 71045; 80048; 80053; 81003; 82553; 82805; 83605; 83735; 84484; 85025; 86706; 87340; 90935; 93005; 96361; 96374; 96375; 99292; G0257; J0610; J1642; J1644; J1815; J1940; J2270; J3475; J7050; J7070; J7999; U0002

== ENCOUNTER 2021-08-05 07:06 | Inpatient (IN) | payer MEDICARE, MEDICAID ==
[2021-08-05 08:00] LABS: Hemoglobin 11.4 g/dL (12.0-16.0); Mean Corpuscular HGB CONC 30.9 g/dL (32.0-36.0); Mean Corpuscular Hemoglobin 26.2 pg (27.0-31.0); Mean Corpuscular Volume 84.8 fL (78.0-98.0); Mean Platelet Volume 8.6 fL (7.4-10.4); Platelet Count 293 thou/uL (130-400); RBC Distribution Width 16.5 % (11.5-14.5); Red Blood Cell (RBC) Count 4.37 mill/uL (4.20-5.40)
[2021-08-05 08:17] LABS: ALT (SGPT) 27 U/L (8-55); AST (SGOT) 35 U/L (5-34); Albumin 3.4 g/dL (3.4-4.8); Alkaline Phosphatase 84 U/L (40-110); Anion Gap 18 mmol/L (10-20); BUN (Urea Nitrogen) 46 mg/dL (9.8-20.1); Bilirubin, Total 0.3 mg/dL (0.2-1.2); CK (CPK) 867 U/L (29-168); Calc. Creatinine Clearance 0 mL/min (70-130); Carbon Dioxide 24 mmol/L (23-31); Chloride 98 mmol/L (98-107); Globulin 3.4 g/dL (2.4-3.5); Glucose 105 mg/dL (83-110); Lipase 37 U/L (8-78); Magnesium 1.4 mg/dL (1.6-2.6); Potassium 3.7 mmol/L (3.5-5.1); Protein, Total 6.8 g/dL (5.8-8.1); Sodium 136 mmol/L (136-145)
[2021-08-05 08:22] LABS: Band 7 % (5-11); Eosinophils 4 % (0-10); Hypochromia SLIGHT = 6-15 cells (100X) (0-5/hpf); Lymphocytes 17 % (21-51); MDiff Complete? YES; Monocytes 24 % (0-10); Neutrophil 34 % (42-75); Ovalocytes SLIGHT = 2-5 cells (100X) (0-1/hpf); Platelet Morphology Comment Appears Adequate; Polychromasia SLIGHT = 2-3 cells (100X) (0-2/hpf); Reactive Lymphocytes 12 % (0-10)
[2021-08-05 08:23] LABS: Bilirubin Negative (Negative); Blood, Urine Negative (Negative); Clarity Clear (Clear); Glucose, Urine (Dipstick) Normal (Negative); Ketone, Urine Negative (Negative); Leukocyte Negative Leu/uL (Negative); Nitrite Negative (Negative); Protein, Urine (Dipstick) Negative (Neg-Trace); Specific Gravity, Urine 1.008 (1.002-1.036); Urobilinogen Normal mg/dL (Less than 2)
[2021-08-05 08:42] LABS: CKMB 10.3 ng/mL (0-6.6)
[2021-08-05] MEDS ORDERED: HumaLOG 300 UNITS/3 ML VIAL SC PRN (12:21)
[2021-08-05] MEDS ORDERED: Dextrose 50% Abboject 50 ML SYRINGE SLOW IVP PRN (12:21)
[2021-08-05] MEDS ORDERED: Dextrose 5% in Water 1,000 ML IV PRN (12:21)
[2021-08-05] MEDS ORDERED: Ondansetron ODT 4 MG TAB PO PRN (12:23)
[2021-08-05] MEDS ORDERED: Electrolyte Replacement Protocol 1 EACH FS SCH (12:30)
[2021-08-05] MEDS ORDERED: Magnesium 2 GM/50 ML(in water) 2 GM in Premix Bag 1 BAG IVPB SCH (12:30)
[2021-08-05] MEDS ORDERED: Magnesium 2 GM/50 ML BAG (IN WATER) ONE (12:52)
[2021-08-05 13:00] LABS: Troponin I 0.152 ng/mL (< 0.028)
[2021-08-05] MEDS ORDERED: Sodium Chloride 0.9% 1,000 ML IV SCH (14:30)
[2021-08-05 16:53] LABS: Troponin I 0.129 ng/mL (< 0.028)
[2021-08-05 17:29] VITALS: BMI 26.3
[2021-08-05] MEDS: Heparin 5,000 UNITS/ML VIAL SC SCH ×2 (17:54→21:28)
[2021-08-05] MEDS ORDERED: Benzonatate 100 MG CAP PO PRN (18:37)
[2021-08-05] MEDS ORDERED: Albuterol 200 PUFF (6.7GM INHALER) INH PRN (18:37)
[2021-08-05] MEDS ORDERED: Nitroglycerin 0.4 MG TAB (25 Tab Bottle) SL PRN (18:38)
[2021-08-05] MEDS: guaiFENesin/DM ER PO SCH (21:28)
[2021-08-06] MEDS: HumaLOG 300 UNITS/3 ML VIAL SC PRN (06:59)
[2021-08-06] MEDS: Mometasone 100 MCG/Formoterol 5 MCG 120 PUFF INHALER INH SCH ×2 (10:23→22:04)
[2021-08-06] MEDS: Heparin 5,000 UNITS/ML VIAL SC SCH ×3 (10:26→21:41)
[2021-08-06] MEDS: DULoxetine 60 MG CAP PO SCH (10:29)
[2021-08-06] MEDS: Magnesium Oxide 400 MG TAB PO SCH (10:29)
[2021-08-06] MEDS: Ascorbic Acid 500 mg Chewable Tablet PO SCH (10:29)
[2021-08-06] MEDS: Rosuvastatin 10 MG TAB PO SCH (10:30)
[2021-08-06] MEDS: Aspirin 81 mg Enteric Coated Tablet PO SCH (10:30)
[2021-08-06] MEDS: guaiFENesin/DM ER PO SCH ×2 (10:30→21:40)
[2021-08-06 16:11] LABS: #Eosinphils 0.2 thou/uL (0.0-0.7); #Lymphocytes 1.2 thou/uL (1.20-3.40); #Monocytes 0.7 thou/uL (0.11-0.59); #Neutrophils 4.2 thou/uL (1.40-6.50); %Basophils 0.1 % (0.0-1.0); %Lymphocytes 18.6 % (21.0-51.0); %Monocytes 11.6 % (0.0-10.0); %Neutrophils 66.7 % (42.0-75.0); Hemoglobin 10.6 g/dL (12.0-16.0); Mean Corpuscular HGB CONC 30.9 g/dL (32.0-36.0); Mean Corpuscular Hemoglobin 26.5 pg (27.0-31.0); Mean Corpuscular Volume 85.7 fL (78.0-98.0); Mean Platelet Volume 8.7 fL (7.4-10.4); Platelet Count 254 thou/uL (130-400); RBC Distribution Width 16.2 % (11.5-14.5); Red Blood Cell (RBC) Count 3.99 mill/uL (4.20-5.40); White Blood Cell (WBC) Count 6.3 thou/uL (4.8-10.8)
[2021-08-06 16:32] LABS: ALT (SGPT) 28 U/L (8-55); AST (SGOT) 38 U/L (5-34); Albumin 2.9 g/dL (3.4-4.8); Alkaline Phosphatase 88 U/L (40-110); Anion Gap 14 mmol/L (10-20); BUN (Urea Nitrogen) 41 mg/dL (9.8-20.1); Bilirubin, Total 0.2 mg/dL (0.2-1.2); Calc. Creatinine Clearance 24 mL/min (70-130); Calcium 8.1 mg/dL (7.8-10.44); Carbon Dioxide 24 mmol/L (23-31); Chloride 98 mmol/L (98-107); Estimated GFR 24; Globulin 3.1 g/dL (2.4-3.5); Glucose 223 mg/dL (83-110); Magnesium 1.6 mg/dL (1.6-2.6); Potassium 3.4 mmol/L (3.5-5.1); Sodium 133 mmol/L (136-145)
[2021-08-06] MEDS: Acetaminophen 325 MG TAB PO PRN (21:40)
[2021-08-06] MEDS ORDERED: HYDROcodone/Acetaminophen 7.5/325 mg Tablet PO SCH (23:45)
[2021-08-07 05:18] LABS: #Eosinphils 0.3 thou/uL (0.0-0.7); #Lymphocytes 1.5 thou/uL (1.20-3.40); #Monocytes 0.8 thou/uL (0.11-0.59); #Neutrophils 4.4 thou/uL (1.40-6.50); %Basophils 0.3 % (0.0-1.0); %Eosinophils 4.9 % (0.0-10.0); %Lymphocytes 20.4 % (21.0-51.0); %Monocytes 11.7 % (0.0-10.0); %Neutrophils 62.6 % (42.0-75.0); Hemoglobin 10.3 g/dL (12.0-16.0); Mean Corpuscular HGB CONC 31.3 g/dL (32.0-36.0); Mean Corpuscular Hemoglobin 26.8 pg (27.0-31.0); Mean Corpuscular Volume 85.5 fL (78.0-98.0); Mean Platelet Volume 9.4 fL (7.4-10.4); Platelet Count 255 thou/uL (130-400); RBC Distribution Width 16.4 % (11.5-14.5); Red Blood Cell (RBC) Count 3.87 mill/uL (4.20-5.40); White Blood Cell (WBC) Count 7.1 thou/uL (4.8-10.8)
[2021-08-07 05:59] LABS: ALT (SGPT) 28 U/L (8-55); AST (SGOT) 39 U/L (5-34); Albumin 2.9 g/dL (3.4-4.8); Alkaline Phosphatase 87 U/L (40-110); Anion Gap 17 mmol/L (10-20); BUN (Urea Nitrogen) 40 mg/dL (9.8-20.1); Bilirubin, Total 0.3 mg/dL (0.2-1.2); CK (CPK) 274 U/L (29-168); Calc. Creatinine Clearance 26 mL/min (70-130); Calcium 8.2 mg/dL (7.8-10.44); Carbon Dioxide 21 mmol/L (23-31); Chloride 98 mmol/L (98-107); Estimated GFR 26; Globulin 3.3 g/dL (2.4-3.5); Glucose 126 mg/dL (83-110); Magnesium 1.7 mg/dL (1.6-2.6); Protein, Total 6.2 g/dL (5.8-8.1); Sodium 132 mmol/L (136-145)
[2021-08-07] MEDS: Ascorbic Acid 500 mg Chewable Tablet PO SCH (08:57)
[2021-08-07] MEDS: DULoxetine 60 MG CAP PO SCH (08:58)
[2021-08-07] MEDS: Heparin 5,000 UNITS/ML VIAL SC SCH ×3 (08:58→20:21)
[2021-08-07] MEDS: guaiFENesin/DM ER PO SCH ×2 (08:58→20:21)
[2021-08-07] MEDS: Aspirin 81 mg Enteric Coated Tablet PO SCH (08:58)
[2021-08-07] MEDS: Rosuvastatin 10 MG TAB PO SCH (08:59)
[2021-08-07] MEDS: Magnesium Oxide 400 MG TAB PO SCH (08:59)
[2021-08-07] MEDS: HYDROcodone/Acetaminophen 7.5/325 mg Tablet PO SCH ×2 (09:00→20:20)
[2021-08-07] MEDS: Mometasone 100 MCG/Formoterol 5 MCG 120 PUFF INHALER INH SCH ×2 (09:39→18:15)
[2021-08-08] MEDS: Acetaminophen 325 MG TAB PO PRN ×2 (00:33→14:43)
[2021-08-08] MEDS: Mometasone 100 MCG/Formoterol 5 MCG 120 PUFF INHALER INH SCH ×2 (05:35→18:20)
[2021-08-08] MEDS: DULoxetine 60 MG CAP PO SCH (09:06)
[2021-08-08] MEDS: Magnesium Oxide 400 MG TAB PO SCH (09:06)
[2021-08-08] MEDS: Heparin 5,000 UNITS/ML VIAL SC SCH ×3 (09:06→20:00)
[2021-08-08] MEDS: Ascorbic Acid 500 mg Chewable Tablet PO SCH (09:06)
[2021-08-08] MEDS: guaiFENesin/DM ER PO SCH ×2 (09:07→20:00)
[2021-08-08] MEDS: Aspirin 81 mg Enteric Coated Tablet PO SCH (09:07)
[2021-08-08] MEDS: Rosuvastatin 10 MG TAB PO SCH (09:07)
[2021-08-08] MEDS: HYDROcodone/Acetaminophen 7.5/325 mg Tablet PO SCH ×2 (09:08→19:59)
[2021-08-08 11:09] LABS: Hemoglobin 11.7 g/dL (12.0-16.0); Mean Corpuscular HGB CONC 30.3 g/dL (32.0-36.0); Mean Corpuscular Hemoglobin 26.4 pg (27.0-31.0); Mean Corpuscular Volume 87.3 fL (78.0-98.0); Mean Platelet Volume 8.7 fL (7.4-10.4); Platelet Count 241 thou/uL (130-400); RBC Distribution Width 16.5 % (11.5-14.5); Red Blood Cell (RBC) Count 4.43 mill/uL (4.20-5.40)
[2021-08-08 11:22] LABS: Anion Gap 16 mmol/L (10-20); BUN (Urea Nitrogen) 38 mg/dL (9.8-20.1); Calc. Creatinine Clearance 28 mL/min (70-130); Calcium 8.8 mg/dL (7.8-10.44); Carbon Dioxide 20 mmol/L (23-31); Estimated GFR 28; Glucose 249 mg/dL (83-110); Potassium 4.1 mmol/L (3.5-5.1); Sodium 130 mmol/L (136-145)
[2021-08-08 11:28] LABS: MDiff Complete? YES; White Blood Cell (WBC) Count 8.7 thou/uL (4.8-10.8)
[2021-08-08 11:29] LABS: Band 18 % (5-11); Hypochromia SLIGHT = 6-15 cells (100X) (0-5/hpf); Lymphocytes 7 % (21-51); Monocytes 4 % (0-10); Neutrophil 71 % (42-75); Platelet Morphology Comment Appears Adequate; Polychromasia SLIGHT = 2-3 cells (100X) (0-2/hpf); Target Cells SLIGHT = 2-5 cells (100X) (0-1/hpf)
[2021-08-08 11:37] LABS: Chloride 98 mmol/L (98-107)
[2021-08-08] MEDS: HumaLOG 300 UNITS/3 ML VIAL SC PRN (11:57)
[2021-08-09] MEDS: Acetaminophen 325 MG TAB PO PRN (05:27)
[2021-08-09 08:20] LABS: #Eosinphils 0.1 thou/uL (0.0-0.7); #Lymphocytes 0.9 thou/uL (1.20-3.40); #Monocytes 0.6 thou/uL (0.11-0.59); #Neutrophils 9.2 thou/uL (1.40-6.50); %Eosinophils 0.6 % (0.0-10.0); %Lymphocytes 8.7 % (21.0-51.0); %Monocytes 5.5 % (0.0-10.0); %Neutrophils 85.2 % (42.0-75.0); Hemoglobin 11.2 g/dL (12.0-16.0); Mean Corpuscular HGB CONC 30.5 g/dL (32.0-36.0); Mean Corpuscular Hemoglobin 26.2 pg (27.0-31.0); Mean Corpuscular Volume 86.1 fL (78.0-98.0); Mean Platelet Volume 8.8 fL (7.4-10.4); Platelet Count 219 thou/uL (130-400); RBC Distribution Width 16.6 % (11.5-14.5); Red Blood Cell (RBC) Count 4.28 mill/uL (4.20-5.40); White Blood Cell (WBC) Count 10.8 thou/uL (4.8-10.8)
[2021-08-09 08:25] LABS: Anion Gap 18 mmol/L (10-20); BUN (Urea Nitrogen) 37 mg/dL (9.8-20.1); Calc. Creatinine Clearance 31 mL/min (70-130); Calcium 8.8 mg/dL (7.8-10.44); Carbon Dioxide 19 mmol/L (23-31); Chloride 99 mmol/L (98-107); Estimated GFR 32; Glucose 116 mg/dL (83-110); Sodium 131 mmol/L (136-145)
[2021-08-09] MEDS: DULoxetine 60 MG CAP PO SCH (09:30)
[2021-08-09] MEDS: Magnesium Oxide 400 MG TAB PO SCH (09:30)
[2021-08-09] MEDS: Rosuvastatin 10 MG TAB PO SCH (09:30)
[2021-08-09] MEDS: guaiFENesin/DM ER PO SCH (09:30)
[2021-08-09] MEDS: Ascorbic Acid 500 mg Chewable Tablet PO SCH (09:31)
[2021-08-09] MEDS: Aspirin 81 mg Enteric Coated Tablet PO SCH (09:31)
[2021-08-09] MEDS: HYDROcodone/Acetaminophen 7.5/325 mg Tablet PO SCH (09:31)
[2021-08-09] MEDS: Mometasone 100 MCG/Formoterol 5 MCG 120 PUFF INHALER INH SCH (09:35)
[2021-08-09] MEDS: Heparin 5,000 UNITS/ML VIAL SC SCH ×2 (09:36→14:41)
[2021-08-09] MEDS ORDERED: Nitrofurantoin Monohyd/M-Cryst 100 MG CAP PO SCH (10:30)
[2021-08-09 15:31] VITALS: BP 107/56; TEMP 97.6
== END 2021-08-09 15:15 | disposition home or self-care (01) | DRG 683 ==
LOC: ERS 07:06 → ERHOLD 10:55 → 2NO 15:55
PROVIDERS: ADMIT Hospitalist; ATTEND Hospitalist
DX: N17.9 Acute kidney failure, unspecified (principal); I13.0 Hypertensive heart and chronic kidney disease with heart failure and stage 1 through stage 4 chronic kidney disease, or unspecified chronic kidney disease; I50.32 Chronic diastolic (congestive) heart failure; J96.11 Chronic respiratory failure with hypoxia; E87.5 Hyperkalemia; N18.4 Chronic kidney disease, stage 4 (severe); Z66 Do not resuscitate; E78.00 Pure hypercholesterolemia, unspecified; M19.90 Unspecified osteoarthritis, unspecified site; F41.9 Anxiety disorder, unspecified; C50.919 Malignant neoplasm of unspecified site of unspecified female breast; F32.A Depression, unspecified; I25.10 Atherosclerotic heart disease of native coronary artery without angina pectoris; J44.9 Chronic obstructive pulmonary disease, unspecified; M54.50 Low back pain, unspecified; D63.1 Anemia in chronic kidney disease; E78.5 Hyperlipidemia, unspecified; E83.42 Hypomagnesemia; G89.29 Other chronic pain; E11.22 Type 2 diabetes mellitus with diabetic chronic kidney disease; R30.0 Dysuria; E11.649 Type 2 diabetes mellitus with hypoglycemia without coma; R77.8 Other specified abnormalities of plasma proteins; Z98.42 Cataract extraction status, left eye; Z98.41 Cataract extraction status, right eye; Z88.5 Allergy status to narcotic agent; Z90.49 Acquired absence of other specified parts of digestive tract; Z79.4 Long term (current) use of insulin; Z88.0 Allergy status to penicillin; Z99.81 Dependence on supplemental oxygen; Z79.51 Long term (current) use of inhaled steroids; Z91.014 Allergy to mammalian meats
CPT/HCPCS: 36415; 36416; 51701; 71045; 76770; 80048; 80053; 81003; 82550; 82553; 83605; 83690; 83735; 83880; 84443; 84484; 85025; 87040; 87077; 87086; 87149; 93005; 96360; 96361; J1644; J1815; J3475; J7050; U0003; U0005

== ENCOUNTER 2021-08-19 16:08 | Emergency (ER) | payer MEDICARE, MEDICAID ==
[2021-08-19] MEDS ORDERED: Apixaban 5 MG TAB PO SCH (19:00)
== END 2021-08-19 19:10 | disposition home or self-care (01) ==
LOC: ERS 16:08
DX: I82.621 Acute embolism and thrombosis of deep veins of right upper extremity (principal); I11.0 Hypertensive heart disease with heart failure; I50.9 Heart failure, unspecified; E11.9 Type 2 diabetes mellitus without complications; E78.00 Pure hypercholesterolemia, unspecified; M19.90 Unspecified osteoarthritis, unspecified site; D64.9 Anemia, unspecified; J44.9 Chronic obstructive pulmonary disease, unspecified; I25.119 Atherosclerotic heart disease of native coronary artery with unspecified angina pectoris; Z85.3 Personal history of malignant neoplasm of breast; Z79.4 Long term (current) use of insulin
CPT/HCPCS: 71045; 93005

== ENCOUNTER 2021-08-23 17:50 | Inpatient (IN) | payer MEDICARE, MEDICAID ==
[~2021-08-23 17:50] MED LIST changes: -Heparin 10,000 UNITS/ 10 ML VIAL ONE; +Iopamidol-370 76% 500 ML 1 ML ONE
[2021-08-23 19:29] LABS: #Eosinphils 0.1 thou/uL (0.0-0.7); #Lymphocytes 1.7 thou/uL (1.20-3.40); #Monocytes 1.5 thou/uL (0.11-0.59); #Neutrophils 10.8 thou/uL (1.40-6.50); %Basophils 0.1 % (0.0-1.0); %Eosinophils 0.9 % (0.0-10.0); %Lymphocytes 11.9 % (21.0-51.0); %Monocytes 10.5 % (0.0-10.0); %Neutrophils 76.6 % (42.0-75.0); Hemoglobin 9.1 g/dL (12.0-16.0); Mean Corpuscular HGB CONC 31.8 g/dL (32.0-36.0); Mean Corpuscular Hemoglobin 26.3 pg (27.0-31.0); Mean Corpuscular Volume 82.9 fL (78.0-98.0); Platelet Count 467 thou/uL (130-400); RBC Distribution Width 15.9 % (11.5-14.5); Red Blood Cell (RBC) Count 3.45 mill/uL (4.20-5.40); White Blood Cell (WBC) Count 14.1 thou/uL (4.8-10.8)
[2021-08-23 19:56] LABS: ALT (SGPT) 91 U/L (8-55); AST (SGOT) 152 U/L (5-34); Albumin 2.4 g/dL (3.4-4.8); Alkaline Phosphatase 122 U/L (40-110); Anion Gap 16 mmol/L (10-20); BUN (Urea Nitrogen) 26 mg/dL (9.8-20.1); Bilirubin, Total 0.7 mg/dL (0.2-1.2); Calc. Creatinine Clearance 0 mL/min (70-130); Calcium 8.4 mg/dL (7.8-10.44); Carbon Dioxide 27 mmol/L (23-31); Chloride 95 mmol/L (98-107); Estimated GFR 55; Glucose 91 mg/dL (83-110); Protein, Total 6.4 g/dL (5.8-8.1); Sodium 135 mmol/L (136-145)
[2021-08-23 19:58] LABS: Potassium 2.8 mmol/L (3.5-5.1)
[2021-08-23 20:08] LABS: Bacteria/HPF 4+ HPF (None Seen); Bilirubin Negative (Negative); Blood, Urine 1+ (Negative); Clarity Extra Turbid (Clear); Glucose, Urine (Dipstick) Normal (Negative); Ketone, Urine Negative (Negative); Leukocyte 500 Leu/uL (Negative); Nitrite Negative (Negative); Protein, Urine (Dipstick) 100 mg/dL (Neg-Trace); Specific Gravity, Urine 1.015 (1.002-1.036); Squamous Epithelial None Seen HPF (0-3); WBC/HPF Greater than 50 HPF (0-3)
[2021-08-23 20:12] LABS: CKMB 2.2 ng/mL (0-6.6)
[2021-08-23] MEDS ORDERED: Morphine 4 MG/ML VIAL ONE (21:05)
[2021-08-23] MEDS ORDERED: cefTRIAXone\\ROCEPHIN 2 GM VIAL ONE (21:05)
[2021-08-23 21:09] LABS: SARS-CoV-2 NAA Rapid Test DETECTED (NotDetected)
[2021-08-23] MEDS ORDERED: Potassium Chloride 20 MEQ TAB ONE (22:10)
[2021-08-23] MEDS ORDERED: Dexamethasone 4 mg/ml Vial ONE (22:24)
[2021-08-23] MEDS ORDERED: Aspirin Chewable 81 MG TAB ONE (23:09)
[2021-08-23 23:20] LABS: Troponin I 0.367 ng/mL (< 0.028)
[2021-08-23] MEDS ORDERED: Ondansetron ODT 4 MG TAB SL PRN (23:45)
[2021-08-23] MEDS ORDERED: Magnesium 2 GM/50 ML(in water) 2 GM in Premix Bag 1 BAG IVPB SCH (23:45)
[2021-08-23] MEDS ORDERED: Ondansetron PF 4 MG/2 ML Vial IVP PRN ×2 (23:45→23:47)
[2021-08-23] MEDS ORDERED: Dextrose 5% in Water 1,000 ML IV PRN (23:49)
[2021-08-23] MEDS ORDERED: Dextrose 50% Abboject 50 ML SYRINGE SLOW IVP PRN (23:49)
[2021-08-24] MEDS ORDERED: Sodium Chloride 0.9% 250 ML IV SCH (00:45)
[2021-08-24] MEDS ORDERED: Enoxaparin Sodium 80 MG/0.8 ML SYRINGE SC SCH (01:00)
[2021-08-24 02:04] LABS: #Lymphocytes 0.9 thou/uL (1.20-3.40); #Monocytes 0.3 thou/uL (0.11-0.59); #Neutrophils 12.1 thou/uL (1.40-6.50); %Basophils 0.1 % (0.0-1.0); %Eosinophils 0.1 % (0.0-10.0); %Lymphocytes 6.7 % (21.0-51.0); %Monocytes 2.3 % (0.0-10.0); %Neutrophils 90.8 % (42.0-75.0); Hemoglobin 8.8 g/dL (12.0-16.0); Mean Corpuscular HGB CONC 31.3 g/dL (32.0-36.0); Mean Corpuscular Hemoglobin 26.1 pg (27.0-31.0); Mean Corpuscular Volume 83.5 fL (78.0-98.0); Platelet Count 447 thou/uL (130-400); RBC Distribution Width 15.9 % (11.5-14.5); Red Blood Cell (RBC) Count 3.35 mill/uL (4.20-5.40); White Blood Cell (WBC) Count 13.3 thou/uL (4.8-10.8)
[2021-08-24] MEDS ORDERED: Albuterol Sulfate 2.5 mg/3 ml Neb NEB PRN (02:23)
[2021-08-24 02:31] LABS: Troponin I 0.371 ng/mL (< 0.028)
[2021-08-24 02:49] LABS: ALT (SGPT) 87 U/L (8-55); AST (SGOT) 153 U/L (5-34); Albumin 2.3 g/dL (3.4-4.8); Alkaline Phosphatase 116 U/L (40-110); Anion Gap 19 mmol/L (10-20); BUN (Urea Nitrogen) 26 mg/dL (9.8-20.1); Bilirubin, Direct 0.4 mg/dL (0.1-0.3); Bilirubin, Total 0.5 mg/dL (0.2-1.2); Calc. Creatinine Clearance 60 mL/min (70-130); Calcium 8.1 mg/dL (7.8-10.44); Carbon Dioxide 21 mmol/L (23-31); Chloride 98 mmol/L (98-107); Estimated GFR 69; Glucose 90 mg/dL (83-110); Magnesium 1.5 mg/dL (1.6-2.6); Potassium 3.3 mmol/L (3.5-5.1); Protein, Total 5.9 g/dL (5.8-8.1); Sodium 135 mmol/L (136-145)
[2021-08-24] MEDS ORDERED: Midodrine HCl 5 MG TAB PO SCH (03:00)
[2021-08-24] MEDS: Acetaminophen 325 MG TAB PO PRN ×3 (03:58→23:59)
[2021-08-24] MEDS ORDERED: NOREPINEPHRINE 8 MG/250 ML-D5W 250 ML IVPB SCH (06:30)
[2021-08-24] MEDS ORDERED: Electrolyte Replacement Protocol 1 EACH FS SCH (07:00)
[2021-08-24] MEDS ORDERED: Potassium Chloride 20 MEQ TAB PO SCH (07:30)
[2021-08-24] MEDS ORDERED: Heparin 1,000 UNITS/ML VIAL ONE (07:44)
[2021-08-24] MEDS ORDERED: Magnesium 2 GM/50 ML(in water) 2 GM in Premix Bag 1 BAG IVPB SCH (07:45)
[2021-08-24] MEDS: Enoxaparin Sodium 80 MG/0.8 ML SYRINGE SC SCH ×2 (09:49→20:05)
[2021-08-24] MEDS: Potassium Chloride 20 MEQ in Premix Bag 1 BAG IVPB SCH ×2 (10:12→12:24)
[2021-08-24] MEDS ORDERED: DOPamine 400 MG/D5W 250 ML 250 ML IVPB SCH (14:00)
[2021-08-24] MEDS: VANCOMYCIN 1.25 GM/250 ML BAG 1.25 GM in Premix Bag 1 BAG IVPB SCH (14:05)
[2021-08-24] MEDS ORDERED: Meclizine HCl 25 MG TAB PO PRN (14:59)
[2021-08-24] MEDS: Albuterol 200 PUFF (6.7GM INHALER) INH SCH ×2 (18:23→19:35)
[2021-08-24] MEDS: Mometasone 100 MCG/Formoterol 5 MCG 120 PUFF INHALER INH SCH (18:29)
[2021-08-24] MEDS: cefTRIAXone\\ROCEPHIN 1 GM in Sodium Chloride 0.9% 100 ML IVPB SCH (20:05)
[2021-08-24] MEDS: Senokot S 8.6-50 MG TAB PO SCH (20:05)
[2021-08-24] MEDS: HumaLOG 300 UNITS/3 ML VIAL SC PRN (20:34)
[2021-08-25 04:01] LABS: #Lymphocytes 1.3 thou/uL (1.20-3.40); #Monocytes 0.9 thou/uL (0.11-0.59); #Neutrophils 14.8 thou/uL (1.40-6.50); %Eosinophils 0.2 % (0.0-10.0); %Lymphocytes 7.6 % (21.0-51.0); %Monocytes 5.4 % (0.0-10.0); %Neutrophils 86.9 % (42.0-75.0); Hemoglobin 10.8 g/dL (12.0-16.0); Mean Corpuscular HGB CONC 30.8 g/dL (32.0-36.0); Mean Corpuscular Hemoglobin 26.4 pg (27.0-31.0); Mean Corpuscular Volume 85.9 fL (78.0-98.0); Mean Platelet Volume 8.2 fL (7.4-10.4); Platelet Count 663 thou/uL (130-400); RBC Distribution Width 16.4 % (11.5-14.5); Red Blood Cell (RBC) Count 4.08 mill/uL (4.20-5.40); White Blood Cell (WBC) Count 17.1 thou/uL (4.8-10.8)
[2021-08-25 04:09] LABS: Phosphorus 4.5 mg/dL (2.3-4.7)
[2021-08-25 04:15] LABS: ALT (SGPT) 92 U/L (8-55); AST (SGOT) 89 U/L (5-34); Albumin 2.7 g/dL (3.4-4.8); Alkaline Phosphatase 130 U/L (40-110); Anion Gap 22 mmol/L (10-20); BUN (Urea Nitrogen) 41 mg/dL (9.8-20.1); Bilirubin, Total 0.3 mg/dL (0.2-1.2); CRP (Inflammatory) 22.73 mg/dL (= or < 0.5); Calc. Creatinine Clearance 40 mL/min (70-130); Calcium 8.8 mg/dL (7.8-10.44); Carbon Dioxide 18 mmol/L (23-31); Chloride 95 mmol/L (98-107); Estimated GFR 42; Glucose 332 mg/dL (83-110); Magnesium 2.1 mg/dL (1.6-2.6); Potassium 3.9 mmol/L (3.5-5.1); Protein, Total 6.7 g/dL (5.8-8.1); Sodium 131 mmol/L (136-145)
[2021-08-25] MEDS: HumaLOG 300 UNITS/3 ML VIAL SC PRN ×4 (05:45→21:21)
[2021-08-25] MEDS: Acetaminophen 325 MG TAB PO PRN ×2 (05:48→08:35)
[2021-08-25] MEDS: Albuterol 200 PUFF (6.7GM INHALER) INH SCH ×4 (07:13→19:05)
[2021-08-25] MEDS: Mometasone 100 MCG/Formoterol 5 MCG 120 PUFF INHALER INH SCH ×2 (07:13→19:06)
[2021-08-25] MEDS: Senokot S 8.6-50 MG TAB PO SCH ×2 (08:35→21:19)
[2021-08-25] MEDS: Saccharomyces boulardii 250 MG CAP PO SCH (08:35)
[2021-08-25] MEDS: Enoxaparin Sodium 80 MG/0.8 ML SYRINGE SC SCH (08:35)
[2021-08-25] MEDS: HYDROcodone/Acetaminophen 5/325 mg Tablet PO PRN ×2 (13:15→19:16)
[2021-08-25] MEDS: VANCOMYCIN 1.25 GM/250 ML BAG 1.25 GM in Premix Bag 1 BAG IVPB SCH ×2 (14:26→16:03)
[2021-08-25 14:44] LABS: Anion Gap 17 mmol/L (10-20); BUN (Urea Nitrogen) 43 mg/dL (9.8-20.1); Calc. Creatinine Clearance 41 mL/min (70-130); Calcium 8.1 mg/dL (7.8-10.44); Carbon Dioxide 21 mmol/L (23-31); Chloride 94 mmol/L (98-107); Estimated GFR 43; Glucose 354 mg/dL (83-110); Potassium 3.4 mmol/L (3.5-5.1); Sodium 129 mmol/L (136-145)
[2021-08-25] MEDS ORDERED: HumaLOG 300 UNITS/3 ML VIAL SC PRN (18:26)
[2021-08-25] MEDS ORDERED: HYDROcodone/Acetaminophen 5/325 mg Tablet PO PRN (18:32)
[2021-08-25] MEDS ORDERED: Polyethylene Glycol 3350 17 GM Packet PO PRN (18:32)
[2021-08-25] MEDS ORDERED: Potassium Bicarbonate/Cit Ac 20 MEQ TAB PO SCH (18:45)
[2021-08-25] MEDS ORDERED: Insulin Glargine 30 UNITS/0.3 ML VIAL SC SCH (18:45)
[2021-08-25] MEDS ORDERED: Non-Formulary Item 1 EACH (Albuterol Sulfate [Proair Digihaler] 90 MCG Aer.Pw.Bas) INH SCH (21:00)
[2021-08-25] MEDS: Pregabalin 50 MG CAP PO SCH (21:19)
[2021-08-25] MEDS: Apixaban 5 MG TAB PO SCH (21:19)
[2021-08-25] MEDS: Melatonin 3 MG TAB PO PRN (21:20)
[2021-08-25] MEDS: cefTRIAXone\\ROCEPHIN 1 GM in Sodium Chloride 0.9% 100 ML IVPB SCH (21:20)
[2021-08-26] MEDS: HYDROcodone/Acetaminophen 5/325 mg Tablet PO PRN ×5 (00:51→21:23)
[2021-08-26 05:51] LABS: #Lymphocytes 1.1 thou/uL (1.20-3.40); #Monocytes 0.8 thou/uL (0.11-0.59); #Neutrophils 10.3 thou/uL (1.40-6.50); %Eosinophils 0.2 % (0.0-10.0); %Lymphocytes 9.3 % (21.0-51.0); %Monocytes 6.7 % (0.0-10.0); %Neutrophils 83.8 % (42.0-75.0); Hemoglobin 7.8 g/dL (12.0-16.0); Mean Corpuscular HGB CONC 31.2 g/dL (32.0-36.0); Mean Corpuscular Hemoglobin 25.7 pg (27.0-31.0); Mean Corpuscular Volume 82.3 fL (78.0-98.0); Mean Platelet Volume 7.9 fL (7.4-10.4); Platelet Count 521 thou/uL (130-400); RBC Distribution Width 15.9 % (11.5-14.5); Red Blood Cell (RBC) Count 3.02 mill/uL (4.20-5.40); White Blood Cell (WBC) Count 12.2 thou/uL (4.8-10.8)
[2021-08-26 06:07] LABS: AST (SGOT) 87 U/L (5-34); Anion Gap 15 mmol/L (10-20); Bilirubin, Total 0.2 mg/dL (0.2-1.2); Calcium 8.1 mg/dL (7.8-10.44); Carbon Dioxide 25 mmol/L (23-31); Chloride 97 mmol/L (98-107); Sodium 133 mmol/L (136-145)
[2021-08-26 06:14] LABS: Albumin 2.3 g/dL (3.4-4.8)
[2021-08-26 06:17] LABS: Globulin 2.7 g/dL (2.4-3.5); Glucose 197 mg/dL (83-110)
[2021-08-26 06:19] LABS: Alkaline Phosphatase 108 U/L (40-110)
[2021-08-26 06:20] LABS: Calc. Creatinine Clearance 60 mL/min (70-130); Estimated GFR 62
[2021-08-26 06:21] LABS: BUN (Urea Nitrogen) 44 mg/dL (9.8-20.1)
[2021-08-26 06:22] LABS: ALT (SGPT) 88 U/L (8-55); Magnesium 1.7 mg/dL (1.6-2.6)
[2021-08-26] MEDS: Mometasone 100 MCG/Formoterol 5 MCG 120 PUFF INHALER INH SCH ×2 (06:45→18:58)
[2021-08-26] MEDS: Albuterol 200 PUFF (6.7GM INHALER) INH SCH ×4 (07:36→18:57)
[2021-08-26] MEDS ORDERED: Magnesium 2 GM/50 ML(in water) 2 GM in Premix Bag 1 BAG IVPB SCH (08:00)
[2021-08-26] MEDS: Saccharomyces boulardii 250 MG CAP PO SCH (10:00)
[2021-08-26] MEDS: Baclofen 10 MG TAB PO SCH (10:01)
[2021-08-26] MEDS: DULoxetine 30 MG CAP PO SCH (10:01)
[2021-08-26] MEDS: Apixaban 5 MG TAB PO SCH ×2 (10:01→21:26)
[2021-08-26] MEDS: Pregabalin 50 MG CAP PO SCH ×2 (10:02→23:36)
[2021-08-26] MEDS: Senokot S 8.6-50 MG TAB PO SCH ×2 (10:02→21:26)
[2021-08-26] MEDS: Insulin Glargine 30 UNITS/0.3 ML VIAL SC SCH (10:02)
[2021-08-26 13:21] LABS: Vancomycin, Trough 14.4 ug/mL
[2021-08-26] MEDS: Cefdinir 300 MG CAP PO SCH (21:23)
[2021-08-26] MEDS ORDERED: VANCOMYCIN 1.25 GM/250 ML BAG 1.25 GM in Premix Bag 1 BAG IVPB SCH (22:00)
[2021-08-26 22:37] LABS: Vancomycin, Trough 12.1 ug/mL
[2021-08-26] MEDS: Melatonin 3 MG TAB PO PRN (23:37)
[2021-08-27] MEDS: Vancomycin 1.5 GRAM/300 ML BAG 1.5 GM in Premix Bag 1 BAG IVPB SCH (00:20)
[2021-08-27] MEDS: HYDROcodone/Acetaminophen 5/325 mg Tablet PO PRN ×5 (02:31→22:45)
[2021-08-27 06:55] LABS: #Lymphocytes 1.3 thou/uL (1.20-3.40); #Monocytes 0.9 thou/uL (0.11-0.59); #Neutrophils 7.1 thou/uL (1.40-6.50); %Basophils 0.1 % (0.0-1.0); %Eosinophils 0.5 % (0.0-10.0); %Lymphocytes 14.3 % (21.0-51.0); %Monocytes 9.6 % (0.0-10.0); %Neutrophils 75.5 % (42.0-75.0); Hemoglobin 7.7 g/dL (12.0-16.0); Mean Corpuscular HGB CONC 31.6 g/dL (32.0-36.0); Mean Corpuscular Hemoglobin 25.9 pg (27.0-31.0); Mean Corpuscular Volume 82.2 fL (78.0-98.0); Mean Platelet Volume 7.9 fL (7.4-10.4); Platelet Count 537 thou/uL (130-400); Red Blood Cell (RBC) Count 2.97 mill/uL (4.20-5.40); White Blood Cell (WBC) Count 9.4 thou/uL (4.8-10.8)
[2021-08-27 07:13] LABS: Anion Gap 16 mmol/L (10-20); BUN (Urea Nitrogen) 36 mg/dL (9.8-20.1); Calc. Creatinine Clearance 68 mL/min (70-130); Calcium 8.6 mg/dL (7.8-10.44); Carbon Dioxide 24 mmol/L (23-31); Chloride 99 mmol/L (98-107); Estimated GFR 72; Glucose 161 mg/dL (83-110); Magnesium 1.8 mg/dL (1.6-2.6); Potassium 3.9 mmol/L (3.5-5.1); Sodium 135 mmol/L (136-145)
[2021-08-27] MEDS: Mometasone 100 MCG/Formoterol 5 MCG 120 PUFF INHALER INH SCH ×2 (07:44→18:51)
[2021-08-27] MEDS: Albuterol 200 PUFF (6.7GM INHALER) INH SCH ×4 (07:44→18:51)
[2021-08-27] MEDS ORDERED: Magnesium 2 GM/50 ML(in water) 2 GM in Premix Bag 1 BAG IVPB SCH (09:00)
[2021-08-27] MEDS: Cefdinir 300 MG CAP PO SCH ×2 (09:06→21:15)
[2021-08-27] MEDS: DULoxetine 30 MG CAP PO SCH (09:06)
[2021-08-27] MEDS: Saccharomyces boulardii 250 MG CAP PO SCH (09:06)
[2021-08-27] MEDS: Pregabalin 50 MG CAP PO SCH (09:06)
[2021-08-27] MEDS: Apixaban 5 MG TAB PO SCH ×2 (09:06→21:17)
[2021-08-27] MEDS: Baclofen 10 MG TAB PO SCH (09:07)
[2021-08-27] MEDS: Senokot S 8.6-50 MG TAB PO SCH ×2 (09:07→21:15)
[2021-08-27] MEDS: Insulin Glargine 30 UNITS/0.3 ML VIAL SC SCH (09:09)
[2021-08-27] MEDS: Acetaminophen 325 MG TAB PO PRN (12:15)
[2021-08-27] MEDS: Pregabalin 75 MG CAP PO SCH (21:16)
[2021-08-28] MEDS: Vancomycin 1.5 GRAM/300 ML BAG 1.5 GM in Premix Bag 1 BAG IVPB SCH (00:37)
[2021-08-28] MEDS: HYDROcodone/Acetaminophen 5/325 mg Tablet PO PRN ×3 (05:50→19:15)
[2021-08-28] MEDS: Mometasone 100 MCG/Formoterol 5 MCG 120 PUFF INHALER INH SCH ×2 (06:42→18:55)
[2021-08-28] MEDS: Albuterol 200 PUFF (6.7GM INHALER) INH SCH ×4 (06:43→18:55)
[2021-08-28 06:51] LABS: #Eosinphils 0.1 thou/uL (0.0-0.7); #Lymphocytes 1.5 thou/uL (1.20-3.40); #Neutrophils 8.4 thou/uL (1.40-6.50); %Basophils 0.1 % (0.0-1.0); %Eosinophils 1.1 % (0.0-10.0); %Lymphocytes 13.6 % (21.0-51.0); %Monocytes 9.4 % (0.0-10.0); %Neutrophils 75.8 % (42.0-75.0); Hemoglobin 7.7 g/dL (12.0-16.0); Mean Corpuscular HGB CONC 31.4 g/dL (32.0-36.0); Mean Corpuscular Hemoglobin 25.7 pg (27.0-31.0); Mean Platelet Volume 8.1 fL (7.4-10.4); Platelet Count 540 thou/uL (130-400); Red Blood Cell (RBC) Count 3.01 mill/uL (4.20-5.40)
[2021-08-28 06:59] LABS: Anion Gap 14 mmol/L (10-20); BUN (Urea Nitrogen) 23 mg/dL (9.8-20.1); Calc. Creatinine Clearance 74 mL/min (70-130); Calcium 8.6 mg/dL (7.8-10.44); Carbon Dioxide 27 mmol/L (23-31); Chloride 100 mmol/L (98-107); Estimated GFR 83; Glucose 112 mg/dL (83-110); Magnesium 1.5 mg/dL (1.6-2.6); Potassium 3.6 mmol/L (3.5-5.1); Sodium 137 mmol/L (136-145)
[2021-08-28] MEDS: Pregabalin 75 MG CAP PO SCH ×2 (08:21→21:49)
[2021-08-28] MEDS: Cefdinir 300 MG CAP PO SCH ×2 (08:21→21:49)
[2021-08-28] MEDS: Baclofen 10 MG TAB PO SCH (08:22)
[2021-08-28] MEDS: Insulin Glargine 30 UNITS/0.3 ML VIAL SC SCH (08:22)
[2021-08-28] MEDS: Senokot S 8.6-50 MG TAB PO SCH ×2 (08:22→21:49)
[2021-08-28] MEDS: Saccharomyces boulardii 250 MG CAP PO SCH (08:22)
[2021-08-28] MEDS: DULoxetine 60 MG CAP PO SCH (08:23)
[2021-08-28] MEDS: Apixaban 5 MG TAB PO SCH ×2 (08:25→21:49)
[2021-08-28] MEDS ORDERED: Magnesium 2 GM/50 ML(in water) 2 GM in Premix Bag 1 BAG IVPB SCH (09:00)
[2021-08-28] MEDS: Melatonin 3 MG TAB PO PRN (21:48)
[2021-08-28] MEDS: Acetaminophen 325 MG TAB PO PRN (22:13)
[2021-08-29 01:13] LABS: Vancomycin, Trough 15.7 ug/mL
[2021-08-29] MEDS: Vancomycin 1.5 GRAM/300 ML BAG 1.5 GM in Premix Bag 1 BAG IVPB SCH (02:34)
[2021-08-29] MEDS: HYDROcodone/Acetaminophen 5/325 mg Tablet PO PRN ×3 (02:35→21:00)
[2021-08-29 06:10] LABS: #Eosinphils 0.3 thou/uL (0.0-0.7); #Lymphocytes 1.9 thou/uL (1.20-3.40); #Monocytes 1.1 thou/uL (0.11-0.59); #Neutrophils 10.7 thou/uL (1.40-6.50); %Basophils 0.1 % (0.0-1.0); %Eosinophils 1.9 % (0.0-10.0); %Lymphocytes 13.9 % (21.0-51.0); %Monocytes 7.7 % (0.0-10.0); %Neutrophils 76.4 % (42.0-75.0); Mean Corpuscular HGB CONC 31.2 g/dL (32.0-36.0); Mean Corpuscular Hemoglobin 25.7 pg (27.0-31.0); Mean Corpuscular Volume 82.4 fL (78.0-98.0); Mean Platelet Volume 7.9 fL (7.4-10.4); Platelet Count 551 thou/uL (130-400); RBC Distribution Width 16.4 % (11.5-14.5); Red Blood Cell (RBC) Count 3.12 mill/uL (4.20-5.40)
[2021-08-29 06:40] LABS: Anion Gap 15 mmol/L (10-20); BUN (Urea Nitrogen) 16 mg/dL (9.8-20.1); Calc. Creatinine Clearance 84 mL/min (70-130); Calcium 8.6 mg/dL (7.8-10.44); Carbon Dioxide 26 mmol/L (23-31); Chloride 101 mmol/L (98-107); Estimated GFR 87; Glucose 99 mg/dL (83-110); Magnesium 1.5 mg/dL (1.6-2.6); Potassium 3.8 mmol/L (3.5-5.1); Sodium 138 mmol/L (136-145)
[2021-08-29] MEDS: Mometasone 100 MCG/Formoterol 5 MCG 120 PUFF INHALER INH SCH ×2 (07:04→17:59)
[2021-08-29] MEDS: Albuterol 200 PUFF (6.7GM INHALER) INH SCH ×3 (07:06→17:58)
[2021-08-29] MEDS ORDERED: Magnesium 2 GM/50 ML(in water) 2 GM in Premix Bag 1 BAG IVPB SCH ×2 (09:00→14:00)
[2021-08-29] MEDS: Saccharomyces boulardii 250 MG CAP PO SCH (09:32)
[2021-08-29] MEDS: Baclofen 10 MG TAB PO SCH (09:32)
[2021-08-29] MEDS: DULoxetine 60 MG CAP PO SCH (09:33)
[2021-08-29] MEDS: Pregabalin 75 MG CAP PO SCH ×2 (09:33→21:00)
[2021-08-29] MEDS: Apixaban 5 MG TAB PO SCH (09:33)
[2021-08-29] MEDS: Insulin Glargine 30 UNITS/0.3 ML VIAL SC SCH (09:34)
[2021-08-29] MEDS: Cefdinir 300 MG CAP PO SCH (09:34)
[2021-08-29] MEDS: Senokot S 8.6-50 MG TAB PO SCH ×2 (09:36→20:51)
[2021-08-29] MEDS ORDERED: Communication Order-Pharmacy FS ONE (10:22)
[2021-08-29] MEDS ORDERED: Activase 2 MG VIAL CATH SCH (14:30)
[2021-08-29 15:02] LABS: Hemoglobin 8.6 g/dL (12.0-16.0); Platelet Count 559 thou/uL (130-400)
[2021-08-29] MEDS: HumaLOG 300 UNITS/3 ML VIAL SC PRN (17:55)
[2021-08-29] MEDS: Lidocaine 5% Patch TD SCH (20:59)
[2021-08-29] MEDS ORDERED: Enoxaparin Sodium 80 MG/0.8 ML SYRINGE SC SCH (21:00)
[2021-08-30] MEDS: Vancomycin 1.5 GRAM/300 ML BAG 1.5 GM in Premix Bag 1 BAG IVPB SCH (00:45)
[2021-08-30] MEDS: HYDROcodone/Acetaminophen 5/325 mg Tablet PO PRN ×2 (04:42→21:55)
[2021-08-30] MEDS ORDERED: Sterile Water 10 ML VIAL IVP SCH (07:00)
[2021-08-30] MEDS ORDERED: Activase 2 MG VIAL CATH SCH (07:00)
[2021-08-30] MEDS ORDERED: Sterile Water 20 ML VIAL FS SCH (07:00)
[2021-08-30] MEDS: Albuterol 200 PUFF (6.7GM INHALER) INH SCH ×3 (07:46→18:35)
[2021-08-30] MEDS: Mometasone 100 MCG/Formoterol 5 MCG 120 PUFF INHALER INH SCH ×2 (07:47→18:39)
[2021-08-30] MEDS: Saccharomyces boulardii 250 MG CAP PO SCH (09:31)
[2021-08-30] MEDS: Senokot S 8.6-50 MG TAB PO SCH ×2 (09:31→21:57)
[2021-08-30] MEDS: Baclofen 10 MG TAB PO SCH (09:31)
[2021-08-30] MEDS: Insulin Glargine 30 UNITS/0.3 ML VIAL SC SCH (09:32)
[2021-08-30] MEDS: Transdermal Patch Removal TOP SCH (09:32)
[2021-08-30] MEDS: DULoxetine 60 MG CAP PO SCH (09:32)
[2021-08-30] MEDS: Pregabalin 75 MG CAP PO SCH ×2 (09:32→21:56)
[2021-08-30] MEDS: Lidocaine 5% Patch TD SCH (21:00)
[2021-08-30] MEDS: Apixaban 5 MG TAB PO SCH (21:57)
[2021-08-30 23:38] LABS: #Eosinphils 0.3 thou/uL (0.0-0.7); #Lymphocytes 1.8 thou/uL (1.20-3.40); #Monocytes 1.1 thou/uL (0.11-0.59); #Neutrophils 8.9 thou/uL (1.40-6.50); %Basophils 0.3 % (0.0-1.0); %Eosinophils 2.6 % (0.0-10.0); %Lymphocytes 14.7 % (21.0-51.0); %Monocytes 9.4 % (0.0-10.0); %Neutrophils 72.9 % (42.0-75.0); Hemoglobin 9.8 g/dL (12.0-16.0); Mean Corpuscular HGB CONC 28.6 g/dL (32.0-36.0); Mean Corpuscular Hemoglobin 24.1 pg (27.0-31.0); Mean Corpuscular Volume 84.2 fL (78.0-98.0); Platelet Count 494 thou/uL (130-400); Red Blood Cell (RBC) Count 4.06 mill/uL (4.20-5.40); White Blood Cell (WBC) Count 12.1 thou/uL (4.8-10.8)
[2021-08-30 23:52] LABS: Vancomycin, Trough 17.9 ug/mL
[2021-08-30 23:55] LABS: Anion Gap 16 mmol/L (10-20); BUN (Urea Nitrogen) 16 mg/dL (9.8-20.1); Calc. Creatinine Clearance 84 mL/min (70-130); Calcium 8.5 mg/dL (7.8-10.44); Carbon Dioxide 25 mmol/L (23-31); Chloride 97 mmol/L (98-107); Estimated GFR 87; Glucose 115 mg/dL (83-110); Magnesium 1.5 mg/dL (1.6-2.6); Potassium 4.2 mmol/L (3.5-5.1); Sodium 134 mmol/L (136-145)
[2021-08-31] MEDS: Vancomycin 1.5 GRAM/300 ML BAG 1.5 GM in Premix Bag 1 BAG IVPB SCH ×2 (00:30→23:44)
[2021-08-31] MEDS ORDERED: Magnesium 2 GM/50 ML(in water) 2 GM in Premix Bag 1 BAG IVPB SCH (01:00)
[2021-08-31] MEDS: Albuterol 200 PUFF (6.7GM INHALER) INH SCH ×3 (07:13→19:41)
[2021-08-31] MEDS: Mometasone 100 MCG/Formoterol 5 MCG 120 PUFF INHALER INH SCH ×2 (07:14→19:42)
[2021-08-31] MEDS: Pregabalin 75 MG CAP PO SCH ×2 (10:57→20:14)
[2021-08-31] MEDS: Senokot S 8.6-50 MG TAB PO SCH ×2 (10:58→20:14)
[2021-08-31] MEDS: DULoxetine 60 MG CAP PO SCH (10:58)
[2021-08-31] MEDS: Baclofen 10 MG TAB PO SCH (10:59)
[2021-08-31] MEDS: Apixaban 5 MG TAB PO SCH ×2 (11:03→20:14)
[2021-08-31] MEDS: Saccharomyces boulardii 250 MG CAP PO SCH (11:04)
[2021-08-31] MEDS: Insulin Glargine 30 UNITS/0.3 ML VIAL SC SCH (11:04)
[2021-08-31] MEDS: Transdermal Patch Removal TOP SCH (11:14)
[2021-08-31] MEDS: HYDROcodone/Acetaminophen 5/325 mg Tablet PO PRN ×2 (12:55→20:16)
[2021-08-31] MEDS: Magnesium 2 GM/50 ML(in water) 2 GM in Premix Bag 1 BAG IVPB SCH ×2 (13:04→14:07)
[2021-08-31] MEDS: Lidocaine 5% Patch TD SCH (20:14)
[2021-08-31] MEDS: Magnesium Oxide 400 MG TAB PO SCH (20:18)
[2021-09-01] MEDS: HYDROcodone/Acetaminophen 5/325 mg Tablet PO PRN ×3 (06:13→20:52)
[2021-09-01 07:00] LABS: #Eosinphils 0.4 thou/uL (0.0-0.7); #Lymphocytes 1.6 thou/uL (1.20-3.40); #Monocytes 1.1 thou/uL (0.11-0.59); #Neutrophils 6.7 thou/uL (1.40-6.50); %Basophils 0.3 % (0.0-1.0); %Eosinophils 4.4 % (0.0-10.0); %Lymphocytes 15.8 % (21.0-51.0); %Monocytes 11.3 % (0.0-10.0); %Neutrophils 68.1 % (42.0-75.0); Hemoglobin 8.8 g/dL (12.0-16.0); Mean Corpuscular HGB CONC 30.6 g/dL (32.0-36.0); Mean Corpuscular Hemoglobin 25.8 pg (27.0-31.0); Mean Corpuscular Volume 84.3 fL (78.0-98.0); Mean Platelet Volume 7.5 fL (7.4-10.4); Platelet Count 595 thou/uL (130-400); RBC Distribution Width 16.9 % (11.5-14.5); Red Blood Cell (RBC) Count 3.41 mill/uL (4.20-5.40); White Blood Cell (WBC) Count 9.8 thou/uL (4.8-10.8)
[2021-09-01 07:17] LABS: Anion Gap 15 mmol/L (10-20); BUN (Urea Nitrogen) 12 mg/dL (9.8-20.1); Calc. Creatinine Clearance 84 mL/min (70-130); Calcium 8.2 mg/dL (7.8-10.44); Carbon Dioxide 25 mmol/L (23-31); Chloride 99 mmol/L (98-107); Estimated GFR 87; Glucose 147 mg/dL (83-110); Potassium 3.8 mmol/L (3.5-5.1); Sodium 135 mmol/L (136-145)
[2021-09-01] MEDS: Albuterol 200 PUFF (6.7GM INHALER) INH SCH ×3 (07:18→18:43)
[2021-09-01] MEDS: Mometasone 100 MCG/Formoterol 5 MCG 120 PUFF INHALER INH SCH ×2 (07:21→18:44)
[2021-09-01] MEDS ORDERED: Magnesium 2 GM/50 ML(in water) 2 GM in Premix Bag 1 BAG IVPB SCH (08:00)
[2021-09-01] MEDS: Baclofen 10 MG TAB PO SCH (08:56)
[2021-09-01] MEDS: Pregabalin 75 MG CAP PO SCH ×2 (08:57→20:49)
[2021-09-01] MEDS: Senokot S 8.6-50 MG TAB PO SCH ×2 (08:57→20:50)
[2021-09-01] MEDS: Insulin Glargine 30 UNITS/0.3 ML VIAL SC SCH (08:57)
[2021-09-01] MEDS: Saccharomyces boulardii 250 MG CAP PO SCH (08:57)
[2021-09-01] MEDS: Magnesium Oxide 400 MG TAB PO SCH ×2 (08:57→20:49)
[2021-09-01] MEDS: DULoxetine 60 MG CAP PO SCH (08:57)
[2021-09-01] MEDS: Apixaban 5 MG TAB PO SCH ×2 (08:57→20:49)
[2021-09-01] MEDS: Transdermal Patch Removal TOP SCH (08:58)
[2021-09-01] MEDS: HumaLOG 300 UNITS/3 ML VIAL SC PRN (16:59)
[2021-09-01] MEDS: Lidocaine 5% Patch TD SCH (20:48)
[2021-09-01] MEDS: Vancomycin 1.5 GRAM/300 ML BAG 1.5 GM in Premix Bag 1 BAG IVPB SCH (23:45)
[2021-09-02] MEDS: HYDROcodone/Acetaminophen 5/325 mg Tablet PO PRN ×3 (02:16→21:02)
[2021-09-02] MEDS: Albuterol 200 PUFF (6.7GM INHALER) INH SCH ×3 (07:13→18:57)
[2021-09-02] MEDS: Mometasone 100 MCG/Formoterol 5 MCG 120 PUFF INHALER INH SCH ×2 (07:14→18:58)
[2021-09-02] MEDS: Pregabalin 75 MG CAP PO SCH ×2 (08:30→20:54)
[2021-09-02] MEDS: Apixaban 5 MG TAB PO SCH ×2 (08:31→20:54)
[2021-09-02] MEDS: Saccharomyces boulardii 250 MG CAP PO SCH (08:31)
[2021-09-02] MEDS: DULoxetine 60 MG CAP PO SCH (08:31)
[2021-09-02] MEDS: Magnesium Oxide 400 MG TAB PO SCH ×2 (08:31→20:54)
[2021-09-02] MEDS: Baclofen 10 MG TAB PO SCH (08:31)
[2021-09-02] MEDS: Transdermal Patch Removal TOP SCH (08:32)
[2021-09-02] MEDS: Insulin Glargine 30 UNITS/0.3 ML VIAL SC SCH (08:32)
[2021-09-02] MEDS: Senokot S 8.6-50 MG TAB PO SCH ×2 (08:32→20:54)
[2021-09-02 09:19] VITALS: BMI 29.3
[2021-09-02] MEDS: HumaLOG 300 UNITS/3 ML VIAL SC PRN (17:14)
[2021-09-02] MEDS: Lidocaine 5% Patch TD SCH (20:53)
[2021-09-02] MEDS: Vancomycin 1.5 GRAM/300 ML BAG 1.5 GM in Premix Bag 1 BAG IVPB SCH (23:31)
[2021-09-02 23:34] LABS: Vancomycin, Trough 18.5 ug/mL
[2021-09-03] MEDS: HYDROcodone/Acetaminophen 5/325 mg Tablet PO PRN ×3 (03:29→09:12)
[2021-09-03] MEDS: Pregabalin 75 MG CAP PO SCH ×2 (08:20→09:12)
[2021-09-03] MEDS: Insulin Glargine 30 UNITS/0.3 ML VIAL SC SCH (08:20)
[2021-09-03] MEDS: DULoxetine 60 MG CAP PO SCH (08:20)
[2021-09-03] MEDS: Saccharomyces boulardii 250 MG CAP PO SCH (08:21)
[2021-09-03] MEDS: Apixaban 5 MG TAB PO SCH (08:21)
[2021-09-03] MEDS: Transdermal Patch Removal TOP SCH (08:21)
[2021-09-03] MEDS: Baclofen 10 MG TAB PO SCH ×2 (08:21→09:11)
[2021-09-03] MEDS: Magnesium Oxide 400 MG TAB PO SCH (08:21)
[2021-09-03] MEDS: Senokot S 8.6-50 MG TAB PO SCH (08:22)
[2021-09-03] MEDS ORDERED: Vancomycin 1.5 GRAM/300 ML BAG 1.5 GM in Premix Bag 1 BAG IVPB SCH (09:00)
[2021-09-03] MEDS: Albuterol 200 PUFF (6.7GM INHALER) INH SCH ×3 (11:07→19:10)
[2021-09-03] MEDS: Mometasone 100 MCG/Formoterol 5 MCG 120 PUFF INHALER INH SCH ×2 (11:07→19:10)
[2021-09-03 11:32] LABS: Anion Gap 13 mmol/L (10-20); BUN (Urea Nitrogen) 9 mg/dL (9.8-20.1); Calc. Creatinine Clearance 80 mL/min (70-130); Calcium 8.6 mg/dL (7.8-10.44); Carbon Dioxide 28 mmol/L (23-31); Chloride 99 mmol/L (98-107); Estimated GFR 86; Glucose 117 mg/dL (83-110); Potassium 4.1 mmol/L (3.5-5.1); Sodium 136 mmol/L (136-145)
[2021-09-03 17:37] VITALS: BP 112/72; TEMP 97.8
== END 2021-09-03 19:59 | disposition home health service (06) | DRG 314 ==
LOC: ERS 17:50 → 2NO 22:23 → OBSVTOIN 08-24 02:43 → CCU 08-24 06:16 → IMCU/EMU 08-24 15:38 → T4-B 08-25 17:02
PROVIDERS: ADMIT Internal Medicine; ATTEND Internal Medicine
PROC: 02HV33Z Insertion of Infusion Device into Superior Vena Cava, Percutaneous Approach (ICD-10-PCS; principal; 2021-08-24)
PROC: 3E04329 Introduction of Other Anti-infective into Central Vein, Percutaneous Approach (ICD-10-PCS; 2021-08-24)
PROC: 8E0ZXY6 Isolation (ICD-10-PCS; 2021-08-24)
PROC: 3E043XZ Introduction of Vasopressor into Central Vein, Percutaneous Approach (ICD-10-PCS; 2021-08-25)
PROC: 06HY33Z Insertion of Infusion Device into Lower Vein, Percutaneous Approach (ICD-10-PCS; 2021-08-26)
PROC: B548ZZA Ultrasonography of Superior Vena Cava, Guidance (ICD-10-PCS; 2021-08-26)
PROC: 0R9J4ZZ Drainage of Right Shoulder Joint, Percutaneous Endoscopic Approach (ICD-10-PCS; 2021-08-28)
DX: T80.211A Bloodstream infection due to central venous catheter, initial encounter (principal); A41.02 Sepsis due to Methicillin resistant Staphylococcus aureus; U07.1 COVID-19; J96.21 Acute and chronic respiratory failure with hypoxia; R65.21 Severe sepsis with septic shock; I50.33 Acute on chronic diastolic (congestive) heart failure; A41.51 Sepsis due to Escherichia coli [E. coli]; I13.0 Hypertensive heart and chronic kidney disease with heart failure and stage 1 through stage 4 chronic kidney disease, or unspecified chronic kidney disease; N39.0 Urinary tract infection, site not specified; I82.621 Acute embolism and thrombosis of deep veins of right upper extremity; E87.1 Hypo-osmolality and hyponatremia; M00.011 Staphylococcal arthritis, right shoulder; Z66 Do not resuscitate; E78.5 Hyperlipidemia, unspecified; I25.10 Atherosclerotic heart disease of native coronary artery without angina pectoris; E87.6 Hypokalemia; E83.42 Hypomagnesemia; J44.9 Chronic obstructive pulmonary disease, unspecified; E11.22 Type 2 diabetes mellitus with diabetic chronic kidney disease; N18.30 Chronic kidney disease, stage 3 unspecified; E66.9 Obesity, unspecified; I25.5 Ischemic cardiomyopathy; I34.0 Nonrheumatic mitral (valve) insufficiency; M19.211 Secondary osteoarthritis, right shoulder; G89.4 Chronic pain syndrome; F41.9 Anxiety disorder, unspecified; M65.111 Other infective (teno)synovitis, right shoulder; Z99.81 Dependence on supplemental oxygen; Z88.0 Allergy status to penicillin; Z91.018 Allergy to other foods; Z79.51 Long term (current) use of inhaled steroids; Z79.01 Long term (current) use of anticoagulants; Z79.899 Other long term (current) drug therapy; Z95.1 Presence of aortocoronary bypass graft; Z90.49 Acquired absence of other specified parts of digestive tract; Z90.710 Acquired absence of both cervix and uterus; Z98.890 Other specified postprocedural states; Z82.49 Family history of ischemic heart disease and other diseases of the circulatory system; I25.2 Old myocardial infarction; Z68.29 Body mass index [BMI] 29.0-29.9, adult; Z85.3 Personal history of malignant neoplasm of breast; Y83.8 Other surgical procedures as the cause of abnormal reaction of the patient, or of later complication, without mention of misadventure at the time of the procedure
CPT/HCPCS: 20610; 36415; 36416; 36556; 36569; 71275; 77002; 80048; 80053; 80076; 80202; 81003; 81015; 82533; 82553; 83605; 83735; 83880; 84100; 84484; 85025; 86140; 87040; 87070; 87077; 87086; 87149; 87186; 87205; 89060; 93005; 93306; 96372; 96374; 96375; 97139; C1751; G0378; J0696; J1100; J1265; J1642; J1644; J1650; J1815; J2270; J2997; J3370; J3475; J3480; J3490; J7030; Q9967; U0002